=== PATIENT | female | born 1945 | race Caucasian/White ===

== ENCOUNTER → 2017-03-07 | Outpatient (CLI) | payer MEDICARE ==
--- NOTE | 2017-03-07 16:06 | US ---
EXAMINATION TYPE: US kidneys/renal and bladder DATE OF EXAM: 03/07/2017 2:40 PM COMPARISON: NONE CLINICAL HISTORY: N19 Renal Failure. EXAM MEASUREMENTS: Right Kidney: 9.6 x 3.9 x 4.0 cm Left Kidney: 9.7 x 4.2 x 5.2 cm Renals were difficult to penetrate Right Kidney: wnl Left Kidney: wnl Bladder: wnl Bilateral Jets seen: yes There is no evidence for hydronephrosis at this point in time. No nephrolithiasis is seen. No jonathan s are identified. The urinary bladder is anechoic. Bilateral ureteral jets are seen. IMPRESSION: 1. Normal renal ultrasound 2. Examination limited due to patient body habitus.
== END | disposition home or self-care (01) ==
LOC: RADUSWWP 14:27
PROVIDERS: ATTEND Family Medicine
DX: N19 Unspecified kidney failure (principal)
CPT/HCPCS: 76770

== ENCOUNTER → 2017-05-02 | Outpatient (CLI) | payer MEDICARE ==
[2017-05-02 16:10] LABS: Basophils % (A) 0 %; CH 32.4; CHCM 33.2; Eosinophils # (A) 0.1 k/uL (0-0.7); Eosinophils % (A) 1 %; HCT 43.6 % (34.0-46.0); HDW 2.46; Luc % (Auto) 1; Lymphocytes # (A) 1.5 k/uL (1.0-4.8); Lymphocytes % (A) 14 %; MCH 31.4 pg (25.0-35.0); MCHC 32.1 g/dL (31.0-37.0); MCV 97.9 fL (80.0-100.0); Mean Platelet Volume 7.1; Monocytes # (A) 0.4 k/uL (0-1.0); Monocytes % (A) 4 %; Neutrophils # (A) 8.6 k/uL (1.3-7.7); Neutrophils % (A) 80 %; RBC 4.45 m/uL (3.80-5.40); RDW 13.4 % (11.5-15.5); WBC 10.7 k/uL (3.8-10.6); WBC (Perox) 10.96
[2017-05-02 16:17] LABS: Amorphous Sediment,Urine Rare /hpf; Appearance,Urine Clear (Clear); Bilirubin,Urine Negative (Negative); Glucose,Urine (UA) Negative (Negative); Ketones,Urine Negative (Negative); Leukocyte Esterase,Urine Negative (Negative); Nitrite,Urine Negative (Negative); Particle Count 499; Protein,Urine Negative (Negative); RBC,Urine 1 /hpf (0-5); Specific Gravity,Urine 1.002 (1.001-1.035); Squamous Epithelial Cell,Urine <1 /hpf (0-4); UA Billing (MACRO vs. MICRO) MICRO; Urobilinogen,Urine <2.0 mg/dL (<2.0); WBC,Urine 1 /hpf (0-5)
[2017-05-02 16:32] LABS: Anion Gap 9 mmol/L; Blood Urea Nitrogen 14 mg/dL (7-17); Calcium 9.4 mg/dL (8.4-10.2); Carbon Dioxide 28 mmol/L (22-30); Chloride 105 mmol/L (98-107); Glucose 103 mg/dL (74-99); Iron 169 ug/dL (37-170); Magnesium 1.8 mg/dL (1.6-2.3); Non-African American GFR(MDRD) >60 (>60 ml/min/1.73 sqM); Phosphorous 3.6 mg/dL (2.5-4.5); Potassium 4.1 mmol/L (3.5-5.1); Sodium 142 mmol/L (137-145); Uric Acid 5.4 mg/dL (3.7-7.4)
[2017-05-02 16:41] LABS: Total Iron Binding Capacity 319 ug/dL (265-497)
== END | disposition home or self-care (01) ==
LOC: LABWHC1 15:27
PROVIDERS: ATTEND Internal Medicine Nephrology
DX: N18.2 Chronic kidney disease, stage 2 (mild) (principal); R31.29 Other microscopic hematuria; N39.0 Urinary tract infection, site not specified; D64.9 Anemia, unspecified; E55.9 Vitamin D deficiency, unspecified; E83.39 Other disorders of phosphorus metabolism; M10.9 Gout, unspecified
CPT/HCPCS: 36415; 80048; 81001; 82040; 82306; 82728; 83540; 83550; 83735; 83970; 84100; 84550; 85025

== ENCOUNTER → 2017-07-09 | Outpatient (CLI) | payer MEDICARE ==
--- NOTE | 2017-07-11 08:36 | MM ---
Reason for exam: screening (asymptomatic). Last mammogram was performed 1 year ago. History: Patient is postmenopausal and history of other cancer. Family history of breast cancer in sister at age 68. Benign stereotactic core biopsy of the right breast, March 21, 2001. Core biopsy of the right breast. 2 excisional biopsies of the left breast. 3 excisional biopsies of the right breast. Took estrogen for 19 years. Physical Findings: A clinical breast exam by your physician is recommended on an annual basis and results should be correlated with mammographic findings. MG 3D Screening Mammo W/Cad Bilateral CC and MLO view(s) were taken. Prior study comparison: July 06, 2016, bilateral MG 3d screening mammo w/cad. June 16, 2015, bilateral MG diagnostic mammo w CAD KENDRICK. There are scattered fibroglandular densities. Previous mammotome biopsy within the right breast. There is chronic nodularity bilaterally. No significant changes when compared with prior studies. ASSESSMENT: Benign, BI-RAD 2 RECOMMENDATION: Routine screening mammogram of both breasts in 1 year.
== END | disposition home or self-care (01) ==
LOC: RADMAMWWP 11:35
PROVIDERS: ATTEND Surgery
DX: Z12.31 Encounter for screening mammogram for malignant neoplasm of breast (principal); Z80.3 Family history of malignant neoplasm of breast
CPT/HCPCS: 77063; G0202

== ENCOUNTER 2017-11-29 14:17 | Emergency (ER) | payer MEDICARE ==
[2017-11-29 14:37] VITALS: RESP 18
[2017-11-29] MEDS ORDERED: RX INFO: IV CONTRAST WAS GIVEN 1 EACH MISC MISCELLANE PRN (15:36)
[2017-11-29] MEDS ORDERED: SODIUM CHLORIDE 0.9% 500 ML IV STA (15:36)
--- NOTE | 2017-11-29 15:39 | ED ---
General Adult HPI - General Source: patient, RN notes reviewed Mode of arrival: ambulatory Limitations: no limitations <Bang Nuñez - Last Filed: 11/29/17 17:55> <Jerman Urias - Last Filed: 11/29/17 18:17> - General Chief complaint: Fall Stated complaint: Dr Snyder Time Seen by Provider: 11/29/17 15:25 - History of Present Illness Initial comments: Patient 72-year-old female who presents emergency room today with multiple complaints. Patient does admit that she went to the urgent care and was advised coming here to the emergency room. She doesn't that she's had cough congestion for the last 2 weeks. She states that she believes that the bronchitis has been using treatments at home. She states she has a history of chronic bronchitis. Patient also admits to a fall 12 days ago. She states she slipped on the [employer] driveway falling down onto the right side. She does admit that she has had some pain to the right lower ribs. Patient states that she was advised coming here the emergency room for a CT. Patient denies any other complaints or symptoms. She does not that she had a urinalysis at urgent care and shows some hematuria. She states that is chronic problem. Patient denies any recent fever, chills, shortness of breath, chest pain, back pain, abdominal pain, nausea or vomiting, numbness or tingling, dysuria or hematuria, constipation or diarrhea, headaches or visual changes, or any other complaints. (Bang Nuñez) - Related Data Home Medications Medication Instructions Recorded Confirmed ALPRAZolam [Xanax] 0.25 mg PO TID 07/16/15 11/29/17 Atorvastatin [Lipitor] 10 mg PO QAM 07/16/15 11/29/17 Metoprolol Tartrate [Lopressor] 50 mg PO BID 09/21/16 11/29/17 Nitrofurantoin Monohyd/M-Cryst 100 mg PO DAILY 09/21/16 11/29/17 [Macrobid] Venlafaxine HCl [Effexor] 100 mg PO DAILY 09/21/16 11/29/17 Bisacodyl [Dulcolax] 5 mg PO DAILY 09/26/16 11/29/17 Cyanocobalamin [Vitamin B-12] 1,000 mcg PO BID 09/26/16 11/29/17 Benazepril HCl [Lotensin] 40 mg PO BID 10/29/16 11/29/17 Orphenadrine Citrate 100 mg PO HS 10/29/16 11/29/17 Omeprazole [PriLOSEC] 20 mg PO AC-BRKFST 11/29/17 11/29/17 Previous Rx's Medication Instructions Recorded Aspirin 325 mg PO BID #60 tab 09/27/16 Ferrous Sulfate [Feosol] 325 mg PO BID #30 tab 09/29/16 Azithromycin [Zithromax Z-pack] 0 mg PO DIRECTED #6 tab 11/29/17 Allergies Allergy/AdvReac Type Severity Reaction Status Date / Time hydrocodone [From [place]] Allergy Unknown Itching Verified 11/29/17 15:44 morphine Allergy Itching Verified 11/29/17 15:44 Review of Systems ROS Other: All systems not noted in ROS Statement are negative. <Bang Nuñez - Last Filed: 11/29/17 17:55> ROS Other: All systems not noted in ROS Statement are negative. <Jerman Urias - Last Filed: 11/29/17 18:17> ROS Statement: Those systems with pertinent positive or pertinent negative responses have been documented in the HPI. Past Medical History Past Medical History: Asthma, Cancer, CVA/TIA, GERD/Reflux, Hypertension, Osteoarthritis (OA) Additional Past Medical History / Comment(s): BACK PAIN, CHRONIC CONSTIPATION, CHRONIC BLADDER INFECTIONS, SKIN CANCER , History of Any Multi-Drug Resistant Organisms: None Reported Past Surgical History: Adenoidectomy, Bariatric Surgery, Cholecystectomy, Hysterectomy, Orthopedic Surgery, Tonsillectomy Additional Past Surgical History / Comment(s): BILATERAL SHOULDER SURGERY, BLADDER SUSPENSION, KENDRICK TOTAL KNEES, BARIATRIC SLEEVE WITH HERNIA REPAIR, TOTAL RT HIP Past Anesthesia/Blood Transfusion Reactions: Postoperative Nausea & Vomiting ( PONV) Past Psychological History: Anxiety, Depression Smoking Status: Former smoker Past Alcohol Use History: Rare Past Drug Use History: None Reported - Past Family History Father Family Medical History: Cancer Sister(s) Family Medical History: Cancer, Deep Vein Thrombosis (DVT) Additional Family Medical History / Comment(s): 2 SISTERS HAD CANCER <Bang Nuñez - Last Filed: 11/29/17 17:55> General Exam Limitations: no limitations <Bang Nuñez - Last Filed: 11/29/17 17:55> <Jerman Urias - Last Filed: 11/29/17 18:17> - General Exam Comments Initial Comments: General: The patient is awake and alert, in no distress, and does not appear acutely ill. Eye: Pupils are equal, round and reactive to light, extra-ocular movements are intact. No nystagmus. There is normal conjunctiva bilaterally. No signs of icterus. Ears, nose, mouth and throat: There are moist mucous membranes and no oral lesions. Neck: The neck is supple, there is no tenderness or JVD. Cardiovascular: There is a regular rate and rhythm. No murmur, rub or gallop is appreciated. Respiratory: Lungs are clear to auscultation, respirations are non-labored, breath sounds are equal. No wheezes, stridor, rales, or rhonchi. Gastrointestinal: Soft, non-distended, non-tender abdomen without masses or organomegaly noted. There is no rebound or guarding present. No CVA tenderness. Bowel sounds are unremarkable. Musculoskeletal: Normal ROM. Tender to palpation to the anterior and lateral aspect of the right lower ribs. Strength 5/5. Sensation intact. Pulses equal bilaterally 2+. Neurological: A&O x 3. CN II-XII intact, There are no obvious motor or sensory deficits. Coordination appears grossly intact. Speech is normal. Skin: Skin is warm and dry and no rashes or lesions are noted. Psychiatric: Cooperative, appropriate mood & affect, normal judgment. (Bang Nuñez) Course <Bang Nuñez - Last Filed: 11/29/17 17:55> <Jerman Urias - Last Filed: 11/29/17 18:17> Vital Signs 11/29/17 11/29/17 14:31 17:25 Temperature 98.0 F 98.7 F Pulse Rate 58 L 69 Respiratory 18 18 Rate Blood Pressure 193/86 151/69 O2 Sat by Pulse 97 95 Oximetry - Reevaluation(s) Reevaluation #1: 11/29/17 18:17 PEs supervision: I did personally evaluate the patient with a [id number] evaluation. I did discuss findings with her we've placed on appropriate medication I do agree with the assessment and plan. (Jerman Urias) Medical Decision Making - Lab Data Result diagrams: 11/29/17 16:06 11/29/17 16:06 <Bang Nuñez - Last Filed: 11/29/17 17:55> - Lab Data Result diagrams: 11/29/17 16:06 11/29/17 16:06 <Jerman Urias - Last Filed: 11/29/17 18:17> - Medical Decision Making Patient reexamined at this time shows no signs of distress resting comfortably in the stretcher. Patient's labs been reviewed. Patient's CT of the chest abdomen pelvis reviewed and does show patchy infiltrate the lower lung harris. No other acute abnormalities are seen. Results were discussed with the patient. Will be given dose Rocephin here in emergency room discharged home on azithromycin. Advised follow-up the family doctor over the next 2 days. Advised return here to emergency room if symptoms increase or worsen or for any other concerns. (Bang Nuñez) - Lab Data Lab Results 11/29/17 11/29/17 Range/Units 16:06 16:06 WBC 9.4 (3.8-10.6) k/uL RBC 4.71 (3.80-5.40) m/uL Hgb 14.5 (11.4-16.0) gm/dL Hct 43.8 (34.0-46.0) % MCV 93.0 (80.0-100.0) fL MCH 30.7 (25.0-35.0) pg MCHC 33.1 (31.0-37.0) g/dL RDW 13.9 (11.5-15.5) % Plt Count 299 (150-450) k/uL Neutrophils % 60 % Lymphocytes % 27 % Monocytes % 6 % Eosinophils % 4 % Basophils % 1 % Neutrophils # 5.6 (1.3-7.7) k/uL Lymphocytes # 2.5 (1.0-4.8) k/uL Monocytes # 0.6 (0-1.0) k/uL Eosinophils # 0.4 (0-0.7) k/uL Basophils # 0.1 (0-0.2) k/uL Sodium 142 (137-145) mmol/L Potassium 4.1 (3.5-5.1) mmol/L Chloride 105 (98-107) mmol/L Carbon Dioxide 28 (22-30) mmol/L Anion Gap 9 mmol/L BUN 19 H (7-17) mg/dL Creatinine 0.80 (0.52-1.04) mg/dL Est GFR (MDRD) Af Amer >60 (>60 ml/min/1.73 sqM) Est GFR (MDRD) Non-Af >60 (>60 ml/min/1.73 sqM) Glucose 89 (74-99) mg/dL Calcium 9.6 (8.4-10.2) mg/dL Total Bilirubin 0.8 (0.2-1.3) mg/dL AST 25 (14-36) U/L ALT 31 (9-52) U/L Alkaline Phosphatase 127 H (38-126) U/L Total Protein 6.7 (6.3-8.2) g/dL Albumin 4.0 (3.5-5.0) g/dL Disposition Time of Disposition: 17:56 <Bang Nuñez - Last Filed: 11/29/17 17:55> <Jerman Urias - Last Filed: 11/29/17 18:17> Clinical Impression: Community acquired pneumonia, Rib contusion Disposition: HOME SELF-CARE Condition: Good Instructions: Community Acquired Pneumonia (ED) Additional Instructions: Please use medication as discussed. Please follow-up with family doctor in the next 2 days of symptoms have not improved. Please return to emergency room if the symptoms increase or worsen or for any other concerns. Prescriptions: Azithromycin [Zithromax Z-pack] 0 mg PO DIRECTED #6 tab Referrals: Shanon Castellano MD [Primary Care Provider] - 1-2 days
[2017-11-29 16:18] LABS: Basophils # (A) 0.1 k/uL (0-0.2); Basophils % (A) 1 %; Eosinophils # (A) 0.4 k/uL (0-0.7); Eosinophils % (A) 4 %; HCT 43.8 % (34.0-46.0); HGB 14.5 gm/dL (11.4-16.0); Lymphocytes # (A) 2.5 k/uL (1.0-4.8); Lymphocytes % (A) 27 %; MCH 30.7 pg (25.0-35.0); MCHC 33.1 g/dL (31.0-37.0); Mean Platelet Volume 7.6; Monocytes # (A) 0.6 k/uL (0-1.0); Monocytes % (A) 6 %; Neutrophils # (A) 5.6 k/uL (1.3-7.7); Neutrophils % (A) 60 %; Platelet Count 299 k/uL (150-450); RBC 4.71 m/uL (3.80-5.40); RDW 13.9 % (11.5-15.5); WBC 9.4 k/uL (3.8-10.6)
[2017-11-29 16:26] LABS: ALT 31 U/L (9-52); AST 25 U/L (14-36); Alkaline Phosphatase 127 U/L (38-126); Anion Gap 9 mmol/L; Blood Urea Nitrogen 19 mg/dL (7-17); Calcium 9.6 mg/dL (8.4-10.2); Carbon Dioxide 28 mmol/L (22-30); Chloride 105 mmol/L (98-107); Glucose 89 mg/dL (74-99); Potassium 4.1 mmol/L (3.5-5.1); Sodium 142 mmol/L (137-145); Total Bilirubin 0.8 mg/dL (0.2-1.3); Total Protein 6.7 g/dL (6.3-8.2)
--- NOTE | 2017-11-29 17:32 | CT ---
EXAMINATION TYPE: CT ChestAbdPelvis w con DATE OF EXAM: 11/29/2017 COMPARISON: 07/16/2015 HISTORY: Fall x1 week ago, lower right rib pain. CT DLP: 2055 mGycm Automated exposure control for dose reduction was used. CONTRAST: CT scan of the chest, abdomen and pelvis is performed without Oral Contrast and with IV Contrast, pat ient injected with 100ml mL of Omnipaque 300. FINDINGS: The lungs are clear of consolidation. There is no sign of pleural effusion or pneumothorax. There is patchy linear density at the lung bases consistent with scarring and atelectasis. There is no pleural effusion. Thoracic aorta is intact. There is no pericardial effusion. Liver spleen pancreas appear normal. There are clips from cholecystectomy. Bile ducts are not dilated . There is no adrenal mass. Kidneys show satisfactory contrast opacification. There is no hydronephrosi s. Abdominal aorta is atheromatous. There is no retroperitoneal adenopathy. There is no ascites. I se e no intestinal wall thickening. There is metal artifact from right hip prosthesis. There is multilev el spondylosis in the thoracic and lumbar spine. There is 20% anterior wedging of L1 vertebra that ap pears old. I see no acute spinal fracture. Sternum is intact. There are surgical clips around the sto mach. There is a 1 cm subpleural nodule at the lateral posterior left lung base. IMPRESSION: No acute fracture seen. Atherosclerotic vascular disease. Multilevel spondylosis. There i s new patchy linear infiltrate and atelectasis at the posterior lung bases. Small nodule at the left lung base probably relates to scarring. No evidence of traumatic injury within the abdomen and pelvis .
[2017-11-29] MEDS ORDERED: cefTRIAXone IN SWFI 1,000 MG/10 ML SYRINGE IVP STA (17:56)
[2017-11-29] MEDS ORDERED: cefTRIAXone 1,000 MG VIAL (IM USE) IM STA (18:31)
[2017-11-29 18:45] VITALS: BP 167/77; PULSE 67; TEMP 98.1
== END 2017-11-29 18:43 | disposition home or self-care (01) ==
LOC: EC 14:17
DX: S20.211A Contusion of right front wall of thorax, initial encounter (principal); J18.9 Pneumonia, unspecified organism; I10 Essential (primary) hypertension; K21.9 Gastro-esophageal reflux disease without esophagitis; K59.09 Other constipation; N30.21 Other chronic cystitis with hematuria; F32.9 Major depressive disorder, single episode, unspecified; F41.9 Anxiety disorder, unspecified; Z87.891 Personal history of nicotine dependence; Z79.899 Other long term (current) drug therapy; Z88.5 Allergy status to narcotic agent; Z87.39 Personal history of other diseases of the musculoskeletal system and connective tissue; W00.1XXA Fall from stairs and steps due to ice and snow, initial encounter
CPT/HCPCS: 36415; 80053; 85025; 71260; 74177; 99284; 96360; 96372; J0696; Q9967

== ENCOUNTER → 2018-12-31 | Outpatient (CLI) | payer MEDICARE ==
[2018-12-31 14:32] LABS: Basophils % (A) 0 %; Eosinophils # (A) 0.2 k/uL (0-0.7); Eosinophils % (A) 2 %; HCT 40.7 % (34.0-46.0); HGB 12.7 gm/dL (11.4-16.0); Lymphocytes # (A) 1.7 k/uL (1.0-4.8); Lymphocytes % (A) 17 %; MCH 28.9 pg (25.0-35.0); MCHC 31.3 g/dL (31.0-37.0); MCV 92.5 fL (80.0-100.0); Mean Platelet Volume 7.2; Monocytes # (A) 0.6 k/uL (0-1.0); Monocytes % (A) 6 %; Neutrophils # (A) 7.2 k/uL (1.3-7.7); Neutrophils % (A) 72 %; Platelet Count 274 k/uL (150-450); RDW 14.7 % (11.5-15.5); WBC 9.9 k/uL (3.8-10.6)
[2018-12-31 14:38] LABS: ALT 28 U/L (9-52); AST 18 U/L (14-36); Albumin 3.8 g/dL (3.5-5.0); Albumin/Globulin Ratio 1.4; Alkaline Phosphatase 98 U/L (38-126); Anion Gap 10 mmol/L; Blood Urea Nitrogen 55 mg/dL (7-17); Calcium 9.6 mg/dL (8.4-10.2); Carbon Dioxide 19 mmol/L (22-30); Chloride 112 mmol/L (98-107); Globulin 2.7 g/dL; Glucose 89 mg/dL (74-99); Potassium 5.3 mmol/L (3.5-5.1); Sodium 141 mmol/L (137-145); Total Bilirubin 0.5 mg/dL (0.2-1.3); Total Protein 6.5 g/dL (6.3-8.2)
[2018-12-31 14:55] LABS: T4, Free (Free Thyroxine) 1.07 ng/dL (0.78-2.19)
[2018-12-31 15:28] LABS: Erythrocyte Sedimentation Rate 13 mm/hr (0-20)
== END ==
LOC: LABWHC1 12:53
PROVIDERS: ATTEND Internal Medicine
DX: R53.1 Weakness (principal); R53.83 Other fatigue; R06.09 Other forms of dyspnea
CPT/HCPCS: 36415; 80053; 82533; 82607; 84439; 84443; 85025; 85379; 85652

== ENCOUNTER 2019-01-01 11:26 | Inpatient (IN) | payer MEDICARE ==
[2019-01-01] MEDS ORDERED: SODIUM CHLORIDE 0.9% 1,000 ML IV STA (12:10)
--- NOTE | 2019-01-01 12:20 | ED ---
General Adult HPI - General Chief complaint: Recheck/Abnormal Lab/Rx Stated complaint: poss dehydration Time Seen by Provider: 01/01/19 11:53 Source: patient Mode of arrival: wheelchair Limitations: no limitations - History of Present Illness Initial comments: Dictation was produced using Share[employer] dictation software. please excuse any grammatical, word or spelling errors. Chief Complaint: Patient 73-year-old female past medical history of asthma, cancer, CVA, hypertension presents with section from her PCP to come for dehydration. History of Present Illness: Patient 73-year-old female presents with instructions from primary care physician come in for IV hydration. Patient states that she's been having some nausea however no vomiting. Denies any diarrhea. Patient states she has constant back pain that's chronic in nature. She states that her symptoms of back pain are similar to her usual 71 be slightly worse. Patient still able to ambulate without any issues. Labs were reviewed that were performed outpatient. Patient does have findings of acute kidney injury. The ROS documented in this emergency department record has been reviewed and confirmed by me. Those systems with pertinent positive or negative responses have been documented in the HPI. All other systems are other negative and/or noncontributory. PHYSICAL EXAM: General Impression: Alert and oriented x3, not in acute distress HEENT: Normocephalic atraumatic, extra-ocular movements intact, pupils equal and reactive to light bilaterally, mucous membranes moist. Cardiovascular: Heart regular rate and rhythm, S1&S2 audible, no murmurs, rubs or gallops Chest: Lungs clear to auscultation bilaterally, no rhonchi, no wheeze, no rales Abdomen: Bowel sounds present, abdomen soft, non-tender, non-distended, no organomegaly Musculoskeletal: Pulses present and equal in all extremities, no peripheral edema Motor: Power 5/5 bilaterally, no focal deficits noted Neurological: CN II-XII grossly intact, no focal motor or sensory deficits noted Skin: Intact with no visualized rashes Psych: Normal affect and mood ED course: 73-year-old female presents with instruction by primary care physician come to the emergency department for acute kidney injury. Vital signs upon arrival shows blood pressure of 83/49, worse vital signs within acceptable limits. Laboratory evaluation obtained. CBC unremarkable. Metabolic panel shows elevated renal markers. She does have some non-gap acidosis. Urinalysis is unremarkable. Patient be admitted for IV hydration for acute kidney injury. EKG interpretation: Ventricular rate 62, normal sinus rhythm, NC interval 172, Bhupinder 4, QTC 416. No NC prolongation, no QTC prolongation, no ST or T-wave changes noted. Overall, this EKG is unremarkable - Related Data Home Medications Medication Instructions Recorded Confirmed Atorvastatin [Lipitor] 10 mg PO QAM 07/16/15 01/01/19 Metoprolol Tartrate [Lopressor] 50 mg PO BID 09/21/16 01/01/19 Nitrofurantoin Monohyd/M-Cryst 100 mg PO DAILY 09/21/16 01/01/19 [Macrobid] Bisacodyl [Dulcolax] 5 mg PO DAILY 09/26/16 01/01/19 Benazepril HCl [Lotensin] 40 mg PO BID 10/29/16 01/01/19 ALPRAZolam [Xanax] 0.25 mg PO BID 01/01/19 01/01/19 Ibuprofen [Motrin Ib] 400 mg PO Q8HR 01/01/19 01/01/19 Nystatin 100,000Unit/gm Cream 1 applic TOPICAL BID PRN 01/01/19 01/01/19 [Mycostatin Cream] Omeprazole 20 mg PO BID 01/01/19 01/01/19 Venlafaxine HCl [Effexor] 100 mg PO BID 01/01/19 01/01/19 Allergies Allergy/AdvReac Type Severity Reaction Status Date / Time hydrocodone [From [place]] Allergy Unknown Itching Verified 01/01/19 12:29 morphine Allergy Itching Verified 01/01/19 12:29 Review of Systems ROS Statement: Those systems with pertinent positive or pertinent negative responses have been documented in the HPI. ROS Other: All systems not noted in ROS Statement are negative. Past Medical History Past Medical History: Asthma, Cancer, CVA/TIA, GERD/Reflux, Hypertension, Osteoarthritis (OA) Additional Past Medical History / Comment(s): BACK PAIN, CHRONIC CONSTIPATION, CHRONIC BLADDER INFECTIONS, SKIN CANCER , History of Any Multi-Drug Resistant Organisms: None Reported Past Surgical History: Adenoidectomy, Bariatric Surgery, Cholecystectomy, Hysterectomy, Orthopedic Surgery, Tonsillectomy Additional Past Surgical History / Comment(s): BILATERAL SHOULDER SURGERY, BLADDER SUSPENSION, KENDRICK TOTAL KNEES, BARIATRIC SLEEVE WITH HERNIA REPAIR, TOTAL RT HIP Past Anesthesia/Blood Transfusion Reactions: Postoperative Nausea & Vomiting ( PONV) Past Psychological History: Anxiety, Depression Smoking Status: Former smoker Past Alcohol Use History: Rare Past Drug Use History: None Reported - Past Family History Father Family Medical History: Cancer Sister(s) Family Medical History: Cancer, Deep Vein Thrombosis (DVT) Additional Family Medical History / Comment(s): 2 SISTERS HAD CANCER General Exam Limitations: no limitations Course Vital Signs 01/01/19 01/01/19 01/01/19 11:40 12:50 13:17 Temperature 97.7 F Pulse Rate 65 68 Respiratory 18 18 18 Rate Blood Pressure 83/49 95/67 127/60 O2 Sat by Pulse 98 93 L 98 Oximetry Medical Decision Making - Lab Data Result diagrams: 01/01/19 12:24 01/01/19 12:24 Lab Results 01/01/19 01/01/19 01/01/19 Range/Units 12:24 12:24 12:27 WBC 7.1 (3.8-10.6) k/uL RBC 4.41 (3.80-5.40) m/uL Hgb 13.4 (11.4-16.0) gm/dL Hct 40.5 (34.0-46.0) % MCV 92.0 (80.0-100.0) fL MCH 30.4 (25.0-35.0) pg MCHC 33.1 (31.0-37.0) g/dL RDW 14.7 (11.5-15.5) % Plt Count 261 (150-450) k/uL Neutrophils % 65 % Lymphocytes % 23 % Monocytes % 6 % Eosinophils % 3 % Basophils % 1 % Neutrophils # 4.6 (1.3-7.7) k/uL Lymphocytes # 1.6 (1.0-4.8) k/uL Monocytes # 0.5 (0-1.0) k/uL Eosinophils # 0.2 (0-0.7) k/uL Basophils # 0.0 (0-0.2) k/uL Sodium 141 (137-145) mmol/L Potassium 4.9 (3.5-5.1) mmol/L Chloride 116 H (98-107) mmol/L Carbon Dioxide 18 L (22-30) mmol/L Anion Gap 7 mmol/L BUN 50 H (7-17) mg/dL Creatinine 1.94 H (0.52-1.04) mg/dL Est GFR (CKD-EPI)AfAm 29 (>60 ml/min/1.73 sqM) Est GFR (CKD-EPI)NonAf 25 (>60 ml/min/1.73 sqM) Glucose 67 L (74-99) mg/dL Calcium 9.5 (8.4-10.2) mg/dL Urine Color Yellow Urine Appearance Cloudy H (Clear) Urine pH 5.0 (5.0-8.0) Ur Specific [place] 1.013 (1.001-1.035) Urine Protein Trace H (Negative) Urine Glucose (UA) Negative (Negative) Urine Ketones Negative (Negative) Urine Blood Trace H (Negative) Urine Nitrite Negative (Negative) Urine Bilirubin Negative (Negative) Urine Urobilinogen <2.0 (<2.0) mg/dL Ur Leukocyte Esterase Large H (Negative) Urine RBC 5 (0-5) /hpf Ur Squamous Epith Cells 1 (0-4) /hpf Urine Bacteria Many H (None) /hpf Hyaline Casts 14 H (0-2) /lpf Urine Mucus Rare H (None) /hpf Disposition Clinical Impression: NITIN (acute kidney injury) Disposition: ADMITTED IP TO THIS HOSP Condition: Fair Referrals: Shanon Castellano MD [Primary Care Provider] - 1-2 days Decision Time: 13:33
[2019-01-01 12:54] LABS: Appearance,Urine Cloudy (Clear); Bacteria,Urine Many /hpf; Bilirubin,Urine Negative (Negative); Blood,Urine Trace (Negative); Color,Urine Yellow; Glucose,Urine (UA) Negative (Negative); Hyaline Casts,Urine 14 /lpf (0-2); Ketones,Urine Negative (Negative); Leukocyte Esterase,Urine Large (Negative); Mucus,Urine Rare /hpf; Nitrite,Urine Negative (Negative); Protein,Urine Trace (Negative); RBC,Urine 5 /hpf (0-5); Specific Gravity,Urine 1.013 (1.001-1.035); Squamous Epithelial Cell,Urine 1 /hpf (0-4); Urobilinogen,Urine <2.0 mg/dL (<2.0)
[2019-01-01 12:54] LABS: Basophils % (A) 1 %; Eosinophils # (A) 0.2 k/uL (0-0.7); Eosinophils % (A) 3 %; HCT 40.5 % (34.0-46.0); HGB 13.4 gm/dL (11.4-16.0); Lymphocytes # (A) 1.6 k/uL (1.0-4.8); Lymphocytes % (A) 23 %; MCH 30.4 pg (25.0-35.0); MCHC 33.1 g/dL (31.0-37.0); Mean Platelet Volume 7.1; Monocytes # (A) 0.5 k/uL (0-1.0); Monocytes % (A) 6 %; Neutrophils # (A) 4.6 k/uL (1.3-7.7); Neutrophils % (A) 65 %; Platelet Count 261 k/uL (150-450); RBC 4.41 m/uL (3.80-5.40); RDW 14.7 % (11.5-15.5); WBC 7.1 k/uL (3.8-10.6)
[2019-01-01 12:55] LABS: Calcium 9.5 mg/dL (8.4-10.2); Potassium 4.9 mmol/L (3.5-5.1)
[2019-01-01] MEDS ORDERED: ONDANSETRON 4 MG/2 ML VIAL IVP PRN (14:06)
[2019-01-01] MEDS ORDERED: NALOXONE 0.4 MG/ML 1 ML VIAL IV PRN (14:06)
[2019-01-01] MEDS ORDERED: ACETAMINOPHEN TAB 325 MG TAB PO PRN (14:06)
[2019-01-01] MEDS: SODIUM CHLORIDE 0.9% 1,000 ML IV SCH (17:43)
--- NOTE | 2019-01-01 20:30 | XR ---
EXAMINATION TYPE: XR chest 1V portable DATE OF EXAM: 01/01/2019 COMPARISON: Yesterday HISTORY: Short of breath TECHNIQUE: Single frontal view of the chest is obtained. FINDINGS: There is no heart failure nor confluent pneumonic infiltrate. Costophrenic angles are maximiliano r. Bony thorax is intact. IMPRESSION: No active cardiopulmonary disease. No change.
[2019-01-01] MEDS ORDERED: NYSTATIN 100,000UNIT/GM CREAM 30 GM TUBE TOPICAL PRN (23:00)
[2019-01-01 23:25] LABS: Albumin 2.8 g/dL (3.5-5.0); Calcium 8.5 mg/dL (8.4-10.2); Potassium 4.5 mmol/L (3.5-5.1); Total Bilirubin 0.1 mg/dL (0.2-1.3); Total Protein 5.1 g/dL (6.3-8.2)
[2019-01-02] MEDS: ALPRAZolam 0.25 MG TAB PO SCH ×3 (00:09→21:48)
[2019-01-02] MEDS: SODIUM CHLORIDE 0.9% 1,000 ML IV SCH ×3 (00:10→21:45)
[2019-01-02] MEDS: METOPROLOL TARTRATE 50 MG TAB PO SCH ×3 (00:10→21:57)
[2019-01-02] MEDS: BISACODYL 5 MG TABLET.DR PO SCH ×2 (00:10→08:27)
[2019-01-02] MEDS: PANTOPRAZOLE 40 MG TABLET PO SCH ×2 (00:17→21:56)
--- NOTE | 2019-01-02 07:15 | HP ---
HISTORY AND PHYSICAL DATE OF SERVICE: 01/01/2019. CHIEF COMPLAINTS: Weakness, shortness of breath. HISTORY OF PRESENT ILLNESS: This 73-year-old woman with a past medical history of multiple medical problems including history of asthma, CVA, TIA, GERD, hypertension, DJD, history of adenoidectomy, history of bariatric surgery being followed by Dr. Shanon Castellano in the outpatient setting, apparently not feeling well over the past several days. Patient reports the patient is short of breath. No energy. The patient came to [facility] and was admitted for further evaluation and treatment. Patient had mild COPD followed by Dr. Freed and patient also on water pills appears about 2 weeks ago according to her. There is no history of fever, rigors or chills. No history of headache loss of consciousness or seizures. PAST HISTORY: Asthma, CVA, TIA, GERD, hypertension, history of DJD, adenoidectomy, bariatric surgery. MEDICATIONS ARE: Home medications are: 1. Effexor 100 mg p.o. b.i.d. 2. Motrin 400 mg p.o. q.8h. 3. Dulcolax 5 mg p.o. daily. 4. Lotensin 40 mg p.o. b.i.d. 5. Lipitor 10 mg q.a.m. 6. Xanax 0.5 b.i.d. 7. Mycostatin 1 application b.i.d. p.r.n. 8. Omeprazole 20 mg b.i.d. 9. Macrobid 100 mg p.o. daily. 10.Lopressor 50 mg p.o. b.i.d. ALLERGIES: NORCO AND MORPHINE. FAMILY HISTORY: History of cancer, skin cancer with metastasis. SOCIAL HISTORY: Previous history of smoking. Occasional alcohol intake. REVIEW OF SYSTEMS: ENT: Diminished hearing and vision. CARDIOVASCULAR: As mentioned earlier. Respirations: As mentioned earlier. GI no nausea or vomiting. : No dysuria. Nervous system: No numbness, weakness. Allergy/Immunology: No asthma or hayfever. Musculoskeletal as mentioned earlier. Hematology/Oncology: No history of anemia. Endocrine: No history of diabetes or hypothyroidism. CONSTITUTIONAL: As mentioned earlier. Dermatology: Negative. Rheumatology: Negative. Psychiatry: As mentioned earlier. PHYSICAL EXAMINATION: Alert and oriented x3. Pulse is 83. Blood pressure 154/70, respiration 18, temperature 97.2, pulse ox 98% on room air. HEENT: Conjunctivae normal. Oral mucosa moist. Neck is no jugular venous distention. No carotid bruit. No lymph node enlargement. Cardiovascular: S1, S2 muffled. No S3, no S4. RESPIRATORY: Breath sounds diminished in the bases. A few scattered rhonchi. No crackles. ABDOMEN: Soft, nontender. No mass palpable. Legs no edema. No swelling. NERVOUS SYSTEM: Higher functions as mentioned earlier. Moves all 4 limbs. No focal motor or sensory deficits. Lymphatics: No lymph nodes palpable in the neck, axillae or groin. JOINTS: No active deforming arthropathy. LABS: CBC within normal limits. Creatinine 1.94. The baseline creatinine is normal 2.25 yesterday. UA possible UTI. ASSESSMENT: 1. Possible acute renal failure with acute prerenal acute tubular necrosis. 2. Acute urinary tract infection present on admission. 3. History of asthma. 4. History of cerebrovascular accident, transient ischemic attack. 5. History of gastroesophageal reflux disease. 6. Hypertension. 7. History of pneumonia. 8. History of adenoidectomy. 9. History of bariatric surgery. 10.History of cholecystectomy. 11.Anxiety, depression. RECOMMENDATIONS AND DISCUSSION: In this 73-year-old woman who presented with multiple complex medical issues. We will monitor the patient closely, continue the current medication, continue symptomatic treatment. At this time, I recommend to hold diuretics and cautious hydration. I would also recommend empiric antibiotics for UTI. Cultures were obtained. Prognosis guarded because of multiple complex medical issues. Further recommendations to follow. A copy of dictation being forwarded to Dr. Shanon Castellano who is the primary physician. MMODL / IJN: [id number] /
[2019-01-02] MEDS: ATORVASTATIN 10 MG TAB PO SCH (08:27)
[2019-01-02] MEDS: HEPARIN SODIUM,PORCINE 5,000 UNIT/ML 1 ML VIAL SQ SCH ×2 (08:27→21:59)
[2019-01-02] MEDS ORDERED: PANTOPRAZOLE 40 MG/10 ML VIAL IV SCH (09:00)
--- NOTE | 2019-01-02 16:01 | P.CNPUL ---
History of Present Illness Consult date: 01/02/19 Requesting physician: Nichelle Randolph Reason for consult: dyspnea Chief complaint: Dehydration History of present illness: This is a very pleasant 73-year-old female patient who follows with Dr. Castellano as her primary care physician. She has a history of retention, gastroesophageal reflux disease, CVA/TIA, skin cancer, anxiety/depression. She also has a previous history of smoking. She had recently been having issues with chronic shortness of breath and fatigue of unclear etiology. She was seen by Dr. Freed in our office on 12/31/2018. He had ordered a metabolic profile thyroid profile d-dimer and to have a CT angiogram of the chest. 6 minute walk was unremarkable. Her saturations were in the high 90s. Her lab results did reveal acute renal failure and she was directed to the emergency room. Her creatinine was 2.25. She was admitted for acute renal failure with acute prerenal acute tubular necrosis. She is seen today in consultation on the regular medical floor. She is awake and alert in no acute distress. She denies any shortness of breath, cough or congestion. No chills or night sweats. Chest x-ray shows no acute pulmonary process. She has been receiving 0.9 normal saline the 100 ML's per hour. Current creatinine 1.44. Urinalysis was positive for many bacteria and large leukocyte esterase. She's currently on ceftriaxone. Review of Systems 14 point review of system was conducted all negative other than as mentioned in HPI. The patient was basically asymptomatic and was found to have elevated creatinine level. Past Medical History Past Medical History: Asthma, Cancer, CVA/TIA, GERD/Reflux, Hypertension, Osteoarthritis (OA), Pneumonia Additional Past Medical History / Comment(s): Pt states she recently was started on a "water pill to help with my high blood pressure", bronchitis, "small stroke found on EEG", fell off roof 2015 and has chronic back pain since- gets epidural injections, scoliosis, arthritis in multiple joints, chronic constipation, chronic UTIs, skin cancer with removal. History of Any Multi-Drug Resistant Organisms: None Reported Past Surgical History: Adenoidectomy, Bariatric Surgery, Cholecystectomy, Heart Catheterization, Hysterectomy, Joint Replacement, Orthopedic Surgery, Tonsillectomy Additional Past Surgical History / Comment(s): Lab band with removal, bariatric sleeve with hernia repair, skin cancer removed from arm, EGD, L shoulder rotator cuff surgery twice and R shoulder rotator cuff surgery three times, bilateral total knees, total R hip then dislocated it and had a reduction done, 2012 cardiac cath-normal, bilateral cataract removals with lens implants. Past Anesthesia/Blood Transfusion Reactions: Motion Sickness, Postoperative Nausea & Vomiting (PONV) Smoking Status: Former smoker - Past Family History Father Family Medical History: Cancer Additional Family Medical History / Comment(s): Father had skin cancer that metastasized to his bones. Sister(s) Family Medical History: Cancer, Deep Vein Thrombosis (DVT) Additional Family Medical History / Comment(s): 1 sister had pancreatic cancer and . Another sister is a breast cancer survivor and had a DVT Mother Family Medical History: No Reported History Additional Family Medical History / Comment(s): Mother was healthy Medications and Allergies Home Medications Medication Instructions Recorded Confirmed Type Atorvastatin [Lipitor] 10 mg PO QAM 07/16/15 01/01/19 History Metoprolol Tartrate [Lopressor] 50 mg PO BID 09/21/16 01/01/19 History Nitrofurantoin Monohyd/M-Cryst 100 mg PO DAILY 09/21/16 01/01/19 History [Macrobid] Bisacodyl [Dulcolax] 5 mg PO DAILY 09/26/16 01/01/19 History Benazepril HCl [Lotensin] 40 mg PO BID 10/29/16 01/01/19 History ALPRAZolam [Xanax] 0.25 mg PO BID 01/01/19 01/01/19 History Ibuprofen [Motrin Ib] 400 mg PO Q8HR 01/01/19 01/01/19 History Nystatin 100,000Unit/gm Cream 1 applic TOPICAL BID PRN 01/01/19 01/01/19 History [Mycostatin Cream] Omeprazole 20 mg PO BID 01/01/19 01/01/19 History Venlafaxine HCl [Effexor] 100 mg PO BID 01/01/19 01/01/19 History Allergies Allergy/AdvReac Type Severity Reaction Status Date / Time hydrocodone [From [place]] Allergy Unknown Itching Verified 01/01/19 12:29 morphine Allergy Itching Verified 01/01/19 12:29 Physical Exam Vitals: Vital Signs Temp Pulse Resp BP BP BP Pulse Ox 01/02/19 15:18 16 01/02/19 14:45 98.2 F 73 16 135/78 97 01/02/19 08:00 16 01/02/19 06:30 98.5 F 71 16 129/78 100/64 126/82 96 01/02/19 00:12 124/75 114/75 129/78 01/01/19 22:02 97.9 F 84 20 126/75 96 01/01/19 16:00 18 Intake and Output 01/02/19 01/02/19 01/02/19 06:59 14:59 22:59 Other: # Voids 1 2 # Bowel Movements 0 GENERAL EXAM: Alert, active, comfortable in no apparent distress. On room air. HEAD: Normocephalic. EYES: Normal reaction of pupils, equal size. NOSE: Clear with pink turbinates. THROAT: No erythema or exudates. NECK: No masses, no JVD. CHEST: No chest wall deformity. LUNGS: Equal air entry with no crackles, wheeze, rhonchi or dullness. CVS: S1 and S2 normal with no audible murmur, regular rhythm. ABDOMEN: No hepatosplenomegaly, normal bowel sounds, no guarding or rigidity. SPINE: No scoliosis or deformity SKIN: No rashes CENTRAL NERVOUS SYSTEM: No focal deficits, tone is normal in all 4 extremities. EXTREMITIES: There is no peripheral edema. No clubbing, no cyanosis. Peripheral pulses are intact. Results - Laboratory Findings CBC and BMP: 01/01/19 12:24 01/01/19 22:34 Abnormal lab findings: Abnormal Labs 01/01/19 01/01/19 01/01/19 12:24 12:27 22:34 Chloride 116 H 117 H Carbon Dioxide 18 L 17 L BUN 50 H 45 H Creatinine 1.94 H 1.44 H Glucose 67 L 151 H Total Bilirubin 0.1 L Total Protein 5.1 L Albumin 2.8 L Urine Appearance Cloudy H Urine Protein Trace H Urine Blood Trace H Ur Leukocyte Esterase Large H Urine WBC 84 H Urine Bacteria Many H Hyaline Casts 14 H Urine Mucus Rare H - Diagnostic Findings Chest x-ray: image reviewed (No acute pulmonary process.) Assessment and Plan Assessment: Impression: #1 Acute renal failure of unclear etiology. Suspect secondary to dehydration sublingually related to previous diuretic use. Also on Motrin 400 every 8 hours. #2 Urinary tract infection, cultures pending. Currently on ceftriaxone.. #3 History of gastroesophageal reflux disease. #4 Hypertension. #5 Chronic dyspnea of unclear etiology. 6 minute walk conducted in our office revealed O2 saturations in the high 90s without any desaturations. Chest x-ray clear. #6 History of anxiety/depression. Plan: The patient was seen and evaluated by Dr. Woods. Chest x-ray and labs reviewed. No pulmonary issues at this time. Her creatinine is improving. Continue with fluid resuscitation. Probable discharge in the a.m. We'll continue to follow. I, the cosigning physician, performed a history & physical examination of the patient. Lungs sounds are clear. Maintaining good O2 saturations in the 90s on room air. I discussed the assessment and plan of care with my nurse practitioner, Kristal Sanchez. I attest to the above note as dictated by her.
--- NOTE | 2019-01-02 17:00 | PN ---
PROGRESS NOTE DATE OF SERVICE: 01/02/2019 This 73-year-old woman who was admitted with renal failure also had evidence of UTI. No chest pain. No palpitations. No fever. On exam, alert and oriented x3. Pulse 73, blood pressure 130/78, respirations 16, temperature 98.2, pulse ox 97% on room air. HEENT: Conjunctivae normal. NECK: No jugular venous distention. CARDIOVASCULAR SYSTEM: S1, S2 muffled. RESPIRATORY SYSTEM: Breath sounds diminished at the bases. No rhonchi. No crackles. ABDOMEN: Soft, non-tender. NERVOUS SYSTEM: No focal deficit. LABS: Creatinine is 1.44, sodium 140. Urine culture pending. ASSESSMENT: 1. Acute renal failure secondary to dehydration, acute prerenal, acute tubular necrosis. 2. Acute urinary tract infection, present on admission. 3. History of asthma. 4. History of cerebrovascular accident, transient ischemic attack. 5. History of gastroesophageal reflux disease. 6. Hypertension. 7. History of pneumonia. 8. History of adenoidectomy. 9. History of bariatric surgery. 10.History of cholecystectomy. 11.History of depression. 12.FULL CODE. RECOMMENDATIONS AND DISCUSSION: I recommend to continue current medications, continue with the monitoring, symptomatic treatment. Otherwise at this time I recommend to continue with IV antibiotics. Follow the cultures. PT/OT evaluation. Otherwise, guarded prognosis. Further recommendations to follow. The patient is improving. Possibly home tomorrow. MMAMANDAL / IJN: [id number] /
[2019-01-03 06:21] VITALS: TEMP 97.8
[2019-01-03 06:22] VITALS: RESP 18
[2019-01-03 06:23] VITALS: BP 153/86; PULSE 87
[2019-01-03] MEDS: SODIUM CHLORIDE 0.9% 1,000 ML IV SCH (06:42)
[2019-01-03] MEDS: ALPRAZolam 0.25 MG TAB PO SCH (08:16)
[2019-01-03] MEDS: METOPROLOL TARTRATE 50 MG TAB PO SCH (08:16)
[2019-01-03] MEDS: HEPARIN SODIUM,PORCINE 5,000 UNIT/ML 1 ML VIAL SQ SCH (08:16)
[2019-01-03] MEDS: ATORVASTATIN 10 MG TAB PO SCH (08:16)
[2019-01-03] MEDS: BISACODYL 5 MG TABLET.DR PO SCH (08:16)
[2019-01-03 10:25] LABS: Basophils % (A) 1 %; Eosinophils # (A) 0.2 k/uL (0-0.7); Eosinophils % (A) 4 %; HCT 35.8 % (34.0-46.0); Hypochromasia Slight; Lymphocytes # (A) 1.4 k/uL (1.0-4.8); Lymphocytes % (A) 27 %; MCHC 30.7 g/dL (31.0-37.0); MCV 94.3 fL (80.0-100.0); Mean Platelet Volume 7.1; Monocytes # (A) 0.3 k/uL (0-1.0); Monocytes % (A) 5 %; Neutrophils # (A) 3.2 k/uL (1.3-7.7); Neutrophils % (A) 62 %; Platelet Count 212 k/uL (150-450); WBC 5.2 k/uL (3.8-10.6)
[2019-01-03 10:29] LABS: Calcium 8.6 mg/dL (8.4-10.2); Potassium 3.9 mmol/L (3.5-5.1)
--- NOTE | 2019-01-03 14:29 | P.PN ---
Subjective Progress Note Date: 01/03/19 Principal diagnosis: Acute kidney injury This is a very pleasant 73-year-old female patient who follows with Dr. Castellano as her primary care physician. She has a history of retention, gastroesophageal reflux disease, CVA/TIA, skin cancer, anxiety/depression. She also has a previous history of smoking. She had recently been having issues with chronic shortness of breath and fatigue of unclear etiology. She was seen by Dr. Freed in our office on 12/31/2018. He had ordered a metabolic profile thyroid profile d-dimer and to have a CT angiogram of the chest. 6 minute walk was unremarkable. Her saturations were in the high 90s. Her lab results did reveal acute renal failure and she was directed to the emergency room. Her creatinine was 2.25. She was admitted for acute renal failure with acute prerenal acute tubular necrosis. She is seen today in consultation on the regular medical floor. She is awake and alert in no acute distress. She denies any shortness of breath, cough or congestion. No chills or night sweats. Chest x-ray shows no acute pulmonary process. She has been receiving 0.9 normal saline the 100 ML's per hour. Current creatinine 1.44. Urinalysis was positive for many bacteria and large leukocyte esterase. She's currently on ceftriaxone. The patient is seen today 01/03/2019 in follow-up on the regular medical floor. She is awake and alert in no acute distress. She denies any shortness of breath, cough or congestion. No chills or night sweats. Maintaining good O2 saturations in the 90s on room air. Blood and urine cultures reveal no growth. Count 5.2. Hemoglobin 11.0. Creatinine 1.04. She remains on ceftriaxone. Objective - Vital Signs Vital signs: Vital Signs Temp 97.8 F 01/03/19 06:19 Pulse 87 01/03/19 06:22 Resp 18 01/03/19 06:22 BP 153/86 01/03/19 06:22 Pulse Ox 95 01/03/19 06:22 Intake & Output 01/02/19 01/03/19 01/03/19 18:59 06:59 18:59 Other: Voiding Method Toilet # Voids 2 2 1 # Bowel Movements 0 - Exam GENERAL EXAM: Alert, active, comfortable in no apparent distress. On room air. HEAD: Normocephalic. EYES: Normal reaction of pupils, equal size. NOSE: Clear with pink turbinates. THROAT: No erythema or exudates. NECK: No masses, no JVD. CHEST: No chest wall deformity. LUNGS: Equal air entry with no crackles, wheeze, rhonchi or dullness. CVS: S1 and S2 normal with no audible murmur, regular rhythm. ABDOMEN: No hepatosplenomegaly, normal bowel sounds, no guarding or rigidity. SPINE: No scoliosis or deformity SKIN: No rashes CENTRAL NERVOUS SYSTEM: No focal deficits, tone is normal in all 4 extremities. EXTREMITIES: There is no peripheral edema. No clubbing, no cyanosis. Peripheral pulses are intact. - Labs CBC & Chem 7: 01/03/19 09:24 01/03/19 09:24 Labs: Abnormal Lab Results - Last 24 Hours (Table) 01/03/19 01/03/19 Range/Units 09:24 09:24 Hgb 11.0 L (11.4-16.0) gm/dL MCHC 30.7 L (31.0-37.0) g/dL Chloride 120 H (98-107) mmol/L Carbon Dioxide 17 L (22-30) mmol/L BUN 23 H (7-17) mg/dL Glucose 141 H (74-99) mg/dL Microbiology - Last 24 Hours (Table) 01/01/19 12:27 Urine Culture - Final Urine,Voided 01/01/19 22:34 Blood Culture - Preliminary Blood No Growth after 24 hours Assessment and Plan Assessment: Impression: #1 Acute renal failure of unclear etiology. Suspect secondary to dehydration sublingually related to previous diuretic use. Also on Motrin 400 every 8 hours. #2 Urinary tract infection, cultures pending. Currently on ceftriaxone.. #3 History of gastroesophageal reflux disease. #4 Hypertension. #5 Chronic dyspnea of unclear etiology. 6 minute walk conducted in our office revealed O2 saturations in the high 90s without any desaturations. Chest x-ray clear. #6 History of anxiety/depression. Plan: The patient was seen and evaluated by Dr. Woods. No pulmonary issues at this time. Her creatinine has recovered. She is cleared for discharge from the pulmonary standpoint. Follow up with Dr. Freed in our office in 1 week. I, the cosigning physician, performed a history & physical examination of the patient. Lungs sounds are clear. Maintaining good O2 saturations in the 90s on room air. I discussed the assessment and plan of care with my nurse practitioner, Kristal Sanchez. I attest to the above note as dictated by her.
--- NOTE | 2019-01-04 07:23 | DS ---
DISCHARGE SUMMARY DATE OF SERVICE: 01/03/2019 FINAL DIAGNOSES: 1. Acute renal failure secondary to dehydration, acute prerenal acute tubular necrosis. 2. Acute urinary tract infection, present on admission. 3. History of asthma, chronic intermittent. 4. History of cerebrovascular accident, transient ischemic attack. 5. History of gastroesophageal reflux disease. 6. Hypertension. 7. History of pneumonia. 8. History of adenoidectomy. 9. History of bariatric surgery. 10.History of cholecystectomy. 11.History of depression. 12.FULL CODE. DISCHARGE DISPOSITION: The patient being discharged in stable condition with guarded prognosis. HISTORY OF PRESENT ILLNESS: This 73-year-old woman with a past medical history of multiple medical problems admitted with acute renal failure as well as acute urinary tract infection. Patient treated with antibiotics and IV fluids. Patient improved significantly. Creatinine improved from 1.94-1.04. The patient being followed by Dr. Shanon Castellano in the outpatient setting. PHYSICAL EXAMINATION: On exam, are stable. Cardiovascular S1, S2. Abdomen soft. Nervous system: No focal deficits. Cultures are negative. DISCHARGE ADVICE AND MEDICATIONS: 1. Cardiac diet. 2. Activity limited until followup. 3. Follow up with Dr. Shanon Castellano in 2-3 days. MEDICATIONS: 1. Xanax 0.5 b.i.d. 2. Lipitor 10 mg q.a.m. 3. Lotensin 40 mg b.i.d. 4. Dulcolax 5 mg p.o. 5. Lopressor 50 mg p.o. b.i.d. 6. Mycostatin 1 application b.i.d. p.r.n. 7. Omeprazole 20 mg p.o. b.i.d. 8. Effexor 100 mg p.o. b.i.d. 9. Tylenol 650 q.6h p.r.n. 10.Ceftin 500 mg p.o. b.i.d. for 3 days. CBC, BMP with Dr. Shanon Castellano. Once again, the patient is being discharged in stable condition. Stable condition with guarded prognosis. MMODL / IJN: [id number] /
== END 2019-01-03 13:21 | disposition home or self-care (01) | DRG 683 ==
LOC: EC 11:26 → 4MS4W 14:08
PROVIDERS: ADMIT Internal Medicine; ATTEND Internal Medicine
DX: N17.0 Acute kidney failure with tubular necrosis (principal); E87.2 Acidosis; N39.0 Urinary tract infection, site not specified; E86.0 Dehydration; J44.9 Chronic obstructive pulmonary disease, unspecified; M41.9 Scoliosis, unspecified; I10 Essential (primary) hypertension; M54.9 Dorsalgia, unspecified; G89.29 Other chronic pain; K21.9 Gastro-esophageal reflux disease without esophagitis; F41.9 Anxiety disorder, unspecified; K59.09 Other constipation; F32.9 Major depressive disorder, single episode, unspecified; M19.90 Unspecified osteoarthritis, unspecified site; Z79.899 Other long term (current) drug therapy; Z86.73 Personal history of transient ischemic attack (TIA), and cerebral infarction without residual deficits; Z85.828 Personal history of other malignant neoplasm of skin; Z90.49 Acquired absence of other specified parts of digestive tract; Z90.710 Acquired absence of both cervix and uterus; Z96.653 Presence of artificial knee joint, bilateral; Z87.891 Personal history of nicotine dependence; Z98.84 Bariatric surgery status; Z96.641 Presence of right artificial hip joint; Z98.42 Cataract extraction status, left eye; Z98.41 Cataract extraction status, right eye; Z96.1 Presence of intraocular lens; Z87.01 Personal history of pneumonia (recurrent); Z82.49 Family history of ischemic heart disease and other diseases of the circulatory system; Z80.8 Family history of malignant neoplasm of other organs or systems; Z80.0 Family history of malignant neoplasm of digestive organs
CPT/HCPCS: 36415; 71045; 80048; 80053; 81001; 82533; 82607; 84439; 84443; 85025; 85379; 85652; 87040; 87086; 93005; 96360; 99285

== ENCOUNTER → 2019-01-24 | Outpatient (CLI) | payer MEDICARE ==
[2019-01-24 14:51] LABS: Basophils # (A) 0.1 k/uL (0-0.2); Basophils % (A) 1 %; Eosinophils # (A) 0.2 k/uL (0-0.7); Eosinophils % (A) 2 %; HCT 37.6 % (34.0-46.0); HGB 11.9 gm/dL (11.4-16.0); Hypochromasia Slight; Lymphocytes # (A) 2.1 k/uL (1.0-4.8); Lymphocytes % (A) 23 %; MCHC 31.5 g/dL (31.0-37.0); MCV 91.9 fL (80.0-100.0); Mean Platelet Volume 6.4; Monocytes # (A) 0.6 k/uL (0-1.0); Monocytes % (A) 7 %; Neutrophils % (A) 65 %; Platelet Count 337 k/uL (150-450); RBC 4.09 m/uL (3.80-5.40); RDW 14.9 % (11.5-15.5); WBC 9.2 k/uL (3.8-10.6)
[2019-01-24 21:02] LABS: Anion Gap 7.9 mmol/L (4.00-12.00); Carbon Dioxide 27.1 mmol/L (21.6-31.8); Potassium 3.7 mmol/L (3.5-5.5)
== END | disposition home or self-care (01) ==
LOC: LABWHC1 14:02
PROVIDERS: ATTEND Hospitalist
DX: N17.9 Acute kidney failure, unspecified (principal)
CPT/HCPCS: 36415; 80048; 85025

== ENCOUNTER 2019-01-30 06:25 | Day surgery (SDC) | payer MEDICARE ==
[2019-01-24 11:58] VITALS: BMI 37.0
[~2019-01-30 06:25] MED LIST: ALPRAZolam 0.25 MG TAB PO PRN; ALPRAZolam 0.5 MG TAB PO PRN; NITROGLYCERIN SL TABS 0.4 MG TAB SUBLINGUAL PRN; SODIUM CHLORIDE 0.9% 1,000 ML in EMPTY BAG 1 BAG IV ONE
[2019-01-30] MEDS ORDERED: ASPIRIN 325 MG TAB PO ONE (07:00)
[2019-01-30] MEDS ORDERED: ATORVASTATIN 80 MG TAB PO ONE (07:00)
[2019-01-30 07:01] VITALS: TEMP 97.8
[2019-01-30] MEDS ORDERED: LIDOCAINE 1% INJ 10MG/ML (20 ML MDV) ONE (07:30)
[2019-01-30] MEDS ORDERED: fentaNYL (PF) 50 MCG/ML 2 ML AMP ONE (07:30)
[2019-01-30] MEDS ORDERED: fentaNYL (PF) 50 MCG/ML 2 ML AMP IV ONE (07:48)
[2019-01-30] MEDS ORDERED: LIDOCAINE 1% INJ 10MG/ML (20 ML MDV) SQ ONE (07:51)
[2019-01-30] MEDS ORDERED: IOPAMIDOL-370 125ML BTL INJ ONE (08:11)
[2019-01-30 08:14] LABS: O2 Sat Blood Gas 63.7 %
[2019-01-30 08:18] LABS: O2 Sat Blood Gas 63.5 %
[2019-01-30] MEDS ORDERED: RX INFO: IV CONTRAST WAS GIVEN 1 EACH MISC MISCELLANE PRN (08:27)
[2019-01-30] MEDS ORDERED: SODIUM CHLORIDE 0.9% 1,000 ML IV SCH (08:30)
--- NOTE | 2019-01-30 08:55 | CC ---
CARDIAC CATHETERIZATION REPORT Mrs. Saavedra is a 73-year-old female with a history of hypertension followed on a regular basis by Dr. Cheema, who has been complaining of progressive dyspnea on exertion. She was evaluated by her credentialing manager, that found no etiology to her dyspnea from the lung status. She has a preserved systolic function. Because of her progressive dyspnea, recommendation made regarding cardiac catheterization. The procedures, risks, and complications were discussed with the patient who is in full understanding and agreement. PROCEDURE: Patient was brought to laborer ship[facility] in a fasting semi-sedated state after receiving fentanyl and Benadryl and achieving moderate conscious sedated state. Using Xylocaine anesthesia and Seldinger technique, a 6-Mauritian sheath was introduced in the right femoral artery and an 8-Mauritian sheath in the right femoral vein. Right heart catheterization was performed using [place]-Duong catheter, multiple pressures and samples were obtained. Cardiac output by thermodilution was calculated. Following that, selective right and left angiography was performed using 6-Mauritian 4 bend right and left Daniela catheter. Multiple views of the coronary artery including hemiaxial views obtained. Following that, a 6-Mauritian tight pigtail catheter was introduced in the left ventricle and pressures were calculated. Following that, catheter and sheath were removed. Hemostasis was obtained with deployment of an Angio-Seal in the right femoral artery and compression of the right femoral vein. There was no immediate complication. Patient is returned to her room in stable condition. FINDINGS: HEMODYNAMICS: Pulmonary artery systolic pressure of 39 with a diastolic of 15 and a mean of 25 mmHg. Pulmonary capillary wedge pressure A-wave of 18, V-wave of 16 with a mean of 14 mmHg. Right ventricular systolic pressure of 44 with an end-diastolic of 6 mmHg. Right atrial A-wave of 10, V-wave of 10 with a mean of 7 mmHg. There was no gradient across the aortic valve. The left ventricular end-diastolic pressure was 16- 18 mmHg. Right atrial saturation is 64%, pulmonary saturation is 64%. Femoral artery saturation 91%. Cardiac output by Alaina of 4.4 L/minute and by thermodilution 5.6 L/minute. CORONARIES: LEFT MAIN: This is a large-sized vessel bifurcating into left circumflex, left anterior descending artery. Left main coronary artery has no evidence of high-grade stenosis. LEFT ANTERIOR DESCENDING ARTERY: This is a large-sized vessel reaching toward the apex with a wraparound apex segment giving rise to two small diagonal branches. The left anterior descending artery as well as branches have no evidence of obstructive coronary artery disease. LEFT CIRCUMFLEX: This is a large dominant vessel, giving rise to 2 obtuse marginal branches. The second one is large in caliber, distally bifurcating into PDA and posterolateral segment and branches. The right coronary artery as well as branches have no evidence of obstructive coronary artery disease. RIGHT CORONARY ARTERY: This is a small nondominant vessel that has no evidence of high- grade stenosis. LEFT VENTRICULOGRAM: Left ventriculogram was not performed. CONCLUSION: 1. Normal coronary arteries. 2. No evidence of significant pulmonary hypertension. RECOMMENDATION: In view of finding anatomy, recommend continue medical therapy and depending on her progress, further recommendation will be made. Those findings and recommendation were discussed with the patient and her family who are in full understanding and agreement. Duration of procedure is 20 minutes. MMODL / IJN: [id number] /
[2019-01-30] MEDS ORDERED: METOPROLOL TARTRATE 50 MG TAB PO SCH (09:00)
[2019-01-30] MEDS ORDERED: BISACODYL 5 MG TABLET.DR PO SCH (09:00)
[2019-01-30] MEDS ORDERED: VENLAFAXINE HCL 100 MG PO SCH (09:00)
[2019-01-30] MEDS ORDERED: NON-FORMULARY DRUG (Omeprazole [Omeprazole] 20 MG) PO SCH (09:00)
[2019-01-30] MEDS ORDERED: BENAZEPRIL HCL 40 MG PO SCH (09:00)
[2019-01-30] MEDS ORDERED: ATORVASTATIN 10 MG TAB PO SCH (09:00)
[2019-01-30] MEDS ORDERED: NITROFURANTOIN MONOHYD/M-CRYST 100 MG CAP PO SCH (09:00)
[2019-01-30] MEDS ORDERED: ALPRAZolam 0.25 MG TAB PO SCH (09:00)
[2019-01-30 12:41] VITALS: BP 115/56; PULSE 70; RESP 18
== END 2019-01-30 15:17 | disposition home or self-care (01) ==
LOC: CATHCVL 06:25
PROVIDERS: ATTEND Internal Medicine Interventional Cardiology
DX: R06.09 Other forms of dyspnea (principal); I34.0 Nonrheumatic mitral (valve) insufficiency; I11.9 Hypertensive heart disease without heart failure; I10 Essential (primary) hypertension; E78.5 Hyperlipidemia, unspecified; J44.9 Chronic obstructive pulmonary disease, unspecified; Z72.0 Tobacco use; Z79.899 Other long term (current) drug therapy; Z88.5 Allergy status to narcotic agent; Z88.8 Allergy status to other drugs, medicaments and biological substances
CPT/HCPCS: 93460; 85018; 82810; C1760; C1894; C1769; J2001; J3010; Q9967

== ENCOUNTER → 2019-04-14 | Outpatient (CLI) | payer MEDICARE ==
--- NOTE | 2019-04-14 16:05 | BD ---
EXAMINATION TYPE: Axial Bone Density DATE OF EXAM: 04/14/2019 COMPARISON: 04/22/2013 CLINICAL HISTORY: Postmenopausal female. Osteoporosis screening. Height: 59.5 IN Weight: 188 LBS FRAX RISK QUESTIONS: History of Fracture in Adulthood: YES Secondary Osteoporosis: 3. Menopause before 45: YES TOTAL HYST RISK FACTORS HISTORY OF: Surgery to Hip(right): YES When: AGE 71 Family History of Osteoporosis: YES SISTER Active: YES Diet low in dairy products/other sources of calcium: YES Postmenopausal woman: AGE 38 Take estrogen and/or progesterone medications: NOT NOW How lon YEARS MEDICATIONS: Additional Medications: METOPROLOL, ALPRAZOLAM, BENAZEPRIL, ATORVASTATIN, OMEPRAZOLE, VENLAFAXINE, DU LCOLAX EXAM MEASUREMENTS: Bone mineral densitometry was performed using the Prized System. Bone mineral density as measured about the Lumbar spine is: ----- L1-L4(G/cm2): 1.212 T Score Values are as follows: ----- L2: -0.3 ----- L3: 0.9 ----- L4: 0.7 ----- L1-L4: 0.3 Bone mineral density has: Increased 0.3% since study of: 04/22/2013 Bone mineral density about the L hip (g/cm2): 0.775 T Score values are as follows: -----L Neck: -1.9 -----L Total: -1.2 Bone mineral density has: Decreased -15.2% since study of: 04/22/2013 IMPRESSION: Osteopenia (T Score between -2.5 and -1). There is slightly increased risk of fracture and the patient may be considered for treatment. Re-Screen 2-5 years. NOTE: T-SCORE=SD OF THE YOUNG ADULT MEAN.
--- NOTE | 2019-04-15 14:37 | MM ---
Reason for exam: screening (asymptomatic). Last mammogram was performed 1 year and 9 months ago. History: Patient is postmenopausal and history of other cancer. Family history of breast cancer in sister at age 68. Benign stereotactic core biopsy of the right breast, March 21, 2001. Core biopsy of the right breast. 2 excisional biopsies of the left breast. 3 excisional biopsies of the right breast. Took estrogen for 19 years. Physical Findings: A clinical breast exam by your physician is recommended on an annual basis and results should be correlated with mammographic findings. MG 3D Screening Mammo W/Cad Bilateral CC and MLO view(s) were taken. Prior study comparison: July 09, 2017, bilateral MG 3d screening mammo w/cad. July 06, 2016, bilateral MG 3d screening mammo w/cad. There are scattered fibroglandular densities. No significant changes when compared with prior studies. ASSESSMENT: Benign, BI-RAD 2 RECOMMENDATION: Routine screening mammogram of both breasts in 1 year.
== END | disposition home or self-care (01) ==
LOC: RADMAMWWP 14:09
PROVIDERS: ATTEND Family Medicine
DX: Z12.31 Encounter for screening mammogram for malignant neoplasm of breast (principal); M85.80 Other specified disorders of bone density and structure, unspecified site; Z78.0 Asymptomatic menopausal state
CPT/HCPCS: 77063; 77067; 77080

== ENCOUNTER 2019-10-16 08:16 | Day surgery (SDC) | payer MEDICARE ==
[2019-10-14 15:28] VITALS: BMI 35.2
[~2019-10-16 08:16] MED LIST changes: -ALPRAZolam 0.25 MG TAB PO PRN; -ALPRAZolam 0.5 MG TAB PO PRN; +LACTATED RINGERS 1,000 ML IV SCH; -NITROGLYCERIN SL TABS 0.4 MG TAB SUBLINGUAL PRN; -SODIUM CHLORIDE 0.9% 1,000 ML in EMPTY BAG 1 BAG IV ONE
[2019-10-16 09:33] VITALS: TEMP 98
[2019-10-16] MEDS ORDERED: LIDOCAINE 1% INJ 10MG/ML (20 ML MDV) ONE (09:37)
[2019-10-16] MEDS ORDERED: PROPOFOL 10 MG/ML 20 ML VIAL IV ONE (09:37)
[2019-10-16] MEDS ORDERED: fentaNYL (PF) 50 MCG/ML 2 ML AMP ONE (09:37)
[2019-10-16] MEDS ORDERED: MIDAZOLAM 2 MG/2 ML VIAL ONE (09:37)
--- NOTE | 2019-10-16 09:41 | P.GSHP ---
History of Present Illness H&P Date: 10/16/19 Chief Complaint: Anemia This a 74-year-old female who presents today for EGD colonoscopy. Patient has iron deficiency anemia. She denies a significant bleeding per rectum. Past Medical History Past Medical History: Asthma, Cancer, CVA/TIA, GERD/Reflux, Hypertension, Osteoarthritis (OA), Pneumonia, Skin Disorder Additional Past Medical History / Comment(s): "small stroke found on EEG", fell off roof 2016 and has chronic back pain since- scoliosis, chronic constipation, chronic UTIs, hx skin cancer, SOB for past year, "leaky heart valve", "kidneys were ready to shut down" in 2018 from dehydration, on rx for recent asthma, chronic bronchitis, anemia, History of Any Multi-Drug Resistant Organisms: None Reported Past Surgical History: Adenoidectomy, Bariatric Surgery, Cholecystectomy, Heart Catheterization, Hysterectomy, Joint Replacement, Orthopedic Surgery, Tonsillectomy Additional Past Surgical History / Comment(s): Lab band with removal, bariatric sleeve with hernia repair, skin cancer removed from arm, , L shoulder rotator cuff surgery twice and R shoulder rotator cuff surgery three times, bilateral total knees, total R hip then dislocated it and had a reduction done, bilateral cataract removals with lens implants. Past Anesthesia/Blood Transfusion Reactions: Motion Sickness, Postoperative Nausea & Vomiting (PONV) Smoking Status: Former smoker - Past Family History Father Family Medical History: Cancer Additional Family Medical History / Comment(s): Father had skin cancer that metastasized to his bones. Sister(s) Family Medical History: Cancer, Deep Vein Thrombosis (DVT) Additional Family Medical History / Comment(s): breast Mother Family Medical History: No Reported History Additional Family Medical History / Comment(s): Mother was healthy Medications and Allergies Home Medications Medication Instructions Recorded Confirmed Type Atorvastatin [Lipitor] 10 mg PO QAM 07/16/15 10/16/19 History Metoprolol Tartrate [Lopressor] 50 mg PO BID 09/21/16 10/16/19 History Bisacodyl [Dulcolax] 5 mg PO HS 09/26/16 10/16/19 History Benazepril HCl [Lotensin] 40 mg PO BID 10/29/16 10/16/19 History ALPRAZolam [Xanax] 0.25 mg PO BID 01/01/19 10/16/19 History Omeprazole 20 mg PO BID 01/01/19 10/16/19 History Venlafaxine HCl [Effexor] 100 mg PO QAM 01/01/19 10/16/19 History Albuterol Nebulized [Ventolin 2.5 mg INHALATION Q6H 10/14/19 10/16/19 History Nebulized] Azithromycin [Zithromax Z-pack] 250 mg PO DIRECTED 10/14/19 10/16/19 History predniSONE 10 mg PO DIRECTED 10/14/19 10/16/19 History Allergies Allergy/AdvReac Type Severity Reaction Status Date / Time hydrocodone [From [place]] Allergy Unknown Itching Verified 10/16/19 09:37 morphine Allergy Itching Verified 10/16/19 09:37 Surgical - Exam Vital Signs Temp Pulse Resp BP Pulse Ox 98 F 67 16 187/73 99 10/16/19 09:26 10/16/19 09:26 10/16/19 09:26 10/16/19 09:26 10/16/19 09:26 - General well developed, well nourished, no distress - Eyes PERRL - ENT normal pinna - Neck no masses - Respiratory normal expansion - Cardiovascular Rhythm: regular - Abdomen Abdomen: soft, non tender Assessment and Plan Assessment: Iron deficiency anemia. We'll perform EGD colonoscopy.
--- NOTE | 2019-10-16 10:05 | P.OP ---
Date of Procedure: 10/16/19 Preoperative Diagnosis: Iron deficiency anemia Postoperative Diagnosis: Antral gastritis Small hiatal hernia Esophagitis Procedure(s) Performed: EGD Anesthesia: MAC Surgeon: Marco A Burch Pathology: other (Antrum, esophagus) Condition: stable Disposition: PACU Description of Procedure: The patient's placed on the endoscopy table lateral position. She received IV sedation. The gastroscope placed oropharynx passed in the esophagus into the stomach. Scope was then placed through the pylorus. The first and second portion duodenum appeared normal. Scope summer back and the antrum this appeared mildly inflamed. Biopsies performed. Scope was withdrawn. Patient previous gastric sleeve surgery the sleeve appeared to be mildly dilated. There appeared to be evidence of a small hiatal hernia. The GE junction was at 47. The distal esophagus appeared mildly inflamed a biopsies performed. The proximal esophagus. Scope withdrawn for patient. Next, digital rectal exam was performed which revealed a few external hemorrhoids. Flexible colonoscope was then placed patient anus and passed rot ator entire colon. The ileocecal valve was visualized. The cecum, ascending and transverse colon appeared normal. In the descending and sigmoid colon there was evidence of mild diverticular changes. He was no evidence of any active diverticulitis. Scope was then brought back the rectum and this appeared normal. Scope withdrawn for patient.
[2019-10-16 10:33] VITALS: BP 168/61; PULSE 78; RESP 18
== END 2019-10-16 10:25 | disposition home or self-care (01) ==
LOC: ORWHC2ENDO 08:16
PROVIDERS: ATTEND Surgery
DX: D50.9 Iron deficiency anemia, unspecified (principal); K29.70 Gastritis, unspecified, without bleeding; K21.0 Gastro-esophageal reflux disease with esophagitis; K44.9 Diaphragmatic hernia without obstruction or gangrene; K64.4 Residual hemorrhoidal skin tags; K57.30 Diverticulosis of large intestine without perforation or abscess without bleeding; I10 Essential (primary) hypertension; J45.909 Unspecified asthma, uncomplicated; F41.9 Anxiety disorder, unspecified; F32.9 Major depressive disorder, single episode, unspecified; M19.90 Unspecified osteoarthritis, unspecified site; G89.29 Other chronic pain; M41.9 Scoliosis, unspecified; K59.09 Other constipation; Z88.5 Allergy status to narcotic agent; Z79.899 Other long term (current) drug therapy; Z90.710 Acquired absence of both cervix and uterus; Z96.641 Presence of right artificial hip joint; Z90.49 Acquired absence of other specified parts of digestive tract; Z96.653 Presence of artificial knee joint, bilateral; Z86.73 Personal history of transient ischemic attack (TIA), and cerebral infarction without residual deficits; Z87.01 Personal history of pneumonia (recurrent); Z87.440 Personal history of urinary (tract) infections; Z85.828 Personal history of other malignant neoplasm of skin; Z98.84 Bariatric surgery status; Z98.41 Cataract extraction status, right eye; Z98.42 Cataract extraction status, left eye; Z96.1 Presence of intraocular lens; Z87.891 Personal history of nicotine dependence; Z80.8 Family history of malignant neoplasm of other organs or systems; Z82.49 Family history of ischemic heart disease and other diseases of the circulatory system; Z80.3 Family history of malignant neoplasm of breast; Z79.52 Long term (current) use of systemic steroids
CPT/HCPCS: 45378; 43239; J2250; J2001; J3010; J2704; 45380

== ENCOUNTER → 2020-09-07 | Outpatient (CLI) | payer MEDICARE ==
--- NOTE | 2020-09-09 11:56 | MM ---
Reason for exam: screening (asymptomatic). Last mammogram was performed 1 year and 5 months ago. History: Patient is postmenopausal and history of other cancer. Family history of breast cancer in sister at age 68. Benign stereotactic core biopsy of the right breast, March 21, 2001. Core biopsy of the right breast. 2 excisional biopsies of the left breast. 3 excisional biopsies of the right breast. Took estrogen for 19 years. Physical Findings: A clinical breast exam by your physician is recommended on an annual basis and results should be correlated with mammographic findings. MG 3D Screening Mammo W/Cad Bilateral CC and MLO view(s) were taken. Prior study comparison: April 14, 2019, bilateral MG 3d screening mammo w/cad. July 09, 2017, bilateral MG 3d screening mammo w/cad. The breast tissue is heterogeneously dense. This may lower the sensitivity of mammography. Previous mammotome biopsy in the right breast. There is chronic nodularity bilaterally. No significant changes when compared with prior studies. ASSESSMENT: Benign, BI-RAD 2 RECOMMENDATION: Routine screening mammogram of both breasts in 1 year.
== END | disposition home or self-care (01) ==
LOC: RADMAMWWP 13:03
PROVIDERS: ATTEND Family Medicine
DX: Z12.31 Encounter for screening mammogram for malignant neoplasm of breast (principal); Z80.3 Family history of malignant neoplasm of breast
CPT/HCPCS: 77063; 77067

== ENCOUNTER → 2021-04-15 | Outpatient (CLI) | payer MEDICARE ==
[2021-04-15 17:00] LABS: HGB 12.3 gm/dL (11.4-16.0); MCH 30.8 pg (25.0-35.0); MCHC 32.3 g/dL (31.0-37.0); MCV 95.5 fL (80.0-100.0); Mean Platelet Volume 7.2; Platelet Count 288 k/uL (150-450); RBC 3.97 m/uL (3.80-5.40); RDW 13.1 % (11.5-15.5); WBC 8.8 k/uL (3.8-10.6)
[2021-04-15 17:11] LABS: Albumin 3.9 g/dL (3.5-5.0); Calcium 9.2 mg/dL (8.4-10.2); Potassium 4.2 mmol/L (3.5-5.1); Total Bilirubin 0.2 mg/dL (0.2-1.3); Total Protein 6.3 g/dL (6.3-8.2)
[2021-04-15 17:20] LABS: INR 0.9 (<1.2); Partial Thromboplastin Time 21.2 sec (22.0-30.0); Prothrombin Time 9.8 sec (9.0-12.0)
[2021-04-15 17:31] LABS: Appearance,Urine Cloudy (Clear); Bacteria,Urine Rare /hpf; Bilirubin,Urine Negative (Negative); Blood,Urine Negative (Negative); Color,Urine Dark Brown; Glucose,Urine (UA) Negative (Negative); Ketones,Urine Negative (Negative); Leukocyte Esterase,Urine Large (Negative); Mucus,Urine Rare /hpf; Nitrite,Urine Positive (Negative); PH, Urine 5.5 (5.0-8.0); Protein,Urine Trace (Negative); Specific Gravity,Urine 1.023 (1.001-1.035); Squamous Epithelial Cell,Urine 1 /hpf (0-4); WBC,Urine 156 /hpf (0-5)
== END | disposition home or self-care (01) ==
LOC: LABPAT 16:15
PROVIDERS: ATTEND Orthopaedic Surgery
DX: Z01.812 Encounter for preprocedural laboratory examination (principal); I25.2 Old myocardial infarction; R94.31 Abnormal electrocardiogram [ECG] [EKG]
CPT/HCPCS: 36415; 80053; 81001; 85027; 85610; 85730; 86850; 86900; 86901; 87070; 93005

== ENCOUNTER 2021-04-26 07:50 | Day surgery (SDC) | payer MEDICARE ==
[2021-04-20 12:04] VITALS: BMI 36.7
[~2021-04-26 07:50] MED LIST changes: +ACETAMINOPHEN TAB 500 MG TAB PO PRN; +GABAPENTIN 300 MG CAP PO PRN; -LACTATED RINGERS 1,000 ML IV SCH; +LIDOCAINE 1% (10MG/ML) FOR IV START INTRADERMA PRN; +MELOXICAM 7.5 MG TAB PO PRN; +ONDANSETRON 4 MG/2 ML VIAL IVP PRN; +TRANEXAMIC ACID 1,000 MG in SODIUM CHLORIDE 0.9% 100 ML IVPB PRN
[2021-04-26] MEDS: LACTATED RINGERS 1,000 ML IV SCH ×2 (08:51→18:01)
[2021-04-26] MEDS: DEXAMETHASONE SOD PHOSPHATE 4 MG/ML 1 ML VIAL IV ONE ×2 (08:52→17:59)
[2021-04-26] MEDS ORDERED: HYDROmorphone 0.2 MG/1 ML SYRINGE IVP PRN (09:18)
[2021-04-26] MEDS ORDERED: ONDANSETRON 4 MG/2 ML VIAL IVP PRN (09:18)
[2021-04-26] MEDS ORDERED: Acetaminophen-Codeine 300-30mg TAB PO PRN (09:18)
[2021-04-26] MEDS ORDERED: NALOXONE 0.4 MG/ML 1 ML VIAL IV PRN (09:18)
[2021-04-26] MEDS ORDERED: HYDROmorphone 0.5 MG/0.5 ML SYRINGE IVP PRN ×2 (09:18)
[2021-04-26] MEDS ORDERED: MAGNESIUM HYDROXIDE 2,400 MG/10 ML CUP PO PRN (09:18)
[2021-04-26] MEDS ORDERED: SUCCINYLCHOLINE CHLORIDE 100 MG/5 ML SYR IV ONE (09:20)
[2021-04-26] MEDS ORDERED: ePHEDrine SULFATE/0.9% NACL/PF 50 MG/5 ML SYRINGE IV ONE (09:20)
[2021-04-26] MEDS ORDERED: WATER FOR INJECTION, STERILE 10 ML VIAL IV ONE (09:20)
[2021-04-26] MEDS ORDERED: HEPARIN SODIUM,PORCINE 10,000 UNIT/ML 1 ML VIAL ONE (09:20)
[2021-04-26] MEDS ORDERED: SODIUM CHLORIDE 0.9% 100 ML BAG ONE (09:20)
[2021-04-26] MEDS ORDERED: LIDOCAINE 1% INJ 10MG/ML (20 ML MDV) ONE (09:20)
[2021-04-26] MEDS ORDERED: TRANEXAMIC ACID 1,000 MG/10 ML VIAL ONE (09:20)
[2021-04-26] MEDS ORDERED: PROPOFOL 10 MG/ML 20 ML VIAL IV ONE (09:20)
[2021-04-26] MEDS ORDERED: SODIUM CHLORIDE 0.9% IRRIG 1,000 ML BTL IRRIGATION ONE (09:20)
[2021-04-26] MEDS ORDERED: ROCURONIUM 10 MG/ML (5 ML VIAL) IV ONE (09:20)
[2021-04-26] MEDS ORDERED: MIDAZOLAM 2 MG/2 ML VIAL ONE (09:20)
[2021-04-26] MEDS ORDERED: fentaNYL (PF) 50 MCG/ML 2 ML AMP ONE (09:20)
[2021-04-26] MEDS ORDERED: SUGAMMADEX SODIUM 500 MG/5 ML SDV IV ONE (09:20)
[2021-04-26] MEDS ORDERED: GLYCOPYRROLATE 0.2 MG/ML 2 ML VIAL ONE (09:20)
[2021-04-26] MEDS ORDERED: NEOSTIGMINE 1 MG/ML 10 ML VIAL ONE (09:20)
[2021-04-26] MEDS ORDERED: ceFAZolin 3,000 MG in SODIUM CHLORIDE 0.9% IRRIGATIO 3,000 ML IRRIGATION ONE (09:26)
[2021-04-26] MEDS: ROPIVACAINE/EPI/CLONIDINE/KET 50 ML SYRINGE MISCELLANE PRN ×2 (09:43→10:30)
--- NOTE | 2021-04-26 10:33 | P.OP ---
Date of Procedure: 04/26/21 Preoperative Diagnosis: Severe osteoarthritis left hip Postoperative Diagnosis: Severe osteoarthritis left hip Procedure(s) Performed: Total hip arthroplasty with a direct anterior approach Implants: Pan [employer] Nephew Polarstem standard size 3 Pan [employer] Nephew R3, 3 hole hemispherical acetabular shell, 48 mm Pan & Nephew Reflection 6.5 mm cancellus screw, 20 mm 2 Pan [employer] Nephew R3, XLPE 20 acetabular liner Pan & Nephew Oxinium femoral head 32 m, +0 All components were press-fit. The articulation is Oxinium on polyethylene. Anesthesia: GETA Surgeon: Butch Foster Regional Director Of Admissions #1: Carole Wilkes Estimated Blood Loss (ml): 100 Pathology: other (Femoral head) Condition: stable Disposition: PACU Indications for Procedure: After failure of conservative treatment we discussed the surgical and nonsurgical treatment options at length. Patient wishes to proceed with a total hip arthroplasty with a direct anterior approach. Complications specific to this procedure were discussed at length, including but not limited to infection, leg length discrepancy, dislocation, nerve injury, and fracture. Covid-19 was also discussed at length with the patient, and they are aware of the current policies and procedures. The patient was given the option of delaying surgery, but they elect to proceed knowing these risks. Patient is aware of all these complications and informed consent was obtained Operative Findings: The operative findings are consistent with severe osteoarthritis of the left hip Description of Procedure: Patient was seen and evaluated in the preoperative area and the consent was reviewed. The operative site was marked with a skin marker. The patient was then brought to the operating room and given preoperative antibiotics intraven ously. 1 g of Tranexamic acid was also given intravenously. A general anesthetic was administered by the anesthesia department. The patient was then placed on the [place] table with the bony prominences well-padded. The hip area was then prepped with a ChloraPrep solution and draped in the usual sterile fashion. A universal timeout was then performed, which confirmed the patient's name, surgical site, ALLERGIES, and procedure being performed on the consent. Next the incision site was located at 1 cm distal to the anterior superior iliac spine along the flexion crease of the hip. The skin and subcutaneous tissues were sharply incised. Incision was carefully dissected down to the fascia overlying the tensor fascia dave muscle. This fascia was then incised in line with the incision. Care was taken to stay laterally in order to avoid injuring the lateral femoral cutaneous nerve. Next, using blunt finger dissection, the tensor fascia dave muscle was dissected off its investing fascia. The muscle was then carefully retracted laterally with a cobra retractor over the lateral neck of the femur. Next, the circumflex vessels were identified and cauterized using the AquaMantis device. The anterior hip capsule was then exposed. The capsule was then opened and an inverted T fashion. Cobra retractors were then placed intracapsularly. The retractors were maintained intracapsular throughout the procedure. The proximal femur was then visualized. A small amount of traction was placed on the leg. The femoral neck was then osteotomized appropriate level above the lesser troch anter. A small wedge of bone was then removed from the remaining femoral head. Next, using a corkscrew the femoral head was removed from the acetabulum. On gross visual inspection, the femoral head had complete loss of articular cartilage and multiple periarticular osteophytes. The femoral head was then measured. Attention was then turned to the acetabulum. The acetabulum was exposed and any remaining labrum was excised. Sequential reaming of the acetabulum was performed using fluoroscopic guidance until there was a good bed of bleeding cancellus bone. When the appropriate size was jono ched, a trial was then placed. The position and fit of the trial was checked with fluoroscopy. The trial was then removed. Then, using fluoroscopic guidance, the final implant was impacted at 20 of anteversion and 40 of abduction, and fully seated in the acetabulum. 2 screws were then placed in the acetabulum. Again fluoroscopy was used to check position of the screws. Next, the liner was then impacted, with a 20 elevated liner located in the anterior superior quadrant. Component locking was confirmed. Attention was then directed to the femur. With the aid of the [place] table, the femur was externally rotated to approximately 130, extended, and adducted under the opposite leg. A side hook was then placed under the proximal femur, and the side hook elevator was used to elevate the proximal femur while releasing the capsule. Retractors were then placed. A capsular release was performed, as well as a release of the conjoined tendon, which afforded excellent visualization of the proximal femur. Next, a box osteotome was used to lateralize the proximal femur. A mail handler equipment operator was then used to locate the femoral canal. Sequential broaching was then performed with appropriate size which afforded excellent fixation in the proximal femur. A trial was then placed with appropriate head and neck, and the hip was gently reduced with the aid of the [place] table. Fluoroscopy was then used to check position of the components, as well as to ensure equal leg lengths. The hip was then gently dislocated and the trials were then removed. Final implants were then impacted and the hip was again reduced. Final fluoroscopic x-rays confirmed that the components were in anatomic position, as well as equal leg lengths. The hip was also taken through range of motion, and found to be stable. The hip was then copiously irrigated with antibiotic solution with pulsatile lavage. The hip was then irrigated with Irrisept solution. The soft tissues were then injected with a ropivacaine solution, which consisted of 246.25 mg of ropivacaine, 0.5 mg of epinephrine, 30 mg of Toradol, 80 g of clonidine, and 48.45 mL of sterile water, for a total of 100 mL of fluid injected. A second dose of 1 g of Tranexamic acid was also given intravenously. Any blood collected by Cell Saver was then returned to the patient at this time. The fascia was then closed with 2-0 strata fix suture. The subcutaneous tissue was closed with 3-0 Vicryl. The subcuticular tissue was closed with 3-0 strata fix suture. The skin was then closed with Exofin skin glue. After the glue and dried, and Optifoam silver impregnated dressing was applied. The patient was then transferred to the recovery room in stable condition. The family and divorce legal assistant JOVANNI Mckeon was required due to the complexity of surgery, and the need for skilled title i assistant for positioning, draping, exposure, retraction, and closure of the wound.
[2021-04-26] MEDS: HYDROmorphone 0.5 MG/0.5 ML SYRINGE IVP PRN ×2 (11:10→11:28)
[2021-04-26] MEDS ORDERED: LACTATED RINGERS 1,000 ML IV ONE (12:22)
--- NOTE | 2021-04-26 13:54 | XR ---
EXAMINATION TYPE: XR Hip Limited LT, XR Hip Limited LT DATE OF EXAM: 04/26/2021 COMPARISON: NONE HISTORY: Anterior left hip replacement Fluoroscopy support supplied to the referring clinician. See dictated report from orthopedic surgery , 2 intraoperative C-arm images document the procedure, 15 seconds fluoroscopy time supplied to the r eferring clinician
[2021-04-26] MEDS ORDERED: CYCLOBENZAPRINE 10 MG TAB PO PRN (15:44)
[2021-04-26] MEDS ORDERED: MELATONIN 5 MG TABLET PO PRN (15:44)
--- NOTE | 2021-04-26 16:02 | P.CONS ---
History of Present Illness - Reason for Consult essential hypertension - History of Present Illness 76-year-old female admitted for left hip arthroplasty. underwent surgery. Patient the in the past gas yet patient is clinically doing well pain-free at this time. Then have a Ly catheter received perioperative antibiotics. Blood pressure is bit elevated. Review of Systems REVIEW OF SYSTEMS: CONSTITUTIONAL: No fever, no malaise, no fatigue. HEENT: No recent visual problems or hearing problems. Denied any sore throat. CARDIOVASCULAR: No chest pain, orthopnea, PND, no palpitations, no syncope. PULMONARY: No shortness of breath, no cough, no hemoptysis. GASTROINTESTINAL: No diarrhea, no nausea, no vomiting, no abdominal pain. NEUROLOGICAL: No headaches, no weakness, no numbness. HEMATOLOGICAL: Denies any bleeding or petechiae. GENITOURINARY: Denies any burning micturition, frequency, or urgency. MUSCULOSKELETAL/RHEUMATOLOGICAL: Denies any joint pain, swelling, or any muscle pain. ENDOCRINE: Denies any polyuria or polydipsia. The rest of the 14-point review of systems is negative. Past Medical History Past Medical History: Asthma, Cancer, COPD, CVA/TIA, GERD/Reflux, Hyperlipidemia, Hypertension, Musculoskeletal Disorder, Osteoarthritis (OA), Pneumonia, Skin Disorder Additional Past Medical History / Comment(s): "mini stroke found on EEG," fell off roof 2016 w/ hx back pain - scoliosis, chronic constipation, chronic UTIs, hx skin cancer, SOB for past year, "leaky heart valve", "kidneys were ready to shut down" in 2018 D/T Rx/dehydration, chronic bronchitis, hx anemia, History of Any Multi-Drug Resistant Organisms: None Reported Past Surgical History: Adenoidectomy, Back Surgery, Bariatric Surgery, Cholecystectomy, Heart Catheterization, Hernia Repair, Hysterectomy, Joint Replacement, Orthopedic Surgery, Tonsillectomy Additional Past Surgical History / Comment(s): Lab band w/ removal, bariatric sleeve with hernia repair, skin cancer exc arm, , L shoulder rotator cuff surgery twice & R shoulder rotator cuff surgery three times, bilateral total knees, total R hip then dislocated it and had a reduction done, bilateral cataract removals with lens implants. Past Anesthesia/Blood Transfusion Reactions: Postoperative Nausea & Vomiting (PONV) Smoking Status: Former smoker - Past Family History Father Family Medical History: Cancer Additional Family Medical History / Comment(s): Father had skin cancer that metastasized to his bones. Sister(s) Family Medical History: Cancer, Deep Vein Thrombosis (DVT) Additional Family Medical History / Comment(s): breast; another sister had pancreatic cancer Mother Family Medical History: No Reported History Additional Family Medical History / Comment(s): Mother was healthy Medications and Allergies Home Medications Medication Instructions Recorded Confirmed Type Atorvastatin [Lipitor] 10 mg PO QAM 07/16/15 04/26/21 History Metoprolol Tartrate [Lopressor] 50 mg PO BID 09/21/16 04/26/21 History Benazepril HCl [Lotensin] 40 mg PO BID 10/29/16 04/26/21 History Omeprazole 20 mg PO BID 01/01/19 04/20/21 History Venlafaxine HCl [Effexor] 100 mg PO QAM 01/01/19 04/26/21 History Acetaminophen [Tylenol Extra 1,000 mg PO DIRECTED PRN 04/20/21 04/26/21 History Strength] Ascorbic Acid [Vitamin C] 1,000 mg PO DAILY 04/20/21 04/26/21 History Calcium Carbonate/Vitamin D3 2 each PO DAILY 04/20/21 04/26/21 History [Calcium 600 mg-D3 10 Mcg (400 Iu)] Cyclobenzaprine [Flexeril] 10 mg PO TID PRN 04/20/21 04/26/21 History Ibuprofen [Motrin Ib] 400 mg PO Q8H PRN 04/20/21 04/26/21 History Melatonin 10 mg PO HS PRN 04/20/21 04/26/21 History Naproxen Sodium [Aleve] 440 mg PO BID PRN 04/20/21 04/26/21 History Nitrofurantoin Monohyd/M-Cryst 100 mg PO Q12HR 04/20/21 04/26/21 History [Macrobid] Zinc W/ Vitamin C 2 tab PO DAILY 04/20/21 04/26/21 History bisacodyL [Dulcolax] 5 mg PO DAILY 04/20/21 04/26/21 History Aspirin 325 mg PO BID #60 tab 04/25/21 Rx Celecoxib [CeleBREX] 200 mg PO DAILY 5 Days #5 capsule 04/25/21 Rx Ondansetron Odt [Zofran Odt] 1 tab PO Q8HR PRN #10 tab 04/25/21 Rx Sennosides [Senokot] 2 tab PO DAILY PRN #60 tablet 04/25/21 Rx Acetaminophen-Codeine 300-30mg 1 tab PO Q4-6H PRN #32 tablet 04/26/21 Rx [Tylenol #3] Allergies Allergy/AdvReac Type Severity Reaction Status Date / Time hydrocodone [From [place]] Allergy Unknown Itching Verified 04/26/21 08:46 morphine Allergy Itching Verified 04/26/21 08:46 Physical Exam Vitals: Vital Signs Temp Pulse Pulse Resp BP Pulse Ox 04/26/21 14:02 66 18 125/65 92 L 04/26/21 13:32 66 18 117/58 97 04/26/21 13:30 69 16 117/58 96 04/26/21 13:02 76 18 124/62 95 04/26/21 13:00 66 16 124/62 97 04/26/21 12:32 63 16 127/55 93 L 04/26/21 12:02 59 L 18 129/59 93 L 04/26/21 11:47 64 16 130/59 100 04/26/21 11:32 66 18 132/60 96 04/26/21 11:16 67 18 148/66 95 04/26/21 11:00 97.4 F L 16 120/60 99 04/26/21 08:08 98.4 F 63 16 172/77 99 Intake and Output 04/26/21 04/26/21 04/26/21 06:59 14:59 22:59 Intake Total 1551 Output Total 100 Balance 1451 Intake: IV 1551 Output: Estimated Blood Loss 100 Other: Weight 84.8 kg PHYSICAL EXAMINATION: GENERAL: The patient is alert and oriented x3, not in any acute distress. Well developed, well nourished. HEENT: Pupils are round and equally reacting to light. EOMI. No scleral icterus. No conjunctival pallor. Normocephalic, atraumatic. No pharyngeal erythema. No thyromegaly. CARDIOVASCULAR: S1 and S2 present. No murmurs, rubs, or gallops. PULMONARY: Chest is clear to auscultation, no wheezing or crackles. ABDOMEN: Soft, nontender, nondistended, normoactive bowel sounds. No palpable organomegaly. MUSCULOSKELETAL: deferred to orthopedic surgery EXTREMITIES: No cyanosis, clubbing, or pedal edema. NEUROLOGICAL: Gross neurological examination did not reveal any focal deficits. SKIN: No rashes. Assessment and Plan Plan: -Hypertension: Patient is a very high dose of SCOTT inhibitor him a dose of which will be cut down to prevent perioperative hypotension depending on her blood pressures here will decide on discharge dosing for SCOTT inhibitor. -COPD without any acute exacerbation -Gastroesophageal reflux disease Hyperlipidemia -Osteoarthritis primary one T joint Patient is status post left. hip Arthroplasty and is on aspirin 325 mg twice a day for DVT prophylaxis.
[2021-04-26] MEDS: SODIUM CHLORIDE 0.9% 1,000 ML IV SCH (18:00)
[2021-04-26] MEDS ORDERED: SENNOSIDES-DOCUSATE SODIUM 1 EACH TAB PO SCH (21:00)
[2021-04-26] MEDS: ASPIRIN 325 MG TAB PO SCH (21:39)
[2021-04-26] MEDS: METOPROLOL TARTRATE 50 MG TAB PO SCH (21:45)
[2021-04-27] MEDS: SODIUM CHLORIDE 0.9% 1,000 ML IV SCH (04:35)
[2021-04-27] MEDS ORDERED: PANTOPRAZOLE 40 MG TABLET PO SCH (07:30)
[2021-04-27 07:40] VITALS: BP 168/78; PULSE 89; RESP 16; TEMP 98.1
[2021-04-27] MEDS: METOPROLOL TARTRATE 50 MG TAB PO SCH (08:26)
[2021-04-27] MEDS: ASPIRIN 325 MG TAB PO SCH (08:26)
[2021-04-27] MEDS ORDERED: VENLAFAXINE HCL 50 MG TAB PO SCH (09:00)
[2021-04-27] MEDS ORDERED: ATORVASTATIN 10 MG TAB PO SCH (09:00)
[2021-04-27] MEDS ORDERED: CALCIUM CARB-VIT D 500 MG-5 MCG TAB PO SCH (09:00)
[2021-04-27] MEDS ORDERED: lisinopriL 10 MG TAB PO SCH (09:00)
[2021-04-27 10:24] LABS: Basophils # (A) 0.02 X 10*3/uL (0.00-0.10); Basophils % (A) 0.1 %; Eosinophils # (A) 0.01 X 10*3/uL (0.04-0.35); Eosinophils % (A) 0.1 %; HCT 31.8 % (37.2-46.3); Lymphocytes # (A) 1.61 X 10*3/uL (0.90-5.00); Lymphocytes % (A) 11.7 %; MCH 31.3 pg (27.0-32.0); MCHC 31.4 g/dL (32.0-37.0); MCV 99.4 fL (80.0-97.0); Mean Platelet Volume 10.6 fL (9.5-12.2); Monocytes # (A) 1.36 X 10*3/uL (0.20-1.00); Monocytes % (A) 9.9 %; Neutrophils # (A) 10.66 X 10*3/uL (1.80-7.70); Neutrophils % (A) 77.8 %; Platelet Count 244 X 10*3/uL (140-440); RDW 12.8 % (11.5-14.5); WBC 13.72 X 10*3/uL (4.50-10.00)
--- NOTE | 2021-04-27 12:18 | P.DS ---
Providers Expected date of discharge: 04/27/21 Attending physician: Butch Foster Consults: 04/26/21 16:05 Consult Physician Routine Consulting Provider: Елена Block Consult Reason/Comments: medical management Do you want consulting provider notified?: Already Contacted Primary care physician: Shanon Castellano - Discharge Diagnosis(es) (1) Primary osteoarthritis of left hip Current Visit: Yes Status: Acute (2) Status post left hip replacement Current Visit: Yes Status: Acute Hospital Course: This is a 75-year-old female with known history of degenerative arthritis of the left hip. The patient presents for evaluation. After discussion and consideration patient elects to proceed with total hip arthroplasty. The patient is seen preoperatively by her primary care physician and cleared for surgery. Patient is admitted to [facility] on 04/26/2021 for left total hip arthroplasty. The procedures performed without complication or sequelae. The patient is doing well postoperatively. Labs and vital signs are stable on day of discharge. On day of discharge patient's hip incision is healing well. There is minimal erythema. There is no drainage noted at this time. There is minimal soft tissue swelling to the hip and thigh. Patient has full foot and ankle motion without difficulty or pain. Neurovascular status to the left lower extremity is intact. Patient is discharged to home in good condition. Pertinent Studies: Laboratory Tests 04/27/21 06:20 WBC 13.72 H RBC 3.20 L Hgb 10.0 L Hct 31.8 L MCV 99.4 H Patient Condition at Discharge: Stable Plan - Discharge Summary Discharge Rx Participant: No New Discharge Prescriptions: New Ondansetron Odt [Zofran Odt] 1 tab PO Q8HR PRN #10 tab PRN Reason: Nausea Aspirin 325 mg PO BID #60 tab Celecoxib [CeleBREX] 200 mg PO DAILY 5 Days #5 capsule Acetaminophen-Codeine 300-30mg [Tylenol #3] 1 tab PO Q4-6H PRN #32 tablet PRN Reason: Pain No Action Atorvastatin [Lipitor] 10 mg PO QAM Metoprolol Tartrate [Lopressor] 50 mg PO BID Benazepril HCl [Lotensin] 40 mg PO BID Venlafaxine HCl [Effexor] 100 mg PO QAM Omeprazole 20 mg PO BID Naproxen Sodium [Aleve] 440 mg PO BID PRN PRN Reason: Pain Cyclobenzaprine [Flexeril] 10 mg PO TID PRN PRN Reason: Muscle Pain Nitrofurantoin Monohyd/M-Cryst [Macrobid] 100 mg PO Q12HR Zinc W/ Vitamin C 2 tab PO DAILY Acetaminophen [Tylenol Extra Strength] 1,000 mg PO DIRECTED PRN PRN Reason: Pain Melatonin 10 mg PO HS PRN PRN Reason: sleep Ibuprofen [Motrin Ib] 400 mg PO Q8H PRN PRN Reason: Pain Ascorbic Acid [Vitamin C] 1,000 mg PO DAILY Calcium Carbonate/Vitamin D3 [Calcium 600 mg-D3 10 Mcg (400 Iu)] 2 each PO DAILY bisacodyL [Dulcolax] 5 mg PO DAILY Discharge Medication List Atorvastatin [Lipitor] 10 mg PO QAM 07/16/15 [History] Metoprolol Tartrate [Lopressor] 50 mg PO BID 09/21/16 [History] Benazepril HCl [Lotensin] 40 mg PO BID 10/29/16 [History] Omeprazole 20 mg PO BID 01/01/19 [History] Venlafaxine HCl [Effexor] 100 mg PO QAM 01/01/19 [History] Acetaminophen [Tylenol Extra Strength] 1,000 mg PO DIRECTED PRN 04/20/21 [History] Ascorbic Acid [Vitamin C] 1,000 mg PO DAILY 04/20/21 [History] Calcium Carbonate/Vitamin D3 [Calcium 600 mg-D3 10 Mcg (400 Iu)] 2 each PO DAILY 04/20/21 [History] Cyclobenzaprine [Flexeril] 10 mg PO TID PRN 04/20/21 [History] Ibuprofen [Motrin Ib] 400 mg PO Q8H PRN 04/20/21 [History] Melatonin 10 mg PO HS PRN 04/20/21 [History] Naproxen Sodium [Aleve] 440 mg PO BID PRN 04/20/21 [History] Nitrofurantoin Monohyd/M-Cryst [Macrobid] 100 mg PO Q12HR 04/20/21 [History] Zinc W/ Vitamin C 2 tab PO DAILY 04/20/21 [History] bisacodyL [Dulcolax] 5 mg PO DAILY 04/20/21 [History] Aspirin 325 mg PO BID #60 tab 04/25/21 [Rx] Celecoxib [CeleBREX] 200 mg PO DAILY 5 Days #5 capsule 04/25/21 [Rx] Ondansetron Odt [Zofran Odt] 1 tab PO Q8HR PRN #10 tab 04/25/21 [Rx] Acetaminophen-Codeine 300-30mg [Tylenol #3] 1 tab PO Q4-6H PRN #32 tablet 04/26/21 [Rx] Follow up Appointment(s)/Referral(s): [facility], [NON-STAFF] - ([facility] will call you to set up the time for your first appointment for 04/27/21.) Butch Foster DO [Doctor of Osteopathic Medicine] - 2 Weeks Patient Instructions/Handouts: Osteoarthritis (DC), Total Hip Replacement (DC) Activity/Diet/Wound Care/Special Instructions: Weightbearing as tolerated with walker. Leave dressing intact. Dressing may be removed by home care nurse or by patient in 7 days. Then change dressing twice daily until follow up. May shower with initial dressing intact and after removal. If dressing become saturated, please remove. Please take aspirin 325mg twice daily for 30 days to prevent blood clots. Recommend use of compression stockings daily until follow up to help prevent swelling and blood clots. May remove at night before sleeping. Please follow-up with [facility] in 2 weeks and call with any ques tions or concerns, . Discharge Disposition: HOME WITH HOME HEALTH SERVICES
--- NOTE | 2021-04-27 14:47 | P.PN ---
Subjective Patient's pain is well-controlled. Her overnight events patient is being discharged today and we'll cut down the dose of Benezepril to 40 mg daily Objective - Vital Signs Vital signs: Vital Signs Temp 98.1 F 04/27/21 07:39 Pulse 89 04/27/21 07:39 Resp 16 04/27/21 07:39 BP 168/78 04/27/21 07:39 Pulse Ox 90 L 04/27/21 07:39 Intake & Output 04/26/21 04/27/21 04/27/21 18:59 06:59 18:59 Intake Total 1551 Output Total 100 Balance 1451 Weight 84.8 kg Intake: IV 1551 Output: Estimated Blood Loss 100 Other: Voiding Method Toilet # Voids 2 3 - Exam PHYSICAL EXAMINATION: GENERAL: The patient is alert and oriented x3, not in any acute distress. Well developed, well nourished. HEENT: Pupils are round and equally reacting to light. EOMI. No scleral icterus. No conjunctival pallor. Normocephalic, atraumatic. No pharyngeal erythema. No thyromegaly. CARDIOVASCULAR: S1 and S2 present. No murmurs, rubs, or gallops. PULMONARY: Chest is clear to auscultation, no wheezing or crackles. ABDOMEN: Soft, nontender, nondistended, normoactive bowel sounds. No palpable organomegaly. MUSCULOSKELETAL: Deferred to orthopedic surgery EXTREMITIES: No cyanosis, clubbing, or pedal edema. NEUROLOGICAL: Gross neurological examination did not reveal any focal deficits. SKIN: No rashes. - Labs CBC & Chem 7: 04/27/21 06:20 Labs: Abnormal Lab Results - Last 24 Hours (Table) 04/27/21 Range/Units 06:20 WBC 13.72 H (4.50-10.00) X 10*3/uL RBC 3.20 L (4.10-5.20) X 10*6/uL Hgb 10.0 L (12.0-15.0) g/dL Hct 31.8 L (37.2-46.3) % MCV 99.4 H (80.0-97.0) fL MCHC 31.4 L (32.0-37.0) g/dL Immature Gran # 0.06 H (0.00-0.04) X 10*3/uL Neutrophils # 10.66 H (1.80-7.70) X 10*3/uL Monocytes # 1.36 H (0.20-1.00) X 10*3/uL Eosinophils # 0.01 L (0.04-0.35) X 10*3/uL Assessment and Plan Plan: -Hypertension: Management as mentioned above -COPD without any acute exacerbation -Gastroesophageal reflux disease Hyperlipidemia -Osteoarthritis primary multi-joint Patient is status post left. hip Arthroplasty and is on aspirin 325 mg twice a day for DVT prophylaxis.
== END 2021-04-27 13:36 | disposition home health service (06) ==
LOC: OR 07:50 → 4SSUR 11:00 → OR 04-27 13:36
PROVIDERS: ATTEND Orthopaedic Surgery
DX: M16.12 Unilateral primary osteoarthritis, left hip (principal); I10 Essential (primary) hypertension; R45.0 Nervousness; F32.9 Major depressive disorder, single episode, unspecified; Z85.828 Personal history of other malignant neoplasm of skin; Z96.653 Presence of artificial knee joint, bilateral; Z90.710 Acquired absence of both cervix and uterus; Z96.642 Presence of left artificial hip joint; Z98.84 Bariatric surgery status; Z83.3 Family history of diabetes mellitus; Z87.891 Personal history of nicotine dependence; I12.9 Hypertensive chronic kidney disease with stage 1 through stage 4 chronic kidney disease, or unspecified chronic kidney disease; N18.9 Chronic kidney disease, unspecified; E78.5 Hyperlipidemia, unspecified; I42.4 Endocardial fibroelastosis; J45.909 Unspecified asthma, uncomplicated; M41.9 Scoliosis, unspecified; K59.09 Other constipation; J44.9 Chronic obstructive pulmonary disease, unspecified; J42 Unspecified chronic bronchitis; Z86.73 Personal history of transient ischemic attack (TIA), and cerebral infarction without residual deficits; K21.9 Gastro-esophageal reflux disease without esophagitis; Z87.01 Personal history of pneumonia (recurrent); Z87.440 Personal history of urinary (tract) infections; Z90.89 Acquired absence of other organs; Z90.49 Acquired absence of other specified parts of digestive tract; Z98.42 Cataract extraction status, left eye; Z98.41 Cataract extraction status, right eye; Z96.1 Presence of intraocular lens; Z80.8 Family history of malignant neoplasm of other organs or systems; Z80.3 Family history of malignant neoplasm of breast; Z80.0 Family history of malignant neoplasm of digestive organs; Z79.82 Long term (current) use of aspirin; Z98.890 Other specified postprocedural states; Z79.899 Other long term (current) drug therapy; Z88.5 Allergy status to narcotic agent; Z88.8 Allergy status to other drugs, medicaments and biological substances
CPT/HCPCS: 97161; 97165; 85025; 88300; 73501; 27130; C1776; J2250; J1644; J1100; J2710; J0690 ×3; J2405; J2001; J3010; J0330; J2704; J1170; 36415; 86850; 86900; 86901

== ENCOUNTER → 2021-07-22 | Outpatient (CLI) | payer MEDICARE, OTHER ==
--- NOTE | 2021-07-24 19:22 | CT ---
EXAMINATION TYPE: CT hip LT wo con DATE OF EXAM: 07/22/2021 COMPARISON: Radiographs 04/26/2021 HISTORY: 75-year-old female Left hip pain post left hip replacement. M25.552 , Z96.642. TECHNIQUE: Contiguous axial scanning of the left hip without IV contrast. Coronal and sagittal recons tructions performed. 3-D constructions generated on a dedicated independent workstation. CT DLP: 395 mGycm Automated exposure control for dose reduction was used. FINDINGS: Extensive streak and beam hardening artifact related to the patient's left hip total arthroplasty perea its evaluation. There is additional noise artifact due to large patient body habitus. Multiple coils from prior mesh repair along the left inguinal region. There is focal bandlike increased density along the anterior left hip likely relating to postsurgica l scar. The hardware including the acetabular cup and femoral stem components appear well seated and appropriately aligned. No periprosthetic fractures seen and no loosening is identified. Mild osteitis pubis. No large periarticular fluid collection is identified. IMPRESSION: LEFT HIP TOTAL ARTHROPLASTY WITHOUT EVIDENT COMPLICATION ALLOWING FOR PROMINENT METAL ARTIFACT. BANDL SALINA SOFT TISSUE DENSITY ALONG THE ANTERIOR LEFT HIP SUBCUTANEOUS ADIPOSE LAYER COMPATIBLE WITH POSTSU RGICAL SCAR.
== END | disposition home or self-care (01) ==
LOC: RADCTMAIN 14:10
PROVIDERS: ATTEND Orthopaedic Surgery
DX: M25.552 Pain in left hip (principal); Z47.1 Aftercare following joint replacement surgery; Z96.642 Presence of left artificial hip joint

== ENCOUNTER 2021-09-21 10:04 | Inpatient (IN) | payer MEDICARE ==
[2021-09-21 10:36] LABS: Basophils % (A) 0 %; Eosinophils % (A) 0 %; HCT 31.5 % (34.0-46.0); HGB 10.3 gm/dL (11.4-16.0); Lymphocytes # (A) 0.7 k/uL (1.0-4.8); Lymphocytes % (A) 11 %; MCH 27.6 pg (25.0-35.0); MCHC 32.8 g/dL (31.0-37.0); MCV 83.9 fL (80.0-100.0); Mean Platelet Volume 7.2; Monocytes # (A) 0.3 k/uL (0-1.0); Monocytes % (A) 4 %; Neutrophils # (A) 5.4 k/uL (1.3-7.7); Neutrophils % (A) 83 %; Platelet Count 290 k/uL (150-450); RBC 3.75 m/uL (3.80-5.40); RDW 15.2 % (11.5-15.5); WBC 6.5 k/uL (3.8-10.6)
[2021-09-21 10:58] LABS: Prothrombin Time 10.6 sec (9.0-12.0)
[2021-09-21 11:05] LABS: C Reactive Protein 8.8 mg/dL (<1.0); Magnesium 1.5 mg/dL (1.6-2.3); Potassium 3.3 mmol/L (3.5-5.1); Total Bilirubin 0.6 mg/dL (0.2-1.3); Total Protein 5.6 g/dL (6.3-8.2)
[2021-09-21] MEDS ORDERED: MAGNESIUM OXIDE 400 MG TAB PO STA (11:11)
[2021-09-21] MEDS ORDERED: POTASSIUM CHLORIDE ER 20 MEQ TAB.ER PO STA (11:11)
[2021-09-21] MEDS ORDERED: ACETAMINOPHEN TAB 325 MG TAB PO STA (11:14)
--- NOTE | 2021-09-21 11:14 | XR ---
EXAMINATION TYPE: XR chest 2V DATE OF EXAM: 09/21/2021 COMPARISON: Chest x-ray 12/31/2018, 10/08/2019 HISTORY: Difficulty breathing, cough TECHNIQUE: Frontal and lateral views of the chest are obtained. FINDINGS: Some patchy peripheral density suspected within the lungs. Prominent lung volume with flat tening the hemidiaphragms, increased AP diameter of the chest could be indicative of underlying COPD. There is thoracic spondylosis. The cardiac silhouette size is within normal limits accounting for [place], rotation. The osseous structures are showing possible compression deformity near the thora cic lumbar junction, likely chronic. IMPRESSION: Correlate for pneumonia, consider Covid infection, follow-up PA and lateral chest x-ray may be of benefit
--- NOTE | 2021-09-21 11:15 | ED ---
General Adult HPI - General Chief complaint: Shortness of Breath Stated complaint: Covid symptoms, weakness Time Seen by Provider: 09/21/21 10:08 Source: patient, EMS, RN notes reviewed Mode of arrival: EMS Limitations: no limitations - History of Present Illness Initial comments: This a 76-year-old female presents emergency department via EMS chief gene ralized weakness, cough and congestion. Patient states she's been sick for last 12 days states that is progressively gotten worse. She has not been tested for COVID-19. No history of COVID-19 no prior vaccination. Patient does have COPD, asthma. Patient states that she's had decreased oral intake. Patient denies chest pain, leg swelling, leg weakness. Patient states that she's had fever chi lls body aches. - Related Data Home Medications Medication Instructions Recorded Confirmed Atorvastatin [Lipitor] 10 mg PO QAM 07/16/15 04/26/21 Metoprolol Tartrate [Lopressor] 50 mg PO BID 09/21/16 04/26/21 Omeprazole 20 mg PO BID 01/01/19 04/20/21 Venlafaxine HCl [Effexor] 100 mg PO QAM 01/01/19 04/26/21 Acetaminophen [Tylenol Extra 1,000 mg PO DIRECTED PRN 04/20/21 04/26/21 Strength] Ascorbic Acid [Vitamin C] 1,000 mg PO DAILY 04/20/21 04/26/21 Calcium Carbonate/Vitamin D3 2 each PO DAILY 04/20/21 04/26/21 [Calcium 600 mg-D3 10 Mcg (400 Iu)] Cyclobenzaprine [Flexeril] 10 mg PO TID PRN 04/20/21 04/26/21 Ibuprofen [Motrin Ib] 400 mg PO Q8H PRN 04/20/21 04/26/21 Melatonin 10 mg PO HS PRN 04/20/21 04/26/21 Naproxen Sodium [Aleve] 440 mg PO BID PRN 04/20/21 04/26/21 Nitrofurantoin Monohyd/M-Cryst 100 mg PO Q12HR 04/20/21 04/26/21 [Macrobid] Zinc W/ Vitamin C 2 tab PO DAILY 04/20/21 04/26/21 bisacodyL [Dulcolax] 5 mg PO DAILY 04/20/21 04/26/21 Previous Rx's Medication Instructions Recorded Aspirin 325 mg PO BID #60 tab 04/25/21 Celecoxib [CeleBREX] 200 mg PO DAILY 5 Days #5 capsule 04/25/21 Ondansetron Odt [Zofran Odt] 1 tab PO Q8HR PRN #10 tab 04/25/21 Acetaminophen-Codeine 300-30mg 1 tab PO Q4-6H PRN #32 tablet 04/26/21 [Tylenol #3] Benazepril HCl [Lotensin] 40 mg PO DAILY #0 04/27/21 Allergies Allergy/AdvReac Type Severity Reaction Status Date / Time hydrocodone [From [place]] Allergy Unknown Itching Verified 09/21/21 10:12 morphine Allergy Itching Verified 09/21/21 10:12 Review of Systems ROS Statement: Those systems with pertinent positive or pertinent negative responses have been documented in the HPI. ROS Other: All systems not noted in ROS Statement are negative. Past Medical History Past Medical History: Asthma, Cancer, CVA/TIA, GERD/Reflux, Hypertension, Osteoarthritis (OA), Pneumonia, Skin Disorder Additional Past Medical History / Comment(s): "small stroke found on EEG", fell off roof 2016 and has chronic back pain since- scoliosis, chronic constipation, chronic UTIs, hx skin cancer, SOB for past year, "leaky heart valve", "kidneys were ready to shut down" in 2018 from dehydration, on rx for recent asthma, chronic bronchitis, anemia, History of Any Multi-Drug Resistant Organisms: None Reported Past Surgical History: Adenoidectomy, Bariatric Surgery, Cholecystectomy, Heart Catheterization, Hysterectomy, Joint Replacement, Orthopedic Surgery, Tonsillectomy Additional Past Surgical History / Comment(s): Lab band with removal, bariatric sleeve with hernia repair, skin cancer removed from arm, , L shoulder rotator cuff surgery twice and R shoulder rotator cuff surgery three times, bilateral total knees, total R hip then dislocated it and had a reduction done, bilateral cataract removals with lens implants. Past Anesthesia/Blood Transfusion Reactions: Motion Sickness, Postoperative Nausea & Vomiting (PONV) Past Psychological History: Anxiety, Depression Smoking Status: Former smoker Past Alcohol Use History: Occasional, Rare Past Drug Use History: None Reported - Past Family History Father Family Medical History: Cancer Additional Family Medical History / Comment(s): Father had skin cancer that metastasized to his bones. Sister(s) Family Medical History: Cancer, Deep Vein Thrombosis (DVT) Additional Family Medical History / Comment(s): breast; another sister had pancreatic cancer Mother Family Medical History: No Reported History Additional Family Medical History / Comment(s): Mother was healthy General Exam Limitations: no limitations General appearance: alert, in no apparent distress Head exam: Present: atraumatic, normocephalic, normal inspection Eye exam: Present: normal appearance, PERRL, EOMI. Absent: scleral icterus, conjunctival injection, periorbital swelling ENT exam: Present: normal exam, normal oropharynx, mucous membranes moist Neck exam: Present: normal inspection, full ROM. Absent: tenderness, meningismus, lymphadenopathy Respiratory exam: Present: decreased breath sounds. Absent: normal lung sounds bilaterally, respiratory distress, wheezes, rales, rhonchi, stridor Cardiovascular Exam: Present: regular rate, normal rhythm, normal heart sounds. Absent: systolic murmur, diastolic murmur, rubs, gallop, clicks GI/Abdominal exam: Present: soft, normal bowel sounds. Absent: distended, tenderness, guarding, rebound, rigid Neurological exam: Present: alert, oriented X3 Skin exam: Present: warm, dry, intact, normal color. Absent: rash Course Vital Signs 09/21/21 09/21/21 10:07 12:09 Temperature 100.2 F H Pulse Rate 97 90 Respiratory 24 18 Rate Blood Pressure 158/69 144/81 O2 Sat by Pulse 89 L 95 Oximetry Medical Decision Making - Medical Decision Making 76-year-old presents emergency room for shortness breath, weakness. Patient found to have hypokalemia, hypomagnesemia, COVID-19 positive with bilateral pneumonia. Patient is 12 days out does not qualify for monoclonal antibodies. Patient will be started on initial dose of Decadron will be admitted for pulmonary consult. - Lab Data Result diagrams: 09/21/21 10:22 09/21/21 10: Lab Results 09/21/21 09/21/21 09/21/21 Range/Units 10:22 10:22 10:22 WBC 6.5 (3.8-10.6) k/uL RBC 3.75 L (3.80-5.40) m/uL Hgb 10.3 L (11.4-16.0) gm/dL Hct 31.5 L (34.0-46.0) % MCV 83.9 (80.0-100.0) fL MCH 27.6 (25.0-35.0) pg MCHC 32.8 (31.0-37.0) g/dL RDW 15.2 (11.5-15.5) % Plt Count 290 (150-450) k/uL MPV 7.2 Neutrophils % 83 % Lymphocytes % 11 % Monocytes % 4 % Eosinophils % 0 % Basophils % 0 % Neutrophils # 5.4 (1.3-7.7) k/uL Lymphocytes # 0.7 L (1.0-4.8) k/uL Monocytes # 0.3 (0-1.0) k/uL Eosinophils # 0.0 (0-0.7) k/uL Basophils # 0.0 (0-0.2) k/uL Sodium 134 L (137-145) mmol/L Potassium 3.3 L (3.5-5.1) mmol/L Chloride 106 (98-107) mmol/L Carbon Dioxide 20 L (22-30) mmol/L Anion Gap 8 mmol/L BUN 21 H (7-17) mg/dL Creatinine 1.01 (0.52-1.04) mg/dL Est GFR (CKD-EPI)AfAm 63 (>60 ml/min/1.73 sqM) Est GFR (CKD-EPI)NonAf 55 (>60 ml/min/1.73 sqM) Glucose 114 H (74-99) mg/dL Plasma Lactic Acid Reyes 1.1 (0.7-2.0) mmol/L Calcium 8.0 L (8.4-10.2) mg/dL Magnesium 1.5 L (1.6-2.3) mg/dL Total Bilirubin 0.6 (0.2-1.3) mg/dL AST 53 H (14-36) U/L ALT 27 (4-34) U/L Alkaline Phosphatase 81 (38-126) U/L Lactate Dehydrogenase 766 H (313-618) U/L Troponin I (0.000-0.034) ng/mL C-Reactive Protein 8.8 H (<1.0) mg/dL NT-Pro-B Natriuret Pep pg/mL Total Protein 5.6 L (6.3-8.2) g/dL Albumin 3.0 L (3.5-5.0) g/dL Coronavirus (PCR) (Not Detectd) 09/21/21 09/21/21 09/21/21 Range/Units 10:22 10:22 10:22 WBC (3.8-10.6) k/uL RBC (3.80-5.40) m/uL Hgb (11.4-16.0) gm/dL Hct (34.0-46.0) % MCV (80.0-100.0) fL MCH (25.0-35.0) pg MCHC (31.0-37.0) g/dL RDW (11.5-15.5) % Plt Count (150-450) k/uL MPV Neutrophils % % Lymphocytes % % Monocytes % % Eosinophils % % Basophils % % Neutrophils # (1.3-7.7) k/uL Lymphocytes # (1.0-4.8) k/uL Monocytes # (0-1.0) k/uL Eosinophils # (0-0.7) k/uL Basophils # (0-0.2) k/uL Sodium (137-145) mmol/L Potassium (3.5-5.1) mmol/L Chloride (98-107) mmol/L Carbon Dioxide (22-30) mmol/L Anion Gap mmol/L BUN (7-17) mg/dL Creatinine (0.52-1.04) mg/dL Est GFR (CKD-EPI)AfAm (>60 ml/min/1.73 sqM) Est GFR (CKD-EPI)NonAf (>60 ml/min/1.73 sqM) Glucose (74-99) mg/dL Plasma Lactic Acid Reyes (0.7-2.0) mmol/L Calcium (8.4-10.2) mg/dL Magnesium (1.6-2.3) mg/dL Total Bilirubin (0.2-1.3) mg/dL AST (14-36) U/L ALT (4-34) U/L Alkaline Phosphatase (38-126) U/L Lactate Dehydrogenase (313-618) U/L Troponin I 0.018 (0.000-0.034) ng/mL C-Reactive Protein (<1.0) mg/dL NT-Pro-B Natriuret Pep 340 pg/mL Total Protein (6.3-8.2) g/dL Albumin (3.5-5.0) g/dL Coronavirus (PCR) Detected A (Not Detectd) Disposition Clinical Impression: COVID-19, Hypoxia, Hypomagnesemia, Hypokalemia Disposition: ADMITTED IP TO THIS HOSP Condition: Poor Referrals: Shanon Castellano MD [Primary Care Provider] - 1-2 days
[2021-09-21] MEDS ORDERED: DEXAMETHASONE SOD PHOSPHATE 10 MG/ML 1 ML VIAL IVP STA (12:13)
[2021-09-21] MEDS ORDERED: NALOXONE 0.4 MG/ML 1 ML VIAL IV PRN (12:16)
[2021-09-21] MEDS ORDERED: ONDANSETRON 4 MG/2 ML VIAL IVP PRN (12:16)
[2021-09-21] MEDS ORDERED: ACETAMINOPHEN TAB 325 MG TAB PO PRN (12:16)
[2021-09-21 12:44] LABS: Partial Thromboplastin Time 20.2 sec (22.0-30.0)
[2021-09-21] MEDS: SODIUM CHLORIDE 0.9% 1,000 ML IV SCH (12:56)
[2021-09-21] MEDS ORDERED: Magnesium Replacement Protocol 1 EACH MISC MISCELLANE PRN (16:24)
[2021-09-21] MEDS ORDERED: Potassium Replacement Protocol 1 EACH MISC MISCELLANE PRN (16:24)
[2021-09-21] MEDS ORDERED: BACLOFEN 10 MG TAB PO PRN (16:28)
[2021-09-21] MEDS ORDERED: ALBUTEROL HFA INHALER INHALATION PRN (16:31)
--- NOTE | 2021-09-21 16:56 | P.CNPUL ---
History of Present Illness Consult date: 09/21/21 Reason for consult: dyspnea, pneumonia History of present illness: 76-year-old here patient was brought in to the [facility] because of gener alized weakness and cough and congestion. The patient has been sick for almost 2 weeks and for that reason she end up coming into the emergency department. No previous history of clevidipine vaccination. A history of COPD and hyperlipidemia and history of CVA/TIA. She suffers from chronic scoliosis and back pain. She presented to the ED and the patient was found to have temperature 100.2. Biophysical essentially stable. Pulse ox was 89% on room air oxygen. The patient was placed on oxygen. [place] was at 6.1 with a hemoglobin of 10.3. Normal renal function and creatinine. The patient's calcium level was 8. LFTs were normal. LDH level was 766 with a CRP of 8.8. Her: 19 testing will glove turner to be positive. The chest x-ray diffuse bilateral pulmonary infiltrates along with cardiomegaly. There is also background scoliosis of the thoracic spine. The patient is currently on oxygen and she is currently on 3 L about 2 by nasal cannula with a pulse of 95%. The patient is currently on Decadron 6 mg IV every 24 hours. Outpatient medications of been also resumed. Review of Systems Constitutional: Reports fatigue, Reports fever, Reports weakness Eyes: denies as per HPI, denies blurred vision, denies bulging eye, denies decreased vision, denies diplopia, denies discharge, denies dry eye, denies irritation, denies itching, denies pain, denies photophobia, denies loss of peripheral vision, denies loss of vision, denies tunnel vision/blind spots Ears: deny: decreased hearing, ear discharge, earache, tinnitus Ears, nose, mouth and throat: Reports as per HPI Breasts: absent: as per HPI, change in shape, gynecomastia, masses, nipple discharge, pain, skin changes, swelling Cardiovascular: Reports decreased exercise tolerance, Reports dyspnea on exertion Respiratory: Reports cough, Reports cough with sputum, Reports dyspnea Genitourinary: Reports as per HPI Menstruation: Reports as per HPI Musculoskeletal: Reports as per HPI Musculoskeletal: absent: ankle pain, ankle stiffness, ankle swelling, as per HPI, elbow pain, elbow stiffness, elbow swelling, foot pain, foot stiffness, foot swelling, hand pain, hand stiffness, hand swelling, hip pain, hip stiffness, hip swelling, knee pain, knee stiffness, knee swelling, shoulder pain, shoulder stiffness, shoulder swelling, wrist pain, wrist stiffness, wrist swelling Neurological: Reports as per HPI Psychiatric: Reports as per HPI Endocrine: Reports as per HPI Hematologic/Lymphatic: Reports as per HPI Allergic/Immunologic: Reports as per HPI Past Medical History Past Medical History: Asthma, Cancer, CVA/TIA, GERD/Reflux, Hypertension, Osteoarthritis (OA), Pneumonia, Skin Disorder Additional Past Medical History / Comment(s): "small stroke found on EEG", fell off roof 2015 and has chronic back pain since- scoliosis, chronic constipation, chronic UTIs, hx skin cancer, SOB for past year, "leaky heart valve", "kidneys were ready to shut down" in 2018 from dehydration,asthma, chronic bronchitis, anemia, History of Any Multi-Drug Resistant Organisms: None Reported Past Surgical History: Adenoidectomy, Bariatric Surgery, Cholecystectomy, Heart Catheterization, Hysterectomy, Joint Replacement, Orthopedic Surgery, Tonsillectomy Additional Past Surgical History / Comment(s): Lab band with removal, bariatric sleeve with hernia repair, skin cancer removed from arm, , L shoulder rotator cuff surgery twice and R shoulder rotator cuff surgery three times, bilateral total knees, total R hip then dislocated it and had a reduction done, bilateral cataract removals with lens implants, Left hip replacement. Past Anesthesia/Blood Transfusion Reactions: Motion Sickness, Postoperative Nausea & Vomiting (PONV) Past Psychological History: Anxiety, Depression Additional Psychological History / Comment(s): . Smoking Status: Former smoker Past Alcohol Use History: Occasional, Rare Additional Past Alcohol Use History / Comment(s): STARTED AGE 13 , SMOKED ON AND OFF, SMOKED 1 PACK /WEEK. QUIT 1992 Past Drug Use History: None Reported - Past Family History Father Family Medical History: Cancer Additional Family Medical History / Comment(s): Father had skin cancer that metastasized to his bones. Sister(s) Family Medical History: Cancer, Deep Vein Thrombosis (DVT) Additional Family Medical History / Comment(s): breast; another sister had pancreatic cancer Mother Family Medical History: No Reported History Additional Family Medical History / Comment(s): Mother was healthy Medications and Allergies Home Medications Medication Instructions Recorded Confirmed Type Metoprolol Tartrate [Lopressor] 50 mg PO BID 09/21/16 09/21/21 History Omeprazole 20 mg PO BID 01/01/19 09/21/21 History Venlafaxine HCl [Effexor] 100 mg PO DAILY 01/01/19 09/21/21 History bisacodyL [Dulcolax] 5 mg PO DAILY 04/20/21 09/21/21 History Baclofen [Lioresal] 10 mg PO HS PRN 09/21/21 09/21/21 History Benazepril HCl [Lotensin] 40 mg PO BID 09/21/21 09/21/21 History Nitrofurantoin Macrocrystal 100 mg PO DAILY PRN 09/21/21 09/21/21 History [Nitrofurantoin] Allergies Allergy/AdvReac Type Severity Reaction Status Date / Time hydrocodone [From Russell] Allergy Unknown Itching Verified 09/21/21 12:27 morphine AdvReac Nausea & Verified 09/21/21 12:27 Vomiting Physical Exam Vitals: Vital Signs Temp Pulse Pulse Resp BP BP Pulse Ox 09/21/21 15:43 97.6 F 94 16 137/76 95 09/21/21 15:14 85 18 139/67 97 09/21/21 12:09 90 18 144/81 95 09/21/21 10:07 100.2 F H 97 24 158/69 89 L Intake and Output 09/21/21 09/21/21 09/21/21 06:59 14:59 22:59 Other: Weight 82.554 kg 82.554 kg Gen. appearance she is calm and comfortable and her breathing isNon-labored at this point in time on 3 L Head exam was generally normal. There was no scleral icterus or corneal arcus. Mucous membranes were moist. Neck was supple and without jugular venous distension, thyromegaly, or carotid bruits. Carotids were easily palpable bilaterally. There was no adenopathy. Lungs sounds are diminished and the patient has some limited bibasilar crackles in the lung bases bilaterally Cardiac exam revealed the PMI to be normally situated and sized. The rhythm was regular and no extrasystoles were noted during several minutes of auscultation. The first and second heart sounds were normal and physiologic splitting of the second heart sound was noted. There were no murmurs, rubs, clicks, or gallops. Abdominal exam revealed normal bowel sounds. The abdomen was soft, non-tender, and without masses, organomegaly, or appreciable enlargement of the abdominal aorta. Examination of the extremities revealed easily palpable radial, femoral and pedal pulses. There was no cyanosis, clubbing or edema. Examination of the skin revealed no evidence of significant rashes, suspicious appearing nevi or other concerning lesions. Neurologically, the patient is awake and alert and the patient does not have any focal neurological deficit. Cranial nerves are essentially intact. Results - Laboratory Findings CBC and BMP: 09/21/21 10:09/21/21 10:22 PT/INR, D-dimer PT 10.6 sec (9.0-12.0) 09/21/21 10: INR 1.0 (<1.2) 09/21/21 10: Abnormal lab findings: Abnormal Labs 09/21/21 09/21/21 09/21/21 10: 10:22 10:22 RBC 3.75 L Hgb 10.3 L Hct 31.5 L Lymphocytes # 0.7 L APTT 20.2 L Sodium 134 L Potassium 3.3 L Carbon Dioxide 20 L BUN 21 H Glucose 114 H Calcium 8.0 L Magnesium 1.5 L AST 53 H Lactate Dehydrogenase 766 H C-Reactive Protein 8.8 H Total Protein 5.6 L Albumin 3.0 L Coronavirus (PCR) 09/21/21 10:22 RBC Hgb Hct Lymphocytes # APTT Sodium Potassium Carbon Dioxide BUN Glucose Calcium Magnesium AST Lactate Dehydrogenase C-Reactive Protein Total Protein Albumin Coronavirus (PCR) Detected A - Diagnostic Findings Chest x-ray: image reviewed Assessment and Plan Plan: 1 Acute COVID 19 pneumonia with bilateral pulmonary infiltrates. The patient symptoms started approximately 2 weeks ago and the patient presented with worsening shortness of breath. This is a pleasant 76-year-old female patient was not vaccinated for Covid 19. Her symptoms progressed over this past 2 weeks and she is coming in with hypoxic respiratory failure. There is also mild elevation of inflammatory markers 2 acute hypoxic respiratory failure currently on 3 L about 2 by nasal cannula, pulse ox on room air was 84% 3 history of scoliosis of the spine 4 chronic bronchial asthma 5 history of skin cancer 6 chronic constipation 7 acid reflux 8 osteoarthritis. Plan Check d-dimer levels Check pro calcitonin level LVH and CRP are mildly elevated Proceed with Decadron 6 mg IV every 24 hours The patient is outside the window for Remdesivir treatment Monitor oxygenation and gave her flow of 3 L or now antiplatelet flow to maintain a saturation above 90% Lovenox 40 mg for DVT prophylaxis IV fluids in the form of saline at the rate of 75 mL an hour Resume all medications We'll continue to follow
[2021-09-21] MEDS: VENLAFAXINE HCL 50 MG TAB PO SCH (17:33)
[2021-09-21] MEDS: PANTOPRAZOLE 40 MG TABLET PO SCH (17:33)
[2021-09-21] MEDS: ASCORBIC ACID 500 MG TAB PO SCH (17:33)
[2021-09-21] MEDS: ZINC SULFATE 220 MG CAP PO SCH (17:34)
[2021-09-21] MEDS: MAGNESIUM SULFATE-D5W PMX 1 GM in DEXTROSE/WATER 1 100ML.BAG IVPB SCH ×2 (17:34→20:50)
[2021-09-21] MEDS: ENOXAPARIN 40 MG/0.4 ML SYRINGE SQ SCH (17:34)
--- NOTE | 2021-09-21 19:08 | HP ---
HISTORY AND PHYSICAL DATE OF SERVICE: 09/21/2021 CHIEF COMPLAINT: Shortness of breath and weakness and Covid positive. HISTORY OF PRESENT ILLNESS: This 76-year-old woman with a past medical history of multiple medical problems including asthma, history of CVA, TIA, GERD, hypertension, DJD, history of pneumonia, being followed by Dr. Shanon Castellano in the outpatient setting was having complaints of generalized weakness, cough and congestion for the last 12 days. The patient is feeling progressively worse and the patient did not take any Covid vaccine apparently. The patient came to [facility] and was found to have pulse ox 89 percent. The patient is febrile. The chest x-ray was done which I reviewed personally which showed bilateral infiltrates highly suggestive of Covid 19 pneumonia. The patient admitted to the hospital for further evaluation and treatment. The evaluation by Pulmonary and Infectious Disease ongoing at this time. There is no history any headache, loss of consciousness or seizures at this time. Inflammatory markers are also elevated at this time. The patient is started on IV steroids at this time. PAST MEDICAL HISTORY: History of asthma, CVA, TIA, GERD, hypertension, DJD, history of pneumonia, small stroke previously. MEDICATIONS: Home medications are: Lioresal, Dulcolax, Effexor, Omeprazole, nitrofurantoin, Lopressor, Lotensin. Doses reviewed. ALLERGIES: NORCO AND MORPHINE. FAMILY HISTORY: History of cancer in the family. SOCIAL HISTORY: Previous history of smoking. Occasional alcohol. REVIEW OF SYSTEMS: ENT: No diminished vision. No diminished hearing. CARDIOVASCULAR system: No angina or palpitations. RESPIRATORY: As mentioned earlier. GI: No nausea or vomiting. : No dysuria. NERVOUS SYSTEM: No numbness or weakness. ALLERGY/IMMUNOLOGY: No asthma or hayfever. HEMATOLOGY/ONCOLOGY: No history of anemia. ENDOCRINE: No history of diabetes or hypothyroidism. CONSTITUTIONAL: As mentioned earlier. DERMATOLOGY: Negative. RHEUMATOLOGY: Negative. PSYCHIATRY: As mentioned earlier. PHYSICAL EXAMINATION: Alert and oriented times three. Pulse is 97, blood pressure 158/69. Respiration 24, temperature 100.2, pulse ox 89 percent on room air. HEENT: Conjunctivae normal. Oral mucosa moist. NECK is no JVD. CARDIOVASCULAR: S1, S2 muffled. RESPIRATION: Breath sounds diminished in the bases. A few scattered rhonchi and crackles. ABDOMEN: Soft. No mass palpable. LEGS: No edema. No swelling. NERVOUS SYSTEM: Higher functions as mentioned. Moves all four limbs. No focal motor or sensory deficits. LYMPHATICS: No lymph nodes palpable in the neck, axillae or groin. SKIN: No ulcer, no rashes and no bleeding. JOINTS: No active deforming arthropathy. LAB STUDIES: WBC 6.2, hemoglobin 10.3. Sodium 134, potassium 3.3 and magnesium 1.5 and LDH is 766. Albumin is 3.1. reviewed personally. ASSESSMENT: 1. Acute Covid 19 infection with acute Covid 19 bilateral interstitial pneumonia with acute hypoxic respiratory failure. 2. Anemia, normocytic anemia of possible chronic disease. 3. Hyponatremia. 4. Hypokalemia. 5. Hypomagnesemia. 6. Elevated LDH. 7. Elevated inflammatory markers of Covid 19. 8. Elevated AST. 9. Elevated CRP. 10.History of asthma. 11.History of cerebrovascular accident. 12.History of gastroesophageal reflux disease. 13.Hypertension. 14.History of degenerative joint disease. 15.History of adenoidectomy. 16.History of bariatric surgery. 17.History of cholecystectomy. 18.Anxiety, depression. 19.FULL CODE. 20.Obesity with body mass of 34.5. RECOMMENDATIONS AND DISCUSSION: This 76-year-old woman who presented with multiple complex medical issues as mentioned earlier. At this time we will monitor the patient closely, continue the current medications, management and the symptomatic treatment. Patient is out of the window for the Remdesivir. We will consult Pulmonary and Infectious Disease. Otherwise, dexamethasone. We will initiate dexamethasone, Lovenox and other usual medications for Covid 19. Incentive spirometry. Prone positioning. Prognosis guarded because of multiple complex medical issues. Further recommendations to follow. Also recommend a D-dimer and if it is positive, CT angio of the chest also. A copy of dictation is being forwarded to Dr. Shanon Castellano who is the primary physician. We will supplement potassium, magnesium deficiencies also and recheck them in the morning also. MMODL / IJN: [id number] / SARA
[2021-09-21] MEDS: METOPROLOL TARTRATE 50 MG TAB PO SCH (20:50)
[2021-09-21] MEDS: lisinopriL 20 MG TAB PO SCH (20:50)
--- NOTE | 2021-09-21 22:44 | CT ---
EXAMINATION TYPE: CT chest angio for PE DATE OF EXAM: 09/21/2021 COMPARISON: 10/30/2016 HISTORY: Elevated d-dimer, COVID, SOB CT DLP: 543.5 mGycm Automated exposure control for dose reduction was used. CONTRAST: Performed with IV Contrast, patient injected with 80 mL of Isovue 370. Images obtained from the thoracic inlet to the diaphragm with IV contrast. There are 3-D post process ed images. There is extensive patchy peripheral pulmonary interstitial infiltrates. Heart appears slightly enlar ged. There is no pericardial effusion. There is no pleural effusion. There are a few mediastinal lymp h nodes up to 1.5 cm. There are no hilar masses. Thoracic aorta is atheromatous. There is no aneurysm or dissection. There is normal contrast opacification of the pulmonary arteries. There are no filling defects. There is degenerative spurring in the thoracic spine. There is no compression fracture. IMPRESSION: Bilateral extensive pulmonary infiltrates consistent with multifocal pneumonia. This appears new comp ared to old exam. No evidence of pulmonary embolism. Mediastinal lymph nodes likely inflammatory.
[2021-09-22] MEDS: SODIUM CHLORIDE 0.9% 1,000 ML IV SCH ×2 (03:15→15:24)
--- NOTE | 2021-09-22 07:55 | P.CONS ---
History of Present Illness - Reason for Consult Consult date: 09/21/21 covid 19 pneumonia Requesting physician: Cayetano Izquierdo - Chief Complaint weakness and shortness of breath x 12 days - History of Present Illness History of present illness : Patient is 76-year-old female presenting to the ER this morning via EMS for evaluation of generalized weakness cough and congestion the patient symptom has going on for about 12 days that has been progressively getting worse patient complaining of generalized weakness and generalized body aches no energy did have decreased appetite and decreased oral intake no vomiting though no abdominal pain did have some diarrhea patient did not have vaccination for COVID-19 and did not recall if she has been exposed to somebody with Covid patient on presentation to the hospital did have a low-grade fever of 100.2 patient was hypoxic with O2 sats of 90% on room air on arrival to the ER patient did have a normal white count with lymphopenia D-dimer mildly elevated creatinine is 1.01 AST mildly elevated CRP of 8.8 procalcitonin 06 patient did have a chest x-ray correlate for her pneumonia consider COVID-19 infection patient did have nasopharyngeal swab came positive for Covid she has been admitted to hospital infectious disease was consulted for further management Review of system: CONSTITUTIONAL: Positive for weakness along with the fever. EYES: No complaint. ENT: No complaint. RESPIRATORY: As per history of present illness. CARDIOVASCULAR: No complaint. GENITOURINARY: No complaint. GASTROINTESTINAL: As per history of present illness. MUSCULOSKELETAL: No complaint. INTEGUMENTARY: No complaint. PSYCHOLOGIC: No complaint. ENDOCRINE: No complaint. NEUROLOGIC: No complaint. Past medical history : Reviewed, documented below Past surgical history : Reviewed, documented below Social history: Reviewed, documented below Medications: Reviewed, as documented below EXAMINATION: Vital sigans= Reviewed and documented below GENERAL DESCRIPTION: Elderly female lying in bed, no distress. No tachypnea or accessory muscle of respiration use. HEENT: Shows Pallor , no scleral icterus. Oral mucous membrane is dry. NECK: Trachea central, no thyromegaly. LUNGS: Unlabored breathing. Coarse breath sounds bilaterally. No wheeze or crackle. HEART: S1, S2, regular rate and rhythm. ABDOMEN: Soft, no tenderness , guarding or rigidity EXTREMITIES: No edema of feet. SKIN: No rash, no masses palpable. NEUROLOGICAL: The patient is awake, alert, oriented x3, mood and affect normal. LABS AND RADIOLOGY: Reviewed results see below Assessment : Patient presented to hospital with generalized weakness body aches short increasing shortness of breath did have a fever with evidence of in terstitial pneumonia secondary to COVID-19, unfortunately patient presented to hospital with 12 days onset of symptoms and will not qualify for remdesivir per [facility] policy, patient currently with no clinical suspicion for secondary bacterial pneumonia treatment will be mostly supportive Plan: 1-Lovenox dexamethasone zinc and ascorbic acid as per COVID-19 treatment protocol 2-droplet isolation and respiratory support 3-no need for systemic antibiotic therapy We will follow on clinical condition and cultures to further adjust medication if needed Thank you for this consultation we will follow the patient along with you Past Medical History Past Medical History: Asthma, Cancer, CVA/TIA, GERD/Reflux, Hypertension, Osteoarthritis (OA), Pneumonia, Skin Disorder Additional Past Medical History / Comment(s): "small stroke found on EEG", fell off roof 2015 and has chronic back pain since- scoliosis, chronic constipation, chronic UTIs, hx skin cancer, SOB for past year, "leaky heart valve", "kidneys were ready to shut down" in 2018 from dehydration,asthma, chronic bronchitis, anemia, History of Any Multi-Drug Resistant Organisms: None Reported Past Surgical History: Adenoidectomy, Bariatric Surgery, Cholecystectomy, Heart Catheterization, Hysterectomy, Joint Replacement, Orthopedic Surgery, Tonsillectomy Additional Past Surgical History / Comment(s): Lab band with removal, bariatric sleeve with hernia repair, skin cancer removed from arm, , L shoulder rotator cuff surgery twice and R shoulder rotator cuff surgery three times, bilateral total knees, total R hip then dislocated it and had a reduction done, bilateral cataract removals with lens implants, Left hip replacement. Past Anesthesia/Blood Transfusion Reactions: Motion Sickness, Postoperative Nausea & Vomiting (PONV) Past Psychological History: Anxiety, Depression Additional Psychological History / Comment(s): . Smoking Status: Former smoker Past Alcohol Use History: Occasional, Rare Additional Past Alcohol Use History / Comment(s): STARTED AGE 13 , SMOKED ON AND OFF, SMOKED 1 PACK /WEEK. QUIT 1992 Past Drug Use History: None Reported - Past Family History Father Family Medical History: Cancer Additional Family Medical History / Comment(s): Father had skin cancer that metastasized to his bones. Sister(s) Family Medical History: Cancer, Deep Vein Thrombosis (DVT) Additional Family Medical History / Comment(s): breast; another sister had pancreatic cancer Mother Family Medical History: No Reported History Additional Family Medical History / Comment(s): Mother was healthy Medications and Allergies Home Medications Medication Instructions Recorded Confirmed Type Metoprolol Tartrate [Lopressor] 50 mg PO BID 09/21/16 09/21/21 History Omeprazole 20 mg PO BID 01/01/19 09/21/21 History Venlafaxine HCl [Effexor] 100 mg PO DAILY 01/01/19 09/21/21 History bisacodyL [Dulcolax] 5 mg PO DAILY 04/20/21 09/21/21 History Baclofen [Lioresal] 10 mg PO HS PRN 09/21/21 09/21/21 History Benazepril HCl [Lotensin] 40 mg PO BID 09/21/21 09/21/21 History Nitrofurantoin Macrocrystal 100 mg PO DAILY PRN 09/21/21 09/21/21 History [Nitrofurantoin] Allergies Allergy/AdvReac Type Severity Reaction Status Date / Time hydrocodone [From Olivia] Allergy Unknown Itching Verified 09/21/21 12:27 morphine AdvReac Nausea & Verified 09/21/21 12:27 Vomiting Physical Exam Vitals: Vital Signs Temp Pulse Pulse Resp BP BP Pulse Ox 09/22/21 06:15 98.7 F 78 19 154/80 96 09/22/21 02:38 98.2 F 70 19 144/79 94 L 09/21/21 22:50 98.3 F 67 18 146/72 96 09/21/21 19:02 18 09/21/21 17:21 98.4 F 95 18 158/75 96 09/21/21 15:43 97.6 F 94 16 137/76 95 09/21/21 15:14 85 18 139/67 97 09/21/21 12:09 90 18 144/81 95 09/21/21 10:07 100.2 F H 97 24 158/69 89 L Intake and Output 09/21/21 09/22/21 09/22/21 22:59 06:59 14:59 Other: Voiding Method Toilet # Voids 3 3 Weight 82.554 kg Results CBC & Chem 7: 09/21/21 10:22 09/21/21 10:22 Labs: Abnormal Lab Results - Last 24 Hours (Table) 09/21/21 09/21/21 09/21/21 Range/Units 10:22 10:22 10:22 RBC 3.75 L (3.80-5.40) m/uL Hgb 10.3 L (11.4-16.0) gm/dL Hct 31.5 L (34.0-46.0) % Lymphocytes # 0.7 L (1.0-4.8) k/uL APTT 20.2 L (22.0-30.0) sec D-Dimer (<0.60) mg/L FEU Sodium 134 L (137-145) mmol/L Potassium 3.3 L (3.5-5.1) mmol/L Carbon Dioxide 20 L (22-30) mmol/L BUN 21 H (7-17) mg/dL Glucose 114 H (74-99) mg/dL Calcium 8.0 L (8.4-10.2) mg/dL Magnesium 1.5 L (1.6-2.3) mg/dL AST 53 H (14-36) U/L Lactate Dehydrogenase 766 H (313-618) U/L C-Reactive Protein 8.8 H (<1.0) mg/dL Total Protein 5.6 L (6.3-8.2) g/dL Albumin 3.0 L (3.5-5.0) g/dL Coronavirus (PCR) (Not Detectd) 09/21/21 09/21/21 Range/Units 10: 19:12 RBC (3.80-5.40) m/uL Hgb (11.4-16.0) gm/dL Hct (34.0-46.0) % Lymphocytes # (1.0-4.8) k/uL APTT (22.0-30.0) sec D-Dimer 1.01 H (<0.60) mg/L FEU Sodium (137-145) mmol/L Potassium (3.5-5.1) mmol/L Carbon Dioxide (22-30) mmol/L BUN (7-17) mg/dL Glucose (74-99) mg/dL Calcium (8.4-10.2) mg/dL Magnesium (1.6-2.3) mg/dL AST (14-36) U/L Lactate Dehydrogenase (313-618) U/L C-Reactive Protein (<1.0) mg/dL Total Protein (6.3-8.2) g/dL Albumin (3.5-5.0) g/dL Coronavirus (PCR) Detected A (Not Detectd)
[2021-09-22] MEDS: ENOXAPARIN 40 MG/0.4 ML SYRINGE SQ SCH (09:16)
[2021-09-22] MEDS: VENLAFAXINE HCL 50 MG TAB PO SCH (09:16)
[2021-09-22] MEDS: ASCORBIC ACID 500 MG TAB PO SCH (09:16)
[2021-09-22] MEDS: bisacodyL 5 MG TABLET.DR PO SCH (09:17)
[2021-09-22] MEDS: ZINC SULFATE 220 MG CAP PO SCH (09:17)
[2021-09-22] MEDS: PANTOPRAZOLE 40 MG TABLET PO SCH ×2 (09:17→16:25)
[2021-09-22] MEDS: METOPROLOL TARTRATE 50 MG TAB PO SCH ×2 (09:18→21:35)
[2021-09-22] MEDS: lisinopriL 20 MG TAB PO SCH ×2 (09:18→21:35)
[2021-09-22 09:31] LABS: Basophils % (A) 0 %; Eosinophils % (A) 0 %; HCT 32.5 % (34.0-46.0); HGB 10.3 gm/dL (11.4-16.0); Lymphocytes # (A) 0.6 k/uL (1.0-4.8); Lymphocytes % (A) 10 %; MCHC 31.6 g/dL (31.0-37.0); MCV 85.4 fL (80.0-100.0); Mean Platelet Volume 7.6; Monocytes # (A) 0.3 k/uL (0-1.0); Monocytes % (A) 5 %; Neutrophils # (A) 5.4 k/uL (1.3-7.7); Neutrophils % (A) 85 %; Platelet Count 355 k/uL (150-450); RDW 15.3 % (11.5-15.5); WBC 6.3 k/uL (3.8-10.6)
[2021-09-22] MEDS: DEXAMETHASONE SOD PHOSPHATE 10 MG/ML 1 ML VIAL IVP SCH (09:42)
[2021-09-22 09:46] LABS: African American GFR (CKD) 83 (>60 ml/min/1.73 sqM); Anion Gap 8 mmol/L; Blood Urea Nitrogen 18 mg/dL (7-17); Calcium 8.8 mg/dL (8.4-10.2); Carbon Dioxide 20 mmol/L (22-30); Chloride 111 mmol/L (98-107); Glucose 134 mg/dL (74-99); Non-African American GFR(CKD) 72 (>60 ml/min/1.73 sqM); Potassium 4.1 mmol/L (3.5-5.1); Sodium 139 mmol/L (137-145)
--- NOTE | 2021-09-22 15:39 | P.PN ---
Subjective Progress Note Date: 09/22/21 76-year-old here patient was brought in to the [facility] because of generalized weakness and cough and congestion. The patient has been sick for almost 2 weeks and for that reason she end up coming into the emergency department. No previous history of vaccination. A history of COPD and hyperlipidemia and history of CVA/TIA. She suffers from chronic scoliosis and back pain. She presented to the ED and the patient was found to have temperature 100.2. Biophysical essentially stable. Pulse ox was 89% on room air oxygen. The patient was placed on oxygen. [place] was at 6.1 with a hemoglobin of 10.3. Normal renal function and creatinine. The patient's calcium level was 8. LFTs were normal. LDH level was 766 with a CRP of 8.8. Her: 19 testing will machine turner to be positive. The chest x-ray diffuse bilateral pulmonary infiltrates along with cardiomegaly. There is also background sc oliosis of the thoracic spine. The patient is currently on oxygen and she is currently on 3 L about 2 by nasal cannula with a pulse of 95%. The patient is currently on Decadron 6 mg IV every 24 hours. Outpatient medications of been also resumed. On today's evaluation of 09/22/2021 seeing this 76-year-old here patient for a follow-up. She continues to have a dry cough which has not improved since yesterday. She was having a low-grade fever and currently she is afebrile. She has been started on Decadron 6 mg IV every 24 hours. We will medications have been resumed. On today's evaluation, the patient remains on oxygen and she is on 2 L per minute nasal cannula. The blood workShows if white cell count of 6.3 with a hemoglobin of 10.3, d-dimer is at 1.01, BUN is 18 with a creatinine of 0.8 and the sodium level of 139, pro calcitonin as expected was low at 0.06 indicating that the presentation is typical of COVI D19 related pneumonia. Objective - Vital Signs Vital signs: Vital Signs Temp 97.8 F 09/22/21 13:19 Pulse 63 09/22/21 13:19 Resp 18 09/22/21 13:19 BP 134/71 09/22/21 13:19 Pulse Ox 98 09/22/21 13:19 Intake & Output 09/21/21 09/22/21 09/22/21 18:59 06:59 18:59 Weight 82.554 kg Other: Voiding Method Toilet # Voids 3 3 - Exam Gen. appearance she is calm and comfortable and her breathing isNon-labored at this point in time on 2-3 L Head exam was generally normal. There was no scleral icterus or corneal arcus. Mucous membranes were moist. Neck was supple and without jugular venous distension, thyromegaly, or carotid bruits. Carotids were easily palpable bilaterally. There was no adenopathy. Lungs sounds are diminished and the patient has some limited bibasilar crackles in the lung bases bilaterally Cardiac exam revealed the PMI to be normally situated and sized. The rhythm was regular and no extrasystoles were noted during several minutes of auscultation. The first and second heart sounds were normal and physiologic splitting of the second heart sound was noted. There were no murmurs, rubs, clicks, or gallops. Abdominal exam revealed normal bowel sounds. The abdomen was soft, non-tender, and without masses, organomegaly, or appreciable enlargement of the abdominal aorta. Examination of the extremities revealed easily palpable radial, femoral and pedal pulses. There was no cyanosis, clubbing or edema. Examination of the skin revealed no evidence of significant rashes, suspicious appearing nevi or other concerning lesions. Neurologically, the patient is awake and alert and the patient does not have any focal neurological deficit. Cranial nerves are essentially intact. - Labs CBC & Chem 7: 09/22/21 07:09 09/22/21 07:09 Labs: Abnormal Lab Results - Last 24 Hours (Table) 09/21/21 09/22/21 09/22/21 Range/Units 19:12 07:09 07:09 Hgb 10.3 L (11.4-16.0) gm/dL Hct 32.5 L (34.0-46.0) % Lymphocytes # 0.6 L (1.0-4.8) k/uL D-Dimer 1.01 H (<0.60) mg/L FEU Chloride 111 H (98-107) mmol/L Carbon Dioxide 20 L (22-30) mmol/L BUN 18 H (7-17) mg/dL Glucose 134 H (74-99) mg/dL Magnesium (1.6-2.3) mg/dL 09/22/21 Range/Units 07:09 Hgb (11.4-16.0) gm/dL Hct (34.0-46.0) % Lymphocytes # (1.0-4.8) k/uL D-Dimer (<0.60) mg/L FEU Chloride (98-107) mmol/L Carbon Dioxide (22-30) mmol/L BUN (7-17) mg/dL Glucose (74-99) mg/dL Magnesium 2.4 H (1.6-2.3) mg/dL Assessment and Plan Plan: 1 Acute COVID 19 pneumonia with bilateral pulmonary infiltrates. The patient symptoms started approximately 2 weeks ago and the patient presented with worsening shortness of breath. This is a pleasant 76-year-old female patient was not vaccinated for Covid 19. Her symptoms progressed over this past 2 weeks and she is coming in with hypoxic respiratory failure. There is also mild elevation of inflammatory markers 2 acute hypoxic respiratory failure currently on 3 L about 2 by nasal cannula, pulse ox on room air was 84% 3 history of scoliosis of the spine 4 chronic bronchial asthma 5 history of skin cancer 6 chronic constipation 7 acid reflux 8 osteoarthritis. Plan Check d-dimer levels have been checked for the levels are low and the patient is currently on prophylactic dose of Lovenox Check pro calcitonin level have been checked and the levels are low LDH and CRP are mildly elevated Continue Decadron 6 mg IV every 24 hours The patient is outside the window for Remdesivir treatment Monitor oxygenation and gave her flow of 3 L or now antiplatelet flow to maint ain a saturation above 90% Lovenox 40 mg for DVT prophylaxis IV fluids to be reduced to KVO Robitussin-DM 10 MO's every 6 hours for cough. Resume all medications We'll continue to follow
[2021-09-22] MEDS: guaiFENesin-DM 100-10MG/5ML 10 ML CUP PO PRN ×2 (16:25→22:04)
--- NOTE | 2021-09-22 21:22 | PN ---
PROGRESS NOTE DATE OF SERVICE: 09/22/2021 This 76-year-old woman was admitted with acute COVID-19 infection. The patient had a chest CTA which showed bilateral extensive pulmonary infiltrates with multifocal pneumonia highly suggestive of COVID-19 pneumonia. No evidence of pulmonary embolism. Mediastinal lymph node, likely inflammatory, was noted also. The patient was admitted for further evaluation and treatment. Dr. Woods is following the patient closely. The chest x-ray and the CT scan were personally reviewed by me. Past medical history reviewed. REVIEW OF SYSTEMS: CARDIOVASCULAR SYSTEM: No angina. RESPIRATION: As mentioned earlier. GI: As mentioned earlier. : No dysuria. NERVOUS SYSTEM: No numbness, weakness. MEDICATIONS: Reviewed. They include Tylenol, Ventolin, Lioresal, dulcolax, Decadron, Robitussin, Zestril, Lopressor. Doses and other medications reviewed. PHYSICAL EXAMINATION: Patient alert and oriented x3. Pulse 74, blood pressure 163/71, respiration 18, temperature 97.9, pulse ox 97% on 2 L. HEENT: Conjunctivae normal. NECK: No jugular venous distention. CARDIOVASCULAR: S1, S2 muffled. RESPIRATION: Breath sounds diminished at the bases. Bilateral scattered rhonchi and crackles. ABDOMEN: Soft, nontender. LEGS: No edema. No swelling. NERVOUS SYSTEM: No focal deficit. LABS: WBC 6.3, hemoglobin 10.3. Other labs are noted. COVID-19 is positive. Procalcitonin 0.06. ASSESSMENT: 1. Acute COVID-19 infection with acute COVID-19 bilateral extensive interstitial pneumonia with acute hypoxic respiratory failure, present on admission. 2. Anemia, normocytic anemia, possibly of chronic disease. 3. Elevated D-dimer without any evidence of pulmonary embolism. 4. Hyponatremia. 5. Hypokalemia. 6. Hypomagnesemia. 7. Elevated LDH. 8. Elevated inflammatory markers of COVID-19. 9. Elevated AST. 10.Elevated CRP. 11.Normal procalcitonin. 12.History of asthma. 13.History of cerebrovascular accident. 14.History of gastroesophageal reflux disease. 15.Hypertension. 16.History of degenerative joint disease. 17.History of adenoidectomy. 18.History of bariatric surgery. 19.History of cholecystectomy. 20.History of anxiety, depression. 21.Obesity with body mass index 34.5. 22.FULL CODE. RECOMMENDATIONS AND DISCUSSION: I recommend to continue current medications, continue with symptomatic treatment. Otherwise at this time I would recommend continuing the usual medications. I do not think there is indication for any antibiotic at this time. Repeat the labs. Potassium and magnesium replacement protocols. I would also recommend ultrasound of the DVT of the legs to rule out the possibility of pulmonary embolism. Closely follow with Dr. Woods. Guarded prognosis because of multiple complex medical issues. Further recommendations to follow. MMODL / IJN: [id number] /
--- NOTE | 2021-09-22 23:08 | PN ---
PROGRESS NOTE DATE OF SERVICE: 09/22/2021 REASON FOR FOLLOWUP: Acute COVID-19 pneumonia. INTERVAL HISTORY: The patient is afebrile. The patient is breathing comfortably compared to yesterday. The patient denies having any chest pain. She did have a cough which is mostly moderate and dry in nature. No vomiting. No abdominal pain or diarrhea. PHYSICAL EXAMINATION: Blood pressure 177/75, pulse of 80, temperature 98.9. She is 96% on 2 L nasal cannula. General description is an elderly female lying in bed in no distress. Respiratory system: Unlabored breathing, decreased intensity of breath sounds. No wheeze. Heart S1, S2. Regular rate and rhythm. Abdomen soft, no tenderness. LABS: Hemoglobin is 10.3, white count 6.3. Creatinine has been 0.81. DIAGNOSTIC IMPRESSION AND PLAN: Patient with acute COVID-19 pneumonia. Patient did have some clinical improvement. Patient to continue with the dexamethasone, Lovenox, zinc and ascorbic acid along with respiratory support and monitor clinical course closely. MMODL / IJN: [id number] /
--- NOTE | 2021-09-22 23:29 | US ---
EXAMINATION TYPE: US venous doppler duplex LE DATE OF EXAM: 09/22/2021 10:58 PM COMPARISON: NONE CLINICAL HISTORY: dvt. Hx bilateral knee replacements. SIDE PERFORMED: Bilateral TECHNIQUE: The lower extremity deep venous system is examined utilizing real time linear array sonog elaine with graded compression, doppler sonography and color-flow sonography. VESSELS IMAGED: Common Femoral Vein Deep Femoral Vein Greater Saphenous Vein * Femoral Vein Popliteal Vein Small Saphenous Vein * Proximal Calf Veins (* superficial vessels) Right Leg: No evidence of DVT in veins imaged at this time. Left Leg: No evidence of DVT in veins imaged at this time. IMPRESSION: No evidence of deep vein thrombosis in both legs.
[2021-09-23] MEDS: PANTOPRAZOLE 40 MG TABLET PO SCH ×2 (08:34→17:13)
[2021-09-23] MEDS: SODIUM CHLORIDE 0.9% 1,000 ML IV SCH ×2 (08:34→17:13)
[2021-09-23] MEDS: ASCORBIC ACID 500 MG TAB PO SCH (08:34)
[2021-09-23] MEDS: METOPROLOL TARTRATE 50 MG TAB PO SCH ×2 (08:34→21:19)
[2021-09-23] MEDS: VENLAFAXINE HCL 50 MG TAB PO SCH (08:35)
[2021-09-23] MEDS: ZINC SULFATE 220 MG CAP PO SCH (08:35)
[2021-09-23] MEDS: bisacodyL 5 MG TABLET.DR PO SCH (08:35)
[2021-09-23] MEDS: lisinopriL 20 MG TAB PO SCH ×2 (08:35→21:19)
[2021-09-23] MEDS: DEXAMETHASONE SOD PHOSPHATE 10 MG/ML 1 ML VIAL IVP SCH (08:35)
[2021-09-23] MEDS: ENOXAPARIN 40 MG/0.4 ML SYRINGE SQ SCH (08:35)
[2021-09-23 09:03] LABS: Basophils % (A) 0 %; Eosinophils % (A) 0 %; HCT 32.3 % (34.0-46.0); HGB 10.2 gm/dL (11.4-16.0); Lymphocytes # (A) 0.8 k/uL (1.0-4.8); Lymphocytes % (A) 7 %; MCH 26.9 pg (25.0-35.0); MCHC 31.6 g/dL (31.0-37.0); MCV 85.3 fL (80.0-100.0); Mean Platelet Volume 7.4; Monocytes # (A) 0.3 k/uL (0-1.0); Monocytes % (A) 3 %; Neutrophils # (A) 10.7 k/uL (1.3-7.7); Neutrophils % (A) 90 %; Platelet Count 391 k/uL (150-450); RBC 3.78 m/uL (3.80-5.40); RDW 15.4 % (11.5-15.5)
[2021-09-23 09:30] LABS: African American GFR (CKD) 85 (>60 ml/min/1.73 sqM); Anion Gap 6 mmol/L; Blood Urea Nitrogen 20 mg/dL (7-17); Carbon Dioxide 24 mmol/L (22-30); Chloride 110 mmol/L (98-107); Glucose 120 mg/dL (74-99); Non-African American GFR(CKD) 74 (>60 ml/min/1.73 sqM); Potassium 4.1 mmol/L (3.5-5.1); Sodium 140 mmol/L (137-145)
[2021-09-23] MEDS: guaiFENesin-DM 100-10MG/5ML 10 ML CUP PO PRN ×2 (09:41→18:23)
--- NOTE | 2021-09-23 14:43 | P.PN ---
Subjective Progress Note Date: 09/23/21 76-year-old here patient was brought in to the [facility] because of generalized weakness and cough and congestion. The patient has been sick for almost 2 weeks and for that reason she end up coming into the emergency department. No previous history of vaccination. A history of COPD and hyperlipidemia and history of CVA/TIA. She suffers from chronic scoliosis and back pain. She presented to the ED and the patient was found to have temperature 100.2. Biophysical essentially stable. Pulse ox was 89% on room air oxygen. The patient was placed on oxygen. [place] was at 6.1 with a hemoglobin of 10.3. Normal renal function and creatinine. The patient's calcium level was 8. LFTs were normal. LDH level was 766 with a CRP of 8.8. Her: 19 testing will turner machine to be positive. The chest x-ray diffuse bilateral pulmonary infiltrates along with cardiomegaly. There is also background sc oliosis of the thoracic spine. The patient is currently on oxygen and she is currently on 3 L about 2 by nasal cannula with a pulse of 95%. The patient is currently on Decadron 6 mg IV every 24 hours. Outpatient medications of been also resumed. On today's evaluation of 09/22/2021 seeing this 76-year-old here patient for a follow-up. She continues to have a dry cough which has not improved since yesterday. She was having a low-grade fever and currently she is afebrile. She has been started on Decadron 6 mg IV every 24 hours. We will medications have been resumed. On today's evaluation, the patient remains on oxygen and she is on 2 L per minute nasal cannula. The blood workShows if white cell count of 6.3 with a hemoglobin of 10.3, d-dimer is at 1.01, BUN is 18 with a creatinine of 0.8 and the sodium level of 139, pro calcitonin as expected was low at 0.06 indicating that the presentation is typical of COVI D19 related pneumonia. on today's evaluation of 09/23/2021, the patient is being seen for a follow-up. She is hospitalized for COVID 19 related pneumonia. Patient is currently on Decadron 6 mg IV U 24 hours. She is being seen today for a follow-up. On today's evaluation, she is on oxygen at 2 L per minute nasal cannula and her current pulse ox is around 97%. The blood work from today shows a white cell count of 12 with a hemoglobin of 10.2 and the patient continues to have a low lymphocyte count of 0.8 the BUN is at 20 with a creatinine of 0.7 and electrodes are all within normal limits. LDH of the time of admission was 766, the pro- calcitonin level was 0.06 indicating essentially a underlying viral infection.the patient has no specific complaints otherwise for now. She remains on and she is also on Lovenox 40 mg subcu for DVT prophylaxis. Her d-dimer level came at 1.1.01. Objective - Vital Signs Vital signs: Vital Signs Temp 98.9 F 09/23/21 12:29 Pulse 64 09/23/21 12:29 Resp 18 09/23/21 12:29 BP 144/71 09/23/21 12:29 Pulse Ox 97 09/23/21 12:29 Intake & Output 09/22/21 09/23/21 09/23/21 18:59 06:59 18:59 Other: # Voids 2 3 - Exam Gen. appearance she is calm and comfortable and her breathing isNon-labored at this point in time on 2-3 L Head exam was generally normal. There was no scleral icterus or corneal arcus. Mucous membranes were moist. Neck was supple and without jugular venous distension, thyromegaly, or carotid bruits. Carotids were easily palpable bilaterally. There was no adenopathy. Lungs sounds are diminished and the patient has some limited bibasilar crackles in the lung bases bilaterally Cardiac exam revealed the PMI to be normally situated and sized. The rhythm was regular and no extrasystoles were noted during several minutes of auscultation. The first and second heart sounds were normal and physiologic splitting of the second heart sound was noted. There were no murmurs, rubs, clicks, or gallops. Abdominal exam revealed normal bowel sounds. The abdomen was soft, non-tender, and without masses, organomegaly, or appreciable enlargement of the abdominal aorta. Examination of the extremities revealed easily palpable radial, femoral and pedal pulses. There was no cyanosis, clubbing or edema. Examination of the skin revealed no evidence of significant rashes, suspicious appearing nevi or other concerning lesions. Neurologically, the patient is awake and alert and the patient does not have any focal neurological deficit. Cranial nerves are essentially intact. - Labs CBC & Chem 7: 09/23/21 08:09 09/23/21 08:09 Labs: Abnormal Lab Results - Last 24 Hours (Table) 09/23/21 09/23/21 Range/Units 08:09 08:09 WBC 12.0 H (3.8-10.6) k/uL RBC 3.78 L (3.80-5.40) m/uL Hgb 10.2 L (11.4-16.0) gm/dL Hct 32.3 L (34.0-46.0) % Neutrophils # 10.7 H (1.3-7.7) k/uL Lymphocytes # 0.8 L (1.0-4.8) k/uL Chloride 110 H (98-107) mmol/L BUN 20 H (7-17) mg/dL Glucose 120 H (74-99) mg/dL Assessment and Plan Plan: 1 Acute COVID 19 pneumonia with bilateral pulmonary infiltrates. The patient symptoms started approximately 2 weeks ago and the patient presented with worsening shortness of breath. This is a pleasant 76-year-old female patient was not vaccinated for Covid 19. Her symptoms progressed over this past 2 weeks and she is coming in with hypoxic respiratory failure. There is also mild eleva tion of inflammatory markers 2 acute hypoxic respiratory failure currently on 3 L about 2 by nasal cannula, pulse ox on room air was 84% 3 history of scoliosis of the spine 4 chronic bronchial asthma 5 history of skin cancer 6 chronic constipation 7 acid reflux 8 osteoarthritis. Plan clinically stable and the patient is on 2 L about 2 by nasal cannula. We'll try to cut it down further. She is having cough and I gave her Robitussin-DM for cough every 6 hours, 10 ML's Continue Decadron Continue home medications Blood work was noted Clinically stable. We'll continue to follow
--- NOTE | 2021-09-23 18:25 | PN ---
PROGRESS NOTE DATE OF SERVICE: 09/23/2021 REASON FOR FOLLOWUP: COVID-19 pneumonia. INTERVAL HISTORY: The patient is afebrile. The patient is currently breathing comfortably. The patient denies having any chest pain. Cough has decreased in intensity. No vomiting. No abdominal pain or diarrhea. PHYSICAL EXAMINATION: Blood pressure 164/76, pulse of 72, temperature 98.9. She is 95% on room air. General description is an elderly female up in the bed in no distress. Respiratory system: Unlabored breathing, decreased intensity of breath sounds. No wheeze. Heart S1, S2. Regular rate and rhythm. Abdomen soft, no tenderness. LABS: Hemoglobin is 10.8, white count 12. BUN of 20, creatinine 0.79. DIAGNOSTIC IMPRESSION AND PLAN: Patient with acute COVID-19 pneumonia in this patient who seems to have shown some clinical improvement, as the patient is currently on room air. The patient is covered with dexamethasone, Lovenox, zinc and ascorbic acid; to continue along with respiratory support and monitor clinical course closely. MMODL / IJN: [id number] /
[2021-09-23] MEDS: BENZOCAINE/MENTHOL LOZENG 1 EACH LOZENGE MUCOUS MEM PRN (21:19)
[2021-09-24] MEDS: guaiFENesin-DM 100-10MG/5ML 10 ML CUP PO PRN ×3 (01:22→14:04)
[2021-09-24] MEDS: PANTOPRAZOLE 40 MG TABLET PO SCH ×2 (08:14→16:44)
[2021-09-24] MEDS: lisinopriL 20 MG TAB PO SCH (08:14)
[2021-09-24] MEDS: ZINC SULFATE 220 MG CAP PO SCH (08:14)
[2021-09-24] MEDS: ENOXAPARIN 40 MG/0.4 ML SYRINGE SQ SCH (08:14)
[2021-09-24] MEDS: VENLAFAXINE HCL 50 MG TAB PO SCH (08:14)
[2021-09-24] MEDS: ASCORBIC ACID 500 MG TAB PO SCH (08:14)
[2021-09-24] MEDS: bisacodyL 5 MG TABLET.DR PO SCH (08:14)
[2021-09-24] MEDS: METOPROLOL TARTRATE 50 MG TAB PO SCH (08:14)
[2021-09-24] MEDS: DEXAMETHASONE SOD PHOSPHATE 10 MG/ML 1 ML VIAL IVP SCH (08:15)
[2021-09-24] MEDS: SODIUM CHLORIDE 0.9% 1,000 ML IV SCH (08:23)
[2021-09-24 11:18] VITALS: PULSE 59; RESP 17
--- NOTE | 2021-09-24 12:21 | P.PN ---
Subjective Progress Note Date: 09/24/21 76-year-old here patient was brought in to the [facility] because of generalized weakness and cough and congestion. The patient has been sick for almost 2 weeks and for that reason she end up coming into the emergency department. No previous history of vaccination. A history of COPD and hyperlipidemia and history of CVA/TIA. She suffers from chronic scoliosis and back pain. She presented to the ED and the patient was found to have temperature 100.2. Biophysical essentially stable. Pulse ox was 89% on room air oxygen. The patient was placed on oxygen. [place] was at 6.1 with a hemoglobin of 10.3. Normal renal function and creatinine. The patient's calcium level was 8. LFTs were normal. LDH level was 766 with a CRP of 8.8. Her: 19 testing will inspector returned materials to be positive. The chest x-ray diffuse bilateral pulmonary infiltrates along with cardiomegaly. There is also background sc oliosis of the thoracic spine. The patient is currently on oxygen and she is currently on 3 L about 2 by nasal cannula with a pulse of 95%. The patient is currently on Decadron 6 mg IV every 24 hours. Outpatient medications of been also resumed. On today's evaluation of 09/22/2021 seeing this 76-year-old here patient for a follow-up. She continues to have a dry cough which has not improved since yesterday. She was having a low-grade fever and currently she is afebrile. She has been started on Decadron 6 mg IV every 24 hours. We will medications have been resumed. On today's evaluation, the patient remains on oxygen and she is on 2 L per minute nasal cannula. The blood workShows if white cell count of 6.3 with a hemoglobin of 10.3, d-dimer is at 1.01, BUN is 18 with a creatinine of 0.8 and the sodium level of 139, pro calcitonin as expected was low at 0.06 indicating that the presentation is typical of COVI D19 related pneumonia. on today's evaluation of 09/23/2021, the patient is being seen for a follow-up. She is hospitalized for COVID 19 related pneumonia. Patient is currently on Decadron 6 mg IV U 24 hours. She is being seen today for a follow-up. On today's evaluation, she is on oxygen at 2 L per minute nasal cannula and her current pulse ox is around 97%. The blood work from today shows a white cell count of 12 with a hemoglobin of 10.2 and the patient continues to have a low lymphocyte count of 0.8 the BUN is at 20 with a creatinine of 0.7 and electrodes are all within normal limits. LDH of the time of admission was 766, the pro- calcitonin level was 0.06 indicating essentially a underlying viral infection.the patient has no specific complaints otherwise for now. She remains on and she is also on Lovenox 40 mg subcu for DVT prophylaxis. Her d-dimer level came at 1.1. 09/24/2021, the patient is being seen for a follow-up. The patient is on oxygen at 2 L per minute nasal cannula. This was further weaned down to room air oxygen. Doing well. Hemodynamically stable. No worsening of shortness of breath. Labs are still pending. [place] Were Nonelevated. She Is on Lovenox for DVT Prophylaxis. She Is Also on Decadron. She Is Receiving Decadron 6 Mg IV Every 24 Hours. Objective - Vital Signs Vital signs: Vital Signs Temp 98.3 F 09/24/21 09:15 Pulse 59 L 09/24/21 09:15 Resp 17 09/24/21 09:15 BP 136/75 09/24/21 09:15 Pulse Ox 95 09/24/21 09:15 Intake & Output 09/23/21 09/24/21 09/24/21 18:59 06:59 18:59 Output Total 1 Balance -1 Output: Stool 1 Other: Voiding Method Toilet # Voids 6 2 - Exam Gen. appearance she is calm and comfortable and her breathing isNon-labored at this point on Head exam was generally normal. There was no scleral icterus or corneal arcus. Mucous membranes were moist. Neck was supple and without jugular venous distension, thyromegaly, or carotid bruits. Carotids were easily palpable bilaterally. There was no adenopathy. Lungs sounds are diminished and the patient has some limited bibasilar crackles in the lung bases bilaterally Cardiac exam revealed the PMI to be normally situated and sized. The rhythm was regular and no extrasystoles were noted during several minutes of auscultation. The first and second heart sounds were normal and physiologic splitting of the second heart sound was noted. There were no murmurs, rubs, clicks, or gallops. Abdominal exam revealed normal bowel sounds. The abdomen was soft, non-tender, and without masses, organomegaly, or appreciable enlargement of the abdominal aorta. Examination of the extremities revealed easily palpable radial, femoral and pedal pulses. There was no cyanosis, clubbing or edema. Examination of the skin revealed no evidence of significant rashes, suspicious appearing nevi or other concerning lesions. Neurologically, the patient is awake and alert and the patient does not have any focal neurological deficit. Cranial nerves are essentially intact. - Labs CBC & Chem 7: 09/23/21 08:09 09/23/21 08:09 Assessment and Plan Plan: 1 Acute COVID 19 pneumonia with bilateral pulmonary infiltrates. The patient symptoms started approximately 2 weeks ago and the patient presented with worsening shortness of breath. This is a pleasant 76-year-old female patient was not vaccinated for Covid 19. Her symptoms progressed over this past 2 weeks and she is coming in with hypoxic respiratory failure. There is also mild elevation of inflammatory markers 2 acute hypoxic respiratory failure , recovered currently on room air oxygen 3 history of scoliosis of the spine 4 chronic bronchial asthma 5 history of skin cancer 6 chronic constipation 7 acid reflux 8 osteoarthritis. Plan clinically stable Clinically improved on room air oxygen She is having cough and I gave her Dustyitussin-DM for cough every 6 hours, 10 ML's Continue Decadron, completed total of 10 day course Continue home medications Blood work was noted Clinically stable. May be able to go home today
[2021-09-24] MEDS: BENZOCAINE/MENTHOL LOZENG 1 EACH LOZENGE MUCOUS MEM PRN (13:30)
[2021-09-24 15:33] VITALS: BP 131/71; TEMP 98.6
--- NOTE | 2021-09-24 18:46 | P.PN ---
Subjective Progress Note Date: 09/23/21 Principal diagnosis: COVID-19 bilateral pneumonia Acute hypoxic respiratory failure 76-year-old here patient was brought in to the [facility] because of generalized weakness and cough and congestion. The patient has been sick for almost 2 weeks and for that reason she end up coming into the emergency department. No previous history of vaccination. A history of COPD and hyperlipidemia and history of CVA/TIA. She suffers from chronic scoliosis and back pain. She presented to the ED and the patient was found to have temperature 100.2. Biophysical essentially stable. Pulse ox was 89% on room air oxygen. The patient was placed on oxygen. [place] was at 6.1 with a hemoglobin of 10.3. Normal renal function and creatinine. The patient's calcium level was 8. LFTs were normal. LDH level was 766 with a CRP of 8.8. Her: 19 testing will nocturnist physician to be positive. The chest x-ray diffuse bilateral pulmonary infiltrates along with cardiomegaly. There is also background scoliosis of the thoracic spine. The patient is currently on oxygen and she is currently on 3 L about 2 by nasal cannula with a pulse of 95%. The patient is currently on Decadron 6 mg IV every 24 hours. Outpatient medications of been also resumed. 09/23/2021 Patient is seen and evaluated in follow-up; saturating above 97% on 2 L of oxyg en per nasal cannula Vital signs are reviewed and stable with a temperature of 98.9, pulse 64, respi ration 18 and blood pressure 144/71 Lab review shows WBC 12.0, hemoglobin 10.2 and platelet count of 391, sodium 140, potassium 4.1, BUN/creatinine of 20/0.79 Patient remains on Decadron 6 mg IV; continue with subcu Lovenox; bronchodilator therapy; COVID-19 vitamin cocktail Objective - Vital Signs Vital signs: Vital Signs Temp 98.8 F 09/23/21 06:08 Pulse 83 09/23/21 06:08 Resp 16 09/23/21 06:08 BP 160/72 09/23/21 06:08 Pulse Ox 99 09/23/21 06:08 Intake & Output 09/22/21 09/23/21 09/23/21 18:59 06:59 18:59 Other: # Voids 2 3 - Exam Gen. appearance she is calm and comfortable and her breathing isNon-labored at this point in time on 2-3 L Head exam was generally normal. There was no scleral icterus or corneal arcus. Mucous membranes were moist. Neck was supple and without jugular venous distension, thyromegaly, or carotid bruits. Carotids were easily palpable bilaterally. There was no adenopathy. Lungs sounds are diminished and the patient has some limited bibasilar crackles in the lung bases bilaterally Cardiac exam revealed the PMI to be normally situated and sized. The rhythm was regular and no extrasystoles were noted during several minutes of auscultation. The first and second heart sounds were normal and physiologic splitting of the s econd heart sound was noted. There were no murmurs, rubs, clicks, or gallops. Abdominal exam revealed normal bowel sounds. The abdomen was soft, non-tender, and without masses, organomegaly, or appreciable enlargement of the abdominal aorta. Examination of the extremities revealed easily palpable radial, femoral and pedal pulses. There was no cyanosis, clubbing or edema. Examination of the skin revealed no evidence of significant rashes, suspicious appearing nevi or other concerning lesions. Neurologically, the patient is awake and alert and the patient does not have any focal neurological deficit. Cranial nerves are essentially intact. - Labs CBC & Chem 7: 09/23/21 08:09 09/23/21 08:09 Labs: Abnormal Lab Results - Last 24 Hours (Table) 09/23/21 09/23/21 Range/Units 08:09 08:09 WBC 12.0 H (3.8-10.6) k/uL RBC 3.78 L (3.80-5.40) m/uL Hgb 10.2 L (11.4-16.0) gm/dL Hct 32.3 L (34.0-46.0) % Neutrophils # 10.7 H (1.3-7.7) k/uL Lymphocytes # 0.8 L (1.0-4.8) k/uL Chloride 110 H (98-107) mmol/L BUN 20 H (7-17) mg/dL Glucose 120 H (74-99) mg/dL Assessment and Plan Assessment: 1. COVID-19 pneumonia with bilateral pulmonary infiltrates - Patient has not been vaccinated; remains on O2 2 L per nasal cannula; we will continue to titrate as needed - Remains on IV Decadron 6 mg daily; patient was outside the window for Remdesivir therapy 2. Acute hypoxemic respiratory failure; currently saturating about 84% on 2-3 L O2 per nasal cannula 3. Bronchial asthma; continue with home inhaler therapy 4. Gastro-esophageal reflux disease; PPI treatment as ordered 5. Osteoarthritis; stable DVT prophylaxis; SCDs/subcu Lovenox CODE STATUS; full code
--- NOTE | 2021-10-20 18:08 | P.DS ---
Providers Date of admission: 09/21/21 12:16 Expected date of discharge: 09/24/21 Attending physician: Cayetano Izquierdo Consults: 09/21/21 12:16 Consult Physician Urgent Consulting Provider: Tomasz Woods Consult Reason/Comments: COVID-19 Do you want consulting provider notified?: Yes 09/21/21 12:30 Consult Physician Urgent Consulting Provider: Marc Kan Consult Reason/Comments: covid 19 Do you want consulting provider notified?: Yes Primary care physician: [facility] Course: 76-year-old here patient was brought in to the [facility] because of generalized weakness and cough and congestion. The patient has been sick for almost 2 weeks and for that reason she end up coming into the emergency department. No previous history of vaccination. A history of COPD and hyperlipidemia and history of CVA/TIA. She suffers from chronic scoliosis and back pain. She presented to the ED and the patient was found to have temperature 100.2. Biophysical essentially stable. Pulse ox was 89% on room air oxygen. The patient was placed on oxygen. Lefor was at 6.1 with a hemoglobin of 10.3. Normal renal function and creatinine. The patient's calcium level was 8. LFTs were normal. LDH level was 766 with a CRP of 8.8. Her: 19 testing will garment turner to be positive. The chest x-ray diffuse bilateral pulmonary infiltrates along with cardiomegaly. There is also background scoliosis of the thoracic spine. The patient is currently on oxygen and she is currently on 3 L about 2 by nasal cannula with a pulse of 95%. The patient is currently on Decadron 6 mg IV every 24 hours. Outpatient medications of been also resumed. 09/23/2021 Patient is seen and evaluated in follow-up; saturating above 97% on 2 L of oxygen per nasal cannula Vital signs are reviewed and stable with a temperature of 98.9, pulse 64, respiration 18 and blood pressure 144/71 Lab review shows WBC 12.0, hemoglobin 10.2 and platelet count of 391, sodium 140, potassium 4.1, BUN/creatinine of 20/0.79 Patient remains on Decadron 6 mg IV; continue with subcu Lovenox; bronchodilator therapy; COVID-19 vitamin cocktail 1. COVID-19 pneumonia with bilateral pulmonary infiltrates - Patient has not been vaccinated; remains on O2 2 L per nasal cannula; we will continue to titrate as needed - Remains on IV Decadron 6 mg daily; patient was outside the window for Remdesivir therapy 2. Acute hypoxemic respiratory failure; currently saturating about 84% on 2-3 L O2 per nasal cannula 3. Bronchial asthma; continue with home inhaler therapy 4. Gastro-esophageal reflux disease; PPI treatment as ordered 5. Osteoarthritis; stable 09/24/2021, the patient is being seen for a follow-up. The patient is on oxygen at 2 L per minute nasal cannula. This was further weaned down to room air oxygen. Doing well. Hemodynamically stable. No worsening of shortness of breath. Labs are still pending. Mother Markers Were Nonelevated. She Is on Lovenox for DVT Prophylaxis. She Is Also on Decadron. She Is Receiving Decadron 6 Mg IV Every 24 Hours. Patient Condition at Discharge: Poor Plan - Discharge Summary Discharge Rx Participant: No New Discharge Prescriptions: Continue Metoprolol Tartrate [Lopressor] 50 mg PO BID Venlafaxine HCl [Effexor] 100 mg PO DAILY Omeprazole 20 mg PO BID Baclofen [Lioresal] 10 mg PO HS PRN PRN Reason: Muscle Spasm Nitrofurantoin Macrocrystal [Nitrofurantoin] 100 mg PO DAILY PRN PRN Reason: uti symptoms Benazepril HCl [Lotensin] 40 mg PO BID bisacodyL [Dulcolax] 5 mg PO DAILY No Action Albuterol Sulfate [Ventolin HFA] 1 - 2 puff INHALATION RT-QID PRN PRN Reason: Shortness Of Breath Or Wheezing Discharge Medication List Metoprolol Tartrate [Lopressor] 50 mg PO BID 09/21/16 [History] Omeprazole 20 mg PO BID 01/01/19 [History] Venlafaxine HCl [Effexor] 100 mg PO DAILY 01/01/19 [History] bisacodyL [Dulcolax] 5 mg PO DAILY 04/20/21 [History] Baclofen [Lioresal] 10 mg PO HS PRN 09/21/21 [History] Benazepril HCl [Lotensin] 40 mg PO BID 09/21/21 [History] Nitrofurantoin Macrocrystal [Nitrofurantoin] 100 mg PO DAILY PRN 09/21/21 [History] Albuterol Sulfate [Ventolin HFA] 1 - 2 puff INHALATION RT-QID PRN 10/17/21 [History] Follow up Appointment(s)/Referral(s): Shanon Castellano MD [Primary Care Provider] - 1-2 days Patient Instructions/Handouts: Coronavirus Disease 2019 (COVID-19) Discharge Disposition: HOME SELF-CARE
== END 2021-09-24 18:17 | disposition home or self-care (01) | DRG 177 ==
LOC: EC 10:04 → 4SSUR 12:16
PROVIDERS: ADMIT Hospitalist; ATTEND Hospitalist
PROC: 3E0333Z Introduction of Anti-inflammatory into Peripheral Vein, Percutaneous Approach (ICD-10-PCS; principal; 2021-09-21)
DX: U07.1 COVID-19 (principal); J12.82 Pneumonia due to coronavirus disease 2019; J96.01 Acute respiratory failure with hypoxia; E87.1 Hypo-osmolality and hyponatremia; J44.0 Chronic obstructive pulmonary disease with (acute) lower respiratory infection; D64.9 Anemia, unspecified; E66.9 Obesity, unspecified; Z68.34 Body mass index [BMI] 34.0-34.9, adult; E78.5 Hyperlipidemia, unspecified; E83.42 Hypomagnesemia; E87.6 Hypokalemia; F32.9 Major depressive disorder, single episode, unspecified; F41.9 Anxiety disorder, unspecified; K21.9 Gastro-esophageal reflux disease without esophagitis; M19.90 Unspecified osteoarthritis, unspecified site; M41.9 Scoliosis, unspecified; I10 Essential (primary) hypertension; K59.09 Other constipation; Z79.1 Long term (current) use of non-steroidal anti-inflammatories (NSAID); Z79.82 Long term (current) use of aspirin; Z79.899 Other long term (current) drug therapy; Z80.0 Family history of malignant neoplasm of digestive organs; Z80.8 Family history of malignant neoplasm of other organs or systems; Z85.828 Personal history of other malignant neoplasm of skin; Z86.73 Personal history of transient ischemic attack (TIA), and cerebral infarction without residual deficits; Z87.01 Personal history of pneumonia (recurrent); Z87.891 Personal history of nicotine dependence; Z90.49 Acquired absence of other specified parts of digestive tract; Z90.710 Acquired absence of both cervix and uterus; Z96.1 Presence of intraocular lens; Z96.642 Presence of left artificial hip joint; Z98.84 Bariatric surgery status; Z88.5 Allergy status to narcotic agent
CPT/HCPCS: 36415; 71046; 71275; 80048; 80053; 83605; 83615; 83735; 83880; 84145; 84484; 85025; 85379; 85610; 85730; 86140; 87635; 93005; 93970; 96374; 99285

== ENCOUNTER 2021-10-17 10:20 | Inpatient (IN) | payer MEDICARE ==
[2021-10-17] MEDS ORDERED: SODIUM CHLORIDE 0.9% 500 ML 500 ML IV STA ×2 (11:09→14:13)
--- NOTE | 2021-10-17 11:11 | ED ---
General Adult HPI - General Chief complaint: Shortness of Breath Stated complaint: sob/weak/sore throat/cough Time Seen by Provider: 10/17/21 10:42 Source: patient Mode of arrival: ambulatory Limitations: no limitations - History of Present Illness Initial comments: Dictation was produced using [employer] dictation software. please excuse any grammatical, word or spelling errors. Chief Complaint: 76-year-old female presents to the emergency department for worsening weakness, persistent shortness of breath fatigued History of Present Illness: Patient 76-year-old female she contracted: The last month and to be hospitalized for 5 days last month. Patient was discharged on September 24 of last month. Since being at home she has not really improved. States that she is having worsening weakness, shortness of breath fevers. During her hospitalization she was found to have bilateral pulmonary infiltrates and acute hypoxic respiratory failure. She improved to the point where she did not report any oxygen therapy. She denies vaccination. She denies any pain complaints. The ROS documented in this emergency department record has been reviewed and confirmed by me. Those systems with pertinent positive or negative responses have been documented in the HPI. All other systems are other negative and/or noncontributory. PHYSICAL EXAM: General Impression: Alert and oriented x3, not in acute distress HEENT: Normocephalic atraumatic, extra-ocular movements intact, pupils equal and reactive to light bilaterally, dry mucous membranes Cardiovascular: Tachycardic Chest: Able to complete full sentences, no retractions, no tachypnea Abdomen: abdomen soft, non-tender, non-distended, no organomegaly Musculoskeletal: Pulses present and equal in all extremities, no peripheral edema Motor: no focal deficits noted Neurological: CN II-XII grossly intact, no focal motor or sensory deficits noted Skin: Intact with no visualized rashes Psych: Normal affect and mood ED course: 76-year-old female presents emergency department for persistent covered symptoms. Patient was hospitalized last month. His been approximately one month since she's been symptomatic. All signs upon arrival shows heart rate 140, worse vital signs within acceptable limits. Patient is not hypoxic. She is not dyspneic at the bedside. Laboratory evaluation obtained. Leukocytosis of 13.2. Coag panel is normal. D-dimer is 1.42. Patient still tachycardic. Mild anion gap acidosis with a bicarb of 19 and a gap of 13. Lactic acidosis of 4.7. Urinalysis shows urinary tract infection. Patient's height is 5 foot. [place] body weight is 40.1 kg. Patient given 30 mL per KG bolus. Patient did have a lactic acidosis of 4.7. Patient given ceftriaxone. CT angios of the chest shows no pulmonary embolism there does appear to be improved in comparison. Patient will be admitted for UTI sepsis. case discussed with Dr. Matson EKG interpretation: Ventricular rate 132, sinus tachycardia,. 146, QRS 82, QTC 414. No MT prolongation, no QTC prolongation, no ST or T-wave changes noted. EKG compared to 09/21/2021 showing no changes. Overall, this EKG is unremarkable - Related Data Home Medications Medication Instructions Recorded Confirmed Metoprolol Tartrate [Lopressor] 50 mg PO BID 09/21/16 10/17/21 Omeprazole 20 mg PO BID 01/01/19 10/17/21 Venlafaxine HCl [Effexor] 100 mg PO DAILY 01/01/19 10/17/21 bisacodyL [Dulcolax] 5 mg PO DAILY 04/20/21 10/17/21 Baclofen [Lioresal] 10 mg PO HS PRN 09/21/21 10/17/21 Benazepril HCl [Lotensin] 40 mg PO BID 09/21/21 10/17/21 Nitrofurantoin Macrocrystal 100 mg PO DAILY PRN 09/21/21 10/17/21 [Nitrofurantoin] Albuterol Sulfate [Ventolin HFA] 1 - 2 puff INHALATION RT-QID PRN 10/17/21 10/17/21 Allergies Allergy/AdvReac Type Severity Reaction Status Date / Time hydrocodone [From [place]] Allergy Unknown Itching Verified 10/17/21 12:19 morphine AdvReac Nausea & Verified 10/17/21 12:19 Vomiting Review of Systems ROS Statement: Those systems with pertinent positive or pertinent negative responses have been documented in the HPI. ROS Other: All systems not noted in ROS Statement are negative. Past Medical History Past Medical History: Asthma, Cancer, CVA/TIA, GERD/Reflux, Hypertension, Osteoarthritis (OA), Pneumonia, Skin Disorder Additional Past Medical History / Comment(s): "small stroke found on EEG", fell off roof 2015 and has chronic back pain since- scoliosis, chronic constipation, chronic UTIs, hx skin cancer, SOB for past year, "leaky heart valve", "kidneys were ready to shut down" in 2018 from dehydration,asthma, chronic bronchitis, an emia, History of Any Multi-Drug Resistant Organisms: None Reported Past Surgical History: Adenoidectomy, Bariatric Surgery, Cholecystectomy, Heart Catheterization, Hysterectomy, Joint Replacement, Orthopedic Surgery, Tonsillectomy Additional Past Surgical History / Comment(s): Lab band with removal, bariatric sleeve with hernia repair, skin cancer removed from arm, , L shoulder rotator cuff surgery twice and R shoulder rotator cuff surgery three times, bilateral total knees, total R hip then dislocated it and had a reduction done, bilateral cataract removals with lens implants, Left hip replacement. Past Anesthesia/Blood Transfusion Reactions: Motion Sickness, Postoperative Nausea & Vomiting (PONV) Past Psychological History: Anxiety, Depression Smoking Status: Former smoker Past Alcohol Use History: Occasional, Rare Past Drug Use History: None Reported - Past Family History Father Family Medical History: Cancer Additional Family Medical History / Comment(s): Father had skin cancer that metastasized to his bones. Sister(s) Family Medical History: Cancer, Deep Vein Thrombosis (DVT) Additional Family Medical History / Comment(s): breast; another sister had pancreatic cancer Mother Family Medical History: No Reported History Additional Family Medical History / Comment(s): Mother was healthy General Exam Limitations: no limitations Course Vital Signs 10/17/21 10/17/21 10:22 11:30 Temperature 98.8 F Pulse Rate 148 H 120 H Respiratory 20 22 Rate Blood Pressure 157/88 154/85 O2 Sat by Pulse 98 95 Oximetry Procedures - Sepsis Sepsis Focused Exam #1 Time Sepsis Criteria Met: 14:12 Sepsis Focused Exam Date: 10/17/21 Sepsis Focused Exam Time: 14:12 Sepsis Focused Exam Complete: Yes Vital Signs & RN Notes Reviewed: Yes Capillary Refill: < 2 Seconds: Fingers, Toes Peripheral Pulses: Normal: Radial (R), Radial (L), Posterior Tibialis (R), Posterior Tibialis (L), Dorsalis Pedis (R), Dorsalis Pedis (L) Skin Color: Normal for Patient Respiratory Exam: normal lung sounds Cardiovascular Exam: tachycardia Medical Decision Making - Lab Data Result diagrams: 10/17/21 11:02 10/17/21 11:02 Lab Results 10/17/21 10/17/21 10/17/21 Range/Units 11:02 11:02 11:02 WBC 13.2 H (3.8-10.6) k/uL RBC 4.50 (3.80-5.40) m/uL Hgb 12.4 (11.4-16.0) gm/dL Hct 38.6 (34.0-46.0) % MCV 85.7 (80.0-100.0) fL MCH 27.5 (25.0-35.0) pg MCHC 32.2 (31.0-37.0) g/dL RDW 16.6 H (11.5-15.5) % Plt Count 238 (150-450) k/uL MPV 7.8 Neutrophils % 86 % Lymphocytes % 9 % Monocytes % 2 % Eosinophils % 3 % Basophils % 0 % Neutrophils # 11.3 H (1.3-7.7) k/uL Lymphocytes # 1.1 (1.0-4.8) k/uL Monocytes # 0.3 (0-1.0) k/uL Eosinophils # 0.3 (0-0.7) k/uL Basophils # 0.0 (0-0.2) k/uL Anisocytosis Slight PT 9.9 (9.0-12.0) sec INR 0.9 (<1.2) APTT 21.8 L (22.0-30.0) sec D-Dimer 1.42 H (<0.60) mg/L FEU Sodium 138 (137-145) mmol/L Potassium 4.3 (3.5-5.1) mmol/L Chloride 106 (98-107) mmol/L Carbon Dioxide 19 L (22-30) mmol/L Anion Gap 13 mmol/L BUN 23 H (7-17) mg/dL Creatinine 1.01 (0.52-1.04) mg/dL Est GFR (CKD-EPI)AfAm 63 (>60 ml/min/1.73 sqM) Est GFR (CKD-EPI)NonAf 55 (>60 ml/min/1.73 sqM) Glucose 167 H (74-99) mg/dL Lactic Ac Sepsis Rflx Plasma Lactic Acid Reyes (0.7-2.0) mmol/L Calcium 8.6 (8.4-10.2) mg/dL Magnesium 1.8 (1.6-2.3) mg/dL Total Bilirubin 0.9 (0.2-1.3) mg/dL AST 32 (14-36) U/L ALT 19 (4-34) U/L Alkaline Phosphatase 79 (38-126) U/L Troponin I (0.000-0.034) ng/mL NT-Pro-B Natriuret Pep pg/mL Total Protein 6.4 (6.3-8.2) g/dL Albumin 3.4 L (3.5-5.0) g/dL Urine Color Urine Appearance (Clear) Urine pH (5.0-8.0) Ur Specific [place] (1.001-1.035) Urine Protein (Negative) Urine Glucose (UA) (Negative) Urine Ketones (Negative) Urine Blood (Negative) Urine Nitrite (Negative) Urine Bilirubin (Negative) Urine Urobilinogen (<2.0) mg/dL Ur Leukocyte Esterase (Negative) Urine RBC (0-5) /hpf Urine WBC (0-5) /hpf Urine WBC Clumps (None) /hpf Ur Squamous Epith Cells (0-4) /hpf Urine Bacteria (None) /hpf Urine Mucus (None) /hpf 10/17/21 10/17/21 10/17/21 Range/Units 11:02 11:02 11:02 WBC (3.8-10.6) k/uL RBC (3.80-5.40) m/uL Hgb (11.4-16.0) gm/dL Hct (34.0-46.0) % MCV (80.0-100.0) fL MCH (25.0-35.0) pg MCHC (31.0-37.0) g/dL RDW (11.5-15.5) % Plt Count (150-450) k/uL MPV Neutrophils % % Lymphocytes % % Monocytes % % Eosinophils % % Basophils % % Neutrophils # (1.3-7.7) k/uL Lymphocytes # (1.0-4.8) k/uL Monocytes # (0-1.0) k/uL Eosinophils # (0-0.7) k/uL Basophils # (0-0.2) k/uL Anisocytosis PT (9.0-12.0) sec INR (<1.2) APTT (22.0-30.0) sec D-Dimer (<0.60) mg/L FEU Sodium (137-145) mmol/L Potassium (3.5-5.1) mmol/L Chloride (98-107) mmol/L Carbon Dioxide (22-30) mmol/L Anion Gap mmol/L BUN (7-17) mg/dL Creatinine (0.52-1.04) mg/dL Est GFR (CKD-EPI)AfAm (>60 ml/min/1.73 sqM) Est GFR (CKD-EPI)NonAf (>60 ml/min/1.73 sqM) Glucose (74-99) mg/dL Lactic Ac Sepsis Rflx Plasma Lactic Acid Reyes 4.7 H* (0.7-2.0) mmol/L Calcium (8.4-10.2) mg/dL Magnesium (1.6-2.3) mg/dL Total Bilirubin (0.2-1.3) mg/dL AST (14-36) U/L ALT (4-34) U/L Alkaline Phosphatase (38-126) U/L Troponin I 0.019 (0.000-0.034) ng/mL NT-Pro-B Natriuret Pep 974 pg/mL Total Protein (6.3-8.2) g/dL Albumin (3.5-5.0) g/dL Urine Color Urine Appearance (Clear) Urine pH (5.0-8.0) Ur Specific [place] (1.001-1.035) Urine Protein (Negative) Urine Glucose (UA) (Negative) Urine Ketones (Negative) Urine Blood (Negative) Urine Nitrite (Negative) Urine Bilirubin (Negative) Urine Urobilinogen (<2.0) mg/dL Ur Leukocyte Esterase (Negative) Urine RBC (0-5) /hpf Urine WBC (0-5) /hpf Urine WBC Clumps (None) /hpf Ur Squamous Epith Cells (0-4) /hpf Urine Bacteria (None) /hpf Urine Mucus (None) /hpf 10/17/21 10/17/21 Range/Units 11:35 11:42 WBC (3.8-10.6) k/uL RBC (3.80-5.40) m/uL Hgb (11.4-16.0) gm/dL Hct (34.0-46.0) % MCV (80.0-100.0) fL MCH (25.0-35.0) pg MCHC (31.0-37.0) g/dL RDW (11.5-15.5) % Plt Count (150-450) k/uL MPV Neutrophils % % Lymphocytes % % Monocytes % % Eosinophils % % Basophils % % Neutrophils # (1.3-7.7) k/uL Lymphocytes # (1.0-4.8) k/uL Monocytes # (0-1.0) k/uL Eosinophils # (0-0.7) k/uL Basophils # (0-0.2) k/uL Anisocytosis PT (9.0-12.0) sec INR (<1.2) APTT (22.0-30.0) sec D-Dimer (<0.60) mg/L FEU Sodium (137-145) mmol/L Potassium (3.5-5.1) mmol/L Chloride (98-107) mmol/L Carbon Dioxide (22-30) mmol/L Anion Gap mmol/L BUN (7-17) mg/dL Creatinine (0.52-1.04) mg/dL Est GFR (CKD-EPI)AfAm (>60 ml/min/1.73 sqM) Est GFR (CKD-EPI)NonAf (>60 ml/min/1.73 sqM) Glucose (74-99) mg/dL Lactic Ac Sepsis Rflx Y Plasma Lactic Acid Reyes (0.7-2.0) mmol/L Calcium (8.4-10.2) mg/dL Magnesium (1.6-2.3) mg/dL Total Bilirubin (0.2-1.3) mg/dL AST (14-36) U/L ALT (4-34) U/L Alkaline Phosphatase (38-126) U/L Troponin I (0.000-0.034) ng/mL NT-Pro-B Natriuret Pep pg/mL Total Protein (6.3-8.2) g/dL Albumin (3.5-5.0) g/dL Urine Color Dark Brown Urine Appearance Turbid H (Clear) Urine pH 6.0 (5.0-8.0) Ur Specific [place] 1.019 (1.001-1.035) Urine Protein 1+ H (Negative) Urine Glucose (UA) 2+ H (Negative) Urine Ketones Negative (Negative) Urine Blood Moderate H (Negative) Urine Nitrite Positive H (Negative) Urine Bilirubin 1+ H (Negative) Urine Urobilinogen 4.0 (<2.0) mg/dL Ur Leukocyte Esterase Large H (Negative) Urine RBC 33 H (0-5) /hpf Urine WBC >182 H (0-5) /hpf Urine WBC Clumps Many H (None) /hpf Ur Squamous Epith Cells 1 (0-4) /hpf Urine Bacteria Occasional H (None) /hpf Urine Mucus Rare H (None) /hpf Critical Care Time Critical Care Time: Yes Total Critical Care Time: 33 Disposition Clinical Impression: Sepsis secondary to UTI Disposition: ADMITTED IP TO THIS [facility] Condition: Critical Referrals: Shanon Castellano MD [Primary Care Provider] - 1-2 days
[2021-10-17 11:14] LABS: Anisocytosis Slight; Basophils % (A) 0 %; Eosinophils # (A) 0.3 k/uL (0-0.7); Eosinophils % (A) 3 %; HCT 38.6 % (34.0-46.0); HGB 12.4 gm/dL (11.4-16.0); Lymphocytes # (A) 1.1 k/uL (1.0-4.8); Lymphocytes % (A) 9 %; MCH 27.5 pg (25.0-35.0); MCHC 32.2 g/dL (31.0-37.0); MCV 85.7 fL (80.0-100.0); Mean Platelet Volume 7.8; Monocytes # (A) 0.3 k/uL (0-1.0); Monocytes % (A) 2 %; Neutrophils # (A) 11.3 k/uL (1.3-7.7); Neutrophils % (A) 86 %; Platelet Count 238 k/uL (150-450); RDW 16.6 % (11.5-15.5); WBC 13.2 k/uL (3.8-10.6)
[2021-10-17 11:32] LABS: Calcium 8.6 mg/dL (8.4-10.2); Total Bilirubin 0.9 mg/dL (0.2-1.3)
[2021-10-17 11:34] LABS: Albumin 3.4 g/dL (3.5-5.0); Magnesium 1.8 mg/dL (1.6-2.3); Potassium 4.3 mmol/L (3.5-5.1); Total Protein 6.4 g/dL (6.3-8.2)
--- NOTE | 2021-10-17 11:35 | XR ---
EXAMINATION TYPE: XR chest 1V portable DATE OF EXAM: 10/17/2021 HISTORY: Shortness of breath. COMPARISON: 09/21/2021 TECHNIQUE: Single view of the chest is submitted. FINDINGS: Demonstrated are scattered senescent parenchymal change. There is no evidence for focal infiltrate. The heart is stable. Hilar and mediastinal structures are within normal limits. Degenerative changes are seen of the dorsal spine. IMPRESSION: 1. Chronic changes without evidence for acute pulmonary disease.
[2021-10-17 12:27] LABS: INR 0.9 (<1.2); Prothrombin Time 9.9 sec (9.0-12.0)
[2021-10-17 12:30] LABS: Partial Thromboplastin Time 21.8 sec (22.0-30.0)
[2021-10-17] MEDS ORDERED: SODIUM CHLORIDE 0.9% 1,000 ML IV STA (12:32)
[2021-10-17 12:34] LABS: Appearance,Urine Turbid (Clear); Bacteria,Urine Occasional /hpf; Bilirubin,Urine 1+ (Negative); Blood,Urine Moderate (Negative); Color,Urine Dark Brown; Glucose,Urine (UA) 2+ (Negative); Ketones,Urine Negative (Negative); Leukocyte Esterase,Urine Large (Negative); Mucus,Urine Rare /hpf; Nitrite,Urine Positive (Negative); Protein,Urine 1+ (Negative); RBC,Urine 33 /hpf (0-5); Specific Gravity,Urine 1.019 (1.001-1.035); Squamous Epithelial Cell,Urine 1 /hpf (0-4); WBC,Urine >182 /hpf (0-5)
--- NOTE | 2021-10-17 13:37 | CT ---
EXAMINATION TYPE: CT angio chest DATE OF EXAM: 10/17/2021 COMPARISON: CT chest September 21, 2021 HISTORY: SOB, Cough, Covid in September CT DLP: 400.8 mGycm. Automated Exposure Control for Dose Reduction was Utilized. CONTRAST: CTA scan of the thorax is performed with IV Contrast, patient injected with 100 mL of Isovue 370, pul monary embolism protocol. MIP Images are created on CT scanner and reviewed. FINDINGS: LUNGS: Some areas of groundglass opacity in the periphery remain present and improved from prior. The re is new [id number] peripheral linear scarring and/or atelectasis bilaterally. No pleural effu mickie or pneumothorax seen bilaterally. MEDIASTINUM: There is satisfactory enhancement of the pulmonary artery and its branches, there is no CT evidence for pulmonary embolism. Satisfactory enhancement of the aorta without aneurysm or dissec tion. There are no new greater than 1 cm hilar or mediastinal lymph nodes. No cardiomegaly or peric ardial effusion is seen. OTHER: Changes from gastric sleeve redemonstrated. Underlying scoliosis with exaggerated kyphosis and multilevel moderate to severe spurring is redemonstrated. Cholecystectomy clips are redemonstrated. IMPRESSION: No CT evidence for acute pulmonary embolism. Some residual bilateral bibasilar groundglas s opacities consistent with resolving covid-19 infection. Peripheral bilateral mild to moderate paren chymal linear fibrotic changes now present.
[2021-10-17] MEDS ORDERED: cefTRIAXone IN SWFI 1,000 MG/10 ML SYRINGE IVP STA (14:04)
[2021-10-17] MEDS ORDERED: NALOXONE 0.4 MG/ML 1 ML VIAL IV PRN (14:15)
[2021-10-17] MEDS: SODIUM CHLORIDE 0.9% 1,000 ML IV SCH ×2 (14:27→22:31)
[2021-10-17] MEDS ORDERED: BACLOFEN 10 MG TAB PO PRN (16:06)
[2021-10-17] MEDS: METOPROLOL TARTRATE 50 MG TAB PO SCH (17:01)
[2021-10-17] MEDS: PANTOPRAZOLE 40 MG TABLET PO SCH (22:29)
[2021-10-17] MEDS: lisinopriL 20 MG TAB PO SCH (22:29)
[2021-10-17] MEDS: ACETAMINOPHEN TAB 325 MG TAB PO PRN (22:30)
--- NOTE | 2021-10-17 23:36 | P.HPIM ---
History of Present Illness H&P Date: 10/17/21 Chief Complaint: Generalized weakness and tiredness Patient is a 76-year-old female with a known history of hypertension, GERD, history of CVA/TIA, chronic pain, scoliosis, recurrent UTIs, asthma, osteoarthritis, anxiety/depression, previous history of smoking and history of COVID-19 infection in 2020 presents to ER with complaints of shortness of breath, feeling tired and lack of energy. Patient states that she has been fatigued. Patient was recently hospitalized a #2020 and was in the hospital 5 days. Patient was discharged on 09/24/2021 and patient has not been feeling well with worsening weakness and shortness of breath and tiredness. Patient is also having subjective fevers. Patient was recently admitted to the hospital due to acute hypoxic respiratory failure. Patient is not vaccinated. Denies any complaints of fever. No cough or sputum production. Denies any flank pain or abdominal pain. No diarrhea. On admission heart rate 148 respiration 20 blood pressure 157/88 pulse ox 98% on room air. Chest x-ray showed chronic changes without evidence for acute pulmonary disease. CT angiogram of the chest was done which showed no evidence of PE. Some residual bilateral bibasilar groundglass opacities consistent with resolving COVID-19 infection. Peripheral bilateral mild to moderate parenchymal linear fibrotic changes now present. EKG showed sinus tachycardia. Laboratory showed WBC 13.2 hemoglobin 12.4 and platelets 238 D-dimer 1.42 BUN 23 and creatinine 1.01 Lactic acid 4.7 proBNP 974 and troponin 0 0.019 Urinalysis showed turbid with 1+ protein 2+ glucose moderate blood positive nitrite large leukoesterase with elevated RBCs and WBCs. Review of Systems Constitutional: Patient complains of subjective fevers and chills. Generalized weakness and malaise. Tiredness.. Abdomen: Patient denied nausea vomiting and diarrhea and abdominal pain. Cardiovascular: Patient denies any chest pain or short of breath no palpitations. Respiratory: patient denied any cough or sputum production. No shortness of breath Neurologic: Patient denied any numbness or tingling headache. Musculoskeletal: Patient denies any complaints of joint swelling or deformity. Skin: Negative Psychiatric: Negative Endocrine: No heat or cold intolerance. No recent weight gain. Genitourinary: No dysuria or hematuria. All other 14 point ROS negative except the above Past Medical History Past Medical History: Asthma, Cancer, CVA/TIA, GERD/Reflux, Hypertension, Osteoarthritis (OA), Pneumonia, Skin Disorder Additional Past Medical History / Comment(s): "small stroke found on EEG", fell off roof 2015 and has chronic back pain since- scoliosis, chronic constipation, chronic UTIs, hx skin cancer, SOB for past year, "leaky heart valve", "kidneys were ready to shut down" in 2018 from dehydration,asthma, chronic bronchitis, anemia, Had covid-19 in Sep 2021 History of Any Multi-Drug Resistant Organisms: None Reported Past Surgical History: Adenoidectomy, Bariatric Surgery, Cholecystectomy, Heart Catheterization, Hysterectomy, Joint Replacement, Orthopedic Surgery, Tonsillectomy Additional Past Surgical History / Comment(s): Lab band with removal, bariatric sleeve with hernia repair, skin cancer removed from arm, , L shoulder rotator cuff surgery twice and R shoulder rotator cuff surgery three times, bilateral total knees, total R hip then dislocated it and had a reduction done, bilateral cataract removals with lens implants, Left hip replacement. Past Anesthesia/Blood Transfusion Reactions: Motion Sickness, Postoperative Nausea & Vomiting (PONV) Past Psychological History: Anxiety, Depression Additional Psychological History / Comment(s): . Smoking Status: Former smoker Past Alcohol Use History: Occasional, Rare Additional Past Alcohol Use History / Comment(s): STARTED AGE 13 , SMOKED ON AND OFF, SMOKED 1 PACK /WEEK. QUIT 1992 Past Drug Use History: None Reported - Past Family History Father Family Medical History: Cancer Additional Family Medical History / Comment(s): Father had skin cancer that metastasized to his bones. Sister(s) Family Medical History: Cancer, Deep Vein Thrombosis (DVT) Additional Family Medical History / Comment(s): breast; another sister had pancreatic cancer Mother Family Medical History: No Reported History Additional Family Medical History / Comment(s): Mother was healthy Medications and Allergies Home Medications Medication Instructions Recorded Confirmed Type Metoprolol Tartrate [Lopressor] 50 mg PO BID 09/21/16 10/17/21 History Omeprazole 20 mg PO BID 01/01/19 10/17/21 History Venlafaxine HCl [Effexor] 100 mg PO DAILY 01/01/19 10/17/21 History bisacodyL [Dulcolax] 5 mg PO DAILY 04/20/21 10/17/21 History Baclofen [Lioresal] 10 mg PO HS PRN 09/21/21 10/17/21 History Benazepril HCl [Lotensin] 40 mg PO BID 09/21/21 10/17/21 History Nitrofurantoin Macrocrystal 100 mg PO DAILY PRN 09/21/21 10/17/21 History [Nitrofurantoin] Albuterol Sulfate [Ventolin HFA] 1 - 2 puff INHALATION RT-QID PRN 10/17/21 10/17/21 History Allergies Allergy/AdvReac Type Severity Reaction Status Date / Time hydrocodone [From [facility]] Allergy Unknown Itching Verified 10/17/21 12:19 morphine AdvReac Nausea & Verified 10/17/21 12:19 Vomiting Physical Exam Vitals: Vital Signs Temp Pulse Pulse Resp BP BP Pulse Ox 10/17/21 21:58 100.2 F H 99 20 167/88 95 10/17/21 17:55 108 H 20 155/88 96 10/17/21 17:05 123 H 20 150/70 96 10/17/21 15:51 120 H 22 151/79 95 10/17/21 11:30 120 H 22 154/85 95 10/17/21 10:22 98.8 F 148 H 20 157/88 98 Intake and Output 10/17/21 10/17/21 10/18/21 14:59 22:59 06:59 Other: Voiding Method Toilet Weight 82.554 kg 82.554 kg PHYSICAL EXAMINATION: Patient is lying in the bed comfortably, no acute distress, awake alert and oriented. . HEENT: Normocephalic. Neck is supple. Pupils reactive. Nostrils clear. Oral cavity is moist. Neck reveals no JVD, carotid bruits, or thyromegaly. CHEST EXAMINATION: Trachea is central. Symmetrical expansion. Bibasilar diminished sounds. Nonlabored breathing.. CARDIAC: Normal S1, S2 with no gallops. No murmurs ABDOMEN: Soft. Bowel sounds normal. No organomegaly. No abdominal bruits. Extremities: reveal no edema. No clubbing or cyanosis Neurologically awake, alert, oriented x3 with well-coordinated movements. No focal deficits noted Skin: No rash or skin lesions. Psychiatric: Cooperative. Nonsuicidal, anxious Musculoskeletal: No joint swelling or deformity. Normal range of motion. Results CBC & Chem 7: 10/17/21 11:02 10/17/21 11:02 Labs: Abnormal Lab Results - Last 24 Hours (Table) 10/17/21 10/17/21 10/17/21 Range/Units 11:02 11:02 11:02 WBC 13.2 H (3.8-10.6) k/uL RDW 16.6 H (11.5-15.5) % Neutrophils # 11.3 H (1.3-7.7) k/uL APTT 21.8 L (22.0-30.0) sec D-Dimer 1.42 H (<0.60) mg/L FEU Carbon Dioxide 19 L (22-30) mmol/L BUN 23 H (7-17) mg/dL Glucose 167 H (74-99) mg/dL Plasma Lactic Acid Reyes (0.7-2.0) mmol/L Albumin 3.4 L (3.5-5.0) g/dL Urine Appearance (Clear) Urine Protein (Negative) Urine Glucose (UA) (Negative) Urine Blood (Negative) Urine Nitrite (Negative) Urine Bilirubin (Negative) Ur Leukocyte Esterase (Negative) Urine RBC (0-5) /hpf Urine WBC (0-5) /hpf Urine WBC Clumps (None) /hpf Urine Bacteria (None) /hpf Urine Mucus (None) /hpf 10/17/21 10/17/21 10/17/21 Range/Units 11:02 11:42 16:42 WBC (3.8-10.6) k/uL RDW (11.5-15.5) % Neutrophils # (1.3-7.7) k/uL APTT (22.0-30.0) sec D-Dimer (<0.60) mg/L FEU Carbon Dioxide (22-30) mmol/L BUN (7-17) mg/dL Glucose (74-99) mg/dL Plasma Lactic Acid Reyes 4.7 H* 3.5 H* (0.7-2.0) mmol/L Albumin (3.5-5.0) g/dL Urine Appearance Turbid H (Clear) Urine Protein 1+ H (Negative) Urine Glucose (UA) 2+ H (Negative) Urine Blood Moderate H (Negative) Urine Nitrite Positive H (Negative) Urine Bilirubin 1+ H (Negative) Ur Leukocyte Esterase Large H (Negative) Urine RBC 33 H (0-5) /hpf Urine WBC >182 H (0-5) /hpf Urine WBC Clumps Many H (None) /hpf Urine Bacteria Occasional H (None) /hpf Urine Mucus Rare H (None) /hpf Microbiology - Last 24 Hours (Table) 10/17/21 11:42 Urine Culture - Preliminary Urine,Voided Thrombosis Risk Factor Assmnt - DVT/VTE Prophylaxis DVT/VTE Prophylaxis: Pharmacologic Prophylaxis ordered - Choose All That Apply Any of the Below Risk Factors Present?: No Other Risk Factors: Yes Each Risk Factor Represents 3 Points: Age 75 years or older Other congenital or acquired thrombophilia - If yes, enter type in comment: No Thrombosis Risk Factor Assessment Total Risk Factor Score: 3 Thrombosis Risk Factor Assessment Level: Moderate Risk Assessment and Plan Assessment: Acute urinary tract infection Sepsis secondary to above Recent COVID-19 infection September 2021 with hypoxic respiratory failure. Resolving pneumonia as per CT findings. Lactic acidosis Sinus tachycardia Previous history of UTI with Klebsiella pneumonia History of CVA/TIA with no residual weakness Chronic back pain Osteoarthritis Hypertension Anxiety/depression Previous history of smoking DVT prophylaxis with heparin subcu Plan: Patient was in the hospital setting secondary to sepsis due to acute urinary tract infection. Patient will be current on IV hydration with normal saline at 130 cc/h. Monitor renal function. Continue with ceftriaxone 1 g daily and follow-up urine culture report. Continue with pain management and home medications. Replace electrolytes and follow-up closely. Follow-up lactic acid level. Prognosis is guarded at this time. Time with Patient: Greater than 30
[2021-10-18] MEDS: SODIUM CHLORIDE 0.9% 1,000 ML IV SCH ×4 (04:39→20:26)
[2021-10-18 05:44] LABS: Anisocytosis Slight; Basophils % (A) 0 %; Eosinophils # (A) 0.3 k/uL (0-0.7); Eosinophils % (A) 3 %; HCT 38.8 % (34.0-46.0); Hypochromasia Slight; Lymphocytes # (A) 1.5 k/uL (1.0-4.8); Lymphocytes % (A) 12 %; MCH 27.3 pg (25.0-35.0); MCV 88.2 fL (80.0-100.0); Mean Platelet Volume 7.2; Monocytes # (A) 0.5 k/uL (0-1.0); Monocytes % (A) 4 %; Neutrophils # (A) 9.8 k/uL (1.3-7.7); Neutrophils % (A) 80 %; Platelet Count 235 k/uL (150-450); RDW 16.7 % (11.5-15.5); WBC 12.2 k/uL (3.8-10.6)
[2021-10-18] MEDS: lisinopriL 20 MG TAB PO SCH ×2 (08:24→20:26)
[2021-10-18] MEDS: VENLAFAXINE HCL 50 MG TAB PO SCH (08:24)
[2021-10-18] MEDS: METOPROLOL TARTRATE 50 MG TAB PO SCH ×2 (08:24→20:26)
[2021-10-18] MEDS: bisacodyL 5 MG TABLET.DR PO SCH (08:24)
[2021-10-18] MEDS: PANTOPRAZOLE 40 MG TABLET PO SCH ×2 (08:24→20:26)
[2021-10-18 11:49] LABS: African American GFR (CKD) 72.5 (60.0-200.0); BUN/Creat Ratio 17.33 Ratio (12.00-20.00); Blood Urea Nitrogen 15.6 mg/dL (9.0-27.0); Calcium 8.3 mg/dL (8.7-10.3); Carbon Dioxide 18.2 mmol/L (20.0-27.5); Chloride 109 mmol/L (96-109); Glucose 100 mg/dL (70-110); Non-African American GFR(CKD) 62.5 (60.0-200.0); Sodium 142 mmol/L (135-145)
[2021-10-18] MEDS ORDERED: SODIUM CHLORIDE 0.9% 1,000 ML BAG ONE (22:42)
[2021-10-19] MEDS: SODIUM CHLORIDE 0.9% 1,000 ML IV SCH (05:00)
[2021-10-19 06:25] LABS: Anisocytosis Slight; Basophils % (A) 0 %; Eosinophils # (A) 0.3 k/uL (0-0.7); Eosinophils % (A) 3 %; HCT 33.7 % (34.0-46.0); HGB 10.5 gm/dL (11.4-16.0); Hypochromasia Slight; Lymphocytes # (A) 1.2 k/uL (1.0-4.8); Lymphocytes % (A) 11 %; MCH 27.8 pg (25.0-35.0); MCV 89.7 fL (80.0-100.0); Mean Platelet Volume 7.8; Monocytes # (A) 0.6 k/uL (0-1.0); Monocytes % (A) 5 %; Neutrophils # (A) 8.5 k/uL (1.3-7.7); Neutrophils % (A) 80 %; Platelet Count 218 k/uL (150-450); RBC 3.76 m/uL (3.80-5.40); RDW 16.2 % (11.5-15.5); WBC 10.7 k/uL (3.8-10.6)
[2021-10-19] MEDS: lisinopriL 20 MG TAB PO SCH ×2 (09:11→19:36)
[2021-10-19] MEDS: PANTOPRAZOLE 40 MG TABLET PO SCH ×2 (09:11→19:36)
[2021-10-19] MEDS: METOPROLOL TARTRATE 50 MG TAB PO SCH ×2 (09:11→19:36)
[2021-10-19] MEDS: bisacodyL 5 MG TABLET.DR PO SCH (09:12)
[2021-10-19] MEDS: VENLAFAXINE HCL 50 MG TAB PO SCH (09:12)
--- NOTE | 2021-10-19 11:07 | XR ---
EXAMINATION TYPE: XR chest 1V portable DATE OF EXAM: 10/19/2021 COMPARISON: 10/17/2021 INDICATION: Shortness of breath TECHNIQUE: Single frontal view of the chest is obtained. FINDINGS: The heart size is normal. The pulmonary vasculature is normal. Mild scattered infiltrate is present in the periphery. Finding is nonspecific. Correlate for atypical pneumonia. IMPRESSION: 1. Mild peripheral infiltrates. Correlate for atypical pneumonia.
[2021-10-19 11:59] LABS: African American GFR (CKD) 70.4 (60.0-200.0); Anion Gap 13.7 mmol/L (10.00-18.00); BUN/Creat Ratio 11.82 Ratio (12.00-20.00); Blood Urea Nitrogen 10.9 mg/dL (9.0-27.0); Calcium 8.5 mg/dL (8.7-10.3); Carbon Dioxide 20.5 mmol/L (20.0-27.5); Non-African American GFR(CKD) 60.8 (60.0-200.0); Potassium 4.2 mmol/L (3.5-5.5)
[2021-10-20] MEDS: SODIUM CHLORIDE 0.9% 1,000 ML IV SCH (03:45)
[2021-10-20 06:29] LABS: Anisocytosis Slight; Basophils % (A) 0 %; Eosinophils # (A) 0.2 k/uL (0-0.7); Eosinophils % (A) 3 %; HCT 33.2 % (34.0-46.0); HGB 10.2 gm/dL (11.4-16.0); Lymphocytes # (A) 1.1 k/uL (1.0-4.8); Lymphocytes % (A) 13 %; MCH 27.2 pg (25.0-35.0); MCHC 30.8 g/dL (31.0-37.0); MCV 88.2 fL (80.0-100.0); Mean Platelet Volume 7.2; Monocytes # (A) 0.5 k/uL (0-1.0); Monocytes % (A) 6 %; Neutrophils # (A) 6.5 k/uL (1.3-7.7); Neutrophils % (A) 77 %; Platelet Count 258 k/uL (150-450); RBC 3.76 m/uL (3.80-5.40); RDW 16.2 % (11.5-15.5); WBC 8.5 k/uL (3.8-10.6)
[2021-10-20] MEDS: bisacodyL 5 MG TABLET.DR PO SCH (08:37)
[2021-10-20] MEDS: lisinopriL 20 MG TAB PO SCH ×2 (08:37→21:34)
[2021-10-20] MEDS: METOPROLOL TARTRATE 50 MG TAB PO SCH ×2 (08:38→21:34)
[2021-10-20] MEDS: PANTOPRAZOLE 40 MG TABLET PO SCH ×2 (08:38→21:34)
[2021-10-20] MEDS: VENLAFAXINE HCL 50 MG TAB PO SCH (08:38)
[2021-10-20 10:33] LABS: African American GFR (CKD) 83.6 (60.0-200.0); Anion Gap 13.8 mmol/L (10.00-18.00); BUN/Creat Ratio 12.75 Ratio (12.00-20.00); Blood Urea Nitrogen 10.2 mg/dL (9.0-27.0); Calcium 8.3 mg/dL (8.7-10.3); Carbon Dioxide 18.2 mmol/L (20.0-27.5); Non-African American GFR(CKD) 72.1 (60.0-200.0); Potassium 3.7 mmol/L (3.5-5.5)
[2021-10-20] MEDS ORDERED: FUROSEMIDE 10 MG/ML 2 ML VIAL IV ONE (11:14)
--- NOTE | 2021-10-20 11:15 | P.PN ---
Subjective Progress Note Date: 10/18/21 Patient is a 76-year-old female with a known history of hypertension, GERD, history of CVA/TIA, chronic pain, scoliosis, recurrent UTIs, asthma, osteoarthritis, anxiety/depression, previous history of smoking and history of COVID-19 infection in 2020 presents to ER with complaints of shortness of breath, feeling tired and lack of energy. Patient states that she has been fatigued. Patient was recently hospitalized a #2020 and was in the hospital 5 days. Patient was discharged on 09/24/2021 and patient has not been feeling well with worsening weakness and shortness of breath and tiredness. Patient is also having subjective fevers. Patient was recently admitted to the hospital due to acute hypoxic respiratory failure. Patient is not vaccinated. Denies any complaints of fever. No cough or sputum production. Denies any flank pain or abdominal pain. No diarrhea. On admission heart rate 148 respiration 20 blood pressure 157/88 pulse ox 98% on room air. Chest x-ray showed chronic changes without evidence for acute pulmonary disease. CT angiogram of the chest was done which showed no evidence of PE. Some residual bilateral bibasilar groundglass opacities consistent with resolving COVID-19 infection. Peripheral bilateral mild to moderate parenchymal linear fibrotic changes now present. EKG showed sinus tachycardia. Laboratory showed WBC 13.2 hemoglobin 12.4 and platelets 238 D-dimer 1.42 BUN 23 and creatinine 1.01 Lactic acid 4.7 proBNP 974 and troponin 0 0.019 Urinalysis showed turbid with 1+ protein 2+ glucose moderate blood positive nitrite large leukoesterase with elevated RBCs and WBCs. 10/18/2021 Patient is currently resting in the liver. Still complains of exertional dyspnea. CTA negative for PE on admission. Patient is being continued on gentle IV hydration. Continue on IV antibiotics the form of ceftriaxone. Follow-up urine culture report. Patient is still s piking temperatures on and off. No nausea vomiting or abdominal pain or diarrhea. Tolerating oral diet. Current medications reviewed. Objective - Vital Signs Vital signs: Vital Signs Temp 97.8 F 10/18/21 12:19 Pulse 92 10/18/21 20:00 Resp 18 10/18/21 20:00 BP 124/73 10/18/21 12:19 Pulse Ox 90 L 10/18/21 12:19 Intake & Output 10/18/21 10/18/21 10/19/21 06:59 18:59 06:59 Intake Total 650 240 240 Balance 650 240 240 Weight 82.554 kg Intake: Intake, IV Titration 650 Amount Sodium Chloride 0.9% 1, 650 000 ml @ 130 mls/hr IV . Q7H42M [facility] Rx#:[id number] Oral 240 240 Other: Voiding Method Toilet Toilet # Voids 2 1 1 - Exam PHYSICAL EXAMINATION: Patient is lying in the bed comfortably, no acute distress, awake alert and oriented. . HEENT: Normocephalic. Neck is supple. Pupils reactive. Nostrils clear. Oral cavity is moist. Neck reveals no JVD, carotid bruits, or thyromegaly. CHEST EXAMINATION: Trachea is central. Symmetrical expansion. Bibasilar diminished sounds. Nonlabored breathing.. CARDIAC: Normal S1, S2 with no gallops. No murmurs ABDOMEN: Soft. Bowel sounds normal. No organomegaly. No abdominal bruits. Extremities: reveal no edema. No clubbing or cyanosis Neurologically awake, alert, oriented x3 with well-coordinated movements. No focal deficits noted Skin: No rash or skin lesions. Psychiatric: Cooperative. Nonsuicidal, anxious Musculoskeletal: No joint swelling or deformity. Normal range of motion. - Labs CBC & Chem 7: 10/20/21 05:58 10/20/21 05:58 Labs: Abnormal Lab Results - Last 24 Hours (Table) 10/18/21 10/18/21 Range/Units 05:23 05:23 WBC 12.2 H (3.8-10.6) k/uL RDW 16.7 H (11.5-15.5) % Neutrophils # 9.8 H (1.3-7.7) k/uL Carbon Dioxide 18.2 L (20.0-27.5) mmol/L Calcium 8.3 L (8.7-10.3) mg/dL Microbiology - Last 24 Hours (Table) 10/17/21 11:42 Urine Culture - Preliminary Urine,Voided Gram Neg Bacilli Gram Neg Bacilli#2 Assessment and Plan Assessment: Acute urinary tract infection Sepsis secondary to above Recent COVID-19 infection September 2021 with hypoxic respiratory failure. Resolving pneumonia as per CT findings. CTA negative for pulmonary embolism. Lactic acidosis Sinus tachycardia Previous history of UTI with Klebsiella pneumonia History of CVA/TIA with no residual weakness Chronic back pain Osteoarthritis Hypertension Anxiety/depression Previous history of smoking DVT prophylaxis with heparin subcu Plan: Patient was admitted to the hospital secondary to sepsis due to acute urinary tract infection. IV fluids reduced. Monitor renal function. Continue with ceftriaxone 1 g daily and follow-up urine culture report. Continue with pain management and home medications. Replace electrolytes and follow-up closely. Follow-up lactic acid level. Prognosis is guarded at this time. Time with Patient: Greater than 30
--- NOTE | 2021-10-20 11:17 | P.PN ---
Subjective Progress Note Date: 10/19/21 Principal diagnosis: Sepsis secondary to urinary tract infection Recent Covid 19 pneumonia Patient is a 76-year-old female with a known history of hypertension, GERD, history of CVA/TIA, chronic pain, scoliosis, recurrent UTIs, asthma, osteoarthritis, anxiety/depression, previous history of smoking and history of COVID-19 infection in 2020 presents to ER with complaints of shortness of breath, feeling tired and lack of energy. Patient states that she has been fatigued. Patient was recently hospitalized a #2020 and was in the hospital 5 days. Patient was discharged on 09/24/2021 and patient has not been feeling well with worsening weakness and shortness of breath and tiredness. Patient is also having subjective fevers. Patient was recently admitted to the hospital due to acute hypoxic respiratory failure. Patient is not vaccinated. Denies any complaints of fever. No cough or sputum production. Denies any flank pain or abdominal pain. No diarrhea. On admission heart rate 148 respiration 20 blood pressure 157/88 pulse ox 98% on room air. Chest x-ray showed chronic changes without evidence for acute pulmonary disease. CT angiogram of the chest was done which showed no evidence of PE. Some residual bilateral bibasilar groundglass opacities consistent with resolving COVID-19 infection. Peripheral bilateral mild to moderate parenchymal linear fibrotic changes now present. EKG showed sinus tachycardia. Laboratory showed WBC 13.2 hemoglobin 12.4 and platelets 238 D-dimer 1.42 BUN 23 and creatinine 1.01 Lactic acid 4.7 proBNP 974 and troponin 0 0.019 Urinalysis showed turbid with 1+ protein 2+ glucose moderate blood positive nitrite large leukoesterase with elevated RBCs and WBCs. 10/18/2021 Patient is currently resting in the bed. Still complains of exertional dyspnea. CTA negative for PE on admission. Patient is being continued on gentle IV hydration. Continue on IV antibiotics the form of ceftriaxone. Follow-up urine culture report. Patient is still spiking temperatures on and off. No nausea vomiting or abdominal pain or diarrhea. Tolerating oral diet. 10/19/2021 Patient is currently lying in the bed. Complains of exertional dyspnea. Patient was febrile with T-max 100.1 this morning. Currently afebrile. Urine culture showed Proteus and gram-negative bacilli. Final culture report is pending. No nausea vomiting or abdominal pain or diarrhea. Tolerating oral diet. No complaints of chest pain. No dysuria or hematuria. Current medications reviewed. Objective - Vital Signs Vital signs: Vital Signs Temp 97.9 F 10/19/21 21:00 Pulse 122 H 10/19/21 21:00 Resp 16 10/19/21 21:00 BP 171/91 10/19/21 21:00 Pulse Ox 91 L 10/19/21 21:00 Intake & Output 10/19/21 10/19/21 10/20/21 06:59 18:59 06:59 Intake Total 890 Balance 890 Intake: Intake, IV Titration 650 Amount Sodium Chloride 0.9% 1, 600 000 ml @ 50 mls/hr IV . Q20H [facility] Rx#:[id number] cefTRIAXone 1 gm In 50 Sodium Chloride 0.9% 50 ml @ 100 mls/hr IVPB Q24HR [facility] Rx#:[id number] Oral 240 Other: Voiding Method Toilet # Voids 1 2 - Exam PHYSICAL EXAMINATION: Patient is lying in the bed comfortably, no acute distress, awake alert and mary ented. . HEENT: Normocephalic. Neck is supple. Pupils reactive. Nostrils clear. Oral cavity is moist. Neck reveals no JVD, carotid bruits, or thyromegaly. CHEST EXAMINATION: Trachea is central. Symmetrical expansion. Bibasilar diminished sounds. Nonlabored breathing.. CARDIAC: Normal S1, S2 with no gallops. No murmurs ABDOMEN: Soft. Bowel sounds normal. No organomegaly. No abdominal bruits. Extremities: reveal no edema. No clubbing or cyanosis Neurologically awake, alert, oriented x3 with well-coordinated movements. No focal deficits noted Skin: No rash or skin lesions. Psychiatric: Cooperative. Nonsuicidal, anxious Musculoskeletal: No joint swelling or deformity. Normal range of motion. - Labs CBC & Chem 7: 10/20/21 05:58 10/20/21 05:58 Labs: Abnormal Lab Results - Last 24 Hours (Table) 10/19/21 10/19/21 Range/Units 05:47 05:47 WBC 10.7 H (3.8-10.6) k/uL RBC 3.76 L (3.80-5.40) m/uL Hgb 10.5 L (11.4-16.0) gm/dL Hct 33.7 L (34.0-46.0) % RDW 16.2 H (11.5-15.5) % Neutrophils # 8.5 H (1.3-7.7) k/uL BUN/Creatinine Ratio 11.82 L (12.00-20.00) Ratio Calcium 8.5 L (8.7-10.3) mg/dL Microbiology - Last 24 Hours (Table) 10/17/21 11:42 Urine Culture - Preliminary Urine,Voided Proteus mirabilis Gram Neg Bacilli Assessment and Plan Assessment: Acute urinary tract infection. Urine culture showed Proteus and gram-negative bacilli Sepsis secondary to above Recent COVID-19 infection September 2021 with hypoxic respiratory failure. Resolving pneumonia as per CT findings. CTA negative for pulmonary embolism. Lactic acidosis Sinus tachycardia Previous history of UTI with Klebsiella pneumonia History of CVA/TIA with no residual weakness Chronic back pain Osteoarthritis Hypertension Anxiety/depression Previous history of smoking DVT prophylaxis with heparin subcu Plan: Patient was admitted to the hospital secondary to sepsis due to acute urinary tract infection. IV fluids reduced. Monitor renal function. Continue with ceftriaxone 1 g daily and follow-up urine culture report. Continue with pain management and home medications. Replace electrolytes and follow-up closely. Improved lactic acid level. Prognosis is guarded at this time. Time with Patient: Greater than 30
--- NOTE | 2021-10-20 13:25 | P.CNPUL ---
History of Present Illness Consult date: 10/20/21 Requesting physician: Nichelle Randolph Reason for consult: dyspnea, abnormal CXR/CT Chief complaint: Generalized weakness, fever, UTI History of present illness: This is a pleasant 76-year-old female patient who was recently discharged from here following a episode of CoVID pneumonia. She did not require home oxygen. She was not vaccinated. She subsequently recovered. Came back to the hospital on 10/17/2021 with a sore throat, weakness, frequent urination. Chest x-ray showed evidence of chronic changes but no acute pulmonary process. Computed tomography scan of the chest revealed no acute pulmonary emboli. There is some residual groundglass opacities consistent with recent chronic nicotine infection. No worsening findings. She is seen today in consultation on the regular medical floor. She is maintaining O2 saturations in the low 90s on room air. She's up ambulating in her room. No fever or chills. Urine culture is positive for E. coli and Proteus mirabilis. White count 8.5. Hemoglobin 10.2. Sodium 138. Potassium 3.7. Creatinine 0.8. She is continued on ceftriaxone. Review of Systems REVIEW OF SYSTEMS: CONSTITUTIONAL: Denies weakness. Denies any recent significant weight loss or weight gain. EYES: Denies change in vision. EARS, NOSE, MOUTH, THROAT: Denies headaches, denies sore throat. CARDIOVASCULAR: Denies chest pain, palpitations or syncopal episodes. RESPIRATORY: Denies shortness of breath, cough, congestion or hemoptysis. GASTROINTESTINAL: Denies change in appetite, denies abdominal pain GENITOURINARY: Dysuria. urinary frequency MUSKULOSKELETAL: Denies pain, denies swelling. INTEGUMENTARY: Denies rash, denies eczema. NEUROLOGICAL: Denies recent memory loss, no recent seizure activity. PSYCHIATRIC: Denies anxiety, denies depression. HEMATOLOGIC/LYMPHATIC: Denies anemia, denies enlarged lymph nodes. Past Medical History Past Medical History: Asthma, Cancer, CVA/TIA, GERD/Reflux, Hypertension, Osteoarthritis (OA), Pneumonia, Skin Disorder Additional Past Medical History / Comment(s): "small stroke found on EEG", fell off roof 2016 and has chronic back pain since- scoliosis, chronic constipation, chronic UTIs, hx skin cancer, SOB for past year, "leaky heart valve", "kidneys were ready to shut down" in 2018 from dehydration,asthma, chronic bronchitis, anemia, Had covid-19 in Sep 2021 History of Any Multi-Drug Resistant Organisms: None Reported Past Surgical History: Adenoidectomy, Bariatric Surgery, Cholecystectomy, Heart Catheterization, Hysterectomy, Joint Replacement, Orthopedic Surgery, Tonsillectomy Additional Past Surgical History / Comment(s): Lab band with removal, bariatric sleeve with hernia repair, skin cancer removed from arm, , L shoulder rotator cuff surgery twice and R shoulder rotator cuff surgery three times, bilateral total knees, total R hip then dislocated it and had a reduction done, bilateral cataract removals with lens implants, Left hip replacement. Past Anesthesia/Blood Transfusion Reactions: Motion Sickness, Postoperative Nausea & Vomiting (PONV) Past Psychological History: Anxiety, Depression Additional Psychological History / Comment(s): . Smoking Status: Former smoker Past Alcohol Use History: Occasional, Rare Additional Past Alcohol Use History / Comment(s): STARTED AGE 13 , SMOKED ON AND OFF, SMOKED 1 PACK /WEEK. QUIT 1992 Past Drug Use History: None Reported - Past Family History Father Family Medical History: Cancer Additional Family Medical History / Comment(s): Father had skin cancer that metastasized to his bones. Sister(s) Family Medical History: Cancer, Deep Vein Thrombosis (DVT) Additional Family Medical History / Comment(s): breast; another sister had pancreatic cancer Mother Family Medical History: No Reported History Additional Family Medical History / Comment(s): Mother was healthy Medications and Allergies Home Medications Medication Instructions Recorded Confirmed Type Metoprolol Tartrate [Lopressor] 50 mg PO BID 09/21/16 10/17/21 History Omeprazole 20 mg PO BID 01/01/19 10/17/21 History Venlafaxine HCl [Effexor] 100 mg PO DAILY 01/01/19 10/17/21 History bisacodyL [Dulcolax] 5 mg PO DAILY 04/20/21 10/17/21 History Baclofen [Lioresal] 10 mg PO HS PRN 09/21/21 10/17/21 History Benazepril HCl [Lotensin] 40 mg PO BID 09/21/21 10/17/21 History Nitrofurantoin Macrocrystal 100 mg PO DAILY PRN 09/21/21 10/17/21 History [Nitrofurantoin] Albuterol Sulfate [Ventolin HFA] 1 - 2 puff INHALATION RT-QID PRN 10/17/21 10/17/21 History Allergies Allergy/AdvReac Type Severity Reaction Status Date / Time hydrocodone [From [place]] Allergy Unknown Itching Verified 10/17/21 12:19 morphine AdvReac Nausea & Verified 10/17/21 12:19 Vomiting Physical Exam Vitals: Vital Signs Temp Pulse Resp BP Pulse Ox 10/20/21 08:53 91 L 10/20/21 05:00 98.6 F 94 16 145/75 88 L 10/19/21 22:41 99.1 F 121/58 10/19/21 21:00 97.9 F 122 H 16 171/91 91 L 10/19/21 20:00 16 Intake and Output 10/19/21 10/20/21 10/20/21 22:59 06:59 14:59 Other: Voiding Method Toilet Toilet # Voids 2 2 GENERAL EXAM: Alert, active, pleasant 76-year-old female patient, on room air, comfortable in no apparent distress. HEAD: Normocephalic. EYES: Normal reaction of pupils, equal size. NOSE: Clear with pink turbinates. THROAT: No erythema or exudates. NECK: No masses, no JVD. CHEST: No chest wall deformity. LUNGS: Equal air entry with no crackles, wheeze, rhonchi or dullness. CVS: S1 and S2 normal with no audible murmur, regular rhythm. ABDOMEN: No hepatosplenomegaly, normal bowel sounds, no guarding or rigidity. SPINE: No scoliosis or deformity SKIN: No rashes CENTRAL NERVOUS SYSTEM: No focal deficits, tone is normal in all 4 extremities. EXTREMITIES: There is no peripheral edema. No clubbing, no cyanosis. Peripheral pulses are intact. Results - Laboratory Findings CBC and BMP: 10/20/21 05:58 10/20/21 05:58 PT/INR, D-dimer PT 9.9 sec (9.0-12.0) 10/17/21 11:02 INR 0.9 (<1.2) 10/17/21 11:02 D-Dimer 1.42 mg/L FEU (<0.60) H 10/17/21 11:02 Abnormal lab findings: Abnormal Labs 10/17/21 10/17/21 10/17/21 11:02 11:02 11:02 WBC 13.2 H RBC Hgb Hct MCHC RDW 16.6 H Neutrophils # 11.3 H APTT 21.8 L D-Dimer 1.42 H Carbon Dioxide 19 L BUN 23 H BUN/Creatinine Ratio Glucose 167 H Plasma Lactic Acid Reyes Calcium Albumin 3.4 L Urine Appearance Urine Protein Urine Glucose (UA) Urine Blood Urine Nitrite Urine Bilirubin Ur Leukocyte Esterase Urine RBC Urine WBC Urine WBC Clumps Urine Bacteria Urine Mucus 10/17/21 10/17/21 10/17/21 11:02 11:42 16:42 WBC RBC Hgb Hct MCHC RDW Neutrophils # APTT D-Dimer Carbon Dioxide BUN BUN/Creatinine Ratio Glucose Plasma Lactic Acid Reyes 4.7 H* 3.5 H* Calcium Albumin Urine Appearance Turbid H Urine Protein 1+ H Urine Glucose (UA) 2+ H Urine Blood Moderate H Urine Nitrite Positive H Urine Bilirubin 1+ H Ur Leukocyte Esterase Large H Urine RBC 33 H Urine WBC >182 H Urine WBC Clumps Many H Urine Bacteria Occasional H Urine Mucus Rare H 10/18/21 10/18/21 10/19/21 05:23 05:23 05:47 WBC 12.2 H 10.7 H RBC 3.76 L Hgb 10.5 L Hct 33.7 L MCHC RDW 16.7 H 16.2 H Neutrophils # 9.8 H 8.5 H APTT D-Dimer Carbon Dioxide 18.2 L BUN BUN/Creatinine Ratio Glucose Plasma Lactic Acid Reyes Calcium 8.3 L Albumin Urine Appearance Urine Protein Urine Glucose (UA) Urine Blood Urine Nitrite Urine Bilirubin Ur Leukocyte Esterase Urine RBC Urine WBC Urine WBC Clumps Urine Bacteria Urine Mucus 10/19/21 10/20/21 10/20/21 05:47 05:58 05:58 WBC RBC 3.76 L Hgb 10.2 L Hct 33.2 L MCHC 30.8 L RDW 16.2 H Neutrophils # APTT D-Dimer Carbon Dioxide 18.2 L BUN BUN/Creatinine Ratio 11.82 L Glucose Plasma Lactic Acid Reyes Calcium 8.5 L 8.3 L Albumin Urine Appearance Urine Protein Urine Glucose (UA) Urine Blood Urine Nitrite Urine Bilirubin Ur Leukocyte Esterase Urine RBC Urine WBC Urine WBC Clumps Urine Bacteria Urine Mucus - Diagnostic Findings Chest x-ray: image reviewed CT scan - chest: image reviewed Assessment and Plan Assessment: 1 Generalized weakness secondary to urinary tract infection from E. coli and Proteus mirabilis. Currently on ceftriaxone. 2 Dyspnea on exertion, residual changes from previous COVID-19 pneumonia. Not vaccinated. Completed Decadron. 3 History of scoliosis of the spine 4 History of mild intermittent chronic bronchial asthma 5 History of skin cancer 6 Chronic constipation 7 Acid reflux 8 Osteoarthritis Plan: The patient was seen and evaluated today Stable from the pulmonary standpoint, on room air Residual changes of previous CoVID pneumonia Add incentive spirometry Completed Decadron Remains on ceftriaxone for UTI Probable home in the next 24-48 hour We will continue to follow and make further recommendations based on her clinical status I, the cosigning physician, performed a history & physical examination of the patient. Lungs sounds are clear. Maintaining good O2 saturations in the 90s on room air. I discussed the assessment and plan of care with my nurse practitioner, Kristal Sanchez. I attest to the above consultation as dictated by her. Time with Patient: Greater than 30
--- NOTE | 2021-10-20 23:07 | P.PN ---
Subjective Progress Note Date: 10/20/21 Principal diagnosis: Sepsis secondary to urinary tract infection Recent Covid 19 pneumonia Patient is a 76-year-old female with a known history of hypertension, GERD, history of CVA/TIA, chronic pain, scoliosis, recurrent UTIs, asthma, osteoarthritis, anxiety/depression, previous history of smoking and history of COVID-19 infection in 2020 presents to ER with complaints of shortness of breath, feeling tired and lack of energy. Patient states that she has been fatigued. Patient was recently hospitalized a #2020 and was in the hospital 5 days. Patient was discharged on 09/24/2021 and patient has not been feeling well with worsening weakness and shortness of breath and tiredness. Patient is also having subjective fevers. Patient was recently admitted to the hospital due to acute hypoxic respiratory failure. Patient is not vaccinated. Denies any complaints of fever. No cough or sputum production. Denies any flank pain or abdominal pain. No diarrhea. On admission heart rate 148 respiration 20 blood pressure 157/88 pulse ox 98% on room air. Chest x-ray showed chronic changes without evidence for acute pulmonary disease. CT angiogram of the chest was done which showed no evidence of PE. Some residual bilateral bibasilar groundglass opacities consistent with resolving COVID-19 infection. Peripheral bilateral mild to moderate parenchymal linear fibrotic changes now present. EKG showed sinus tachycardia. Laboratory showed WBC 13.2 hemoglobin 12.4 and platelets 238 D-dimer 1.42 BUN 23 and creatinine 1.01 Lactic acid 4.7 proBNP 974 and troponin 0 0.019 Urinalysis showed turbid with 1+ protein 2+ glucose moderate blood positive nitrite large leukoesterase with elevated RBCs and WBCs. 10/18/2021 Patient is currently resting in the bed. Still complains of exertional dyspnea. CTA negative for PE on admission. Patient is being continued on gentle IV hydration. Continue on IV antibiotics the form of ceftriaxone. Follow-up urine culture report. Patient is still spiking temperatures on and off. No nausea vomiting or abdominal pain or diarrhea. Tolerating oral diet. 10/19/2021 Patient is currently lying in the bed. Complains of exertional dyspnea. Patient was febrile with T-max 100.1 this morning. Currently afebrile. Urine culture showed Proteus and gram-negative bacilli. Final culture report is pending. No nausea vomiting or abdominal pain or diarrhea. Tolerating oral diet. No complaints of chest pain. No dysuria or hematuria. 10/20/2021 Patient is currently resting in bed. Complains of exertional dyspnea but improved compared to yesterday. Patient has been afebrile. Imaging studies showed resolving recent COVID-19 pneumonia. Urine culture is growing Proteus and E. coli. Continue ceftriaxone. Patient was seen by pulmonary today. Otherwise patient denied any complaints of nausea or vomiting. Tolerating oral diet. Patient feels weak and dyspnea with exertion.. Continue with incentive spirometry. Anticipate discharge in next 24 hours with more clinical improvement. Laboratory showed leukocytosis normalized to 8.5. Hemoglobin 10.2 MCV 88.2 and platelets 258 sodium 138 potassium 3.7 chloride 106 bicarb is 18.2 BUN 10.1 creatinine 0.8 and calcium 8.3 Current medications reviewed. Objective - Vital Signs Vital signs: Vital Signs Temp 100.9 F H 10/20/21 13:00 Pulse 85 10/20/21 13:00 Resp 17 10/20/21 13:00 BP 160/90 10/20/21 13:00 Pulse Ox 94 L 10/20/21 13:00 Intake & Output 10/19/21 10/20/21 10/20/21 18:59 06:59 18:59 Other: Voiding Method Toilet Toilet # Voids 2 2 - Exam PHYSICAL EXAMINATION: Patient is lying in the bed comfortably, no acute distress, awake alert and oriented. . HEENT: Normocephalic. Neck is supple. Pupils reactive. Nostrils clear. Oral cavity is moist. Neck reveals no JVD, carotid bruits, or thyromegaly. CHEST EXAMINATION: Trachea is central. Symmetrical expansion. Bibasilar diminished sounds. Nonlabored breathing.. CARDIAC: Normal S1, S2 with no gallops. No murmurs ABDOMEN: Soft. Bowel sounds normal. No organomegaly. No abdominal bruits. Extremities: reveal no edema. No clubbing or cyanosis Neurologically awake, alert, oriented x3 with well-coordinated movements. No focal deficits noted Skin: No rash or skin lesions. Psychiatric: Cooperative. Nonsuicidal, anxious Musculoskeletal: No joint swelling or deformity. Normal range of motion. - Labs CBC & Chem 7: 10/20/21 05:58 10/20/21 05:58 Labs: Abnormal Lab Results - Last 24 Hours (Table) 10/20/21 10/20/21 Range/Units 05:58 05:58 RBC 3.76 L (3.80-5.40) m/uL Hgb 10.2 L (11.4-16.0) gm/dL Hct 33.2 L (34.0-46.0) % MCHC 30.8 L (31.0-37.0) g/dL RDW 16.2 H (11.5-15.5) % Carbon Dioxide 18.2 L (20.0-27.5) mmol/L Calcium 8.3 L (8.7-10.3) mg/dL Microbiology - Last 24 Hours (Table) 10/17/21 11:42 Urine Culture - Final Urine,Voided Proteus mirabilis Escherichia coli Assessment and Plan Assessment: Acute urinary tract infection. Urine culture showed Proteus and gram-negative bacilli Sepsis secondary to above Recent COVID-19 infection September 2021 with hypoxic respiratory failure. Resolving pneumonia as per CT findings. CTA negative for pulmonary embolism. Lactic acidosis Sinus tachycardia Previous history of UTI with Klebsiella pneumonia History of CVA/TIA with no residual weakness Chronic back pain Osteoarthritis Hypertension Anxiety/depression Previous history of smoking DVT prophylaxis with heparin subcu Plan: Patient was admitted to the hospital secondary to sepsis due to acute urinary tract infection. IV fluids reduced. Monitor renal function. Continue with ceftriaxone 1 g daily. Urine culture showed Proteus and E. coli. Encourage incentive spirometry. Continue with pain management and home medications. Replace electrolytes and follow-up closely. Improved lactic acid level. Prognosis is guarded at this time. Anticipate discharge in the next 24 hours. Time with Patient: Greater than 30
[2021-10-21 04:56] LABS: Anisocytosis Slight; Basophils % (A) 0 %; Eosinophils # (A) 0.2 k/uL (0-0.7); Eosinophils % (A) 2 %; HCT 35.1 % (34.0-46.0); HGB 11.1 gm/dL (11.4-16.0); Lymphocytes # (A) 1.2 k/uL (1.0-4.8); Lymphocytes % (A) 12 %; MCH 28.1 pg (25.0-35.0); MCHC 31.6 g/dL (31.0-37.0); MCV 89.2 fL (80.0-100.0); Mean Platelet Volume 7.2; Monocytes # (A) 0.5 k/uL (0-1.0); Monocytes % (A) 5 %; Neutrophils # (A) 7.9 k/uL (1.3-7.7); Neutrophils % (A) 79 %; Platelet Count 301 k/uL (150-450); RBC 3.93 m/uL (3.80-5.40); RDW 16.8 % (11.5-15.5)
[2021-10-21] MEDS: bisacodyL 5 MG TABLET.DR PO SCH (08:45)
[2021-10-21] MEDS: lisinopriL 20 MG TAB PO SCH ×2 (08:45→21:42)
[2021-10-21] MEDS: PANTOPRAZOLE 40 MG TABLET PO SCH ×2 (08:45→21:41)
[2021-10-21] MEDS: VENLAFAXINE HCL 50 MG TAB PO SCH (08:46)
[2021-10-21] MEDS: METOPROLOL TARTRATE 50 MG TAB PO SCH ×2 (08:48→21:42)
[2021-10-21] MEDS: ACETAMINOPHEN TAB 325 MG TAB PO PRN ×2 (08:51→21:41)
[2021-10-21 10:29] LABS: African American GFR (CKD) 72.5 (60.0-200.0); Anion Gap 15.3 mmol/L (10.00-18.00); BUN/Creat Ratio 12.67 Ratio (12.00-20.00); Blood Urea Nitrogen 11.4 mg/dL (9.0-27.0); Calcium 8.5 mg/dL (8.7-10.3); Carbon Dioxide 21.7 mmol/L (20.0-27.5); Non-African American GFR(CKD) 62.5 (60.0-200.0); Potassium 3.7 mmol/L (3.5-5.5)
--- NOTE | 2021-10-21 15:51 | US ---
EXAMINATION TYPE: US renals and bladder DATE OF EXAM: 10/21/2021 COMPARISON: US CLINICAL HISTORY: uti. EXAM MEASUREMENTS: Right Kidney: 8.7 x 4.6 x 3.7 cm Left Kidney: 8.0 x 5.1 x 4.4 cm Post Void Residual Volume: not assessed on inpatient Right Kidney: No hydronephrosis or masses seen Left Kidney: No hydronephrosis or masses seen Bladder: not seen as no urine present There is no evidence for hydronephrosis at this point in time. No nephrolithiasis is seen. Cortical medullary differentiation is maintained. IMPRESSION: Renal sizes as described.
--- NOTE | 2021-10-21 20:15 | P.PN ---
Subjective Patient is a 76-year-old female with a known history of hypertension, GERD, history of CVA/TIA, chronic pain, scoliosis, recurrent UTIs, asthma, ost eoarthritis, anxiety/depression, previous history of smoking and history of COVID-19 infection in 2020 presents to ER with complaints of shortness of breath, feeling tired and lack of energy. Patient states that she has been fatigued. Patient was recently hospitalized a #2020 and was in the hospital 5 days. Patient was discharged on 09/24/2021 and patient has not been feeling well with worsening weakness and shortness of breath and tiredness. Patient is also having subjective fevers. Patient was recently admitted to the hospital due to acute hypoxic respiratory failure. Patient is not vaccinated. Denies any complaints of fever. No cough or sputum production. Denies any flank pain or abdominal pain. No diarrhea. On admission heart rate 148 respiration 20 blood pressure 157/88 pulse ox 98% on room air. Chest x-ray showed chronic changes without evidence for acute pulmonary disease. CT angiogram of the chest was done which showed no evidence of PE. Some residual bilateral bibasilar groundglass opacities consistent with resolving COVID-19 infection. Peripheral bilateral mild to moderate parenchymal linear fibrotic changes now present. EKG showed sinus tachycardia. Laboratory showed WBC 13.2 hemoglobin 12.4 and platelets 238 D-dimer 1.42 BUN 23 and creatinine 1.01 Lactic acid 4.7 proBNP 974 and troponin 0 0.019 Urinalysis showed turbid with 1+ protein 2+ glucose moderate blood positive nitrite large leukoesterase with elevated RBCs and WBCs. 10/18/2021 Patient is currently resting in the bed. Still complains of exertional dyspnea. CTA negative for PE on admission. Patient is being continued on gentle IV hydration. Continue on IV antibiotics the form of ceftriaxone. Follow-up urine culture report. Patient is still spiking temperatures on and off. No nausea vomiting or abdominal pain or diarrhea. Tolerating oral diet. 10/19/2021 Patient is currently lying in the bed. Complains of exertional dyspnea. Patient was febrile with T-max 100.1 this morning. Currently afebrile. Urine culture showed Proteus and gram-negative bacilli. Final culture report is pending. No nausea vomiting or abdominal pain or diarrhea. Tolerating oral diet. No complaints of chest pain. No dysuria or hematuria. 10/20/2021 Patient is currently resting in bed. Complains of exertional dyspnea but improved compared to yesterday. Patient has been afebrile. Imaging studies showed resolving recent COVID-19 pneumonia. Urine culture is growing Proteus and E. coli. Continue ceftriaxone. Patient was seen by pulmonary today. Otherwise patient denied any complaints of nausea or vomiting. Tolerating oral diet. Patient feels weak and dyspnea with exertion.. Continue with incentive spirometry. Anticipate discharge in next 24 hours with more clinical improvement. Laboratory showed leukocytosis normalized to 8.5. Hemoglobin 10.2 MCV 88.2 and platelets 258 sodium 138 potassium 3.7 chloride 106 bicarb is 18.2 BUN 10.1 creatinine 0.8 and calcium 8.3 Subjective: 10/21/2021 Objective - Vital Signs Vital signs: Vital Signs Temp 100 F H 10/21/21 04:46 Pulse 89 10/21/21 04:46 Resp 16 10/21/21 04:46 BP 137/70 10/21/21 04:46 Pulse Ox 92 L 10/21/21 04:46 Intake & Output 10/20/21 10/21/21 10/21/21 18:59 06:59 18:59 Intake Total 680 Balance 680 Intake: Oral 680 Other: Voiding Method Toilet Toilet Toilet # Voids 2 2 - Exam -GENERAL: The patient is alert and oriented x3, not in any acute distress. Generally weak and lethargic HEENT: Pupils are round and equally reacting to light. EOMI. No scleral icterus. No conjunctival pallor. Normocephalic, atraumatic. No pharyngeal erythema. No thyromegaly. CARDIOVASCULAR: S1 and S2 present. No murmurs, rubs, or gallops. PULMONARY: Chest is clear to auscultation, no wheezing or crackles. ABDOMEN: Soft, nontender, nondistended, normoactive bowel sounds. No palpable organomegaly. MUSCULOSKELETAL: No joint swelling or deformity. EXTREMITIES: No cyanosis, clubbing, or pedal edema. NEUROLOGICAL: Gross neurological examination did not reveal any focal deficits. SKIN: No rashes. no petechiae. - Labs CBC & Chem 7: 10/21/21 04:20 10/21/21 04:20 Labs: Abnormal Lab Results - Last 24 Hours (Table) 10/21/21 10/21/21 Range/Units 04:20 04:20 Hgb 11.1 L (11.4-16.0) gm/dL RDW 16.8 H (11.5-15.5) % Neutrophils # 7.9 H (1.3-7.7) k/uL Calcium 8.5 L (8.7-10.3) mg/dL Microbiology - Last 24 Hours (Table) 10/17/21 11:42 Urine Culture - Final Urine,Voided Proteus mirabilis Escherichia coli Assessment and Plan Assessment: Acute urinary tract infection. Urine culture showed Proteus and E. coli Sepsis secondary to above Recent COVID-19 infection September 2021 with hypoxic respiratory failure. Resolving pneumonia as per CT findings. CTA negative for pulmonary embolism. Lactic acidosis Sinus tachycardia Previous history of UTI with Klebsiella pneumonia History of CVA/TIA with no residual weakness Chronic back pain Osteoarthritis Hypertension Anxiety/depression Previous history of smoking Plan: This is a pleasant 76 years old female who presents with UTI and have Covid infection without significant hypoxia Increase Rocephin 1 g twice a day Renal ultrasound is noted Consults infectious disease Labs and medication were reviewed.. Continue same treatment. Continue with symptomatic treatment. Resume home medication. Monitor lytes and vitals. DVT and GI prophylaxis. Further recommendationsas per clinical course of the patient DVT prophylaxis: Subcutaneous heparin GI Prophylaxis: Ppi PT/OT: Pending Prognosis is guarded
[2021-10-21] MEDS: HEPARIN SODIUM,PORCINE/PF 5,000 UNIT/0.5 ML SYRINGE SQ SCH (21:41)
[2021-10-22] MEDS: METOPROLOL TARTRATE 50 MG TAB PO SCH ×2 (09:10→20:54)
[2021-10-22] MEDS: PANTOPRAZOLE 40 MG TABLET PO SCH ×2 (09:10→20:54)
[2021-10-22] MEDS: bisacodyL 5 MG TABLET.DR PO SCH (09:10)
[2021-10-22] MEDS: HEPARIN SODIUM,PORCINE/PF 5,000 UNIT/0.5 ML SYRINGE SQ SCH ×2 (09:10→20:54)
[2021-10-22] MEDS: lisinopriL 20 MG TAB PO SCH ×2 (09:10→20:54)
[2021-10-22] MEDS: VENLAFAXINE HCL 50 MG TAB PO SCH (09:10)
--- NOTE | 2021-10-22 11:35 | XR ---
EXAMINATION TYPE: XR chest 1V portable DATE OF EXAM: 10/22/2021 COMPARISON: Chest x-ray 10/19/2021, CT chest 10/17/2021 HISTORY: Pneumonia, abnormal chest x-ray TECHNIQUE: Single frontal view of the chest is obtained. FINDINGS: Minimal patchy peripheral areas of increased attenuation are again noted. No evident pneum othorax or pleural effusion. Cardiac mediastinal silhouette is stable. IMPRESSION: Findings may represent the sequela of patient's prior Covid pneumonia as noted on prior CT
--- NOTE | 2021-10-22 11:38 | P.CONS ---
History of Present Illness - Reason for Consult Consult date: 10/21/21 possible UTI Requesting physician: Rafiq E Sheet - Chief Complaint Weakness and fever x few days - History of Present Illness History of present illness : Patient is 76-year-old female presenting to the ER on 10/17/2021 for evaluation of worsening weakness shortness of breath and fever in this patient who recently was treated for COVID-19 infection patient on presentation to the hospital did have a low-grade fever of 100.2 and has been running a fever on a daily basis up to 100.9 F patient did have a mild tachycardia and did have a mild hypoxemia patient did have a white count of 12.2 on admission that has subsequently normalized lactic acid has been normal patient did have positive UA on 10 17 with a culture has been subsequent finalized with Proteus and E. coli both of them are sensitive pathogen patient did have a chest x-ray chronic change without evidence for acute pulmonary disease patient also have a CT diagram of the chest no CT evidence of PE some residual bilateral bibasilar groundglass opacity consistent with resolving COVID-19 infection patient has been treated with Rocephin infectious he was consulted with concern for possible UTI and persistent fever. Ultrasound has been done no evidence of hydronephrosis no nephrolithiasis is seen Review of system: CONSTITUTIONAL: Positive for weakness along with the fever. EYES: No complaint. ENT: No complaint. RESPIRATORY: As per history of present illness. CARDIOVASCULAR: No complaint. GENITOURINARY: As per history of present illness GASTROINTESTINAL: No complaint. MUSCULOSKELETAL: No complaint. INTEGUMENTARY: No complaint. PSYCHOLOGIC: No complaint. ENDOCRINE: No complaint. NEUROLOGIC: No complaint. Past medical history : Reviewed, documented below Past surgical history : Reviewed, documented below Social history: Reviewed, documented below Medications: Reviewed, as documented below EXAMINATION: Vital sigans= Reviewed and documented below GENERAL DESCRIPTION: Elderly female up in a chair, no distress. No tachypnea or accessory muscle of respiration use. HEENT: Shows Pallor , no scleral icterus. Oral mucous membrane is dry. NECK: Trachea central, no thyromegaly. LUNGS: Unlabored breathing. Clear to auscultation anteriorly. No wheeze or crackle. HEART: S1, S2, regular rate and rhythm. ABDOMEN: Soft, no tenderness , guarding or rigidity EXTREMITIES: No edema of feet. SKIN: No rash, no masses palpable. NEUROLOGICAL: The patient is awake, alert, oriented x3, mood and affect normal. LABS AND RADIOLOGY: Reviewed results see below Assessment : Patient presented to hospital with generalized weakness and has been hospital for most 6 days now this patient did have a low-grade fever a positive UA chest x-ray as well as CT angiogram of the chest showing improvement with a urine culture positive for E. coli and Proteus ultrasound is negative for structural abnormality Plan: 1-we will repeat her UA and culture 2-check a procalcitonin and CRP level 3-continue with Rocephin at this point We will follow on clinical condition and cultures to further adjust medication if needed Thank you for this consultation we will follow the patient along with you Past Medical History Past Medical History: Asthma, Cancer, CVA/TIA, GERD/Reflux, Hypertension, Osteoarthritis (OA), Pneumonia, Skin Disorder Additional Past Medical History / Comment(s): "small stroke found on EEG", fell off roof 2015 and has chronic back pain since- scoliosis, chronic constipation, chronic UTIs, hx skin cancer, SOB for past year, "leaky heart valve", "kidneys were ready to shut down" in 2017 from dehydration,asthma, chronic bronchitis, anemia, Had covid-19 in Sep 2021 History of Any Multi-Drug Resistant Organisms: None Reported Past Surgical History: Adenoidectomy, Bariatric Surgery, Cholecystectomy, Heart Catheterization, Hysterectomy, Joint Replacement, Orthopedic Surgery, Tonsillectomy Additional Past Surgical History / Comment(s): Lab band with removal, bariatric sleeve with hernia repair, skin cancer removed from arm, , L shoulder rotator cuff surgery twice and R shoulder rotator cuff surgery three times, bilateral total knees, total R hip then dislocated it and had a reduction done, bilateral cataract removals with lens implants, Left hip replacement. Past Anesthesia/Blood Transfusion Reactions: Motion Sickness, Postoperative Nausea & Vomiting (PONV) Past Psychological History: Anxiety, Depression Additional Psychological History / Comment(s): . Smoking Status: Former smoker Past Alcohol Use History: Occasional, Rare Additional Past Alcohol Use History / Comment(s): STARTED AGE 13 , SMOKED ON AND OFF, SMOKED 1 PACK /WEEK. QUIT 1992 Past Drug Use History: None Reported - Past Family History Father Family Medical History: Cancer Additional Family Medical History / Comment(s): Father had skin cancer that metastasized to his bones. Sister(s) Family Medical History: Cancer, Deep Vein Thrombosis (DVT) Additional Family Medical History / Comment(s): breast; another sister had pancreatic cancer Mother Family Medical History: No Reported History Additional Family Medical History / Comment(s): Mother was healthy Medications and Allergies Home Medications Medication Instructions Recorded Confirmed Type Metoprolol Tartrate [Lopressor] 50 mg PO BID 09/21/16 10/17/21 History Omeprazole 20 mg PO BID 01/01/19 10/17/21 History Venlafaxine HCl [Effexor] 100 mg PO DAILY 01/01/19 10/17/21 History bisacodyL [Dulcolax] 5 mg PO DAILY 04/20/21 10/17/21 History Baclofen [Lioresal] 10 mg PO HS PRN 09/21/21 10/17/21 History Benazepril HCl [Lotensin] 40 mg PO BID 09/21/21 10/17/21 History Nitrofurantoin Macrocrystal 100 mg PO DAILY PRN 09/21/21 10/17/21 History [Nitrofurantoin] Albuterol Sulfate [Ventolin HFA] 1 - 2 puff INHALATION RT-QID PRN 10/17/21 10/17/21 History Allergies Allergy/AdvReac Type Severity Reaction Status Date / Time hydrocodone [From [place]] Allergy Unknown Itching Verified 10/17/21 12:19 morphine AdvReac Nausea & Verified 10/17/21 12:19 Vomiting Physical Exam Vitals: Vital Signs Temp Pulse Resp BP Pulse Ox 10/21/21 13:00 98 F 80 107/70 92 L 10/21/21 04:46 100 F H 89 16 137/70 92 L 10/20/21 20:00 16 10/20/21 19:55 99.9 F H 113 H 16 150/83 94 L Intake and Output 10/20/21 10/21/21 10/21/21 22:59 06:59 14:59 Intake Total 680 Balance 680 Intake: Oral 680 Other: Voiding Method Toilet Toilet # Voids 2 2 Results CBC & Chem 7: 10/21/21 04:20 10/21/21 04:20 Labs: Abnormal Lab Results - Last 24 Hours (Table) 10/21/21 10/21/21 Range/Units 04:20 04:20 Hgb 11.1 L (11.4-16.0) gm/dL RDW 16.8 H (11.5-15.5) % Neutrophils # 7.9 H (1.3-7.7) k/uL Calcium 8.5 L (8.7-10.3) mg/dL Microbiology - Last 24 Hours (Table) 10/17/21 11:42 Urine Culture - Final Urine,Voided Proteus mirabilis Escherichia coli
[2021-10-22 13:40] LABS: Basophils % (A) 0 %; Eosinophils # (A) 0.2 k/uL (0-0.7); Eosinophils % (A) 2 %; HGB 10.1 gm/dL (11.4-16.0); Lymphocytes # (A) 1.2 k/uL (1.0-4.8); Lymphocytes % (A) 12 %; MCH 27.5 pg (25.0-35.0); MCHC 31.5 g/dL (31.0-37.0); MCV 87.6 fL (80.0-100.0); Mean Platelet Volume 7.1; Monocytes # (A) 0.5 k/uL (0-1.0); Monocytes % (A) 5 %; Neutrophils % (A) 79 %; Platelet Count 339 k/uL (150-450); RBC 3.66 m/uL (3.80-5.40); WBC 10.1 k/uL (3.8-10.6)
[2021-10-22 13:48] LABS: ALT 14 U/L (4-34); AST 24 U/L (14-36); African American GFR (CKD) 66 (>60 ml/min/1.73 sqM); Albumin 2.9 g/dL (3.5-5.0); Albumin/Globulin Ratio 1.1; Alkaline Phosphatase 73 U/L (38-126); Anion Gap 9 mmol/L; Blood Urea Nitrogen 18 mg/dL (7-17); Calcium 8.5 mg/dL (8.4-10.2); Carbon Dioxide 25 mmol/L (22-30); Chloride 101 mmol/L (98-107); Globulin 2.7 g/dL; Glucose 84 mg/dL (74-99); Non-African American GFR(CKD) 58 (>60 ml/min/1.73 sqM); Potassium 4.1 mmol/L (3.5-5.1); Sodium 135 mmol/L (137-145); Total Bilirubin 0.2 mg/dL (0.2-1.3); Total Protein 5.6 g/dL (6.3-8.2)
[2021-10-22 16:19] LABS: Appearance,Urine Clear (Clear); Bilirubin,Urine Negative (Negative); Blood,Urine Small (Negative); Color,Urine Yellow; Glucose,Urine (UA) Negative (Negative); Hyaline Casts,Urine 4 /lpf (0-2); Ketones,Urine Negative (Negative); Leukocyte Esterase,Urine Trace (Negative); Mucus,Urine Rare /hpf; Nitrite,Urine Negative (Negative); Protein,Urine 1+ (Negative); RBC,Urine 5 /hpf (0-5); Specific Gravity,Urine 1.018 (1.001-1.035); Squamous Epithelial Cell,Urine 1 /hpf (0-4); Urobilinogen,Urine <2.0 mg/dL (<2.0); WBC,Urine 3 /hpf (0-5)
[2021-10-22] MEDS: IOPAMIDOL CONTRAST (ORAL USE) VIAL PO PRN ×2 (18:20→19:52)
--- NOTE | 2021-10-22 20:45 | P.PN ---
Subjective Patient is a 76-year-old female with a known history of hypertension, GERD, history of CVA/TIA, chronic pain, scoliosis, recurrent UTIs, asthma, ost eoarthritis, anxiety/depression, previous history of smoking and history of COVID-19 infection in 2020 presents to ER with complaints of shortness of breath, feeling tired and lack of energy. Patient states that she has been fatigued. Patient was recently hospitalized a #2020 and was in the hospital 5 days. Patient was discharged on 09/24/2021 and patient has not been feeling well with worsening weakness and shortness of breath and tiredness. Patient is also having subjective fevers. Patient was recently admitted to the hospital due to acute hypoxic respiratory failure. Patient is not vaccinated. Denies any complaints of fever. No cough or sputum production. Denies any flank pain or abdominal pain. No diarrhea. On admission heart rate 148 respiration 20 blood pressure 157/88 pulse ox 98% on room air. Chest x-ray showed chronic changes without evidence for acute pulmonary disease. CT angiogram of the chest was done which showed no evidence of PE. Some residual bilateral bibasilar groundglass opacities consistent with resolving COVID-19 infection. Peripheral bilateral mild to moderate parenchymal linear fibrotic changes now present. EKG showed sinus tachycardia. Laboratory showed WBC 13.2 hemoglobin 12.4 and platelets 238 D-dimer 1.42 BUN 23 and creatinine 1.01 Lactic acid 4.7 proBNP 974 and troponin 0 0.019 Urinalysis showed turbid with 1+ protein 2+ glucose moderate blood positive nitrite large leukoesterase with elevated RBCs and WBCs. 10/18/2021 Patient is currently resting in the bed. Still complains of exertional dyspnea. CTA negative for PE on admission. Patient is being continued on gentle IV hydration. Continue on IV antibiotics the form of ceftriaxone. Follow-up urine culture report. Patient is still spiking temperatures on and off. No nausea vomiting or abdominal pain or diarrhea. Tolerating oral diet. 10/19/2021 Patient is currently lying in the bed. Complains of exertional dyspnea. Patient was febrile with T-max 100.1 this morning. Currently afebrile. Urine culture showed Proteus and gram-negative bacilli. Final culture report is pending. No nausea vomiting or abdominal pain or diarrhea. Tolerating oral diet. No complaints of chest pain. No dysuria or hematuria. 10/20/2021 Patient is currently resting in bed. Complains of exertional dyspnea but improved compared to yesterday. Patient has been afebrile. Imaging studies showed resolving recent COVID-19 pneumonia. Urine culture is growing Proteus and E. coli. Continue ceftriaxone. Patient was seen by pulmonary today. Otherwise patient denied any complaints of nausea or vomiting. Tolerating oral diet. Patient feels weak and dyspnea with exertion.. Continue with incentive spirometry. Anticipate discharge in next 24 hours with more clinical improvement. Laboratory showed leukocytosis normalized to 8.5. Hemoglobin 10.2 MCV 88.2 and platelets 258 sodium 138 potassium 3.7 chloride 106 bicarb is 18.2 BUN 10.1 creatinine 0.8 and calcium 8.3 Subjective: 10/21/2021 Patient still feels generally weak, no diarrhea or specific symptoms. No chest pain or dyspnea. She looks tired lying in bed most of the time. She is hemodynamically stable. She still have low-grade fever today but slightly better at 99.8. Her WBC normal. Procalcitonin is only mildly high at 0.10. But C-reactive protein is significantly elevated at 17. Patient remains on ceftriaxone for UTI secondary to Proteus and E. coli however repeat urine analysis only mildly abnormal. Patient has positive call the test last month 09/21 but repeat test was negative this month 10/17. Chest x-ray shows sequelae of previous Covid infection Infectious disease input is appreciated and patient to be kept on ceftriaxone for now CT of the abdomen and repeat blood culture are ordered today to rule out other infection which are pending Review of systems CONSTITUTIONAL: No fever, no malaise, no fatigue. HEENT: No recent visual problems or hearing problems. Denied any sore throat. CARDIOVASCULAR: No orthopnea, PND, no palpitations, no syncope. PULMONARY: No shortness of breath, no cough, no hemoptysis. GASTROINTESTINAL: No diarrhea, no nausea, no vomiting, no abdominal pain. Normoactive bowel sounds. NEUROLOGICAL: No headaches, no weakness, no numbness. Active Medications Generic Name Dose Route Start Last Admin Trade Name Freq PRN Reason Stop Dose Admin Acetaminophen 650 mg 10/17/21 14:15 10/21/21 21:41 Acetaminophen Tab 325 Mg Tab PO 650 mg Q6HR PRN Administration Mild Pain or Fever > 100.5 Baclofen 10 mg 10/17/21 16:06 10/20/21 21:39 Baclofen 10 Mg Tab PO 10 mg HS PRN Administration Muscle Spasm Bisacodyl 5 mg 10/18/21 09:00 10/22/21 09:10 Bisacodyl 5 Mg Tablet.Dr PO 5 mg DAILY BHAVNA Administration Heparin Sodium (Porcine) 5,000 unit 10/21/21 21:00 10/22/21 09:10 Heparin Sodium,Porcine/Pf 5,000 Unit/0.5 Ml Syringe SQ 5,000 unit Q12HR BHAVNA Administration Ceftriaxone Sodium 1 gm/ 50 mls @ 100 mls/hr 10/21/21 21:00 10/22/21 09:10 Sodium Chloride IVPB 100 mls/hr BID BHAVNA Administration Lisinopril 40 mg 10/17/21 21:00 10/22/21 09:10 Lisinopril 20 Mg Tab PO 40 mg BID BHAVNA Administration Metoprolol Tartrate 50 mg 10/17/21 21:00 10/22/21 09:10 Metoprolol Tartrate 50 Mg Tab PO 50 mg BID BHAVNA Administration Naloxone HCl 0.2 mg 10/17/21 14:15 Naloxone 0.4 Mg/Ml 1 Ml Vial IV Q2M PRN Opioid Reversal Pantoprazole Sodium 40 mg 10/17/21 21:00 10/22/21 09:10 Pantoprazole 40 Mg Tablet PO 40 mg BID BHAVNA Administration Venlafaxine HCl 100 mg 10/18/21 09:00 10/22/21 09:10 Venlafaxine Hcl 50 Mg Tab PO 100 mg DAILY BHAVNA Administration Objective - Vital Signs Vital signs: Vital Signs Temp 99.8 F H 10/22/21 05:00 Pulse 95 10/22/21 05:00 Resp 16 10/22/21 05:00 BP 175/78 10/22/21 05:00 Pulse Ox 94 L 10/22/21 05:00 Intake & Output 10/21/21 10/22/21 10/22/21 18:59 06:59 18:59 Intake Total 50 50 Balance 50 50 Intake: Intake, IV Titration 50 50 Amount cefTRIAXone 1 gm In 50 Sodium Chloride 0.9% 50 ml @ 100 mls/hr IVPB BID BHAVNA Rx#:[id number] cefTRIAXone 1 gm In 50 Sodium Chloride 0.9% 50 ml @ 100 mls/hr IVPB Q24HR BHAVNA Rx#:[id number] Other: Voiding Method Toilet Toilet Toilet # Voids 3 - Exam -GENERAL: The patient is alert and oriented x3, not in any acute distress. Generally weak and lethargic HEENT: Pupils are round and equally reacting to light. EOMI. No scleral icterus. No conjunctival pallor. Normocephalic, atraumatic. No pharyngeal erythema. No thyromegaly. CARDIOVASCULAR: S1 and S2 present. No murmurs, rubs, or gallops. PULMONARY: Chest is clear to auscultation, no wheezing or crackles. ABDOMEN: Soft, nontender, nondistended, normoactive bowel sounds. No palpable organomegaly. MUSCULOSKELETAL: No joint swelling or deformity. EXTREMITIES: No cyanosis, clubbing, or pedal edema. NEUROLOGICAL: Gross neurological examination did not reveal any focal deficits. SKIN: No rashes. no petechiae. - Labs CBC & Chem 7: 10/22/21 12:55 10/22/21 12:55 Assessment and Plan Assessment: Acute urinary tract infection. Urine culture showed Proteus and E. coli. Rule out other infections Sepsis secondary to above Recent COVID-19 infection September 2021 with hypoxic respiratory failure. Resolving pneumonia as per CT findings. CTA negative for pulmonary embolism. Because test is negative on 10/17 Lactic acidosis, improved Sinus tachycardia Previous history of UTI with Klebsiella pneumonia History of CVA/TIA with no residual weakness Chronic back pain Osteoarthritis Hypertension Anxiety/depression Previous history of smoking Plan: This is a pleasant 76 years old female who presents with UTI and have Covid infection without significant hypoxia Increase Rocephin 1 g twice a day Renal ultrasound is noted infectious disease input is appreciated Follow-up CT of the abdomen and blood culture Labs and medication were reviewed.. Continue same treatment. Continue with symptomatic treatment. Resume home medication. Monitor lytes and vitals. DVT and GI prophylaxis. Further recommendations as per clinical course of the patient DVT prophylaxis: Subcutaneous heparin GI Prophylaxis: Ppi PT/OT: Pending Prognosis is guarded
[2021-10-22] MEDS: ACETAMINOPHEN TAB 325 MG TAB PO PRN (20:54)
--- NOTE | 2021-10-22 21:46 | CT ---
EXAMINATION TYPE: CT abdomen pelvis w con DATE OF EXAM: 10/22/2021 COMPARISON: 11/29/2017 HISTORY: UTI CT DLP: 1299.5 mGycm Automated exposure control for dose reduction was used. CONTRAST: Performed with IV Contrast, patient injected with 80 mL of Isovue 300. Images obtained from the diaphragm to the floor the pelvis with oral and IV contrast. There is subsegmental atelectasis at the lung bases. Heart size is normal. There is no pericardial ef fusion. There is previous surgery at the greater curvature of the stomach. Liver and spleen are intac t. There is no pancreatic mass. There is no adrenal mass. Kidneys show satisfactory contrast opacification. There is no hydronephrosi s. There is no retroperitoneal adenopathy. There is metal artifact from bilateral hip prosthesis. The re is no evidence of a pelvic mass. Urinary bladder appears intact. The bladder detail limited by met al artifact. There is no sign of free fluid in the pelvis. There is no mesenteric edema. There is no ascites or free air. There is no bowel obstruction. Appendi x is posterior and appears normal. Small bowel pattern is normal. There is a first-degree L4-5 spondylolisthesis. There is laminectomy in the lower lumbar spine. There is 20% anterior wedging of L1 vertebra that appears old. There is a mild lumbar dextroscoliosis. IMPRESSION: No evidence of acute abdomen and pelvis. Mild scarring and subsegmental atelectasis at the lung bases . There is an L4-5 spondylolisthesis which appears new compared to old exam and should be considered un stable spine. I do not see a cause for fever.
--- NOTE | 2021-10-23 01:54 | PN ---
PROGRESS NOTE DATE OF SERVICE: 10/22/2021 REASON FOR FOLLOWUP: Fever. INTERVAL HISTORY: Patient did spike a fever this evening. This morning the patient was doing well. Hemodynamically stable. The patient denies having any chest pain. No worsening shortness of breath or cough. No abdominal pain or diarrhea. PHYSICAL EXAMINATION: Blood pressure 114/70 with a pulse of 82. Temperature of a 100.3. 101.2. She is 95% on 2 L nasal cannula. General description is an elderly female up in the bed in no distress. Respiratory system: Unlabored breathing, decreased intensity in breath sounds. No wheeze. Heart S1-S2 regular rate and rhythm. Abdomen soft, no tenderness. LABS: The patient's repeat urine is not significantly positive. White count normal at 10.1, creatinine 0.97. Liver enzymes are normal. Procalcitonin 0.1. DIAGNOSTIC IMPRESSION AND PLAN: Patient with fever with concern for possible urinary tract infection, urine showing Proteus sensitive pathogen. The patient is still running a fever for which the patient is adequately covered with Rocephin. A CT of abdomen and pelvis did not show any acute abnormality either and no evidence of any pneumonia with new fever we will obtain RSV influenza PCR. Culture has been repeated. Continue Rocephin and tomorrow. Continue supportive care. MMAMANDAL / KYLEN: [id number] /
[2021-10-23] MEDS: PANTOPRAZOLE 40 MG TABLET PO SCH ×2 (09:52→20:09)
[2021-10-23] MEDS: VENLAFAXINE HCL 50 MG TAB PO SCH (09:52)
[2021-10-23] MEDS: lisinopriL 20 MG TAB PO SCH ×2 (09:52→20:09)
[2021-10-23] MEDS: METOPROLOL TARTRATE 50 MG TAB PO SCH ×2 (09:52→20:09)
[2021-10-23] MEDS: bisacodyL 5 MG TABLET.DR PO SCH (09:53)
[2021-10-23] MEDS: ACETAMINOPHEN TAB 325 MG TAB PO PRN ×2 (09:56→17:21)
[2021-10-23] MEDS: HEPARIN SODIUM,PORCINE/PF 5,000 UNIT/0.5 ML SYRINGE SQ SCH ×2 (10:08→20:09)
[2021-10-23 11:10] LABS: African American GFR (CKD) 63.8 (60.0-200.0); Anion Gap 17.8 mmol/L (10.00-18.00); BUN/Creat Ratio 16.6 Ratio (12.00-20.00); Blood Urea Nitrogen 16.6 mg/dL (9.0-27.0); Carbon Dioxide 20.2 mmol/L (20.0-27.5); Non-African American GFR(CKD) 55.1 (60.0-200.0); Potassium 4.6 mmol/L (3.5-5.5)
--- NOTE | 2021-10-23 20:25 | P.PN ---
Subjective Patient is a 76-year-old female with a known history of hypertension, GERD, history of CVA/TIA, chronic pain, scoliosis, recurrent UTIs, asthma, ost eoarthritis, anxiety/depression, previous history of smoking and history of COVID-19 infection in 2020 presents to ER with complaints of shortness of breath, feeling tired and lack of energy. Patient states that she has been fatigued. Patient was recently hospitalized a #2020 and was in the hospital 5 days. Patient was discharged on 09/24/2021 and patient has not been feeling well with worsening weakness and shortness of breath and tiredness. Patient is also having subjective fevers. Patient was recently admitted to the hospital due to acute hypoxic respiratory failure. Patient is not vaccinated. Denies any complaints of fever. No cough or sputum production. Denies any flank pain or abdominal pain. No diarrhea. On admission heart rate 148 respiration 20 blood pressure 157/88 pulse ox 98% on room air. Chest x-ray showed chronic changes without evidence for acute pulmonary disease. CT angiogram of the chest was done which showed no evidence of PE. Some residual bilateral bibasilar groundglass opacities consistent with resolving COVID-19 infection. Peripheral bilateral mild to moderate parenchymal linear fibrotic changes now present. EKG showed sinus tachycardia. Laboratory showed WBC 13.2 hemoglobin 12.4 and platelets 238 D-dimer 1.42 BUN 23 and creatinine 1.01 Lactic acid 4.7 proBNP 974 and troponin 0 0.019 Urinalysis showed turbid with 1+ protein 2+ glucose moderate blood positive nitrite large leukoesterase with elevated RBCs and WBCs. 10/18/2021 Patient is currently resting in the bed. Still complains of exertional dyspnea. CTA negative for PE on admission. Patient is being continued on gentle IV hydration. Continue on IV antibiotics the form of ceftriaxone. Follow-up urine culture report. Patient is still spiking temperatures on and off. No nausea vomiting or abdominal pain or diarrhea. Tolerating oral diet. 10/19/2021 Patient is currently lying in the bed. Complains of exertional dyspnea. Patient was febrile with T-max 100.1 this morning. Currently afebrile. Urine culture showed Proteus and gram-negative bacilli. Final culture report is pending. No nausea vomiting or abdominal pain or diarrhea. Tolerating oral diet. No complaints of chest pain. No dysuria or hematuria. 10/20/2021 Patient is currently resting in bed. Complains of exertional dyspnea but improved compared to yesterday. Patient has been afebrile. Imaging studies showed resolving recent COVID-19 pneumonia. Urine culture is growing Proteus and E. coli. Continue ceftriaxone. Patient was seen by pulmonary today. Otherwise patient denied any complaints of nausea or vomiting. Tolerating oral diet. Patient feels weak and dyspnea with exertion.. Continue with incentive spirometry. Anticipate discharge in next 24 hours with more clinical improvement. Laboratory showed leukocytosis normalized to 8.5. Hemoglobin 10.2 MCV 88.2 and platelets 258 sodium 138 potassium 3.7 chloride 106 bicarb is 18.2 BUN 10.1 creatinine 0.8 and calcium 8.3 Subjective: 10/21/2021 Patient still feels generally weak, no diarrhea or specific symptoms. No chest pain or dyspnea. She looks tired lying in bed most of the time. She is hemodynamically stable. She still have low-grade fever today but slightly better at 99.8. Her WBC normal. Procalcitonin is only mildly high at 0.10. But C-reactive protein is significantly elevated at 17. Patient remains on ceftriaxone for UTI secondary to Proteus and E. coli however repeat urine analysis only mildly abnormal. Patient has positive call the test last month 09/21 but repeat test was negative this month 10/17. Chest x-ray shows sequelae of previous Covid infection Infectious disease input is appreciated and patient to be kept on ceftriaxone for now CT of the abdomen and repeat blood culture are ordered today to rule out other infection which are pending 10/23/2021 Patient still has fever today at 100.1. Still with no source of infection. CT of the abdomen and pelvis with contrast did not show cause for the fever. 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 Patient is self still feels generally weak, no obvious respiratory symptoms however she still kind of tachypneic. Repeat blood culture still pending. Plasma lactic acid is normal at 1.1, BMP is unremarkable. D-dimer is 1.3, slightly elevated which is similar on admission was 1.4. At that time CTA of the chest was negative for PE. Viral tests including RSV and influenza viruses are negative. Patient remains on ceftriaxone for now We will order Doppler of the lower extremity to rule out DVT as a possible source of fever. Also we will repeat CT of the chest without contrast tomorrow morning in view of her persistent fever and previously slightly abnormal CT. Also we will repeat Covid test and inflammatory markers including ferritin, LDH and CRP. Also we will repeat proctoscopy calcitonin tomorrow Review of systems CONSTITUTIONAL: No fever, no malaise, no fatigue. HEENT: No recent visual problems or hearing problems. Denied any sore throat. CARDIOVASCULAR: No orthopnea, PND, no palpitations, no syncope. PULMONARY: No chest wall tenderness, no hemoptysis. GASTROINTESTINAL: No diarrhea, no nausea, no vomiting, no abdominal pain. Normoactive bowel sounds. NEUROLOGICAL: No headaches, no weakness, no numbness. Active Medications Generic Name Dose Route Start Last Admin Trade Name Freq PRN Reason Stop Dose Admin Acetaminophen 650 mg 10/17/21 14:15 10/23/21 17:21 Acetaminophen Tab 325 Mg Tab PO 650 mg Q6HR PRN Administration Mild Pain or Fever > 100.5 Baclofen 10 mg 10/17/21 16:06 10/20/21 21:39 Baclofen 10 Mg Tab PO 10 mg HS PRN Administration Muscle Spasm Bisacodyl 5 mg 10/18/21 09:00 10/23/21 09:53 Bisacodyl 5 Mg Tablet.Dr PO 5 mg DAILY BHAVNA Administration Heparin Sodium (Porcine) 5,000 unit 10/21/21 21:00 10/23/21 20:09 Heparin Sodium,Porcine/Pf 5,000 Unit/0.5 Ml Syringe SQ 5,000 unit Q12HR BHAVNA Administration Ceftriaxone Sodium 1 gm/ 50 mls @ 100 mls/hr 10/21/21 21:00 10/23/21 20:09 Sodium Chloride IVPB 100 mls/hr BID BHAVNA Administration Lisinopril 40 mg 10/17/21 21:00 10/23/21 20:09 Lisinopril 20 Mg Tab PO 40 mg BID BHAVNA Administration Metoprolol Tartrate 50 mg 10/17/21 21:00 10/23/21 20:09 Metoprolol Tartrate 50 Mg Tab PO 50 mg BID BHAVNA Administration Naloxone HCl 0.2 mg 10/17/21 14:15 Naloxone 0.4 Mg/Ml 1 Ml Vial IV Q2M PRN Opioid Reversal Pantoprazole Sodium 40 mg 10/17/21 21:00 10/23/21 20:09 Pantoprazole 40 Mg Tablet PO 40 mg BID BHAVNA Administration Venlafaxine HCl 100 mg 10/18/21 09:00 10/23/21 09:52 Venlafaxine Hcl 50 Mg Tab PO 100 mg DAILY BHAVNA Administration Objective - Vital Signs Vital signs: Vital Signs Temp 100.1 F H 10/23/21 17:22 Pulse 75 10/23/21 12:27 Resp 18 10/23/21 12:27 BP 104/61 10/23/21 12:27 Pulse Ox 96 10/23/21 12:27 Intake & Output 10/23/21 10/23/21 10/24/21 06:59 18:59 06:59 Intake Total 650 Balance 650 Intake: Intake, IV Titration 50 Amount cefTRIAXone 1 gm In 50 Sodium Chloride 0.9% 50 ml @ 100 mls/hr IVPB BID BHAVNA Rx#:[id number] Oral 600 Other: Voiding Method Toilet Toilet # Voids 2 4 - Exam -GENERAL: The patient is alert and oriented x3, not in any acute distress. Generally weak and lethargic HEENT: Pupils are round and equally reacting to light. EOMI. No scleral icterus. No conjunctival pallor. Normocephalic, atraumatic. No pharyngeal erythema. No thyromegaly. CARDIOVASCULAR: S1 and S2 present. No murmurs, rubs, or gallops. PULMONARY: Chest is clear to auscultation, no wheezing or crackles. ABDOMEN: Soft, nontender, nondistended, normoactive bowel sounds. No palpable organomegaly. MUSCULOSKELETAL: No joint swelling or deformity. EXTREMITIES: No cyanosis, clubbing, or pedal edema. NEUROLOGICAL: Gross neurological examination did not reveal any focal deficits. SKIN: No rashes. no petechiae. - Labs CBC & Chem 7: 10/22/21 12:55 10/23/21 04:35 Labs: Abnormal Lab Results - Last 24 Hours (Table) 10/23/21 10/23/21 Range/Units 04:35 04:35 D-Dimer 1.31 H (<0.60) mg/L FEU Est GFR (CKD-EPI)NonAf 55.1 L (60.0-200.0) Microbiology - Last 24 Hours (Table) 10/22/21 12:55 Blood Culture - Preliminary Blood No Growth after 24 hours Assessment and Plan Assessment: Persistent fever of unknown origin. suspected to UTI versus others. Acute urinary tract infection. Urine culture showed Proteus and E. coli. Rule out other infections Sepsis secondary to above Recent COVID-19 infection September 2021 with hypoxic respiratory failure. Resolving pneumonia as per CT findings. CTA negative for pulmonary embolism. Because test is negative on 10/17 Previous history of UTI with Klebsiella pneumonia History of CVA/TIA with no residual weakness Chronic back pain Osteoarthritis Hypertension Anxiety/depression Previous history of smoking Plan: This is a pleasant 76 years old female who presents with UTI and have Covid infection without significant hypoxia Continue Rocephin 1 g twice a day infectious disease input is appreciated Follow-up CT of the chest Doppler ultrasound Labs and medication were reviewed.. Continue same treatment. Continue with symptomatic treatment. Resume home medication. Monitor lytes and vitals. DVT and GI prophylaxis. Further recommendations as per clinical course of the patient DVT prophylaxis: Subcutaneous heparin GI Prophylaxis: Ppi PT/OT: Pending Prognosis is guarded
--- NOTE | 2021-10-23 20:43 | US ---
EXAMINATION TYPE: US venous doppler duplex LE BI DATE OF EXAM: 10/23/2021 8:22 PM COMPARISON: 09/22/2021 CLINICAL HISTORY: leg swelling. Leg swelling per order. No redness. No pain. SIDE PERFORMED: Bilateral TECHNIQUE: The lower extremity deep venous system is examined utilizing real time linear array sonog elaine with graded compression, doppler sonography and color-flow sonography. VESSELS IMAGED: Common Femoral Vein Deep Femoral Vein Greater Saphenous Vein * Femoral Vein Popliteal Vein Small Saphenous Vein * Proximal Calf Veins (* superficial vessels) Right Leg: Negative for DVT Left Leg: Negative for DVT IMPRESSION: No evidence of deep vein thrombosis in both legs.
--- NOTE | 2021-10-23 23:25 | PN ---
PROGRESS NOTE DATE OF SERVICE: 10/23/2021 REASON FOR FOLLOWUP: Fever, likely pyelonephritis. INTERVAL HISTORY: The patient's overall fever pattern has improved, with a low-grade fever of 100.1 this evening. The patient denies having any chest pain or shortness of breath. Occasional cough. No vomiting. No abdominal pain or diarrhea. PHYSICAL EXAMINATION: Blood pressure 121/76, pulse of 100, temperature 98.5. T-max of 100.1. She is 97% on 2 L nasal cannula. General description is an elderly female lying in bed in no distress. Respiratory system: Unlabored breathing, decreased intensity of breath sounds. No wheeze. Heart S1, S2. Regular rate and rhythm. Abdomen soft, no tenderness. LABS: Lower extremity Doppler was negative for DVT. Creatinine is 1.0. RSV influenza was negative. DIAGNOSTIC IMPRESSION AND PLAN: Patient with a fever. Only positive finding has been UTI, urine showing Proteus and E coli, possibly pyelonephritis. Symptoms fever despite being on the right antibiotics. This patient did have extensive workup; no other clinical focus. Continue with the Rocephin and monitor clinical course closely. MMODL / IJN: [id number] /
[2021-10-24] MEDS: ACETAMINOPHEN TAB 325 MG TAB PO PRN ×3 (01:23→20:24)
--- NOTE | 2021-10-24 09:07 | P.CNOR ---
History of Present Illness - [facility] Consult date: 10/24/21 Requesting physician: Rafiq E Sheet Consult reason: other (L4-5 spondylolisthesis) History of present illness: Patient is a very pleasant 76-year-old female who is seen sitting at the bedside for further evaluation of her lumbar spine. She has been admitted to the hospital over the past week for treatment evaluation with fever, weakness, shortness of breath, and urinary tract infection. She is on antibiotic medication. She is being seen by multiple medical providers including medicine, pulmonology, and infectious disease. She does admit to burning with urination. She continues to have slightly elevated d-dimer. CT imaging was taken this morning to rule out pulmonary embolism. Patient states at the bedside she does have some chronic low back pain. She follows with Dr. Noonan for treatment of her spine in [place], [place]. She states she did undergo surgical intervention at her lumbar spine performed by Dr. Noonan just a couple years ago at L3-4. She admits to no compression fracture deformity of L1. She admits to other degenerative changes at her lumbar spine. She does continue to follow with her spine surgeon in the outpatient setting on an as-needed basis. She is able to ambulate without any significant difficulty bilateral lower extremities. She is not currently complaining of any lower extremity weakness or radiculopathy. She is not experiencing any change in regards to her lumbar spine. Patient's other medical diagnoses include hypertension, obesity, recurrent urinary tract infections, history of COVID-19 infection in 2020, and history of smoking. Past Medical History Past Medical History: Asthma, Cancer, CVA/TIA, GERD/Reflux, Hypertension, Osteoarthritis (OA), Pneumonia, Skin Disorder Additional Past Medical History / Comment(s): "small stroke found on EEG", fell off roof 2015 and has chronic back pain since- scoliosis, chronic constipation, chronic UTIs, hx skin cancer, SOB for past year, "leaky heart valve", "kidneys were ready to shut down" in 2018 from dehydration,asthma, chronic bronchitis, anemia, Had covid-19 in Sep 2021 History of Any Multi-Drug Resistant Organisms: None Reported Past Surgical History: Adenoidectomy, Bariatric Surgery, Cholecystectomy, Heart Catheterization, Hysterectomy, Joint Replacement, Orthopedic Surgery, Tonsillectomy Additional Past Surgical History / Comment(s): Lab band with removal, bariatric sleeve with hernia repair, skin cancer removed from arm, , L shoulder rotator cuff surgery twice and R shoulder rotator cuff surgery three times, bilateral total knees, total R hip then dislocated it and had a reduction done, bilateral cataract removals with lens implants, Left hip replacement. Past Anesthesia/Blood Transfusion Reactions: Motion Sickness, Postoperative Nausea & Vomiting (PONV) Past Psychological History: Anxiety, Depression Additional Psychological History / Comment(s): . Smoking Status: Former smoker Past Alcohol Use History: Occasional, Rare Additional Past Alcohol Use History / Comment(s): STARTED AGE 13 , SMOKED ON AND OFF, SMOKED 1 PACK /WEEK. QUIT 1992 Past Drug Use History: None Reported - Past Family History Father Family Medical History: Cancer Additional Family Medical History / Comment(s): Father had skin cancer that metastasized to his bones. Sister(s) Family Medical History: Cancer, Deep Vein Thrombosis (DVT) Additional Family Medical History / Comment(s): breast; another sister had pancreatic cancer Mother Family Medical History: No Reported History Additional Family Medical History / Comment(s): Mother was healthy Medications and Allergies Home Medications Medication Instructions Recorded Confirmed Type Metoprolol Tartrate [Lopressor] 50 mg PO BID 09/21/16 10/17/21 History Omeprazole 20 mg PO BID 01/01/19 10/17/21 History Venlafaxine HCl [Effexor] 100 mg PO DAILY 01/01/19 10/17/21 History bisacodyL [Dulcolax] 5 mg PO DAILY 04/20/21 10/17/21 History Baclofen [Lioresal] 10 mg PO HS PRN 09/21/21 10/17/21 History Benazepril HCl [Lotensin] 40 mg PO BID 09/21/21 10/17/21 History Nitrofurantoin Macrocrystal 100 mg PO DAILY PRN 09/21/21 10/17/21 History [Nitrofurantoin] Albuterol Sulfate [Ventolin HFA] 1 - 2 puff INHALATION RT-QID PRN 10/17/21 10/17/21 History Allergies Allergy/AdvReac Type Severity Reaction Status Date / Time hydrocodone [From [place]] Allergy Unknown Itching Verified 10/17/21 12:19 morphine AdvReac Nausea & Verified 10/17/21 12:19 Vomiting Physical Examination Physical exam: Patient is awake, alert, and oriented 3 Vital signs stable Good chest excursion with deep inspiration and expiration Abdomen soft nontender Examination of lumbar spine reveals skin is intact with no abrasions, lacerations, or bruises; no erythema, purulence or signs of infection Evidence of a well-healed incision along the midline of the lower lumbar spine Pain on palpation over the midline of the lower lumbar spine Dorsiflexion, plantarflexion, and extensor hallucis longus positive sustained bilaterally Lower extremity strength 5/5 bilaterally Straight leg test negative bilateral lower extremities No signs or symptoms of DVT; no calf pain No pain with internal and external rotation of the hips bilaterally Neurovascularly intact Results Pertinent studies: CT the abdomen and pelvis taken on 10/22/2021: T12-L1 significant degenerative disc disease with anterior osteophytic spurring; L1 chronic compression fracture deformity at the inferior endplate; L3-4 severe degenerative disc disease; L4-5 spondylolisthesis and lateral listhesis; degenerative scoliosis - Labs Labs: Abnormal Lab Results - Last 24 Hours (Table) 10/23/21 Range/Units 04:35 Est GFR (CKD-EPI)NonAf 55.1 L (60.0-200.0) Microbiology - Last 24 Hours (Table) 10/22/21 12:55 Blood Culture - Preliminary Blood No Growth after 24 hours H & H 10/17/21 10/18/21 10/19/21 Range/Units 11:02 05:23 05:47 Hgb 12.4 12.0 10.5 L (11.4-16.0) gm/dL Hct 38.6 38.8 33.7 L (34.0-46.0) % 10/20/21 10/21/21 10/22/21 Range/Units 05:58 04:20 12:55 Hgb 10.2 L 11.1 L 10.1 L (11.4-16.0) gm/dL Hct 33.2 L 35.1 32.0 L (34.0-46.0) % Coagulation 10/17/21 Range/Units 11:02 INR 0.9 (<1.2) Result Diagrams: 10/22/21 12:55 10/23/21 04:35 Assessment and Plan Assessment: Assessment: L4-5 spondylolisthesis and lateral listhesis Degenerative scoliosis Chronic L1 compression fracture deformity T10-L1 degenerative disc disease L3-4 severe degenerative disc disease History lumbar surgery Chronic low back pain Urinary tract infection Shortness of breath Generalized weakness Hypertension Obesity Recurrent urinary tract infections History of COVID-19 infection in 2020 History of smoking Lately elevated d-dimer; rule out pulmonary embolism (1) Spondylolisthesis, lumbar region Current Visit: Yes Status: Acute Code(s): M43.16 - SPONDYLOLISTHESIS, LUMBAR REGION SNOMED Code(s): 666109250607967 (2) Lumbar degenerative disc disease Current Visit: Yes Status: Acute Code(s): M51.36 - OTHER INTERVERTEBRAL DISC DEGENERATION, LUMBAR REGION SNOMED Code(s): 08402213 (3) Thoracic degenerative disc disease Current Visit: Yes Status: Acute Code(s): M51.34 - OTHER INTERVERTEBRAL DISC DEGENERATION, THORACIC REGION SNOMED Code(s): 85436128 (4) Degenerative scoliosis Current Visit: Yes Status: Acute Code(s): M41.80 - OTHER FORMS OF SCOLIOSIS, SITE UNSPECIFIED SNOMED Code(s): 885369490 (5) Osteophyte Current Visit: Yes Status: Acute Code(s): M25.70 - OSTEOPHYTE, UNSPECIFIED JOINT SNOMED Code(s): 137754267385068 (6) History of lumbar surgery Current Visit: Yes Status: Acute Code(s): Z98.890 - OTHER SPECIFIED POSTPROCEDURAL STATES SNOMED Code(s): 881082387 (7) Chronic low back pain Current Visit: Yes Status: Acute Code(s): M54.50 - LOW BACK PAIN, UNSPECIFIED; G89.29 - OTHER CHRONIC PAIN SNOMED Code(s): 538307644 (8) Urinary tract infection Current Visit: Yes Status: Acute Code(s): N39.0 - URINARY TRACT INFECTION, SITE NOT SPECIFIED SNOMED Code(s): 35083128 (9) Shortness of breath Current Visit: Yes Status: Acute Code(s): R06.02 - SHORTNESS OF BREATH SNOMED Code(s): 976896537 (10) Generalized weakness Current Visit: Yes Status: Acute Code(s): R53.1 - WEAKNESS SNOMED Code(s): 93698566 (11) Hypertension Current Visit: Yes Status: Acute Code(s): I10 - ESSENTIAL (PRIMARY) HYPERTENSION SNOMED Code(s): 77839455 (12) Obesity Current Visit: Yes Status: Acute Code(s): E66.9 - OBESITY, UNSPECIFIED SNOMED Code(s): 760766688 (13) Recurrent urinary tract infection Current Visit: Yes Status: Acute Code(s): N39.0 - URINARY TRACT INFECTION, SITE NOT SPECIFIED SNOMED Code(s): 723586219 (14) History of COVID-19 Current Visit: Yes Status: Acute Code(s): Z86.16 - PERSONAL HISTORY OF COVID-19 SNOMED Code(s): 150076011595116092 (15) History of smoking Current Visit: Yes Status: Acute Code(s): Z87.891 - PERSONAL HISTORY OF NICOTINE DEPENDENCE SNOMED Code(s): 796585516 (16) Elevated d-dimer Current Visit: Yes Status: Acute Code(s): R79.89 - OTHER SPECIFIED ABNORMAL FINDINGS OF BLOOD CHEMISTRY SNOMED Code(s): 397609720 Plan: Plan: 1. After further discussion with the patient, physical examination the patient, and reviewing of CT imaging of the abdomen and pelvis, we will currently plan to continue with conservative treatment at this time. She does have significant degenerative changes at her lumbar spine and does admit to some chronic low back pain. She is not currently experiencing any lower extremity weakness or radiculopathy bilaterally. She has a history of surgical intervention of the lumbar spine by Dr. Noonan in [place], [place]. She does continue to follow with him in outpatient setting. She states she would plan to continue following with him in the outpatient setting. She does not feel she needs surgical intervention specifically in regards to her lumbar spine at this time. She does not have any changes with her chronic symptoms in regards to her lumbar spine. We did discuss her spondylolisthesis at L4-5 and other degenerative pendleton ges at her lumbar spine. It is unlikely that her infection is stemming specifically from her lumbar spine. She is currently being treated for urinary tract infection. She has a history of recurrent urinary tract infections. She is also undergoing further evaluation with medicine, infectious disease, and pulmonology. CT imaging was taken today to rule out pulmonary embolism. At this time, patient may continue to follow with other medical providers for further treatment and evaluation for her ongoing urinary tract infection. Patient does not currently have a fever. She does not currently have leukocytosis. We would not currently plan to obtain further imaging of her lumbar spine. We did discuss that she continues to have persistent difficulty in which infectious disease felt her infection may be coming specifically from her lumbar spine, they could consider lumbar MRI imaging. We did discuss again that we currently feel it is unlikely her infection is coming specifically from her lumbar spine. She has not recently had any injections in her lumbar spine. She is also currently being treated for urinary tract infection. At this time, patient will be cleared for discharge from an orthopedic spine standpoint. Patient is encouraged to follow with her spinal surgeon, Dr. Noonan, in [place], [place] following discharge. 2. Patient will continue be seen and examined by multiple other medical providers including medicine, infectious disease, and pulmonology Time with Patient: Greater than 30 (Including obtaining history, physical examination, reviewing of imaging, and dictation.)
--- NOTE | 2021-10-24 09:15 | CT ---
EXAMINATION TYPE: CT chest wo con DATE OF EXAM: 10/24/2021 COMPARISON: 10/17/2021 HISTORY: 76-year-old female Shortness of breath, fever, cough TECHNIQUE: Contiguous axial scanning of the chest without IV contrast. Coronal and sagittal reconstru ctions performed. CT DLP: 400.1 mGycm Automated exposure control for dose reduction was used. FINDINGS: Heart normal size with trace anterior basilar pericardial fluid. Borderline ectatic ascending aorta 3.5 cm. Mild atherosclerotic arch calcifications. Variant direct t akeoff of the left vertebral artery directly from the aortic arch. Bilateral interstitial changes persist especially in the periphery of the lungs. Associated groundgla ss has increased in the interval. Focal opacity right middle lobe increased in the interval. No pleural effusion. Tiny hiatal hernia. Post surgical changes of sleeve gastrectomy in the upper abdomen. Cholecystectomy clips. 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 Slight thickening of th e left adrenal gland without discrete nodularity is unchanged. 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 Inferior endplate deformity at L1 unchang ed back to at least 09/21/2021. Grade 1 retrolisthesis here is unchanged as well. IMPRESSION: RESIDUAL CHANGES OF COVID PNEUMONIA BUT WITH SLIGHT INTERVAL INCREASE IN DIFFUSE BILATERAL PATCHY CHATO UNDGLASS. CORRELATE FOR POSSIBLE RECURRENT COVID PNEUMONIA VERSUS OTHER PNEUMONITIS.
[2021-10-24] MEDS: lisinopriL 20 MG TAB PO SCH ×2 (09:51→20:24)
[2021-10-24] MEDS: HEPARIN SODIUM,PORCINE/PF 5,000 UNIT/0.5 ML SYRINGE SQ SCH ×2 (09:51→20:24)
[2021-10-24] MEDS: METOPROLOL TARTRATE 50 MG TAB PO SCH ×2 (09:52→20:24)
[2021-10-24] MEDS: PANTOPRAZOLE 40 MG TABLET PO SCH ×2 (09:53→20:24)
[2021-10-24] MEDS: VENLAFAXINE HCL 50 MG TAB PO SCH (09:53)
[2021-10-24] MEDS: bisacodyL 5 MG TABLET.DR PO SCH (09:53)
[2021-10-24 11:10] VITALS: BMI 35.5
[2021-10-24] MEDS: PIPERACILLIN-TAZOBACTAM 3.375 GM in SODIUM CHLORIDE 0.9% 100 ML IVPB SCH ×2 (12:21→20:24)
--- NOTE | 2021-10-24 21:35 | P.PN ---
Subjective Patient is a 76-year-old female with a known history of hypertension, GERD, history of CVA/TIA, chronic pain, scoliosis, recurrent UTIs, asthma, ost eoarthritis, anxiety/depression, previous history of smoking and history of COVID-19 infection in 2020 presents to ER with complaints of shortness of breath, feeling tired and lack of energy. Patient states that she has been fatigued. Patient was recently hospitalized a #2020 and was in the hospital 5 days. Patient was discharged on 09/24/2021 and patient has not been feeling well with worsening weakness and shortness of breath and tiredness. Patient is also having subjective fevers. Patient was recently admitted to the hospital due to acute hypoxic respiratory failure. Patient is not vaccinated. Denies any complaints of fever. No cough or sputum production. Denies any flank pain or abdominal pain. No diarrhea. On admission heart rate 148 respiration 20 blood pressure 157/88 pulse ox 98% on room air. Chest x-ray showed chronic changes without evidence for acute pulmonary disease. CT angiogram of the chest was done which showed no evidence of PE. Some residual bilateral bibasilar groundglass opacities consistent with resolving COVID-19 infection. Peripheral bilateral mild to moderate parenchymal linear fibrotic changes now present. EKG showed sinus tachycardia. Laboratory showed WBC 13.2 hemoglobin 12.4 and platelets 238 D-dimer 1.42 BUN 23 and creatinine 1.01 Lactic acid 4.7 proBNP 974 and troponin 0 0.019 Urinalysis showed turbid with 1+ protein 2+ glucose moderate blood positive nitrite large leukoesterase with elevated RBCs and WBCs. 10/18/2021 Patient is currently resting in the bed. Still complains of exertional dyspnea. CTA negative for PE on admission. Patient is being continued on gentle IV hydration. Continue on IV antibiotics the form of ceftriaxone. Follow-up urine culture report. Patient is still spiking temperatures on and off. No nausea vomiting or abdominal pain or diarrhea. Tolerating oral diet. 10/19/2021 Patient is currently lying in the bed. Complains of exertional dyspnea. Patient was febrile with T-max 100.1 this morning. Currently afebrile. Urine culture showed Proteus and gram-negative bacilli. Final culture report is pending. No nausea vomiting or abdominal pain or diarrhea. Tolerating oral diet. No complaints of chest pain. No dysuria or hematuria. 10/20/2021 Patient is currently resting in bed. Complains of exertional dyspnea but improved compared to yesterday. Patient has been afebrile. Imaging studies showed resolving recent COVID-19 pneumonia. Urine culture is growing Proteus and E. coli. Continue ceftriaxone. Patient was seen by pulmonary today. Otherwise patient denied any complaints of nausea or vomiting. Tolerating oral diet. Patient feels weak and dyspnea with exertion.. Continue with incentive spirometry. Anticipate discharge in next 24 hours with more clinical improvement. Laboratory showed leukocytosis normalized to 8.5. Hemoglobin 10.2 MCV 88.2 and platelets 258 sodium 138 potassium 3.7 chloride 106 bicarb is 18.2 BUN 10.1 creatinine 0.8 and calcium 8.3 Subjective: 10/21/2021 Patient still feels generally weak, no diarrhea or specific symptoms. No chest pain or dyspnea. She looks tired lying in bed most of the time. She is hemodynamically stable. She still have low-grade fever today but slightly better at 99.8. Her WBC normal. Procalcitonin is only mildly high at 0.10. But C-reactive protein is significantly elevated at 17. Patient remains on ceftriaxone for UTI secondary to Proteus and E. coli however repeat urine analysis only mildly abnormal. Patient has positive call the test last month 09/21 but repeat test was negative this month 10/17. Chest x-ray shows sequelae of previous Covid infection Infectious disease input is appreciated and patient to be kept on ceftriaxone for now CT of the abdomen and repeat blood culture are ordered today to rule out other infection which are pending 10/23/2021 Patient still has fever today at 100.1. Still with no source of infection. CT of the abdomen and pelvis with contrast did not show cause for the fever. 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 Patient is self still feels generally weak, no obvious respiratory symptoms however she still kind of tachypneic. Repeat blood culture still pending. Plasma lactic acid is normal at 1.1, BMP is unremarkable. D-dimer is 1.3, slightly elevated which is similar on admission was 1.4. At that time CTA of the chest was negative for PE. Viral tests including RSV and influenza viruses are negative. Patient remains on ceftriaxone for now We will order Doppler of the lower extremity to rule out DVT as a possible source of fever. Also we will repeat CT of the chest without contrast tomorrow morning in view of her persistent fever and previously slightly abnormal CT. Also we will repeat Covid test and inflammatory markers including ferritin, LDH and CRP. Also we will repeat proctoscopy calcitonin tomorrow 10/24/2021 Patient feels generally weak but also today she is telling me she is complaining of from cough and significant exertional dyspnea. She still having fever and actually today she developed high fever at 102. Repeat chest x-ray without contrast showing worsening infiltrate. Most likely patient has pneumonia which is the source of his ongoing fever but ceftriaxone is failing, change antibiotics to Zosyn today also we going to retest for Covid PCR which is pending currently. Also repeat blood cultures show no growth in 2 days. We will recheck pro-calcitonin and labs tomorrow Orthopedic team consulted for abnormal finding on CT with unstable spine, no need for any surgical intervention and follow-up with her orthopedic as an outpatient. Patient with no back pain or radiculopathy. Other vitals are stable. And we will keep monitoring closely Objective - Vital Signs Vital signs: Vital Signs Temp 98.1 F 10/24/21 04:53 Pulse 84 10/24/21 04:53 Resp 16 10/24/21 04:53 BP 131/78 10/24/21 04:53 Pulse Ox 96 10/24/21 04:53 Intake & Output 10/23/21 10/24/21 10/24/21 18:59 06:59 18:59 Intake Total 700 Balance 700 Weight 82.554 kg Intake: Intake, IV Titration 100 Amount cefTRIAXone 1 gm In 100 Sodium Chloride 0.9% 50 ml @ 100 mls/hr IVPB BID [facility] Rx#:[id number] Oral 600 Other: Voiding Method Toilet Toilet Toilet # Voids 4 2 - Exam -GENERAL: The patient is alert and oriented x3, not in any acute distress. Generally weak and lethargic HEENT: Pupils are round and equally reacting to light. EOMI. No scleral icterus. No conjunctival pallor. Normocephalic, atraumatic. No pharyngeal erythema. No thyromegaly. CARDIOVASCULAR: S1 and S2 present. No murmurs, rubs, or gallops. PULMONARY: Chest is clear to auscultation, no wheezing or crackles. ABDOMEN: Soft, nontender, nondistended, normoactive bowel sounds. No palpable or ganomegaly. MUSCULOSKELETAL: No joint swelling or deformity. EXTREMITIES: No cyanosis, clubbing, or pedal edema. NEUROLOGICAL: Gross neurological examination did not reveal any focal deficits. SKIN: No rashes. no petechiae. - Labs CBC & Chem 7: 10/22/21 12:55 10/23/21 04:35 Labs: Microbiology - Last 24 Hours (Table) 10/22/21 12:55 Blood Culture - Preliminary Blood No Growth after 24 hours Assessment and Plan Assessment: Bilateral pneumonia, gram-negative pneumonia is suspected. Rule out pelvic infection. Rule out aspiration Acute urinary tract infection. Urine culture showed Proteus and E. coli. Rule out other infections Sepsis secondary to above Recent COVID-19 infection September 2021 with hypoxic respiratory failure. Resolving pneumonia as per CT findings. CTA negative for pulmonary embolism. Because test is negative on 10/17 Previous history of UTI with Klebsiella pneumonia History of CVA/TIA with no residual weakness Chronic back pain Osteoarthritis Hypertension Anxiety/depression Previous history of smoking Plan: This is a pleasant 76 years old female who presents with UTI and have Covid infection without significant hypoxia Discontinue Rocephin. Start Zosyn. infectious disease input is appreciated Follow-up CT of the chest Doppler ultrasound Labs and medication were reviewed.. Continue same treatment. Continue with symptomatic treatment. Resume home medication. Monitor lytes and vitals. DVT and GI prophylaxis. Further recommendations as per clinical course of the patient DVT prophylaxis: Subcutaneous heparin GI Prophylaxis: Ppi PT/OT: Pending Prognosis is guarded
--- NOTE | 2021-10-24 22:20 | PN ---
PROGRESS NOTE DATE OF SERVICE: 10/24/2021 REASON FOR FOLLOWUP: Fever. INTERVAL HISTORY: The patient did spike another fever this evening of 102 degrees Fahrenheit. The patient is breathing comfortably. She did have a cough which is moderate in intensity, not bringing up any sputum, though. No nausea, no vomiting. No abdominal pain or diarrhea. PHYSICAL EXAMINATION: Her blood pressure is 151/77 with a pulse of 105, temperature 99.6. She is 96% on 1 L nasal cannula. General description is an elderly female up in the bed in no distress. Respiratory system: Unlabored breathing, coarse breath sounds bilaterally. No wheeze. Heart S1, S2. Regular rate and rhythm. Abdomen soft, no tenderness. LABS: The patient did have a CT of the chest with residual changes of COVID-19, slight interval increase in the diffuse bilateral patchy ground-glass with concern for recurrent COVID pneumonia. Patient's D-dimer is 1.31. DIAGNOSTIC IMPRESSION AND PLAN: Patient with persistent fever in this patient who did have extensive workup, positive urine; however, that has been covered. The patient did have a negative COVID test on admission. Influenza was negative. RSV was negative. Repeat urine is coming back positive. CT of abdomen and pelvis was negative. We will check urine for Legionella antigen. Antibiotic has been adjusted to Zosyn. Repeat COVID testing has been ordered. Those tests will be followed and we will monitor clinical course closely. MMAMANDAL / KYLEN: [id number] /
[2021-10-25] MEDS: PIPERACILLIN-TAZOBACTAM 3.375 GM in SODIUM CHLORIDE 0.9% 100 ML IVPB SCH ×3 (04:17→20:45)
[2021-10-25 05:04] LABS: Anisocytosis Slight; Basophils % (A) 0 %; Eosinophils # (A) 0.2 k/uL (0-0.7); Eosinophils % (A) 2 %; HCT 30.9 % (34.0-46.0); HGB 9.6 gm/dL (11.4-16.0); Hypochromasia Moderate; Lymphocytes # (A) 1.3 k/uL (1.0-4.8); Lymphocytes % (A) 14 %; MCH 28.1 pg (25.0-35.0); MCHC 31.1 g/dL (31.0-37.0); MCV 90.3 fL (80.0-100.0); Monocytes # (A) 0.4 k/uL (0-1.0); Monocytes % (A) 4 %; Neutrophils # (A) 7.3 k/uL (1.3-7.7); Neutrophils % (A) 78 %; Platelet Count 349 k/uL (150-450); RBC 3.43 m/uL (3.80-5.40); RDW 16.4 % (11.5-15.5); WBC 9.5 k/uL (3.8-10.6)
[2021-10-25] MEDS: VENLAFAXINE HCL 50 MG TAB PO SCH (09:41)
[2021-10-25] MEDS: bisacodyL 5 MG TABLET.DR PO SCH (09:41)
[2021-10-25] MEDS: METOPROLOL TARTRATE 50 MG TAB PO SCH ×2 (09:41→20:45)
[2021-10-25] MEDS: PANTOPRAZOLE 40 MG TABLET PO SCH ×2 (09:41→20:45)
[2021-10-25] MEDS: lisinopriL 20 MG TAB PO SCH ×2 (09:41→20:45)
[2021-10-25] MEDS: HEPARIN SODIUM,PORCINE/PF 5,000 UNIT/0.5 ML SYRINGE SQ SCH ×2 (09:41→20:45)
[2021-10-25] MEDS: DOXYCYCLINE 100 MG CAP PO SCH ×2 (09:42→20:45)
[2021-10-25 11:11] LABS: African American GFR (CKD) 58.2 (60.0-200.0); Anion Gap 12.3 mmol/L (10.00-18.00); BUN/Creat Ratio 17.04 Ratio (12.00-20.00); Blood Urea Nitrogen 18.4 mg/dL (9.0-27.0); Calcium 8.8 mg/dL (8.7-10.3); Magnesium 1.9 mg/dL (1.5-2.4); Non-African American GFR(CKD) 50.2 (60.0-200.0); Potassium 4.6 mmol/L (3.5-5.5)
--- NOTE | 2021-10-25 13:16 | PN ---
PROGRESS NOTE DATE OF SERVICE: 10/25/2021 REASON FOR FOLLOWUP: INTERVAL HISTORY: The patient's overall fever pattern has improved. She did have a low-grade fever of 99.8 this afternoon compared to 102 yesterday. The patient denies having chest pain. The patient continues to have a cough; not bringing up any sputum, though. No nausea, no vomiting. No abdominal pain or diarrhea. PHYSICAL EXAMINATION: Blood pressure 129/69 with a pulse of 80, temperature 99.8. She is 95% on 2 L nasal cannula. General description is an elderly female up in the chair in no distress. Respiratory system: Unlabored breathing, decreased intensity of breath sounds. No wheeze. Heart S1, S2. Regular rate and rhythm. Abdomen soft, no tenderness. LABS: Hemoglobin is 9.4 to 9.5, creatinine 1.1. Urine for Legionella is negative. RSV was negative. Influenza negative. Repeat COVID testing is pending. DIAGNOSTIC IMPRESSION AND PLAN: Patient with a fever, initial concern for a urinary tract infection. Urine was showing Proteus mirabilis and E coli sensitive pathogens. However, the patient did have persistent fever and did have extensive workup, including CT of abdomen and pelvis that has been negative for any pathology. Repeat urine not significantly positive. The patient had negative influenza, RSV and Legionella, and repeat COVID is pending. Patient to continue with doxycycline and Zosyn in view of clinical response and monitor clinical course closely. MMODL / IJN: [id number] /
[2021-10-25] MEDS: ACETAMINOPHEN TAB 325 MG TAB PO PRN (15:41)
--- NOTE | 2021-10-25 20:07 | P.PN ---
Subjective Patient is a 76-year-old female with a known history of hypertension, GERD, history of CVA/TIA, chronic pain, scoliosis, recurrent UTIs, asthma, ost eoarthritis, anxiety/depression, previous history of smoking and history of COVID-19 infection in 2020 presents to ER with complaints of shortness of breath, feeling tired and lack of energy. Patient states that she has been fatigued. Patient was recently hospitalized a #2020 and was in the hospital 5 days. Patient was discharged on 09/24/2021 and patient has not been feeling well with worsening weakness and shortness of breath and tiredness. Patient is also having subjective fevers. Patient was recently admitted to the hospital due to acute hypoxic respiratory failure. Patient is not vaccinated. Denies any complaints of fever. No cough or sputum production. Denies any flank pain or abdominal pain. No diarrhea. On admission heart rate 148 respiration 20 blood pressure 157/88 pulse ox 98% on room air. Chest x-ray showed chronic changes without evidence for acute pulmonary disease. CT angiogram of the chest was done which showed no evidence of PE. Some residual bilateral bibasilar groundglass opacities consistent with resolving COVID-19 infection. Peripheral bilateral mild to moderate parenchymal linear fibrotic changes now present. EKG showed sinus tachycardia. Laboratory showed WBC 13.2 hemoglobin 12.4 and platelets 238 D-dimer 1.42 BUN 23 and creatinine 1.01 Lactic acid 4.7 proBNP 974 and troponin 0 0.019 Urinalysis showed turbid with 1+ protein 2+ glucose moderate blood positive nitrite large leukoesterase with elevated RBCs and WBCs. 10/18/2021 Patient is currently resting in the bed. Still complains of exertional dyspnea. CTA negative for PE on admission. Patient is being continued on gentle IV hydration. Continue on IV antibiotics the form of ceftriaxone. Follow-up urine culture report. Patient is still spiking temperatures on and off. No nausea vomiting or abdominal pain or diarrhea. Tolerating oral diet. 10/19/2021 Patient is currently lying in the bed. Complains of exertional dyspnea. Patient was febrile with T-max 100.1 this morning. Currently afebrile. Urine culture showed Proteus and gram-negative bacilli. Final culture report is pending. No nausea vomiting or abdominal pain or diarrhea. Tolerating oral diet. No complaints of chest pain. No dysuria or hematuria. 10/20/2021 Patient is currently resting in bed. Complains of exertional dyspnea but improved compared to yesterday. Patient has been afebrile. Imaging studies showed resolving recent COVID-19 pneumonia. Urine culture is growing Proteus and E. coli. Continue ceftriaxone. Patient was seen by pulmonary today. Otherwise patient denied any complaints of nausea or vomiting. Tolerating oral diet. Patient feels weak and dyspnea with exertion.. Continue with incentive spirometry. Anticipate discharge in next 24 hours with more clinical improvement. Laboratory showed leukocytosis normalized to 8.5. Hemoglobin 10.2 MCV 88.2 and platelets 258 sodium 138 potassium 3.7 chloride 106 bicarb is 18.2 BUN 10.1 creatinine 0.8 and calcium 8.3 Subjective: 10/21/2021 Patient still feels generally weak, no diarrhea or specific symptoms. No chest pain or dyspnea. She looks tired lying in bed most of the time. She is hemodynamically stable. She still have low-grade fever today but slightly better at 99.8. Her WBC normal. Procalcitonin is only mildly high at 0.10. But C-reactive protein is significantly elevated at 17. Patient remains on ceftriaxone for UTI secondary to Proteus and E. coli however repeat urine analysis only mildly abnormal. Patient has positive call the test last month 09/21 but repeat test was negative this month 10/17. Chest x-ray shows sequelae of previous Covid infection Infectious disease input is appreciated and patient to be kept on ceftriaxone for now CT of the abdomen and repeat blood culture are ordered today to rule out other infection which are pending 10/23/2021 Patient still has fever today at 100.1. Still with no source of infection. CT of the abdomen and pelvis with contrast did not show cause for the fever. 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 Patient is self still feels generally weak, no obvious respiratory symptoms however she still kind of tachypneic. Repeat blood culture still pending. Plasma lactic acid is normal at 1.1, BMP is unremarkable. D-dimer is 1.3, slightly elevated which is similar on admission was 1.4. At that time CTA of the chest was negative for PE. Viral tests including RSV and influenza viruses are negative. Patient remains on ceftriaxone for now We will order Doppler of the lower extremity to rule out DVT as a possible source of fever. Also we will repeat CT of the chest without contrast tomorrow morning in view of her persistent fever and previously slightly abnormal CT. Also we will repeat Covid test and inflammatory markers including ferritin, LDH and CRP. Also we will repeat proctoscopy calcitonin tomorrow 10/24/2021 Patient feels generally weak but also today she is telling me she is complaining of from cough and significant exertional dyspnea. She still having fever and actually today she developed high fever at 102. Repeat chest x-ray without contrast showing worsening infiltrate. Most likely patient has pneumonia which is the source of his ongoing fever but ceftriaxone is failing, change antibiotics to Zosyn today also we going to retest for Covid PCR which is pending currently. Also repeat blood cultures show no growth in 2 days. We will recheck pro-calcitonin and labs tomorrow Orthopedic team consulted for abnormal finding on CT with unstable spine, no need for any surgical intervention and follow-up with her orthopedic as an outpatient. Patient with no back pain or radiculopathy. Other vitals are stable. And we will keep monitoring closely 10/25/2021 Patient today in the morning she was told me she feels better and her cough is better and she does not have spiking fever overnight. However during the day she spiked a fever of 101.8. There is concern for her pneumonia which is shown with worsening infiltrate on the CT of the chest, also patient had respiratory symptoms with exertional dyspnea Yesterday was switched her antibiotics to Zosyn. Today doxycycline has been added Repeat coronavirus tests with CPR came back negative, patient very unlikely to have Covid infection. Repeat pro-calcitonin is 0.10 and 0.11 today Aspiration pneumonia is very unlikely as patient is passing her swallow test today Objective - Vital Signs Vital signs: Vital Signs Temp 99.5 F 10/25/21 05:00 Pulse 113 H 10/25/21 09:37 Resp 20 10/25/21 05:00 BP 151/83 10/25/21 09:37 Pulse Ox 94 L 10/25/21 09:37 Intake & Output 10/24/21 10/25/21 10/25/21 18:59 06:59 18:59 Intake Total 500 200 Balance 500 200 Weight 82.554 kg Intake: Intake, IV Titration 100 200 Amount Piperacillin-Tazobactam 3 100 200 .375 gm In Sodium Chloride 0.9% 100 ml @ 25 mls/hr IVPB Q8H [facility] Rx#: [id number] Oral 400 Other: Voiding Method Toilet Toilet # Voids 3 3 - Exam -GENERAL: The patient is alert and oriented x3, not in any acute distress. Generally weak and lethargic HEENT: Pupils are round and equally reacting to light. EOMI. No scleral icterus. No conjunctival pallor. Normocephalic, atraumatic. No pharyngeal erythema. No thyromegaly. CARDIOVASCULAR: S1 and S2 present. No murmurs, rubs, or gallops. PULMONARY: Chest is clear to auscultation, no wheezing or crackles. ABDOMEN: Soft, nontender, nondistended, normoactive bowel sounds. No palpable organomegaly. MUSCULOSKELETAL: No joint swelling or deformity. EXTREMITIES: No cyanosis, clubbing, or pedal edema. NEUROLOGICAL: Gross neurological examination did not reveal any focal deficits. SKIN: No rashes. no petechiae. - Labs CBC & Chem 7: 10/25/21 04:22 10/25/21 04:22 Labs: Abnormal Lab Results - Last 24 Hours (Table) 10/25/21 Range/Units 04:22 RBC 3.43 L (3.80-5.40) m/uL Hgb 9.6 L (11.4-16.0) gm/dL Hct 30.9 L (34.0-46.0) % RDW 16.4 H (11.5-15.5) % Microbiology - Last 24 Hours (Table) 10/22/21 12:55 Blood Culture - Preliminary Blood No Growth after 48 hours Assessment and Plan Assessment: Bilateral pneumonia, gram-negative pneumonia is suspected. Acute urinary tract infection. Urine culture showed Proteus and E. coli. Rule out other infections Sepsis secondary to above Recent COVID-19 infection September 2021 with hypoxic respiratory failure. Resolving pneumonia as per CT findings. CTA negative for pulmonary embolism. Because test is negative on 10/17 Previous history of UTI with Klebsiella pneumonia History of CVA/TIA with no residual weakness Chronic back pain Osteoarthritis Hypertension Anxiety/depression Previous history of smoking Plan: This is a pleasant 76 years old female who presents with UTI and have Covid infection without significant hypoxia Continue with Zosyn and doxycycline infectious disease input is appreciated Repeat chest x-ray in the morning Labs and medication were reviewed.. Continue same treatment. Continue with symptomatic treatment. Resume home medication. Monitor lytes and vitals. DVT and GI prophylaxis. Further recommendations as per clinical course of the patient DVT prophylaxis: Subcutaneous heparin GI Prophylaxis: Ppi PT/OT: Pending Prognosis is guarded
[2021-10-26] MEDS: ACETAMINOPHEN TAB 325 MG TAB PO PRN (01:54)
[2021-10-26] MEDS: PIPERACILLIN-TAZOBACTAM 3.375 GM in SODIUM CHLORIDE 0.9% 100 ML IVPB SCH ×3 (03:56→21:05)
--- NOTE | 2021-10-26 07:27 | XR ---
EXAMINATION TYPE: XR chest 2V DATE OF EXAM: 10/26/2021 COMPARISON: 10/22/2021 TECHNIQUE: PA and lateral views submitted. HISTORY: Shortness of breath FINDINGS: Hypertrophic and degenerative changes of the spine. Coarsened interstitium with subsegmental areas of solid aeration. No pneumothorax or pleural effusion. Diffuse osteopenia and arthropathy shoulders. IMPRESSION: 1. Bilateral interstitial and alveolar infiltrate stable
[2021-10-26] MEDS: lisinopriL 20 MG TAB PO SCH ×2 (08:45→21:07)
[2021-10-26] MEDS: VENLAFAXINE HCL 50 MG TAB PO SCH (08:45)
[2021-10-26] MEDS: bisacodyL 5 MG TABLET.DR PO SCH (08:45)
[2021-10-26] MEDS: DOXYCYCLINE 100 MG CAP PO SCH ×2 (08:45→21:07)
[2021-10-26] MEDS: PANTOPRAZOLE 40 MG TABLET PO SCH ×2 (08:45→21:07)
[2021-10-26] MEDS: HEPARIN SODIUM,PORCINE/PF 5,000 UNIT/0.5 ML SYRINGE SQ SCH ×2 (08:45→21:07)
[2021-10-26] MEDS: METOPROLOL TARTRATE 50 MG TAB PO SCH ×2 (08:45→21:07)
--- NOTE | 2021-10-26 15:50 | PN ---
PROGRESS NOTE DATE OF SERVICE: 10/26/2021 REASON FOR FOLLOWUP: UTI and question of pneumonia. INTERVAL HISTORY: Patient is afebrile. The patient is breathing more comfortably. The patient denies having any chest pain. Cough has decreased in intensity; mostly dry in nature. No vomiting. No abdominal pain. No diarrhea. PHYSICAL EXAMINATION: Blood pressure 154/81, pulse of 90, temperature of 98. She is 96% on 2 L nasal cannula. General description is an elderly female up in the bed in no distress. Respiratory system: Unlabored breathing, decreased intensity in breath sounds. No wheeze. Heart S1, S2. Regular rate and rhythm. Abdomen soft, no tenderness. LAB: Repeat Covid test came back negative. Hemoglobin is 9.1, white count 9.5, creatinine 1.1. DIAGNOSTIC IMPRESSION AND PLAN: Patient with a fever in this patient initially diagnosed with UTI, possible viral syndrome in this patient who did have extensive workup without any localizing focus and cultures remains to be negative. Plan at this time is to continue with Zosyn, doxycycline, hopefully finish therapy with oral antibiotics. Continue supportive care. MMODL / IJN: [id number] /
--- NOTE | 2021-10-26 21:12 | P.PN ---
Subjective Patient is a 76-year-old female with a known history of hypertension, GERD, history of CVA/TIA, chronic pain, scoliosis, recurrent UTIs, asthma, ost eoarthritis, anxiety/depression, previous history of smoking and history of COVID-19 infection in 2020 presents to ER with complaints of shortness of breath, feeling tired and lack of energy. Patient states that she has been fatigued. Patient was recently hospitalized a #2020 and was in the hospital 5 days. Patient was discharged on 09/24/2021 and patient has not been feeling well with worsening weakness and shortness of breath and tiredness. Patient is also having subjective fevers. Patient was recently admitted to the hospital due to acute hypoxic respiratory failure. Patient is not vaccinated. Denies any complaints of fever. No cough or sputum production. Denies any flank pain or abdominal pain. No diarrhea. On admission heart rate 148 respiration 20 blood pressure 157/88 pulse ox 98% on room air. Chest x-ray showed chronic changes without evidence for acute pulmonary disease. CT angiogram of the chest was done which showed no evidence of PE. Some residual bilateral bibasilar groundglass opacities consistent with resolving COVID-19 infection. Peripheral bilateral mild to moderate parenchymal linear fibrotic changes now present. EKG showed sinus tachycardia. Laboratory showed WBC 13.2 hemoglobin 12.4 and platelets 238 D-dimer 1.42 BUN 23 and creatinine 1.01 Lactic acid 4.7 proBNP 974 and troponin 0 0.019 Urinalysis showed turbid with 1+ protein 2+ glucose moderate blood positive nitrite large leukoesterase with elevated RBCs and WBCs. 10/18/2021 Patient is currently resting in the bed. Still complains of exertional dyspnea. CTA negative for PE on admission. Patient is being continued on gentle IV hydration. Continue on IV antibiotics the form of ceftriaxone. Follow-up urine culture report. Patient is still spiking temperatures on and off. No nausea vomiting or abdominal pain or diarrhea. Tolerating oral diet. 10/19/2021 Patient is currently lying in the bed. Complains of exertional dyspnea. Patient was febrile with T-max 100.1 this morning. Currently afebrile. Urine culture showed Proteus and gram-negative bacilli. Final culture report is pending. No nausea vomiting or abdominal pain or diarrhea. Tolerating oral diet. No complaints of chest pain. No dysuria or hematuria. 10/20/2021 Patient is currently resting in bed. Complains of exertional dyspnea but improved compared to yesterday. Patient has been afebrile. Imaging studies showed resolving recent COVID-19 pneumonia. Urine culture is growing Proteus and E. coli. Continue ceftriaxone. Patient was seen by pulmonary today. Otherwise patient denied any complaints of nausea or vomiting. Tolerating oral diet. Patient feels weak and dyspnea with exertion.. Continue with incentive spirometry. Anticipate discharge in next 24 hours with more clinical improvement. Laboratory showed leukocytosis normalized to 8.5. Hemoglobin 10.2 MCV 88.2 and platelets 258 sodium 138 potassium 3.7 chloride 106 bicarb is 18.2 BUN 10.1 creatinine 0.8 and calcium 8.3 Subjective: 10/21/2021 Patient still feels generally weak, no diarrhea or specific symptoms. No chest pain or dyspnea. She looks tired lying in bed most of the time. She is hemodynamically stable. She still have low-grade fever today but slightly better at 99.8. Her WBC normal. Procalcitonin is only mildly high at 0.10. But C-reactive protein is significantly elevated at 17. Patient remains on ceftriaxone for UTI secondary to Proteus and E. coli however repeat urine analysis only mildly abnormal. Patient has positive call the test last month 09/21 but repeat test was negative this month 10/17. Chest x-ray shows sequelae of previous Covid infection Infectious disease input is appreciated and patient to be kept on ceftriaxone for now CT of the abdomen and repeat blood culture are ordered today to rule out other infection which are pending 10/23/2021 Patient still has fever today at 100.1. Still with no source of infection. CT of the abdomen and pelvis with contrast did not show cause for the fever. 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 Patient is self still feels generally weak, no obvious respiratory symptoms however she still kind of tachypneic. Repeat blood culture still pending. Plasma lactic acid is normal at 1.1, BMP is unremarkable. D-dimer is 1.3, slightly elevated which is similar on admission was 1.4. At that time CTA of the chest was negative for PE. Viral tests including RSV and influenza viruses are negative. Patient remains on ceftriaxone for now We will order Doppler of the lower extremity to rule out DVT as a possible source of fever. Also we will repeat CT of the chest without contrast tomorrow morning in view of her persistent fever and previously slightly abnormal CT. Also we will repeat Covid test and inflammatory markers including ferritin, LDH and CRP. Also we will repeat proctoscopy calcitonin tomorrow 10/24/2021 Patient feels generally weak but also today she is telling me she is complaining of from cough and significant exertional dyspnea. She still having fever and actually today she developed high fever at 102. Repeat chest x-ray without contrast showing worsening infiltrate. Most likely patient has pneumonia which is the source of his ongoing fever but ceftriaxone is failing, change antibiotics to Zosyn today also we going to retest for Covid PCR which is pending currently. Also repeat blood cultures show no growth in 2 days. We will recheck pro-calcitonin and labs tomorrow Orthopedic team consulted for abnormal finding on CT with unstable spine, no need for any surgical intervention and follow-up with her orthopedic as an outpatient. Patient with no back pain or radiculopathy. Other vitals are stable. And we will keep monitoring closely 10/25/2021 Patient today in the morning she was told me she feels better and her cough is better and she does not have spiking fever overnight. However during the day she spiked a fever of 101.8. There is concern for her pneumonia which is shown with worsening infiltrate on the CT of the chest, also patient had respiratory symptoms with exertional dyspnea Yesterday was switched her antibiotics to Zosyn. Today doxycycline has been added Repeat coronavirus tests with CPR came back negative, patient very unlikely to have Covid infection. Repeat pro-calcitonin is 0.10 and 0.11 today Aspiration pneumonia is very unlikely as patient is passing her swallow test today 10/26/2021 Patient admitted with fever of unknown origin, highly suspicious is 2 due to bilateral pneumonia both clinically and by lab as patient has cough, exertional dyspnea on the top of the fever and chest x-ray and computed tomography scan showing bilateral infiltrates. Repeat chest x-ray today showing bilateral interstitial and alveolar infiltrates by laborer landscape There is indication might be some benefit after we change antibiotics to Zosyn and doxycycline with fever only 100 today. Which is better than the last few days however this to nearly today side and we have to keep monitoring for now. Culture from blood is shown no growth so far. Objective - Vital Signs Vital signs: Vital Signs Temp 98.2 F 10/26/21 05:00 Pulse 85 10/26/21 05:00 Resp 18 10/26/21 05:00 BP 161/73 10/26/21 05:00 Pulse Ox 92 L 10/26/21 05:00 Intake & Output 10/25/21 10/26/21 10/26/21 18:59 06:59 18:59 Intake Total 100 1360 Balance 100 1360 Intake: Intake, IV Titration 100 Amount Piperacillin-Tazobactam 3 100 .375 gm In Sodium Chloride 0.9% 100 ml @ 25 mls/hr IVPB Q8H [facility] Rx#: [id number] Oral 1360 Other: Voiding Method Toilet Toilet Toilet # Voids 2 2 - Exam -GENERAL: The patient is alert and oriented x3, not in any acute distress. Generally weak and lethargic HEENT: Pupils are round and equally reacting to light. EOMI. No scleral icterus. No conjunctival pallor. Normocephalic, atraumatic. No pharyngeal erythema. No thyromegaly. CARDIOVASCULAR: S1 and S2 present. No murmurs, rubs, or gallops. PULMONARY: Chest is clear to auscultation, no wheezing or crackles. ABDOMEN: Soft, nontender, nondistended, normoactive bowel sounds. No palpable organomegaly. MUSCULOSKELETAL: No joint swelling or deformity. EXTREMITIES: No cyanosis, clubbing, or pedal edema. NEUROLOGICAL: Gross neurological examination did not reveal any focal deficits. SKIN: No rashes. no petechiae. - Labs CBC & Chem 7: 10/25/21 04:22 10/25/21 04:22 Labs: Microbiology - Last 24 Hours (Table) 10/22/21 12:55 Blood Culture - Preliminary Blood No Growth after 72 hours Assessment and Plan Assessment: Bilateral pneumonia, gram-negative pneumonia is suspected. Acute urinary tract infection. Urine culture showed Proteus and E. coli. Rule out other infections Sepsis secondary to above Recent COVID-19 infection September 2021 with hypoxic respiratory failure. Resolving pneumonia as per CT findings. CTA negative for pulmonary embolism. Because test is negative on 10/17 Previous history of UTI with Klebsiella pneumonia History of CVA/TIA with no residual weakness Chronic back pain Osteoarthritis Hypertension Anxiety/depression Previous history of smoking Plan: This is a pleasant 76 years old female who presents with UTI and have Covid infection without significant hypoxia Continue with Zosyn and doxycycline infectious disease input is appreciated Repeat chest x-ray in the morning Labs and medication were reviewed.. Continue same treatment. Continue with symptomatic treatment. Resume home medication. Monitor lytes and vitals. DVT and GI prophylaxis. Further recommendations as per clinical course of the patient DVT prophylaxis: Subcutaneous heparin GI Prophylaxis: Ppi PT/OT: Pending Prognosis is guarded
[2021-10-27] MEDS: PIPERACILLIN-TAZOBACTAM 3.375 GM in SODIUM CHLORIDE 0.9% 100 ML IVPB SCH ×3 (04:43→20:55)
[2021-10-27] MEDS: METOPROLOL TARTRATE 50 MG TAB PO SCH ×2 (08:30→20:55)
[2021-10-27] MEDS: bisacodyL 5 MG TABLET.DR PO SCH (08:30)
[2021-10-27] MEDS: lisinopriL 20 MG TAB PO SCH ×2 (08:30→20:55)
[2021-10-27] MEDS: HEPARIN SODIUM,PORCINE/PF 5,000 UNIT/0.5 ML SYRINGE SQ SCH ×2 (08:30→20:54)
[2021-10-27] MEDS: DOXYCYCLINE 100 MG CAP PO SCH ×2 (08:31→20:56)
[2021-10-27] MEDS: PANTOPRAZOLE 40 MG TABLET PO SCH ×2 (08:31→20:56)
[2021-10-27] MEDS: VENLAFAXINE HCL 50 MG TAB PO SCH (08:31)
[2021-10-27 10:19] LABS: African American GFR (CKD) 72.5 (60.0-200.0); Anion Gap 12.9 mmol/L (10.00-18.00); Blood Urea Nitrogen 12.6 mg/dL (9.0-27.0); Calcium 8.7 mg/dL (8.7-10.3); Carbon Dioxide 22.1 mmol/L (20.0-27.5); Magnesium 1.6 mg/dL (1.5-2.4); Non-African American GFR(CKD) 62.5 (60.0-200.0); Potassium 3.7 mmol/L (3.5-5.5)
--- NOTE | 2021-10-27 19:43 | P.PN ---
Subjective Patient is a 76-year-old female with a known history of hypertension, GERD, history of CVA/TIA, chronic pain, scoliosis, recurrent UTIs, asthma, ost eoarthritis, anxiety/depression, previous history of smoking and history of COVID-19 infection in 2020 presents to ER with complaints of shortness of breath, feeling tired and lack of energy. Patient states that she has been fatigued. Patient was recently hospitalized a #2020 and was in the hospital 5 days. Patient was discharged on 09/24/2021 and patient has not been feeling well with worsening weakness and shortness of breath and tiredness. Patient is also having subjective fevers. Patient was recently admitted to the hospital due to acute hypoxic respiratory failure. Patient is not vaccinated. Denies any complaints of fever. No cough or sputum production. Denies any flank pain or abdominal pain. No diarrhea. On admission heart rate 148 respiration 20 blood pressure 157/88 pulse ox 98% on room air. Chest x-ray showed chronic changes without evidence for acute pulmonary disease. CT angiogram of the chest was done which showed no evidence of PE. Some residual bilateral bibasilar groundglass opacities consistent with resolving COVID-19 infection. Peripheral bilateral mild to moderate parenchymal linear fibrotic changes now present. EKG showed sinus tachycardia. Laboratory showed WBC 13.2 hemoglobin 12.4 and platelets 238 D-dimer 1.42 BUN 23 and creatinine 1.01 Lactic acid 4.7 proBNP 974 and troponin 0 0.019 Urinalysis showed turbid with 1+ protein 2+ glucose moderate blood positive nitrite large leukoesterase with elevated RBCs and WBCs. 10/18/2021 Patient is currently resting in the bed. Still complains of exertional dyspnea. CTA negative for PE on admission. Patient is being continued on gentle IV hydration. Continue on IV antibiotics the form of ceftriaxone. Follow-up urine culture report. Patient is still spiking temperatures on and off. No nausea vomiting or abdominal pain or diarrhea. Tolerating oral diet. 10/19/2021 Patient is currently lying in the bed. Complains of exertional dyspnea. Patient was febrile with T-max 100.1 this morning. Currently afebrile. Urine culture showed Proteus and gram-negative bacilli. Final culture report is pending. No nausea vomiting or abdominal pain or diarrhea. Tolerating oral diet. No complaints of chest pain. No dysuria or hematuria. 10/20/2021 Patient is currently resting in bed. Complains of exertional dyspnea but improved compared to yesterday. Patient has been afebrile. Imaging studies showed resolving recent COVID-19 pneumonia. Urine culture is growing Proteus and E. coli. Continue ceftriaxone. Patient was seen by pulmonary today. Otherwise patient denied any complaints of nausea or vomiting. Tolerating oral diet. Patient feels weak and dyspnea with exertion.. Continue with incentive spirometry. Anticipate discharge in next 24 hours with more clinical improvement. Laboratory showed leukocytosis normalized to 8.5. Hemoglobin 10.2 MCV 88.2 and platelets 258 sodium 138 potassium 3.7 chloride 106 bicarb is 18.2 BUN 10.1 creatinine 0.8 and calcium 8.3 Subjective: 10/21/2021 Patient still feels generally weak, no diarrhea or specific symptoms. No chest pain or dyspnea. She looks tired lying in bed most of the time. She is hemodynamically stable. She still have low-grade fever today but slightly better at 99.8. Her WBC normal. Procalcitonin is only mildly high at 0.10. But C-reactive protein is significantly elevated at 17. Patient remains on ceftriaxone for UTI secondary to Proteus and E. coli however repeat urine analysis only mildly abnormal. Patient has positive call the test last month 09/21 but repeat test was negative this month 10/17. Chest x-ray shows sequelae of previous Covid infection Infectious disease input is appreciated and patient to be kept on ceftriaxone for now CT of the abdomen and repeat blood culture are ordered today to rule out other infection which are pending 10/23/2021 Patient still has fever today at 100.1. Still with no source of infection. CT of the abdomen and pelvis with contrast did not show cause for the fever. 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 Patient is self still feels generally weak, no obvious respiratory symptoms however she still kind of tachypneic. Repeat blood culture still pending. Plasma lactic acid is normal at 1.1, BMP is unremarkable. D-dimer is 1.3, slightly elevated which is similar on admission was 1.4. At that time CTA of the chest was negative for PE. Viral tests including RSV and influenza viruses are negative. Patient remains on ceftriaxone for now We will order Doppler of the lower extremity to rule out DVT as a possible source of fever. Also we will repeat CT of the chest without contrast tomorrow morning in view of her persistent fever and previously slightly abnormal CT. Also we will repeat Covid test and inflammatory markers including ferritin, LDH and CRP. Also we will repeat proctoscopy calcitonin tomorrow 10/24/2021 Patient feels generally weak but also today she is telling me she is complaining of from cough and significant exertional dyspnea. She still having fever and actually today she developed high fever at 102. Repeat chest x-ray without contrast showing worsening infiltrate. Most likely patient has pneumonia which is the source of his ongoing fever but ceftriaxone is failing, change antibiotics to Zosyn today also we going to retest for Covid PCR which is pending currently. Also repeat blood cultures show no growth in 2 days. We will recheck pro-calcitonin and labs tomorrow Orthopedic team consulted for abnormal finding on CT with unstable spine, no need for any surgical intervention and follow-up with her orthopedic as an outpatient. Patient with no back pain or radiculopathy. Other vitals are stable. And we will keep monitoring closely 10/25/2021 Patient today in the morning she was told me she feels better and her cough is better and she does not have spiking fever overnight. However during the day she spiked a fever of 101.8. There is concern for her pneumonia which is shown with worsening infiltrate on the CT of the chest, also patient had respiratory symptoms with exertional dyspnea Yesterday was switched her antibiotics to Zosyn. Today doxycycline has been added Repeat coronavirus tests with CPR came back negative, patient very unlikely to have Covid infection. Repeat pro-calcitonin is 0.10 and 0.11 today Aspiration pneumonia is very unlikely as patient is passing her swallow test today 10/26/2021 Patient admitted with fever of unknown origin, highly suspicious is 2 due to bilateral pneumonia both clinically and by lab as patient has cough, exertional dyspnea on the top of the fever and chest x-ray and computed tomography scan showing bilateral infiltrates. Repeat chest x-ray today showing bilateral interstitial and alveolar infiltrates by infection preventionist There is indication might be some benefit after we change antibiotics to Zosyn and doxycycline with fever only 100 today. Which is better than the last few days however this to nearly today side and we have to keep monitoring for now. Culture from blood is shown no growth so far. 10/27/2021 Patient today reports improvement in her cough and her weakness, she feels stronger, her dysuria has resolved as well. She still complaining of from exertional dyspnea but no chest pain. Today he actually the first day through the last week where she did not have fever actually her last temperature was yesterday morning 1:00 AM so she has almost 48 hours with no fever. Patient was feeling well to the degree she was asking for the first time when she will be discharged. Explained to her she is not medically ready as she still on IV antibiotics and she agrees to stay. Rest of vital signs are stable, oxygen saturation is acceptable. She remains on Zosyn and oral doxycycline Objective - Vital Signs Vital signs: Vital Signs Temp 98.9 F 10/27/21 08:26 Pulse 113 H 10/27/21 08:26 Resp 20 10/27/21 08:26 BP 152/79 10/27/21 08:26 Pulse Ox 94 L 10/27/21 08:26 Intake & Output 10/26/21 10/27/21 10/27/21 18:59 06:59 18:59 Intake Total 540 Balance 540 Intake: Oral 540 Other: Voiding Method Toilet Toilet Toilet # Voids 2 0 # Bowel Movements 0 1 - Exam -GENERAL: The patient is alert and oriented x3, not in any acute distress. Generally weak and lethargic HEENT: Pupils are round and equally reacting to light. EOMI. No scleral icterus. No conjunctival pallor. Normocephalic, atraumatic. No pharyngeal erythema. No thyromegaly. CARDIOVASCULAR: S1 and S2 present. No murmurs, rubs, or gallops. PULMONARY: Chest is clear to auscultation, no wheezing or crackles. ABDOMEN: Soft, nontender, nondistended, normoactive bowel sounds. No palpable organomegaly. MUSCULOSKELETAL: No joint swelling or deformity. EXTREMITIES: No cyanosis, clubbing, or pedal edema. NEUROLOGICAL: Gross neurological examination did not reveal any focal deficits. SKIN: No rashes. no petechiae. - Labs CBC & Chem 7: 10/25/21 04:22 10/27/21 05:27 Labs: Microbiology - Last 24 Hours (Table) 10/22/21 12:55 Blood Culture - Preliminary Blood No Growth after 96 hours Assessment and Plan Assessment: Bilateral pneumonia, gram-negative pneumonia is suspected. Acute urinary tract infection. Urine culture showed Proteus and E. coli. Rule out other infections Sepsis secondary to above Recent COVID-19 infection September 2021 with hypoxic respiratory failure. Resolving pneumonia as per CT findings. CTA negative for pulmonary embolism. Because test is negative on 10/17 Previous history of UTI with Klebsiella pneumonia History of CVA/TIA with no residual weakness Chronic back pain Osteoarthritis Hypertension Anxiety/depression Previous history of smoking Plan: This is a pleasant 76 years old female who presents with UTI and have Covid infection without significant hypoxia Continue with Zosyn and doxycycline infectious disease input is appreciated Labs and medication were reviewed.. Continue same treatment. Continue with symptomatic treatment. Resume home medication. Monitor lytes and vitals. DVT and GI prophylaxis. Further recommendations as per clinical course of the patient DVT prophylaxis: Subcutaneous heparin GI Prophylaxis: Ppi PT/OT: Pending
--- NOTE | 2021-10-27 23:06 | PN ---
PROGRESS NOTE DATE OF SERVICE: 10/27/2021 REASON FOR FOLLOWUP: UTI and pneumonia. INTERVAL HISTORY: The patient's overall fever pattern has improved. Currently no fever recorded in the last 24 hours. The patient denies having any chest pain. She continues to have a cough; not bringing up any sputum. No abdominal pain or diarrhea. PHYSICAL EXAMINATION: Blood pressure 147/79 with a pulse of 95, temperature 98.9. She is 94% on 2 L nasal cannula. General description is an elderly female up in the bed in no distress. Respiratory system: Unlabored breathing, decreased intensity of breath sounds. No wheeze. Heart S1, S2. Regular rate and rhythm. Abdomen soft, no tenderness. LABS: BUN of 12.6, creatinine 0.9. DIAGNOSTIC IMPRESSION AND PLAN: Patient with a fever concerning for urinary tract infection, now with evidence of pneumonia. Overall improvement with Zosyn and doxycycline finishing therapy with oral Avelox times 5-7 days and close outpatient followup. MMODL / IJN: [id number] /
[2021-10-28] MEDS: PIPERACILLIN-TAZOBACTAM 3.375 GM in SODIUM CHLORIDE 0.9% 100 ML IVPB SCH ×3 (04:34→19:54)
[2021-10-28] MEDS: bisacodyL 5 MG TABLET.DR PO SCH (10:42)
[2021-10-28] MEDS: PANTOPRAZOLE 40 MG TABLET PO SCH ×2 (10:45→21:17)
[2021-10-28] MEDS: VENLAFAXINE HCL 50 MG TAB PO SCH (10:45)
[2021-10-28] MEDS: HEPARIN SODIUM,PORCINE/PF 5,000 UNIT/0.5 ML SYRINGE SQ SCH ×2 (10:45→21:17)
[2021-10-28] MEDS: METOPROLOL TARTRATE 50 MG TAB PO SCH ×2 (10:45→21:17)
[2021-10-28] MEDS: DOXYCYCLINE 100 MG CAP PO SCH ×2 (10:45→21:17)
[2021-10-28] MEDS: lisinopriL 20 MG TAB PO SCH ×2 (10:45→21:17)
--- NOTE | 2021-10-28 14:10 | PN ---
PROGRESS NOTE DATE OF SERVICE: 10/28/2021 REASON FOR FOLLOWUP: Pneumonia and UTI. INTERVAL HISTORY: The patient is afebrile. No fever over the last 48 hours. The patient is breathing comfortably, currently on room air. The patient denies having any chest pain. She did have a cough which has decreased in intensity, not bringing up any sputum. No abdominal pain or diarrhea. PHYSICAL EXAMINATION: Blood pressure 155/95 with a pulse of 80, temperature 98.5. She is 92% on room air. General description is an elderly female up in the chair in no distress. Respiratory system: Unlabored breathing, some coarse breath sounds in the bases. No wheeze. Heart S1, S2. Regular rate and rhythm. Abdomen soft, no tenderness. LABS: No new labs have been obtained today. DIAGNOSTIC IMPRESSION AND PLAN: Patient with a fever which is multifactorial in this patient who did have a urinary tract infection and component of pneumonia in this patient with overall improvement. Finish therapy with oral Ceftin and doxycycline for 5-7 days. Cannot use Avelox because the patient is on Effexor. Discussed with the admitting physician. MMODL / IJN: [id number] /
[2021-10-28] MEDS ORDERED: AMOXIC-POT CLAV 875-125MG 1 EACH TAB PO STA (19:54)
[2021-10-29] MEDS: PIPERACILLIN-TAZOBACTAM 3.375 GM in SODIUM CHLORIDE 0.9% 100 ML IVPB SCH ×2 (03:38→12:27)
[2021-10-29 05:37] VITALS: BP 132/68; PULSE 79; RESP 16; TEMP 98.3
--- NOTE | 2021-10-29 06:35 | P.DS ---
Providers Date of admission: 10/17/21 14:16 Attending physician: Nichelle Randolph Consults: 10/20/21 08:54 Consult Physician Routine Consulting Provider: Leo Freed Consult Reason/Comments: Hx of Covid/continued SOB Do you want consulting provider notified?: Yes 10/21/21 13:34 Consult Physician Urgent Consulting Provider: Marc Kan Consult Reason/Comments: possible uti Do you want consulting provider notified?: Yes 10/23/21 19:51 Consult Physician Urgent Consulting Provider: Nayana Lynn Consult Reason/Comments: spondylolisthesis with unstable spine of L4-5 Do you want consulting provider notified?: Yes Primary care physician: Shanon Castellano [facility] Hospital Course: Diagnoses: Bilateral pneumonia, gram-negative pneumonia versus atypical pneumonia is suspected. Acute urinary tract infection. Urine culture showed Proteus and E. coli. Rule out other infections Sepsis secondary to above spondylolisthesis of L4-L5, orthopedic team recommended conservative management and follow-up as an outpatient Recent COVID-19 infection September 2021 with hypoxic respiratory failure. Resolving pneumonia as per CT findings. CTA negative for pulmonary embolism. Because test is negative on 10/17 Previous history of UTI with Klebsiella pneumonia History of CVA/TIA with no residual weakness Chronic back pain Osteoarthritis Hypertension Anxiety/depression Previous history of smoking Hospital course: Patient is a 76-year-old female with a known history of hypertension, GERD, history of CVA/TIA, chronic pain, scoliosis, recurrent UTIs, asthma, osteoarthritis, anxiety/depression, previous history of smoking and history of COVID-19 infection in 2020 presents to ER with complaints of shortness of breath, feeling tired and lack of energy. Also she's been having dry, with exertional dyspnea and generalized weakness. Patient had persistent fever since admission around 100-101, patient has been evaluated by the fiscal specialist who recommended her symptoms are from residual changes from previous Covid pneumonia, however patient fever did not subside despite treatment. I in her urine culture was positive for Proteus and E. coli and she was just ceftriaxone however her fever did not improve despite these bacteria are sensitive to ceftriaxone, infectious disease consult obtained and patient underwent extensive workup included a renal ultrasound, several chest x-ray, CT of the abdomen and pelvis however on CT of the chest done on 10/24 was showing residual changes of Covid pneumonia but with slight interval increase in diffuse bilateral patchy ground glass appearance. Correlate for possible recurrent Covid pneumonia versus other pneumonitis. Her antibiotics were switched from subtraction to Zosyn and later on doxycycline was added and patient started to show improvement in her symptoms, cough almost resolved on the day of discharge, weakness improved and patient feels stronger her fever subsided and she did not have fever for almost 72 hours, her last fever was 100.2 on 10/26 at almost 2 AM. Patient feels much better and asked to be discharged I discussed the case with pulmonary team and they're, and discharged on antibiotic, please refer to the discharge instruction per ID team On the day of discharge patient denies chest pain or abdominal pain, no nausea vomiting or diarrhea. No dysuria or urinary complaints. Her breathing pattern is improving however she was evaluated for exertional hypoxia and she qualify for home oxygen as her oxygen interrupted 84 with exertion. Oxygen currently effort at her home per staff. Patient was cleared for discharge by infectious disease team. Problems and management plan were discussed with the patient and he verbalized understanding and acceptance Patient was found stable and can be discharged home however he needs follow-up as an outpatient. Patient was instructed to follow up with PCP Dr. Claudio about within one week and patient agrees Patient also was instructed to follow up with ID team and Dr. Kan in one week Patient also was instructed to follow up with Dr. Lynn orthopedic in 2-3 weeks Physical exam Gen: patient is a AAOx3, no distress CVS: S1-S2, RRR, no murmur -Lungs: B/L CTA, no wheezing. Mild tachypnea Abdomen: soft, no distention, no tenderness, positive bowel sounds Extremity: no leg edema or induration Time spent more than 35 minutes Patient Condition at Discharge: Critical Plan - Discharge Summary Discharge Rx Participant: No New Discharge Prescriptions: New Cefuroxime Axetil [Ceftin] 500 mg PO BID 7 Days #14 tab Doxycycline Hyclate 100 mg PO Q12H 7 Days #14 tab Continue Metoprolol Tartrate [Lopressor] 50 mg PO BID Venlafaxine HCl [Effexor] 100 mg PO DAILY Omeprazole 20 mg PO BID Baclofen [Lioresal] 10 mg PO HS PRN PRN Reason: Muscle Spasm Nitrofurantoin Macrocrystal [Nitrofurantoin] 100 mg PO DAILY PRN PRN Reason: uti symptoms Benazepril HCl [Lotensin] 40 mg PO BID bisacodyL [Dulcolax] 5 mg PO DAILY Changed Albuterol Sulfate [Ventolin HFA] 1 - 2 puff INHALATION RT-QID PRN #1 each PRN Reason: Shortness Of Breath Or Wheezing Discharge Medication List Metoprolol Tartrate [Lopressor] 50 mg PO BID 09/21/16 [History] Omeprazole 20 mg PO BID 01/01/19 [History] Venlafaxine HCl [Effexor] 100 mg PO DAILY 01/01/19 [History] bisacodyL [Dulcolax] 5 mg PO DAILY 04/20/21 [History] Baclofen [Lioresal] 10 mg PO HS PRN 09/21/21 [History] Benazepril HCl [Lotensin] 40 mg PO BID 09/21/21 [History] Nitrofurantoin Macrocrystal [Nitrofurantoin] 100 mg PO DAILY PRN 09/21/21 [History] Albuterol Sulfate [Ventolin HFA] 1 - 2 puff INHALATION RT-QID PRN #1 each 10/28/21 [Rx] Cefuroxime Axetil [Ceftin] 500 mg PO BID 7 Days #14 tab 10/28/21 [Rx] Doxycycline Hyclate 100 mg PO Q12H 7 Days #14 tab 10/28/21 [Rx] Follow up Appointment(s)/Referral(s): [facility] [NON-STAFF] - 1 Week Shanon Castellano MD [Primary Care Provider] - 1-2 days Patient Instructions/Handouts: Cefuroxime (By mouth), Doxycycline (By mouth), Albuterol (By breathing), Urinary Tract Infection in Women (DC), Using Oxygen at Home (DC), Dyspnea (DC), Shortness of Breath (DC) Activity/Diet/Wound Care/Special Instructions: we recommend you to follow with your spinal surgeon, Dr. Noonan, in [place], [place] following discharge
[2021-10-29] MEDS ORDERED: AMOXIC-POT CLAV 875-125MG 1 EACH TAB PO SCH (07:00)
[2021-10-29] MEDS: lisinopriL 20 MG TAB PO SCH (09:50)
[2021-10-29] MEDS: PANTOPRAZOLE 40 MG TABLET PO SCH (09:50)
[2021-10-29] MEDS: bisacodyL 5 MG TABLET.DR PO SCH (09:51)
[2021-10-29] MEDS: HEPARIN SODIUM,PORCINE/PF 5,000 UNIT/0.5 ML SYRINGE SQ SCH (09:51)
[2021-10-29] MEDS: DOXYCYCLINE 100 MG CAP PO SCH (09:51)
[2021-10-29] MEDS: VENLAFAXINE HCL 50 MG TAB PO SCH (09:51)
[2021-10-29] MEDS: METOPROLOL TARTRATE 50 MG TAB PO SCH (09:51)
[2021-10-29] MEDS: ACETAMINOPHEN TAB 325 MG TAB PO PRN (09:53)
--- NOTE | 2021-10-30 00:20 | P.DS ---
Providers Date of admission: 10/17/21 14:16 Attending physician: Nichelle Randolph Consults: 10/20/21 08:54 Consult Physician Routine Consulting Provider: Leo Freed Consult Reason/Comments: Hx of Covid/continued SOB Do you want consulting provider notified?: Yes 10/21/21 13:34 Consult Physician Urgent Consulting Provider: Marc Kan Consult Reason/Comments: possible uti Do you want consulting provider notified?: Yes 10/23/21 19:51 Consult Physician Urgent Consulting Provider: Nayana Lynn Consult Reason/Comments: spondylolisthesis with unstable spine of L4-5 Do you want consulting provider notified?: Yes Primary care physician: Shanon [facility] Course: Date of service 10/29/2021. Patient is seen and examined by me at bedside Diagnoses: Bilateral pneumonia, gram-negative pneumonia versus atypical pneumonia is suspected. Acute urinary tract infection. Urine culture showed Proteus and E. coli. Rule out other infections Sepsis secondary to above spondylolisthesis of L4-L5, orthopedic team recommended conservative management and follow-up as an outpatient Recent COVID-19 infection September 2021 with hypoxic respiratory failure. Resolving pneumonia as per CT findings. CTA negative for pulmonary embolism. Because test is negative on 10/17 Previous history of UTI with Klebsiella pneumonia History of CVA/TIA with no residual weakness Chronic back pain Osteoarthritis Hypertension Anxiety/depression Previous history of smoking Hospital course: Patient is a 76-year-old female with a known history of hypertension, GERD, history of CVA/TIA, chronic pain, scoliosis, recurrent UTIs, asthma, osteoarthritis, anxiety/depression, previous history of smoking and history of COVID-19 infection in 2020 presents to ER with complaints of shortness of breath, feeling tired and lack of energy. Also she's been having dry, with exertional dyspnea and generalized weakness. Patient had persistent fever since admission around 100-101, patient has been evaluated by the molding process technician who recommended her symptoms are from residual changes from previous Covid pneumonia, however patient fever did not subside despite treatment. I in her urine culture was positive for Proteus and E. coli and she was just ceftriaxone however her fever did not improve despite these bacteria are sensitive to ceftriaxone, infectious disease consult obtained and patient underwent extensive workup included a renal ultrasound, several chest x-ray, CT of the abdomen and pelvis however on CT of the chest done on 10/24 was showing residual changes of Covid pneumonia but with slight interval increase in diffuse bilateral patchy ground glass appearance. Correlate for possible recurrent Covid pneumonia versus other pneumonitis. Her antibiotics were switched from subtraction to Zosyn and later on doxycycline was added and patient started to show improvement in her symptoms, cough almost resolved on the day of discharge, weakness improved and patient feels stronger her fever subsided and she did not have fever for almost 72 hours, her last fever was 100.2 on 10/26 at almost 2 AM. Patient feels much better and asked to be discharged I discussed the case with pulmonary team and they're, and discharged on antibiotic, please refer to the discharge instruction per ID team On the day of discharge patient denies chest pain or abdominal pain, no nausea vomiting or diarrhea. No dysuria or urinary complaints. Her breathing pattern is improving however she was evaluated for exertional hypoxia and she qualify for home oxygen as her oxygen interrupted 84 with exertion. Oxygen currently effort at her home per staff. Patient was cleared for discharge by infectious disease team. Problems and management plan were discussed with the patient and he verbalized understanding and acceptance Patient was found stable and can be discharged home however he needs follow-up as an outpatient. Patient was instructed to follow up with PCP Dr. Claudio about within one week and patient agrees Patient also was instructed to follow up with ID team and Dr. Kan in one week Patient also was instructed to follow up with Dr. Lynn orthopedic in 2-3 weeks Physical exam Gen: patient is a AAOx3, no distress CVS: S1-S2, RRR, no murmur -Lungs: B/L CTA, no wheezing. Mild tachypnea Abdomen: soft, no distention, no tenderness, positive bowel sounds Extremity: no leg edema or induration Time spent more than 35 minutes Patient Condition at Discharge: Stable Plan - Discharge Summary Discharge Rx Participant: No New Discharge Prescriptions: New Cefuroxime Axetil [Ceftin] 500 mg PO BID 7 Days #14 tab Doxycycline Hyclate 100 mg PO Q12H 7 Days #14 tab Continue Metoprolol Tartrate [Lopressor] 50 mg PO BID Venlafaxine HCl [Effexor] 100 mg PO DAILY Omeprazole 20 mg PO BID Baclofen [Lioresal] 10 mg PO HS PRN PRN Reason: Muscle Spasm Nitrofurantoin Macrocrystal [Nitrofurantoin] 100 mg PO DAILY PRN PRN Reason: uti symptoms Benazepril HCl [Lotensin] 40 mg PO BID bisacodyL [Dulcolax] 5 mg PO DAILY Changed Albuterol Sulfate [Ventolin HFA] 1 - 2 puff INHALATION RT-QID PRN #1 each PRN Reason: Shortness Of Breath Or Wheezing Discharge Medication List Metoprolol Tartrate [Lopressor] 50 mg PO BID 09/21/16 [History] Omeprazole 20 mg PO BID 01/01/19 [History] Venlafaxine HCl [Effexor] 100 mg PO DAILY 01/01/19 [History] bisacodyL [Dulcolax] 5 mg PO DAILY 04/20/21 [History] Baclofen [Lioresal] 10 mg PO HS PRN 09/21/21 [History] Benazepril HCl [Lotensin] 40 mg PO BID 09/21/21 [History] Nitrofurantoin Macrocrystal [Nitrofurantoin] 100 mg PO DAILY PRN 09/21/21 [History] Albuterol Sulfate [Ventolin HFA] 1 - 2 puff INHALATION RT-QID PRN #1 each 10/28/21 [Rx] Cefuroxime Axetil [Ceftin] 500 mg PO BID 7 Days #14 tab 10/28/21 [Rx] Doxycycline Hyclate 100 mg PO Q12H 7 Days #14 tab 10/28/21 [Rx] Follow up Appointment(s)/Referral(s): Leo Freed MD [STAFF PHYSICIAN] - 10 Days (molding process technician ) Nayana Lynn DO [Doctor of Osteopathic Medicine] - 3 Weeks (please call office for appointment on 11/01/21 in AM, office currently closed.) [facility] [NON-STAFF] - 1 Week (RN called [facility] at time of discharge for home oxygen setup and teaching.) Shanon Castellano MD [Primary Care Provider] - 1-2 days (please call office for appointment on 11/01/21 in AM, office currently closed.) Marc Kan MD [STAFF PHYSICIAN] - 1 Week (please call office for appointment on 11/01/21 in AM, office currently closed.) Patient Instructions/Handouts: Urinary Tract Infection in Women (DC), Using Oxygen at Home (DC), Dyspnea (DC) Activity/Diet/Wound Care/Special Instructions: we recommend you to follow with your spinal surgeon, Dr. Noonan, in [place], [place] following discharge Discharge Disposition: HOME SELF-CARE
== END 2021-10-29 12:45 | disposition home or self-care (01) | DRG 871 ==
LOC: EC 10:20 → 5NMEDONC 14:16
PROVIDERS: ADMIT Internal Medicine; ATTEND Internal Medicine
DX: A41.59 Other Gram-negative sepsis (principal); J15.6 Pneumonia due to other Gram-negative bacteria; E87.2 Acidosis; N39.0 Urinary tract infection, site not specified; A41.51 Sepsis due to Escherichia coli [E. coli]; J42 Unspecified chronic bronchitis; Z20.822 Contact with and (suspected) exposure to COVID-19; I10 Essential (primary) hypertension; K21.9 Gastro-esophageal reflux disease without esophagitis; J45.909 Unspecified asthma, uncomplicated; G89.29 Other chronic pain; M51.34 Other intervertebral disc degeneration, thoracic region; M51.36 Other intervertebral disc degeneration, lumbar region; M43.16 Spondylolisthesis, lumbar region; M41.9 Scoliosis, unspecified; K59.09 Other constipation; F32.A Depression, unspecified; F41.9 Anxiety disorder, unspecified; M19.90 Unspecified osteoarthritis, unspecified site; D64.9 Anemia, unspecified; M48.56XD Collapsed vertebra, not elsewhere classified, lumbar region, subsequent encounter for fracture with routine healing; E66.9 Obesity, unspecified; Z68.35 Body mass index [BMI] 35.0-35.9, adult; Z79.899 Other long term (current) drug therapy; Z86.16 Personal history of COVID-19; Z86.73 Personal history of transient ischemic attack (TIA), and cerebral infarction without residual deficits; Z85.828 Personal history of other malignant neoplasm of skin; Z87.01 Personal history of pneumonia (recurrent); Z87.440 Personal history of urinary (tract) infections; Z90.89 Acquired absence of other organs; Z98.84 Bariatric surgery status; Z90.49 Acquired absence of other specified parts of digestive tract; Z90.710 Acquired absence of both cervix and uterus; Z87.42 Personal history of other diseases of the female genital tract; Z96.653 Presence of artificial knee joint, bilateral; Z96.643 Presence of artificial hip joint, bilateral; Z87.39 Personal history of other diseases of the musculoskeletal system and connective tissue; Z87.19 Personal history of other diseases of the digestive system; Z98.42 Cataract extraction status, left eye; Z98.41 Cataract extraction status, right eye; Z96.1 Presence of intraocular lens; Z87.891 Personal history of nicotine dependence; Z87.2 Personal history of diseases of the skin and subcutaneous tissue; Z98.890 Other specified postprocedural states; Z71.6 Tobacco abuse counseling; Z71.3 Dietary counseling and surveillance; Z88.5 Allergy status to narcotic agent; Z80.8 Family history of malignant neoplasm of other organs or systems; Z80.0 Family history of malignant neoplasm of digestive organs; Z80.3 Family history of malignant neoplasm of breast; Z83.2 Family history of diseases of the blood and blood-forming organs and certain disorders involving the immune mechanism
CPT/HCPCS: 36415; 71045; 71046; 71250; 71275; 74177; 76770; 80048; 80053; 81001; 83605; 83735; 83880; 84145; 84443; 84484; 85025; 85379; 85610; 85730; 86140; 87040; 87077; 87086; 87186; 87449; 87502; 87634; 87635; 93005; 93970; 96361; 96374; 99291

== ENCOUNTER → 2022-03-17 | Outpatient (CLI) | payer MEDICARE ==
--- NOTE | 2022-03-17 15:48 | BD ---
EXAMINATION TYPE: Axial Bone Density DATE OF EXAM: 03/17/2022 COMPARISON: 04.14.2019 CLINICAL HISTORY: 76 years year old Female. ICD-10 CODE: Z13.820 SCREENING FOR OSTEOPOROSIS Height: 59 Weight: 184 FRAX RISK QUESTIONS: Glucocorticoids (More than 3mos): YES (Ex: prednisone, prednisolone, methylprednisolone, dexamethasone, and hydrocortisone). Secondary Osteoporosis: YES 3. Menopause before 45: YES RISK FACTORS HISTORY OF: Surgery to Spine LUMBAR SPINE SURG TO NERVES ONLY AT THIS POINT, BILAT TOTAL HIP REPLACEMENTS Family History of Osteoporosis: YES, BOTH SISTERS NO FXs Postmenopausal woman: YES, 38 YRS OLD, HRT IN PAST FOR 15 YRS Hyperparathyroidism: NO Adrenal Insufficiency: NO MEDICATIONS: Prednisone or other steroids: YES, FOR ASTHMA, FOR ABOUT 30 YRS Additional Medications: VIT D AND CALCIUM PRN, BP MED, VENLAFAXINE, REFLUX MEDS, STATIN FOR CHOLESERO L Additional History: SCOLIOSIS, HYPERTENSION, REFLUX, ANXIETY, CHOLESTEROL, ASTHMA EXAM MEASUREMENTS: Bone mineral densitometry was performed using the spotflux System. Bone mineral density as measured about the Lumbar spine is: ----- L1-L4(G/cm2): 1.093 T Score Values are as follows: ----- L1: -1.6 ----- L2: -1.8 ----- L3: -0.1 ----- L4: 0.1 ----- L1-L4: -0.7 Bone mineral density has: Decreased -7.6% since study of: 04.14.2019 NO HIPS SCANNED.....BILAT THRs Bone mineral density about the L Wrist (g/cm2): 0.476 T Score values are as follows: -----Dist. R+U: -1.9 -----Prox. R+U: -1.6 -----Radius total: -2.9 Bone mineral density FIRST SCAN OF PTS WRIST FRAX%s NO FRAX, HIPS NOT SCANNED IMPRESSION: Osteoporosis NOTE: T-SCORE=SD OF THE YOUNG ADULT MEAN.
== END | disposition home or self-care (01) ==
LOC: RADBDWWP 12:03
PROVIDERS: ATTEND Family Medicine
DX: Z13.820 Encounter for screening for osteoporosis (principal); Z12.31 Encounter for screening mammogram for malignant neoplasm of breast; M81.0 Age-related osteoporosis without current pathological fracture
CPT/HCPCS: 77080

== ENCOUNTER → 2022-10-24 | Outpatient (CLI) | payer MEDICARE ==
[2022-10-24 19:22] LABS: African American GFR (CKD) 50.8 (60.0-200.0); Anion Gap 11.8 mmol/L (10.00-18.00); BUN/Creat Ratio 25.58 Ratio (12.00-20.00); Blood Urea Nitrogen 30.7 mg/dL (9.0-27.0); Calcium 9.3 mg/dL (8.7-10.3); Carbon Dioxide 26.2 mmol/L (20.0-27.5); Non-African American GFR(CKD) 43.9 (60.0-200.0); Potassium 4.6 mmol/L (3.5-5.5)
== END | disposition home or self-care (01) ==
LOC: LABWHC1 12:36
PROVIDERS: ATTEND Internal Medicine Clinical Cardiac Electrophysiology
DX: I10 Essential (primary) hypertension (principal)
CPT/HCPCS: 36415; 80048; 83735

== ENCOUNTER → 2023-03-29 | Outpatient (CLI) | payer MEDICARE ==
--- NOTE | 2023-03-30 07:35 | MM ---
Reason for Exam: Screening (asymptomatic). Last mammogram was performed 2 year(s) and 7 month(s) ago. Patient History: Menarche at age 12. First Full-Term at age 18. Left ovary removed at age 38. Right ovary removed at age 38. Hysterectomy at age 38. Postmenopausal. Other cancer. Patient used Estrogen for 19 years. Core Biopsy on the Right side. Excisional Biopsy on the Right side. Excisional Biopsy on the Right side. Excisional Biopsy on the Right side. Excisional Biopsy on the Left side. Excisional Biopsy on the Left side. 03/21/2001, Benign Stereotactic Core Biopsy on the right side. Sister had breast cancer, age 68. Risk Values: Joi 5 year model risk: 5.4%. NCI Lifetime model risk: 10.6%. Prior Study Comparison: 07/09/2017 Bilateral Screening Mammogram, LOCATED WITHIN [facility]. 04/14/2019 Bilateral Screening Mammogram, LOCATED WITHIN [facility]. 09/07/2020 Bilateral Screening Mammogram, LOCATED WITHIN [facility]. Tissue Density: The breast tissue is heterogeneously dense. This may lower the sensitivity of mammography. Findings: Analyzed By CAD. Benign-appearing vascular calcifications bilaterally is redemonstrated. There are benign-appearing round calcifications bilaterally redemonstrated. There are stable circumscribed round masses bilaterally. There is no suspicious new group of microcalcifications or new suspicious or enlarging mass in either breast. Overall Assessment: Benign, BI-RAD 2 Management: Screening Mammogram of both breasts in 1 year. . Patient should continue monthly self-breast exams. A clinical breast exam by your physician is recommended on an annual basis. This exam should not preclude additional follow-up of suspicious palpable abnormalities. Note on Joi scores and lifetime risk: 1. A Joi score greater than 3% is considered moderate risk. If this is the case, consider specialist referral to assess eligibility for a risk reducing agent. 2. If overall lifetime risk for the development of breast cancer is 20% or higher, the patient may qualify for future screening with alternating mammogram and breast MRI. Electronically signed and approved by: lAexey Wood M.D.
== END | disposition home or self-care (01) ==
LOC: RADMAMWWP 13:23
PROVIDERS: ATTEND Family Medicine
DX: Z12.31 Encounter for screening mammogram for malignant neoplasm of breast (principal); Z78.0 Asymptomatic menopausal state; Z80.3 Family history of malignant neoplasm of breast
CPT/HCPCS: 77063; 77067

== ENCOUNTER → 2023-11-21 | Outpatient (CLI) | payer MEDICARE ==
[2023-11-21 12:35] LABS: African American GFR (CKD) 54 (>60 ml/min/1.73 sqM); Blood Urea Nitrogen 22 mg/dL (7-17); Non-African American GFR(CKD) 47 (>60 ml/min/1.73 sqM)
--- NOTE | 2023-11-29 05:16 | CT ---
EXAMINATION TYPE: CT chest w con CT DLP: 748 mGycm, Automated exposure control for dose reduction was used. DATE OF EXAM: 11/21/2023 1:18 PM COMPARISON: CT angiogram chest 10/17/2021. Multiple chest x-rays, most recent 09/25/2023. CLINICAL INDICATION:Female, 78 years old with history of R05.3 CHRONIC COUGH; PHH, chronic cough TECHNIQUE: Multiple axial images were obtained through the chest. Sagittal and coronal reformats were created for review. Contrast used:100 mL of Isovue 300 with IV Contrast (None if empty) Oral contrast used: (None if empty) FINDINGS: LUNGS/ PLEURA: Lungs are better aerated than on the prior CTA, with decreased peripheral linear opaci ties and mild residual. Interval clearing of the groundglass infiltrates. No new infiltrate or consol idation. No sizable nodule or mass. Mild subsegmental changes in the lung bases likely atelectasis or scarring. No pleural effusion or pneumothorax. AIRWAY: Central airways are patent. LOWER NECK: No significant findings. MEDIASTINUM: No gross evidence of adenopathy. HEART: Heart size upper normal. Mild coronary artery calcification. No appreciable pericardial effusi on. VASCULATURE: Mild to moderate atherosclerotic calcifications of the aorta and branches. There is the usual three-vessel branch pattern from the arch, however the left vertebral artery also arises direc tly from the arch. Ascending aorta is 3.4 CM, descending is 2.5 CM. Aorta is considered within hussein l limits for size. Pulmonary trunk measures 2.7 CM. Pulmonary trunk is normal in size. Grossly preserved enhancement of the pulmonary arteries, in the limits of non-CTA exam. SOFT TISSUES/LYMPH NODES: No axillary adenopathy. Scattered few coarse calcifications and tiny fairly circumscribed nodular densities in the breasts, relatively benign in appearance; breast findings jamel uld be correlated clinically with findings of routine breast imaging. UPPER ABDOMEN: Mildly thickened adrenals without evidence of mass. Transverse lie of the right kidney . Tiny hypodensity posterior left kidney most likely a cyst. There is surgical absence of the gallbla dder. Small patch of ill-defined enhancement in the posterior subcapsular right hepatic lobe, likely vascular shunt or flash filling hemangioma. Partial eventration along the right greater than left hem idiaphragm. Postsurgical changes of the stomach likely from gastric sleeve. MUSCULOSKELETAL: No acute osseous abnormalities. Moderate disc degeneration changes are present throu ghout the visualized spine. Exaggerated thoracic kyphosis. Mild S-shaped scoliosis. IMPRESSION: 1. No acute abnormality in the chest. 2. Interval improved aeration of the lungs since CTA 10/17/2021, with mild residual peripheral linear opacities, likely scarring.
== END | disposition home or self-care (01) ==
LOC: RADCTMAIN 11:51
PROVIDERS: ATTEND Internal Medicine
DX: R91.8 Other nonspecific abnormal finding of lung field (principal); R05.3 Chronic cough
CPT/HCPCS: 82565; 84520; 71260; 36415; Q9967

== ENCOUNTER → 2024-03-05 | Outpatient (CLI) | payer MEDICARE ==
--- NOTE | 2024-03-10 08:42 | CT ---
EXAMINATION TYPE: CT pelvis without contrast CT DLP: 981 mGycm, Automated exposure control for dose reduction was used. DATE OF EXAM: 03/05/2024 1:18 PM COMPARISON: CT abdomen pelvis most recent from 10/22/2020 CLINICAL INDICATION:Female, 78 years old with history of M25.552 PAIN IN LEFT HIP; B/L HIP PAIN WITH HX OF B/L REPLACEMENTS TECHNIQUE: Axial CT pelvis wo con;Sagittal and coronal reformats were created on a separate workstat ion. Contrast used: mL of , (none if empty) Oral contrast used: without Oral Contrast (none if empty) FINDINGS: Pelvis: Extensive streak and beam hardening artifact related to the patient's bilateral hip total arthroplast y limits evaluation. There is additional noise artifact due to large patient body habitus. Multiple c oils from prior mesh repair along the left inguinal region. The hardware including the acetabular cup and femoral stem components appear well seated and appropri ately aligned. No periprosthetic fractures seen and no loosening is identified. Mild osteitis pubis. No large periarticular fluid collection is identified. IMPRESSION: BILATERAL HIP TOTAL ARTHROPLASTY WITHOUT EVIDENT COMPLICATION ALLOWING FOR PROMINENT METAL ARTIFACT. Recommend plain radiograph bilateral hips to better assess for periprosthetic lucency
== END | disposition home or self-care (01) ==
LOC: RADCTMAIN 12:58
PROVIDERS: ATTEND Orthopaedic Surgery
DX: Z96.643 Presence of artificial hip joint, bilateral (principal); Z85.9 Personal history of malignant neoplasm, unspecified
CPT/HCPCS: 72192

== ENCOUNTER 2024-03-11 09:56 | Day surgery (SDC) | payer MEDICARE ==
[~2024-03-11 09:56] MED LIST changes: -ACETAMINOPHEN TAB 500 MG TAB PO PRN; +ALPRAZolam 0.25 MG TAB PO PRN; +ALPRAZolam 0.5 MG TAB PO PRN; +ASPIRIN 325 MG TAB PO STA; -GABAPENTIN 300 MG CAP PO PRN; -LIDOCAINE 1% (10MG/ML) FOR IV START INTRADERMA PRN; -MELOXICAM 7.5 MG TAB PO PRN; +NITROGLYCERIN SL TABS 0.4 MG TAB SUBLINGUAL PRN; -ONDANSETRON 4 MG/2 ML VIAL IVP PRN; +SODIUM CHLORIDE 0.9% 1,000 ML in EMPTY BAG 1 BAG IV SCH; -TRANEXAMIC ACID 1,000 MG in SODIUM CHLORIDE 0.9% 100 ML IVPB PRN
[2024-03-11 10:39] LABS: Basophils # (A) 0.1 k/uL (0-0.2); Basophils % (A) 1 %; Eosinophils # (A) 0.3 k/uL (0-0.7); Eosinophils % (A) 4 %; HCT 40.2 % (34.0-46.0); Lymphocytes # (A) 1.9 k/uL (1.0-4.8); Lymphocytes % (A) 23 %; MCH 30.6 pg (25.0-35.0); MCHC 32.4 g/dL (31.0-37.0); MCV 94.3 fL (80.0-100.0); Mean Platelet Volume 7.9; Monocytes # (A) 0.7 k/uL (0-1.0); Monocytes % (A) 9 %; Neutrophils # (A) 5.3 k/uL (1.3-7.7); Neutrophils % (A) 62 %; Platelet Count 282 k/uL (150-450); RBC 4.26 m/uL (3.80-5.40); RDW 13.7 % (11.5-15.5); WBC 8.5 k/uL (3.8-10.6)
[2024-03-11] MEDS: ASPIRIN 325 MG TAB PO ONE (10:40)
[2024-03-11 11:00] LABS: African American GFR (CKD) 46 (>60 ml/min/1.73 sqM); Anion Gap 7 mmol/L; Blood Urea Nitrogen 31 mg/dL (7-17); Calcium 9.1 mg/dL (8.4-10.2); Carbon Dioxide 25 mmol/L (22-30); Chloride 111 mmol/L (98-107); Glucose 99 mg/dL (74-99); Non-African American GFR(CKD) 40 (>60 ml/min/1.73 sqM); Potassium 3.6 mmol/L (3.5-5.1); Sodium 143 mmol/L (137-145)
[2024-03-11 11:06] VITALS: TEMP 98.3
[2024-03-11] MEDS: SODIUM CHLORIDE 0.9% 900 ML IV ONE (11:33)
[2024-03-11] MEDS: LIDOCAINE 1% INJ 10MG/ML (20 ML MDV) SQ ONE (11:55)
[2024-03-11 12:23] LABS: O2 Sat Blood Gas 70.9 %
[2024-03-11] MEDS ORDERED: ACETAMINOPHEN TAB 325 MG TAB PO PRN (12:25)
[2024-03-11 12:26] LABS: O2 Sat Blood Gas 99.9 %
--- NOTE | 2024-03-11 12:35 | P.EPPROC ---
- EP Procedure Note Electrophysiology Procedure Note: Diagnosis Elevated pulmonary artery pressures on noninvasive imaging Shortness of breath Right heart cath Under local anesthesia, an 8 [place] sheath was placed in the right femoral vein A Withee-Duong balloon flotation catheter was placed Pulmonary wedge pressures 10/8, mean 7 Oxygen saturation 99% PA pressures 37/12 mmHg, mean 23 Right ventricle 35/6 mmHg, mean 10 Oxygen saturation 69% RA pressures 9/7 mmHg mean 4 mmHg Oxygen saturation 71% Impression Mildly elevated pulmonary artery pressures Normal pulmonary capillary wedge pressure and RA pressures Plan Weight loss Management of hypertension Evaluation and treatment of obstructive sleep apnea
[2024-03-11 13:18] VITALS: BP 160/71; PULSE 76; RESP 16
== END 2024-03-11 16:00 | disposition home or self-care (01) ==
LOC: CATHEP 09:56
PROVIDERS: ATTEND Internal Medicine Clinical Cardiac Electrophysiology
DX: I27.20 Pulmonary hypertension, unspecified (principal); I10 Essential (primary) hypertension; G47.33 Obstructive sleep apnea (adult) (pediatric); Z88.8 Allergy status to other drugs, medicaments and biological substances; Z79.899 Other long term (current) drug therapy
CPT/HCPCS: 93451; 80048; 85018; 82810; 84443; 85025; C1894; C1769; C1760 ×2; J2001